=== PATIENT | female | born 1950 | race Caucasian/White ===

== ENCOUNTER 2020-06-25 13:38 | Inpatient (IN) | payer MEDICARE ==
--- NOTE | 2020-06-25 16:36 | Emergency Department Report ---
Blank Doc - Documentation Documentation: 69-year-old female presents emerged department, from her primary care provider the [facility] was found to have a sodium of 124 that was drawn yesterday around 11:30 AM in conjunction with a potassium of 5.5 to the back to come to the emergency department for evaluation and treatment options This initial assessment/diagnostic orders/clinical plan/treatment(s) is/are subject to change based on patients health status, clinical progression and re-assessment by fellow clinical providers in the ED. Further treatment and workup at subsequent clinical providers discretion. Patient/guardian urged not to elope from the ED as their condition may be serious if not clinically assessed and managed. Initial orders include: Labs
[2020-06-25 17:23] LABS: Basophils # (Auto) 0.1 K/mm3 (0.0-0.1); Basophils % (Auto) 0.5 % (0.0-1.8); Eosinophils % (Auto) 0.3 % (0.0-4.3); Hematocrit 38.6 % (30.3-42.9); Hemoglobin 13.4 gm/dl (10.1-14.3); Lymphocytes # (Auto) 1.2 K/mm3 (1.2-5.4); Lymphocytes % (Auto) 8.6 % (13.4-35.0); Mean Corpuscular HGB Conc 35 % (30-34); Mean Corpuscular Volume 93 fl (79-97); Monocytes # (Auto) 0.8 K/mm3 (0.0-0.8); Monocytes % (Auto) 5.5 % (0.0-7.3); Platelet Count 413 K/mm3 (140-440); Red Blood Count 4.16 M/mm3 (3.65-5.03); Red Cell Distribution Width 12.3 % (13.2-15.2)
[2020-06-25 17:37] LABS: Alanine Aminotransferase 17 units/L (7-56); Albumin 4.4 g/dL (3.9-5); BUN/Creatinine Ratio 24; Blood Urea Nitrogen 19 mg/dL (7-17); Calcium 9.7 mg/dL (8.4-10.2); Hemolysis Index 35
--- NOTE | 2020-06-25 17:48 | XRay Report ---
CHEST PA AND LATERAL VIEWS INDICATION: WEAK. COMPARISON: Chest radiograph 10/16/2019. CT angiogram chest 10/17/2019. FINDINGS: Support devices: None Heart: Stable. Lungs/Pleura: Dense right basilar disease with small right pleural effusion, unchanged. Left lung rem ains clear. IMPRESSION: 1. Persistent, extensive right basilar disease, unchanged in 8 months. No new disease. Signer Name: Dagoberto Arnold MD Signed: 06/25/2020 5:44 PM Workstation Name: [id number]
[2020-06-25] MEDS ORDERED: SODIUM CHLORIDE 0.9% 1000 ML 1,000 ML IV ONE (19:44)
--- NOTE | 2020-06-25 19:50 | Emergency Department Report ---
ED General Adult HPI - General Chief complaint: Recheck/Abnormal Lab/Rx Stated complaint: SENT BY DR OFFICE/LAB WORK Time Seen by Provider: 06/25/20 19:19 Source: patient, family Mode of arrival: Wheelchair Limitations: Language Barrier - History of Present Illness Initial comments: Patient is 69 years old Iranian female with history of hypertension and diabetes. Patient presented to the ER after she was advised by her primary care physician to come to the emergency room for abnormal labs. Patient had a blood drawn yesterday by her primary care physician and found to have a sodium of 124 and potassium of 5.5. In the emergency room patient found to have a sodium of 107 and potassium of 6. Patient immediately started on normal saline at 125 mL/h. Patient was admitted before for the same reason and her sodium was as low as 107 last time, she was diagnosed with SIADH treated with Tolvaptan and responded very well. - Related Data Home Medications Medication Instructions Recorded Confirmed Last Taken Furosemide [Lasix TAB] 20 mg PO QDAY 10/15/19 10/15/19 Unknown Metformin HCl [Glucophage] 1,000 mg PO DAILY 10/15/19 10/15/19 Unknown Previous Rx's Medication Instructions Recorded Last Taken Type Valsartan [Diovan] 160 mg PO DAILY #30 tablet 10/18/19 Unknown Rx dilTIAZem CD [Cardizem CD] 120 mg PO QDAY #30 capsule 10/18/19 Unknown Rx Allergies Allergy/AdvReac Type Severity Reaction Status Date / Time No Known Allergies Allergy Verified 10/12/19 11:06 ED Review of Systems ROS: Stated complaint: SENT BY DR OFFICE/LAB WORK Other details as noted in HPI Comment: All other systems reviewed and negative Constitutional: denies: chills, fever Respiratory: denies: cough, shortness of breath, SOB with exertion Cardiovascular: denies: chest pain Gastrointestinal: denies: abdominal pain, nausea, vomiting ED Past Medical Hx - Past Medical History Previous Medical History?: Yes Hx Hypertension: Yes Hx Diabetes: Yes - Social History Smoking Status: Unknown if ever smoked - Medications Home Medications: Home Medications Medication Instructions Recorded Confirmed Last Taken Type Furosemide [Lasix TAB] 20 mg PO QDAY 10/15/19 10/15/19 Unknown History Metformin HCl [Glucophage] 1,000 mg PO DAILY 10/15/19 10/15/19 Unknown History Valsartan [Diovan] 160 mg PO DAILY #30 tablet 10/18/19 Unknown Rx dilTIAZem CD [Cardizem CD] 120 mg PO QDAY #30 capsule 10/18/19 Unknown Rx ED Physical Exam - General Limitations: Language Barrier General appearance: alert, in no apparent distress - Head Head exam: Present: atraumatic, normocephalic, normal inspection - Eye Eye exam: Present: normal appearance, PERRL - ENT ENT exam: Present: normal exam, normal orophraynx, mucous membranes moist - Neck Neck exam: Present: normal inspection, full ROM. Absent: tenderness, meningismus - Respiratory Respiratory exam: Present: normal lung sounds bilaterally - Cardiovascular Cardiovascular Exam: Present: regular rate, normal rhythm, normal heart sounds - GI/Abdominal GI/Abdominal exam: Present: soft, normal bowel sounds. Absent: distended, tenderness, guarding, rebound, rigid, organomegaly, mass, bruit, pulsatile mass, hernia - Extremities Exam Extremities exam: Present: normal inspection, full ROM, normal capillary refill. Absent: tenderness - Back Exam Back exam: Present: normal inspection, full ROM. Absent: CVA tenderness (R), CVA tenderness (L) - Neurological Exam Neurological exam: Present: alert, oriented X3, CN II-XII intact - Psychiatric Psychiatric exam: Present: normal mood - Skin Skin exam: Present: warm, intact, normal color ED Course Vital Signs 06/25/20 06/25/20 06/25/20 14:16 20:10 20:30 Temperature 97.8 F 97.6 F Pulse Rate 129 H 128 H 124 H Respiratory 16 24 24 Rate Blood Pressure 175/96 Blood Pressure 202/104 175/96 [Right] O2 Sat by Pulse 97 97 97 Oximetry 06/25/20 06/25/20 06/25/20 20:45 21:01 21:15 Temperature Pulse Rate 125 H 128 H 126 H Respiratory 26 H 23 25 H Rate Blood Pressure 182/102 173/101 Blood Pressure [Right] O2 Sat by Pulse 97 97 98 Oximetry 06/25/20 06/25/20 06/25/20 21:19 21:31 21:45 Temperature Pulse Rate 127 H 104 H 108 H Respiratory 24 26 H Rate Blood Pressure 167/100 160/92 148/80 Blood Pressure [Right] O2 Sat by Pulse 96 97 Oximetry 1206/25/20 06/25/20 22:00 22:15 22:31 Temperature Pulse Rate 111 H 112 H 113 H Respiratory 29 H 17 26 H Rate Blood Pressure 153/99 162/86 164/80 Blood Pressure [Right] O2 Sat by Pulse 98 97 96 Oximetry 06/25/20 22:45 Temperature Pulse Rate 112 H Respiratory 27 H Rate Blood Pressure 164/80 Blood Pressure [Right] O2 Sat by Pulse 97 Oximetry ED Medical Decision Making - Lab Data Result diagrams: 06/26/20 04:41 06/26/20 04:41 - EKG Data -: EKG Interpreted by [facility] EKG shows normal: sinus rhythm Rate: tachycardia - EKG Data Interpretation: no acute changes - Radiology Data Radiology results: report reviewed - Medical Decision Making Patient is 69 years old Iranian female with history of hypertension and diabetes. Patient presented to the ER after she was advised by her primary care physician to come to the emergency room for abnormal labs. Patient had a blood drawn yesterday by her primary care physician and found to have a sodium of 124 and potassium of 5.5. In the emergency room patient found to have a sodium of 107 and potassium of 6. Patient immediately started on normal saline at 125 mL/h. Patient was admitted before for the same reason and her sodium was as low as 107 last time, she was diagnosed with SIADH treated with Tolvaptan and responded very well. EKG shows sinus tachycardia with a heart rate of 128. Blood pressure is 190/110. Patient received labetalol 10 mg IV. Patient started on normal saline at 125 mL/h. Patient also received dextrose and insulin for hyperkalemia. I discussed the patient with Dr. Pollack, he agreed to admit the patient to medical service for further management. Critical Care Time: Yes Critical care time in (mins) excluding proc time.: 30 Critical care attestation.: If time is entered above; I have spent that time in minutes in the direct care of this critically ill patient, excluding procedure time. ED Disposition Clinical Impression: Acute hyponatremia, Acute hyperkalemia Disposition: OP ADMIT IP TO THIS HOSP Is pt being admited?: Yes Condition: Stable
[2020-06-25] MEDS ORDERED: INSULIN REGULAR, HUMAN 100 UNIT/ML 3ML VIAL IV ONE (21:02)
[2020-06-25] MEDS ORDERED: DEXTROSE 50% IN WATER (25GM) 50 ML SYRINGE IV ONE ×2 (21:11→22:00)
[2020-06-25] MEDS ORDERED: MAGNESIUM HYDROXIDE (MOM) ORAL LIQD UDC PO PRN (22:06)
[2020-06-25] MEDS ORDERED: DEXTROSE 50% IN WATER (25GM) 50 ML SYRINGE IV PRN (22:06)
[2020-06-25] MEDS ORDERED: ONDANSETRON 4 MG/2 ML INJ IV PRN (22:06)
--- NOTE | 2020-06-25 22:20 | History and Physical Report ---
History of Present Illness Date of examination: 06/25/20 Date of admission: 06/25/20 21:33 Chief complaint: Abnormal Labs History of present illness: 69-year-old Turkish female with known history of diabetes mellitus and hypertension was sent to the emergency room today by the primary care physician for evaluation of abnormal labs. Patient had some lab work done at her primary care physician's office and sodium was said to be 124 and potassium of 5.5. Repeat labs here in the emergency room reveals a sodium of 107 and potassium of 6. Patient has had similar presentations in the past and was diagnosed with SIADH during which she was treated with tolvaptan with good response. Patient had no complaints today and there was a language barrier however who was by the bedside was able to respond on a limited basis for his . Patient has been started on IV fluid normal saline. Past History Past Medical History: diabetes, hypertension Past Surgical History: No surgical history Social history: no significant social history Family history: no significant family history Medications and Allergies Allergies Allergy/AdvReac Type Severity Reaction Status Date / Time No Known Allergies Allergy Verified 10/12/19 11:06 Home Medications Medication Instructions Recorded Confirmed Last Taken Type Furosemide [Lasix TAB] 20 mg PO QDAY 10/15/19 10/15/19 Unknown History Metformin HCl [Glucophage] 1,000 mg PO DAILY 10/15/19 10/15/19 Unknown History Valsartan [Diovan] 160 mg PO DAILY #30 tablet 10/18/19 Unknown Rx dilTIAZem CD [Cardizem CD] 120 mg PO QDAY #30 capsule 10/18/19 Unknown Rx Active Meds: Active Medications Sodium Chloride (Nacl 0.9% 1000 Ml) 1,000 mls @ 125 mls/hr IV ONCE ONE Stop: 06/26/20 03:43 Last Admin: 06/25/20 20:20 Dose: 125 mls/hr Documented by: Review of Systems Constitutional: no fever, no chills Cardiovascular: no chest pain, no palpitations Respiratory: no cough, no shortness of breath Gastrointestinal: no abdominal pain, no nausea, no vomiting, no diarrhea Genitourinary Female: no pelvic pain, no flank pain, no dysuria, no hematuria Musculoskeletal: no neck pain, no low back pain Integumentary: no rash, no pruritis Neurological: no headaches, no convulsions, no confusion Psychiatric: no anxiety, no depression Exam - Constitutional Vitals: Temp Pulse Resp BP Pulse Ox 97.6 F 108 H 26 H 148/80 97 06/25/20 20:10 06/25/20 21:45 06/25/20 21:45 06/25/20 21:45 06/25/20 21:45 General appearance: Present: no acute distress, well-nourished - EENT Eyes: Present: PERRL, EOM intact. Absent: scleral icterus ENT: hearing intact, clear oral mucosa, dentition normal - Neck Neck: Present: supple, normal ROM - Respiratory Respiratory effort: normal Respiratory: bilateral: CTA - Cardiovascular Rhythm: regular Heart Sounds: Present: S1 & S2. Absent: gallop, systolic murmur, diastolic mu rmur, rub - Extremities Extremities: no ischemia, pulses intact, pulses symmetrical, No edema, Full ROM Peripheral Pulses: within normal limits - Abdominal General gastrointestinal: Present: soft, non-tender, non-distended, normal bowel sounds. Absent: mass - Integumentary Integumentary: Present: clear, warm, dry. Absent: rash - Musculoskeletal Musculoskeletal: strength equal bilaterally - Psychiatric Psychiatric: appropriate mood/affect, intact judgment & insight, memory intact, cooperative - Neurologic Neurologic: CNII-XII intact, no focal deficits, moves all extremities Results - Labs CBC & Chem 7: 06/25/20 16:54 06/25/20 16:54 Labs: Abnormal lab results 06/25/20 06/25/20 Range/Units 16:54 16:54 WBC 14.0 H (4.5-11.0) K/mm3 MCHC 35 H (30-34) % RDW 12.3 L (13.2-15.2) % Lymph % (Auto) 8.6 L (13.4-35.0) % Seg Neutrophils % 85.1 H (40.0-70.0) % Seg Neutrophils # 11.9 H (1.8-7.7) K/mm3 Sodium 107 L* (137-145) mmol/L Potassium 6.0 H (3.6-5.0) mmol/L Chloride 76.1 L (98-107) mmol/L Carbon Dioxide 17 L (22-30) mmol/L BUN 19 H (7-17) mg/dL Glucose 211 H (65-100) mg/dL Assessment and Plan - Patient Problems (1) Acute hyponatremia Current Visit: Yes Status: Acute Plan to address problem: Patient was diagnosed with SIADH in the past. We will place consult to nephrology for evaluation and further recommendation. Patient had used tolvaptan in the past. Meanwhile patient placed on IV fluid normal saline. Will monitor chemistry, serum/urine osm, urine Na, Urine Cl levels. serum cortisol and TSH with Free T4 (2) Acute hyperkalemia Current Visit: Yes Status: Acute Plan to address problem: Patient has had insulin and glucose, calcium gluconate and Kayexalate. Will monitor potassium levels. (3) HTN (hypertension) Current Visit: No Status: Acute Qualifiers: Plan to address problem: We will monitor vital signs and resume routine home medications once reconciled. (4) T2DM (type 2 diabetes mellitus) Current Visit: No Status: Chronic Plan to address problem: We will monitor Accu-Cheks. (5) DVT prophylaxis Current Visit: No Status: Acute Plan to address problem: Patient placed on subcutaneous heparin. (6) Full code status Current Visit: Yes Status: Acute
[2020-06-26] MEDS ORDERED: SODIUM POLYSTYRENE 15 GM/60 ML ORAL LIQD PO ONE (05:13)
[2020-06-26 05:22] LABS: Basophils % (Auto) 0.2 % (0.0-1.8); Eosinophils # (Auto) 0.1 K/mm3 (0.0-0.4); Eosinophils % (Auto) 0.5 % (0.0-4.3); Hematocrit 35.5 % (30.3-42.9); Hemoglobin 12.4 gm/dl (10.1-14.3); Lymphocytes % (Auto) 6.6 % (13.4-35.0); Mean Corpuscular HGB Conc 35 % (30-34); Mean Corpuscular Volume 91 fl (79-97); Monocytes # (Auto) 0.8 K/mm3 (0.0-0.8); Monocytes % (Auto) 5.6 % (0.0-7.3); Platelet Count 438 K/mm3 (140-440); Red Cell Distribution Width 12.4 % (13.2-15.2)
[2020-06-26 05:35] LABS: Blood Urea Nitrogen 14 mg/dL (7-17); Calcium 9.3 mg/dL (8.4-10.2); Hemolysis Index 29
[2020-06-26] MEDS: HEPARIN 5,000 UNIT/1 ML VIAL SUB-Q SCH ×3 (05:36→22:55)
[2020-06-26 05:54] LABS: BUN/Creatinine Ratio 28
[2020-06-26] MEDS: INSULIN LISPRO 100 UNIT/ML VIAL 3 mL SUB-Q SCH ×4 (08:52→22:50)
--- NOTE | 2020-06-26 09:25 | Progress Note ---
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 Nephrology consultation for evaluation and further recommendation. Patient had used tolvaptan in the past. Continue IV fluid normal saline for now. Will monitor chemistry, serum/urine osm, urine Na, Urine Cl levels. Follow-up serum cortisol and TSH with Free T4 Acute hyperkalemia Patient has had insulin and glucose, calcium gluconate and Kayexalate. Will monitor potassium levels. HTN (hypertension) Continue home antihypertensive medications. T2DM (type 2 diabetes mellitus) We will monitor Accu-Cheks. DVT prophylaxis Patient placed on subcutaneous heparin. Full code status History Interval history: No new issues overnight Hospitalist Physical - Constitutional Vitals: Temp Pulse Resp BP Pulse Ox 98.0 F 119 H 18 161/83 95 06/26/20 08:30 06/26/20 08:30 06/26/20 08:30 06/26/20 08:30 06/26/20 08:30 General appearance: Present: no acute distress, well-nourished - EENT Eyes: Present: PERRL, EOM intact ENT: hearing intact, clear oral mucosa, dentition normal - Neck Neck: Present: supple, normal ROM - Respiratory Respiratory effort: normal Respiratory: bilateral: CTA - Cardiovascular Rhythm: regular Heart Sounds: Present: S1 & S2. Absent: gallop, rub - Extremities Extremities: no ischemia, No edema, Full ROM - Abdominal General gastrointestinal: soft, non-tender, non-distended, normal bowel sounds - Integumentary Integumentary: Present: clear, warm, dry - Neurologic Neurologic: CNII-XII intact, moves all extremities Results - Labs CBC & Chem 7: 06/26/20 04:41 06/26/20 04:41 Labs: Laboratory Last Values WBC 15.1 K/mm3 (4.5-11.0) H 06/26/20 04:41 RBC 3.90 M/mm3 (3.65-5.03) 06/26/20 04:41 Hgb 12.4 gm/dl (10.1-14.3) 06/26/20 04:41 Hct 35.5 % (30.3-42.9) 06/26/20 04:41 MCV 91 fl (79-97) 06/26/20 04:41 MCH 32 pg (28-32) 06/26/20 04:41 MCHC 35 % (30-34) H 06/26/20 04:41 RDW 12.4 % (13.2-15.2) L 06/26/20 04:41 Plt Count 438 K/mm3 (140-440) 06/26/20 04:41 Lymph % (Auto) 6.6 % (13.4-35.0) L 06/26/20 04:41 [place] % (Auto) 5.6 % (0.0-7.3) 06/26/20 04:41 Eos % (Auto) 0.5 % (0.0-4.3) 06/26/20 04:41 Baso % (Auto) 0.2 % (0.0-1.8) 06/26/20 04:41 Lymph # (Auto) 1.0 K/mm3 (1.2-5.4) L 06/26/20 04:41 [place] # (Auto) 0.8 K/mm3 (0.0-0.8) 06/26/20 04:41 Eos # (Auto) 0.1 K/mm3 (0.0-0.4) 06/26/20 04:41 Baso # (Auto) 0.0 K/mm3 (0.0-0.1) 06/26/20 04:41 Seg Neutrophils % 87.1 % (40.0-70.0) H 06/26/20 04:41 Seg Neutrophils # 13.1 K/mm3 (1.8-7.7) H 06/26/20 04:41 PT 13.1 Sec. (12.2-14.9) 06/26/20 04:41 INR 1.00 (0.87-1.13) 06/26/20 04:41 Sodium 109 mmol/L (137-145) L* 06/26/20 04:41 Potassium 4.6 mmol/L (3.6-5.0) D 06/26/20 04:41 Chloride 75.4 mmol/L (98-107) L 06/26/20 04:41 Carbon Dioxide 20 mmol/L (22-30) L 06/26/20 04:41 Anion Gap 18 mmol/L 06/26/20 04:41 BUN 14 mg/dL (7-17) 06/26/20 04:41 Creatinine 0.5 mg/dL (0.6-1.2) L 06/26/20 04:41 Estimated GFR > 60 ml/min 06/26/20 04:41 BUN/Creatinine Ratio 28 % 06/26/20 04:41 Glucose 221 mg/dL (65-100) H 06/26/20 04:41 POC Glucose 286 mg/dL (70-105) H 06/26/20 08:05 Calcium 9.3 mg/dL (8.4-10.2) 06/26/20 04:41 Total Bilirubin 0.50 mg/dL (0.1-1.2) 06/25/20 16:54 AST 24 units/L (5-40) 06/25/20 16:54 ALT 17 units/L (7-56) 06/25/20 16:54 Alkaline Phosphatase 96 units/L (35-129) 06/25/20 16:54 Total Protein 8.1 g/dL (6.3-8.2) 06/25/20 16:54 Albumin 4.4 g/dL (3.9-5) 06/25/20 16:54 Albumin/Globulin Ratio 1.2 % 06/25/20 16:54 TSH 0.236 mlU/mL (0.270-4.200) L 06/26/20 05:39 Free T4 2.47 ng/dL (0.76-1.46) H 06/26/20 05:39 King/IV: IV Catheter Type [Right Hand] INT / Saline Lock Active Medications - Current Medications Current Medications: Generic Name Dose Route Start Last Admin Trade Name Deborah PRN Reason Stop Dose Admin Acetaminophen 650 mg 06/25/20 22:06 Tylenol PO Q4H PRN Pain MILD(1-3)/Fever >100.5/ADORNO Dextrose 50 ml 06/25/20 22:06 D50w (25gm) Syringe IV Q30MIN PRN Hypoglycemia Protocol Heparin Sodium (Porcine) 5,000 unit 06/26/20 06:00 06/26/20 05:36 Heparin SUB-Q 5,000 unit Q8HR ELIUD Administration Sodium Chloride 1,000 mls @ 125 mls/hr 06/25/20 22:15 Nacl 0.9% 1000 Ml IV DIRECT ELIUD Insulin Human Lispro 0 unit 06/26/20 07:30 06/26/20 08:52 Humalog SUB-Q 4 unit ACHS ELIUD Administration Protocol Magnesium Hydroxide 30 ml 06/25/20 22:06 Milk Of Magnesia PO Q4H PRN Constipation Ondansetron HCl 4 mg 06/25/20 22:06 Zofran IV Q8H PRN Nausea And Vomiting Sodium Chloride 10 ml 06/26/20 10:00 Sodium Chloride Flush Syringe 10 Ml IV BID ELIUD Sodium Chloride 10 ml 06/25/20 22:06 Sodium Chloride Flush Syringe 10 Ml IV PRN PRN LINE FLUSH
--- NOTE | 2020-06-26 09:41 | Consultation ---
History of Present Illness - Reason for Consult hyponatremia, hyperkalemia - History of Present Illness 69-year-old Italian speaking female with past medical history of hypertension diabetes who previously presented to the emergency department with similar symptoms of weakness fatigue associated with significant hyponatremia, essentially is brought into the emergency department because of similarly abnormal labs. At the previous hospitalization patient was diagnosed with SIADH and was appropriately treated with tolvaptan with 2 doses. She responded very well to the treatment. At that time she was also being worked up for an underlying pneumonia. She had a chest x-ray done during this admission which seems to show at least some residual scarring in the lungs possibly from the previous pneumonia. This may be a cause of her recurrent issues with SIADH and consequent hyponatremia. She is euvolemic on examination this morning and there is no acute issues or any sort of neurologic changes that necessitate the use of hypertonic saline. She was given IV fluids overnight with a mild increase in her serum sodium from 107 to 109 mEq/L. Nephrology is consulted for further management at this time. Past History Past Medical History: diabetes, hypertension Past Surgical History: No surgical history Social history: no significant social history Family history: no significant family history Medications and Allergies Allergies Allergy/AdvReac Type Severity Reaction Status Date / Time No Known Allergies Allergy Verified 10/12/19 11:06 Home Medications Medication Instructions Recorded Confirmed Last Taken Type Furosemide [Lasix TAB] 20 mg PO QDAY 10/15/19 10/15/19 Unknown History Metformin HCl [Glucophage] 1,000 mg PO DAILY 10/15/19 10/15/19 Unknown History Valsartan [Diovan] 160 mg PO DAILY #30 tablet 10/18/19 Unknown Rx dilTIAZem CD [Cardizem CD] 120 mg PO QDAY #30 capsule 10/18/19 Unknown Rx Active Meds: Active Medications Acetaminophen (Tylenol) 650 mg PO Q4H PRN PRN Reason: Pain MILD(1-3)/Fever >100.5/ADORNO Dextrose (D50w (25gm) Syringe) 50 ml IV Q30MIN PRN; Protocol PRN Reason: Hypoglycemia Heparin Sodium (Porcine) (Heparin) 5,000 unit SUB-Q Q8HR ELIUD Last Admin: 06/26/20 05:36 Dose: 5,000 unit Documented by: Sodium Chloride (Nacl 0.9% 1000 Ml) 1,000 mls @ 125 mls/hr IV DIRECT ELIUD Insulin Human Lispro (Humalog) 0 unit SUB-Q ACHS ELIUD; Protocol Last Admin: 06/26/20 08:52 Dose: 4 unit Documented by: Magnesium Hydroxide (Milk Of Magnesia) 30 ml PO Q4H PRN PRN Reason: Constipation Ondansetron HCl (Zofran) 4 mg IV Q8H PRN PRN Reason: Nausea And Vomiting Sodium Chloride (Sodium Chloride Flush Syringe 10 Ml) 10 ml IV BID ELIUD Sodium Chloride (Sodium Chloride Flush Syringe 10 Ml) 10 ml IV PRN PRN PRN Reason: LINE FLUSH Review of Systems All systems: negative Constitutional: fatigue Exam - Vital Signs Vital signs: Vital Signs Temp Pulse Resp BP Pulse Ox 97.8 F 129 H 16 202/104 97 06/25/20 14:16 06/25/20 14:16 06/25/20 14:16 06/25/20 14:16 06/25/20 14:16 - General Appearance General appearance: well-developed, appears stated age EENT: ATNC Neck: Present: neck supple Respiratory: Clear to Ascultation, Normal Exam Heart: regular Gastrointestinal: Present: normal Integumentary: no rash Neurologic: no focal deficit Musculoskeletal: Present: deferred Psychiatric: cooperative Results - Lab Results 06/26/20 04:41 06/26/20 04:41 Most recent lab results Calcium 9.3 mg/dL (8.4-10.2) 06/26/20 04:41 Assessment and Plan - Patient Problems (1) Hyponatremia Current Visit: Yes Status: Chronic Plan to address problem: Likely in the setting of SIADH. Chest x-ray does show persistent right basilar process that may actually be indicative of either previous pneumonia or possibly malignancy which has to be considered. Persistent pulmonary process can poten tially lead to recurrent issues with hyponatremia secondary to inappropriate secretion of ADH. Will be following up urine electrolyte studies. We will give a dose of tolvaptan today with careful monitoring. While on tolvaptan she should not be on any sort of fluid restrictions. She is euvolemic on examination. (2) Hyperkalemia Current Visit: Yes Status: Acute Plan to address problem: Improved with adequate fluid hydration and increased distal sodium delivery. (3) HTN (hypertension) Current Visit: No Status: Acute Qualifiers: Plan to address problem: Monitor under current regimen. (4) Right lower lobe pneumonia Current Visit: No Status: Acute Plan to address problem: Need to also consider possible underlying malignancy. Nonetheless this persistent right basilar lung process is most likely contributing to her recurrent hyponatremia in the setting of SIADH. (5) T2DM (type 2 diabetes mellitus) Current Visit: No Status: Chronic Plan to address problem: Diabetes managed per primary attending.
[2020-06-26] MEDS: SODIUM CHLORIDE 0.9% 1000 ML 1,000 ML IV SCH ×2 (09:48→17:46)
[2020-06-26] MEDS ORDERED: TOLVAPTAN 15 MG TAB PO ONE (10:00)
[2020-06-26 14:13] LABS: Bilirubin,Urine NEG (Negative); Blood,Urine NEG (Negative); Color,Urine Straw (Yellow); RBC,Urine < 1.0 /HPF (0.0-6.0); Urobilinogen,Urine < 2.0 mg/dL (<2.0); WBC,Urine < 1.0 /HPF (0.0-6.0)
[2020-06-26 15:50] LABS: Chloride, Urine 77.2 mmolL (110-250)
[2020-06-27] MEDS: dilTIAZem CD 120 MG CAP PO SCH ×2 (01:55→10:54)
[2020-06-27] MEDS: HEPARIN 5,000 UNIT/1 ML VIAL SUB-Q SCH ×4 (06:55→22:30)
[2020-06-27] MEDS: INSULIN LISPRO 100 UNIT/ML VIAL 3 mL SUB-Q SCH ×4 (08:18→22:30)
--- NOTE | 2020-06-27 09:47 | Progress Note ---
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 Nephrology consultation for evaluation and further recommendation. Patient had used tolvaptan in the past. Continue IV fluid normal saline for now. Will monitor chemistry, serum/urine osm, urine Na, Urine Cl levels. Follow-up serum cortisol and TSH with Free T4 Persistent right basilar infiltrate acute hyperkalemia Patient has had insulin and glucose, calcium gluconate and Kayexalate. Will monitor potassium levels. HTN (hypertension) Continue home antihypertensive medications. T2DM (type 2 diabetes mellitus) We will monitor Accu-Cheks. DVT prophylaxis Patient placed on subcutaneous heparin. Full code status 06/27/2020. Chest x-ray does show persistent right basilar process that may actually be indicative of either previous pneumonia or possibly malignancy which has to be considered. Persistent pulmonary process can potentially lead to recurrent issues with hyponatremia secondary to inappropriate secretion of ADH. Will be following up urine electrolyte studies. Check CT of chest and consider pulmonary consultation. No weight loss from her previous hospitalization in September. Continue tolvaptan per nephrology and monitor BMP closely. History Interval history: No new issues overnight Hospitalist Physical - Constitutional Vitals: Temp Pulse Resp BP Pulse Ox 98.0 F 130 H 20 124/79 99 06/27/20 07:27 06/27/20 08:19 06/27/20 08:19 06/27/20 07:27 06/27/20 07:27 General appearance: Present: no acute distress, well-nourished - EENT Eyes: Present: PERRL, EOM intact ENT: hearing intact, clear oral mucosa, dentition normal - Neck Neck: Present: supple, normal ROM - Respiratory Respiratory effort: normal Respiratory: bilateral: CTA - Cardiovascular Rhythm: regular Heart Sounds: Present: S1 & S2. Absent: gallop, rub - Extremities Extremities: no ischemia, No edema, Full ROM - Abdominal General gastrointestinal: soft, non-tender, non-distended, normal bowel sounds - Integumentary Integumentary: Present: clear, warm, dry - Neurologic Neurologic: CNII-XII intact, moves all extremities Results - Labs CBC & Chem 7: 06/26/20 04:41 06/26/20 04:41 Labs: Laboratory Last Values WBC 15.1 K/mm3 (4.5-11.0) H 06/26/20 04:41 RBC 3.90 M/mm3 (3.65-5.03) 06/26/20 04:41 Hgb 12.4 gm/dl (10.1-14.3) 06/26/20 04:41 Hct 35.5 % (30.3-42.9) 06/26/20 04:41 MCV 91 fl (79-97) 06/26/20 04:41 MCH 32 pg (28-32) 06/26/20 04:41 MCHC 35 % (30-34) H 06/26/20 04:41 RDW 12.4 % (13.2-15.2) L 06/26/20 04:41 Plt Count 438 K/mm3 (140-440) 06/26/20 04:41 Lymph % (Auto) 6.6 % (13.4-35.0) L 06/26/20 04:41 [place] % (Auto) 5.6 % (0.0-7.3) 06/26/20 04:41 Eos % (Auto) 0.5 % (0.0-4.3) 06/26/20 04:41 Baso % (Auto) 0.2 % (0.0-1.8) 06/26/20 04:41 Lymph # (Auto) 1.0 K/mm3 (1.2-5.4) L 06/26/20 04:41 [place] # (Auto) 0.8 K/mm3 (0.0-0.8) 06/26/20 04:41 Eos # (Auto) 0.1 K/mm3 (0.0-0.4) 06/26/20 04:41 Baso # (Auto) 0.0 K/mm3 (0.0-0.1) 06/26/20 04:41 Seg Neutrophils % 87.1 % (40.0-70.0) H 06/26/20 04:41 Seg Neutrophils # 13.1 K/mm3 (1.8-7.7) H 06/26/20 04:41 PT 13.1 Sec. (12.2-14.9) 06/26/20 04:41 INR 1.00 (0.87-1.13) 06/26/20 04:41 Sodium 109 mmol/L (137-145) L* 06/26/20 04:41 Potassium 4.6 mmol/L (3.6-5.0) D 06/26/20 04:41 Chloride 75.4 mmol/L (98-107) L 06/26/20 04:41 Carbon Dioxide 20 mmol/L (22-30) L 06/26/20 04:41 Anion Gap 18 mmol/L 06/26/20 04:41 BUN 14 mg/dL (7-17) 06/26/20 04:41 Creatinine 0.5 mg/dL (0.6-1.2) L 06/26/20 04:41 Estimated GFR > 60 ml/min 06/26/20 04:41 BUN/Creatinine Ratio 28 % 06/26/20 04:41 Glucose 221 mg/dL (65-100) H 06/26/20 04:41 POC Glucose 137 mg/dL (70-105) H 06/27/20 08:11 Calcium 9.3 mg/dL (8.4-10.2) 06/26/20 04:41 Total Bilirubin 0.50 mg/dL (0.1-1.2) 06/25/20 16:54 AST 24 units/L (5-40) 06/25/20 16:54 ALT 17 units/L (7-56) 06/25/20 16:54 Alkaline Phosphatase 96 units/L (35-129) 06/25/20 16:54 Total Protein 8.1 g/dL (6.3-8.2) 06/25/20 16:54 Albumin 4.4 g/dL (3.9-5) 06/25/20 16:54 Albumin/Globulin Ratio 1.2 % 06/25/20 16:54 TSH 0.236 mlU/mL (0.270-4.200) L 06/26/20 05:39 Free T4 2.47 ng/dL (0.76-1.46) H 06/26/20 05:39 Urine Color Straw (Yellow) 06/26/20 Unknown Urine Turbidity Clear (Clear) 06/26/20 Unknown Urine pH 7.0 (5.0-7.0) 06/26/20 Unknown Ur Specific [place] 1.014 (1.003-1.030) 06/26/20 Unknown Urine Protein 100 mg/dl mg/dL (Negative) 06/26/20 Unknown Urine Glucose (UA) >=500 mg/dL (Negative) 06/26/20 Unknown Urine Ketones Neg mg/dL (Negative) 06/26/20 Unknown Urine Blood Neg (Negative) 06/26/20 Unknown Urine Nitrite Neg (Negative) 06/26/20 Unknown Urine Bilirubin Neg (Negative) 06/26/20 Unknown Urine Urobilinogen < 2.0 mg/dL (<2.0) 06/26/20 Unknown Ur Leukocyte Esterase Neg (Negative) 06/26/20 Unknown Urine WBC (Auto) < 1.0 /HPF (0.0-6.0) 06/26/20 Unknown Urine RBC (Auto) < 1.0 /HPF (0.0-6.0) 06/26/20 Unknown Urine Sodium 82 mmol/L 06/26/20 Unknown Urine Chloride 77.2 mmolL (110-250) L 06/26/20 Unknown [place]/IV: Voiding Method External Female Catheter IV Catheter Type [Right Hand] INT / Saline Lock Active Medications - Current Medications Current Medications: Generic Name Dose Route Start Last Admin Trade Name Freq PRN Reason Stop Dose Admin Acetaminophen 650 mg 06/25/20 22:06 Tylenol PO Q4H PRN Pain MILD(1-3)/Fever >100.5/ADORNO Dextrose 50 ml 06/25/20 22:06 D50w (25gm) Syringe IV Q30MIN PRN Hypoglycemia Protocol Diltiazem HCl 120 mg 06/27/20 01:04 06/27/20 01:55 Cardizem Cd PO 120 mg QDAY ELIUD Administration Heparin Sodium (Porcine) 5,000 unit 06/26/20 06:00 06/27/20 06:55 Heparin SUB-Q 5,000 unit Q8HR ELIUD Administration Sodium Chloride 1,000 mls @ 125 mls/hr 06/25/20 22:15 06/26/20 17:46 Nacl 0.9% 1000 Ml IV 125 mls/hr DIRECT ELIUD Administration Insulin Human Lispro 0 unit 06/26/20 07:30 06/27/20 08:18 Humalog SUB-Q Not Given ACHS ELIUD Protocol Magnesium Hydroxide 30 ml 06/25/20 22:06 Milk Of Magnesia PO Q4H PRN Constipation Ondansetron HCl 4 mg 06/25/20 22:06 Zofran IV Q8H PRN Nausea And Vomiting Sodium Chloride 10 ml 06/26/20 10:00 06/26/20 22:55 Sodium Chloride Flush Syringe 10 Ml IV 10 ml BID ELIUD Administration Sodium Chloride 10 ml 06/25/20 22:06 Sodium Chloride Flush Syringe 10 Ml IV PRN PRN LINE FLUSH Valsartan 160 mg 06/27/20 10:00 Diovan PO DAILY ELIUD Nutrition/Malnutrition Assess - Dietary Evaluation Nutrition/Malnutrition Findings: Nutrition Notes Start: 06/26/20 13:14 Freq: Status: Active Protocol: Document 06/26/20 13:14 CW (Rec: 06/26/20 13:22 CW [email or web address]) Co-Sign 06/26/20 13:14 MK Nutrition Notes Need for Assessment generated from: MD Order,manager mental health,MST, Education Initial or Follow up Assessment Current Diagnosis Diabetes,Hypertension Other Pertinent Diagnosis hyponatremia, hyperkalemia, SIADH Current Diet cardiac/ consistent CHO Labs/Tests Na 109 BG 286 Pertinent Medications NS at 125mls/hr Kionex Height 5 ft Weight 74.4 kg [place] Body Weight (kg) 45.45 BMI 32.0 Weight Status Obese Subjective/Other Information MD consult for diet education. Pt does not speak Irish and unable to locate translater phone. No physical signs of muscle or fat wasting observed . Per RN notes, no reported wt loss. RN states poor appetite and consuming 25% PO. Burn Absent Trauma Absent GI Symptoms None Current % PO Poor (25-49%) Minimum of two criteria No physical signs of malnutrition #2 Nutrition Diagnosis Inadequate oral intake Etiology chronic disease As Evidenced by Signs and Symptoms Pt eating 25% of PO #1 Nutrition Diagnosis Food and nutrition-related knowledge deficit Etiology DM As Evidenced by Signs and Symptoms BG 211 at admission Is patient on ventilator? No Is Patient Ambulatory and/or Out of Bed No REE-([facility]-confined to bed) 1422.528 Kcal/Kg value to use for calculation 16 Approximate Energy Requirements Using 1190 kcal/Kg Calculation Used for Recommendations Kcal/kg Additional Notes Protein needs: 1-1.2g/kg ADjBW 60kg (60-72g/day) Fluid: 1ml/kcal or MD order Nutrition Intervention Change Diet Order: continue Add Supplement/Snack (indicate name/kcal Glucerna daily /protein ) Provides kCal: 220 Provides Protein (gm) 10 Teaching Recipient Patient Learning Readiness Confused Teaching Methods Handout Response to Teaching Reinforcement needed,Unable to comprehend Education Handouts Provided Language appropriate DM and heart health handout Barriers to Learning Language RD phone number provided No Patient aware of follow up options No Actions To Overcome Barriers Other Goal #1 Meet at least 75% energy and protein needs via PO and ONS Goal #2 DM diet understanding Anticipated Discharge Needs: Cardiac/ Consistent CHO Follow-Up By: 06/28/20 Additional Comments FU diet education needs, intakes
[2020-06-27] MEDS: VALSARTAN 160MG TAB PO SCH (10:54)
[2020-06-27] MEDS: SODIUM CHLORIDE 0.9% 1000 ML 1,000 ML IV SCH (10:58)
--- NOTE | 2020-06-27 12:17 | Cat Scan Report ---
CT CHEST WITHOUT CONTRAST INDICATION / CLINICAL INFORMATION: persistent right basilar infiltrate. TECHNIQUE: Axial CT images were obtained through the chest without contrast. All CT scans at this location are p erformed using CT dose reduction for ALARA by means of automated exposure control. COMPARISON: CTA chest 10/18/2019 FINDINGS: HEART: No significant abnormality. THORACIC AORTA: No significant abnormality. MEDIASTINUM and ADELINE: Ill-defined soft tissue mass measuring 2.2 x 4.7 cm image 44 which encases and completely obstructs the right lower lobe bronchus again noted. 1.3 cm right anterior mediastinal node image 32, previously measured 8 mm image 40 Enlarged 1.3 cm right lower paratracheal node, unchanged LUNGS: Complete right lower lobe atelectasis. 1.6 cm left upper lobe nodular parenchymal density image 22, previously measured 1.5 cm image 23 Stable 4 mm lingular pulmonary nodule image 39 PLEURA: Small right pleural effusion, increased in size. No pneumothorax. ADDITIONAL FINDINGS: None. UPPER ABDOMEN: No significant abnormality. SKELETAL SYSTEM: No significant abnormality. IMPRESSION: 1. Right perihilar mass again encases and obstructs the right lower lobe bronchus characteristic for primary lung cancer with worsening mediastinal adenopathy and small right pleural effusion which shou ld be considered malignant until proven otherwise 2. Contralateral left pulmonary nodules unchanged worrisome for pulmonary metastases Signer Name: Carlo Lobato MD Signed: 06/27/2020 12:12 PM Workstation Name: [id number]
--- NOTE | 2020-06-27 14:44 | Progress Note ---
Assessment and Plan - Patient Problems (1) Hyponatremia Current Visit: Yes Status: Chronic Plan to address problem: Likely in the setting of SIADH. Chest x-ray does show persistent right basilar process that may actually be indicative of either previous pneumonia or possibly malignancy which has to be considered. Persistent pulmonary process can po tentially lead to recurrent issues with hyponatremia secondary to inappropriate secretion of ADH. Patient received 1 dose of tolvaptan yesterday. Pending repeat basic metabolic panel today which I have ordered stat at this time. I have discussed with nursing staff to notify us of the results once available as we have to assess for likely second dose of tolvaptan today. We will hold off on giving any more tolvaptan until we see the results of the labs. (2) Hyperkalemia Current Visit: Yes Status: Acute Plan to address problem: Improved with adequate fluid hydration and increased distal sodium delivery. (3) Lung cancer Current Visit: Yes Status: Acute Plan to address problem: CT scan concerning for underlying right perihilar mass concerning for malignancy. Also with worsening adenopathy and contralateral Left pulmonary nodules. The presence of pulmonary malignancy would explain recurrent issues with hyponatremia secondary to inappropriate secretion of antidiuretic hormone. (4) HTN (hypertension) Current Visit: No Status: Acute Qualifiers: Plan to address problem: Monitor under current regimen. (5) T2DM (type 2 diabetes mellitus) Current Visit: No Status: Chronic Plan to address problem: Diabetes managed per primary attending. Subjective Date of service: 06/27/20 Interval history: Pending labs this morning. She received 1 dose of tolvaptan yesterday. Worsening shortness of breath noted over the last [address] scan of the chest which did show evidence of right perihilar mass that is encasing and obstructing the right lower lobe bronchus is characteristic of a primary lung cancer with what seems to worsening mediastinal adenopathy and a small right pleural effusion that has to be considered malignant until proven otherwise. She also has contralateral left pulmonary nodules which are worrisome for pulmonary metastasis at this time. Objective - Vital Signs Vital signs: Vital Signs - 12hr 06/27/20 06/27/20 06/27/20 03:46 06:00 07:27 Temperature 98.7 F 98.0 F Pulse Rate 127 H 114 H 114 H Pulse Rate [ From Monitor] Respiratory 20 Rate Blood Pressure 133/64 124/79 Blood Pressure [Right] O2 Sat by Pulse 96 99 Oximetry 06/27/20 06/27/20 06/27/20 08:19 11:42 14:07 Temperature 98.4 F Pulse Rate 140 H 127 H Pulse Rate [ 130 H From Monitor] Respiratory 20 Rate Blood Pressure 181/122 Blood Pressure 168/98 [Right] O2 Sat by Pulse 97 Oximetry - General Appearance General appearance: appears stated age, chronically ill EENT: ATNC Neck: no JVD Respiratory: Present: Wheezes Cardiology: regular Gastrointestinal: normal Integumentary: warm and dry Neurologic: no focal deficit Musculoskeletal: deferred Psychiatric: cooperative - Lab 06/26/20 04:41 06/26/20 04:41 Most recent lab results Calcium 9.3 mg/dL (8.4-10.2) 06/26/20 04:41 Urine Sodium 82 mmol/L 06/26/20 Unknown - Allied health notes Allied health notes reviewed: nursing Medications & Allergies - Medications Allergies/Adverse Reactions: Allergies No Known Allergies Allergy (Verified 10/12/19 11:06) Home Medications: Home Medications Medication Instructions Recorded Confirmed Last Taken Type Furosemide [Lasix TAB] 20 mg PO QDAY 10/15/19 06/27/20 Unknown History Metformin HCl [Glucophage] 1,000 mg PO DAILY 10/15/19 06/27/20 Unknown History Valsartan [Diovan] 160 mg PO DAILY #30 tablet 10/18/19 06/27/20 Unknown Rx dilTIAZem CD [Cardizem CD] 120 mg PO QDAY #30 capsule 10/18/19 06/27/20 Unknown Rx Active Medications: Generic Name Dose Route Start Last Admin Trade Name Freq PRN Reason Stop Dose Admin Acetaminophen 650 mg 06/25/20 22:06 Tylenol PO Q4H PRN Pain MILD(1-3)/Fever >100.5/ADORNO Dextrose 50 ml 06/25/20 22:06 D50w (25gm) Syringe IV Q30MIN PRN Hypoglycemia Protocol Diltiazem HCl 120 mg 06/27/20 01:04 06/27/20 10:54 Cardizem Cd PO 120 mg QDAY ELIUD Administration Heparin Sodium (Porcine) 5,000 unit 06/26/20 06:00 06/27/20 12:20 Heparin SUB-Q 5,000 unit Q8HR ELIUD Administration Sodium Chloride 1,000 mls @ 125 mls/hr 06/25/20 22:15 06/27/20 10:58 Nacl 0.9% 1000 Ml IV 125 mls/hr DIRECT ELIUD Administration Insulin Human Lispro 0 unit 06/26/20 07:30 06/27/20 12:20 Humalog SUB-Q 6 unit ACHS ELIUD Administration Protocol Magnesium Hydroxide 30 ml 06/25/20 22:06 Milk Of Magnesia PO Q4H PRN Constipation Ondansetron HCl 4 mg 06/25/20 22:06 Zofran IV Q8H PRN Nausea And Vomiting Sodium Chloride 10 ml 06/26/20 10:00 06/27/20 10:55 Sodium Chloride Flush Syringe 10 Ml IV 10 ml BID ELIUD Administration Sodium Chloride 10 ml 06/25/20 22:06 Sodium Chloride Flush Syringe 10 Ml IV PRN PRN LINE FLUSH Valsartan 160 mg 06/27/20 10:00 06/27/20 10:54 Diovan PO 160 mg DAILY ELIUD Administration
[2020-06-27 16:08] LABS: Blood Urea Nitrogen 13 mg/dL (7-17); Calcium 9.3 mg/dL (8.4-10.2); Hemolysis Index 5
[2020-06-27 16:37] LABS: BUN/Creatinine Ratio 26
[2020-06-28] MEDS: HEPARIN 5,000 UNIT/1 ML VIAL SUB-Q SCH ×3 (06:48→22:01)
[2020-06-28 08:30] LABS: Basophils # (Auto) 0.1 K/mm3 (0.0-0.1); Basophils % (Auto) 0.7 % (0.0-1.8); Eosinophils # (Auto) 0.3 K/mm3 (0.0-0.4); Eosinophils % (Auto) 2.6 % (0.0-4.3); Hemoglobin 11.7 gm/dl (10.1-14.3); Lymphocytes # (Auto) 1.6 K/mm3 (1.2-5.4); Lymphocytes % (Auto) 13.1 % (13.4-35.0); Mean Corpuscular HGB Conc 35 % (30-34); Mean Corpuscular Volume 94 fl (79-97); Monocytes # (Auto) 0.8 K/mm3 (0.0-0.8); Monocytes % (Auto) 6.7 % (0.0-7.3); Platelet Count 434 K/mm3 (140-440); Red Blood Count 3.52 M/mm3 (3.65-5.03); Red Cell Distribution Width 12.7 % (13.2-15.2)
[2020-06-28] MEDS: INSULIN LISPRO 100 UNIT/ML VIAL 3 mL SUB-Q SCH ×5 (08:38→22:01)
[2020-06-28 08:45] LABS: Blood Urea Nitrogen 15 mg/dL (7-17); Calcium 9.5 mg/dL (8.4-10.2); Hemolysis Index 12
[2020-06-28 08:57] LABS: BUN/Creatinine Ratio 25
--- NOTE | 2020-06-28 09:53 | Progress Note ---
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 Nephrology consultation for evaluation and further recommendation. Patient had used tolvaptan in the past. Continue IV fluid normal saline for now. Will monitor chemistry, serum/urine osm, urine Na, Urine Cl levels. Follow-up serum cortisol and TSH with Free T4 Persistent right basilar infiltrate acute hyperkalemia Patient has had insulin and glucose, calcium gluconate and Kayexalate. Will monitor potassium levels. HTN (hypertension) Continue home antihypertensive medications. T2DM (type 2 diabetes mellitus) We will monitor Accu-Cheks. DVT prophylaxis Patient placed on subcutaneous heparin. Full code status 06/27/2020. Chest x-ray does show persistent right basilar process that may actually be indicative of either previous pneumonia or possibly malignancy which has to be considered. Persistent pulmonary process can potentially lead to recurrent issues with hyponatremia secondary to inappropriate secretion of ADH. Will be following up urine electrolyte studies. Check CT of chest and consider pulmonary consultation. No weight loss from her previous hospitalization in September. Continue tolvaptan per nephrology and monitor BMP closely. 06/28/2020. CT scan of the chest reveals a right perihilar mass encasing and obstructing the right lower lobe bronchus characteristic of primary lung cancer with worsening mediastinal adenopathy and small right pleural effusion which is likely a malignant effusion. Patient also has contralateral left pulmonary nodules worrisome for pulmonary metastasis. Pulmonary and oncology consultation. History Interval history: No new issues overnight Hospitalist Physical - Constitutional Vitals: Temp Pulse Resp BP Pulse Ox 98.3 F 101 H 20 110/61 100 06/28/20 07:31 06/28/20 07:31 06/28/20 07:21 06/28/20 07:31 06/28/20 07:31 General appearance: Present: no acute distress, well-nourished - EENT Eyes: Present: PERRL, EOM intact ENT: hearing intact, clear oral mucosa, dentition normal - Neck Neck: Present: supple, normal ROM - Respiratory Respiratory effort: normal Respiratory: bilateral: CTA - Cardiovascular Rhythm: regular Heart Sounds: Present: S1 & S2. Absent: gallop, rub - Extremities Extremities: no ischemia, No edema, Full ROM - Abdominal General gastrointestinal: soft, non-tender, non-distended, normal bowel sounds - Integumentary Integumentary: Present: clear, warm, dry - Neurologic Neurologic: CNII-XII intact, moves all extremities Results - Labs CBC & Chem 7: 06/28/20 07:51 06/28/20 07:51 Labs: Laboratory Last Values WBC 12.6 K/mm3 (4.5-11.0) H 06/28/20 07:51 RBC 3.52 M/mm3 (3.65-5.03) L 06/28/20 07:51 Hgb 11.7 gm/dl (10.1-14.3) 06/28/20 07:51 Hct 33.0 % (30.3-42.9) 06/28/20 07:51 MCV 94 fl (79-97) 06/28/20 07:51 MCH 33 pg (28-32) H 06/28/20 07:51 MCHC 35 % (30-34) H 06/28/20 07:51 RDW 12.7 % (13.2-15.2) L 06/28/20 07:51 Plt Count 434 K/mm3 (140-440) 06/28/20 07:51 Lymph % (Auto) 13.1 % (13.4-35.0) L 06/28/20 07:51 Nye % (Auto) 6.7 % (0.0-7.3) 06/28/20 07:51 Eos % (Auto) 2.6 % (0.0-4.3) 06/28/20 07:51 Baso % (Auto) 0.7 % (0.0-1.8) 06/28/20 07:51 Lymph # (Auto) 1.6 K/mm3 (1.2-5.4) 06/28/20 07:51 Nye # (Auto) 0.8 K/mm3 (0.0-0.8) 06/28/20 07:51 Eos # (Auto) 0.3 K/mm3 (0.0-0.4) 06/28/20 07:51 Baso # (Auto) 0.1 K/mm3 (0.0-0.1) 06/28/20 07:51 Seg Neutrophils % 76.9 % (40.0-70.0) H 06/28/20 07:51 Seg Neutrophils # 9.7 K/mm3 (1.8-7.7) H 06/28/20 07:51 PT 13.1 Sec. (12.2-14.9) 06/26/20 04:41 INR 1.00 (0.87-1.13) 06/26/20 04:41 Sodium 127 mmol/L (137-145) L 06/28/20 07:51 Potassium 4.5 mmol/L (3.6-5.0) 06/28/20 07:51 Chloride 95.8 mmol/L (98-107) L 06/28/20 07:51 Carbon Dioxide 23 mmol/L (22-30) 06/28/20 07:51 Anion Gap 13 mmol/L 06/28/20 07:51 BUN 15 mg/dL (7-17) 06/28/20 07:51 Creatinine 0.6 mg/dL (0.6-1.2) 06/28/20 07:51 Estimated GFR > 60 ml/min 06/28/20 07:51 BUN/Creatinine Ratio 25 % 06/28/20 07:51 Glucose 131 mg/dL (65-100) H 06/28/20 07:51 POC Glucose 116 mg/dL (70-105) H 06/28/20 07:42 Calcium 9.5 mg/dL (8.4-10.2) 06/28/20 07:51 Total Bilirubin 0.50 mg/dL (0.1-1.2) 06/25/20 16:54 AST 24 units/L (5-40) 06/25/20 16:54 ALT 17 units/L (7-56) 06/25/20 16:54 Alkaline Phosphatase 96 units/L (35-129) 06/25/20 16:54 Total Protein 8.1 g/dL (6.3-8.2) 06/25/20 16:54 Albumin 4.4 g/dL (3.9-5) 06/25/20 16:54 Albumin/Globulin Ratio 1.2 % 06/25/20 16:54 TSH 0.236 mlU/mL (0.270-4.200) L 06/26/20 05:39 Free T4 2.47 ng/dL (0.76-1.46) H 06/26/20 05:39 Urine Color Straw (Yellow) 06/26/20 Unknown Urine Turbidity Clear (Clear) 06/26/20 Unknown Urine pH 7.0 (5.0-7.0) 06/26/20 Unknown Ur Specific [place] 1.014 (1.003-1.030) 06/26/20 Unknown Urine Protein 100 mg/dl mg/dL (Negative) 06/26/20 Unknown Urine Glucose (UA) >=500 mg/dL (Negative) 06/26/20 Unknown Urine Ketones Neg mg/dL (Negative) 06/26/20 Unknown Urine Blood Neg (Negative) 06/26/20 Unknown Urine Nitrite Neg (Negative) 06/26/20 Unknown Urine Bilirubin Neg (Negative) 06/26/20 Unknown Urine Urobilinogen < 2.0 mg/dL (<2.0) 06/26/20 Unknown Ur Leukocyte Esterase Neg (Negative) 06/26/20 Unknown Urine WBC (Auto) < 1.0 /HPF (0.0-6.0) 06/26/20 Unknown Urine RBC (Auto) < 1.0 /HPF (0.0-6.0) 06/26/20 Unknown Urine Sodium 82 mmol/L 06/26/20 Unknown Urine Chloride 77.2 mmolL (110-250) L 06/26/20 Unknown King/IV: Voiding Method External Female Catheter IV Catheter Type [Left Wrist] Peripheral IV IV Catheter Type [Right Hand] INT / Saline Lock Active Medications - Current Medications Current Medications: Generic Name Dose Route Start Last Admin Trade Name Freq PRN Reason Stop Dose Admin Acetaminophen 650 mg 06/25/20 22:06 Tylenol PO Q4H PRN Pain MILD(1-3)/Fever >100.5/ADORNO Dextrose 50 ml 06/25/20 22:06 D50w (25gm) Syringe IV Q30MIN PRN Hypoglycemia Protocol Diltiazem HCl 120 mg 06/27/20 01:04 06/27/20 10:54 Cardizem Cd PO 120 mg QDAY ELIUD Administration Heparin Sodium (Porcine) 5,000 unit 06/26/20 06:00 06/28/20 06:48 Heparin SUB-Q 5,000 unit Q8HR ELIUD Administration Sodium Chloride 1,000 mls @ 125 mls/hr 06/25/20 22:15 06/27/20 10:58 Nacl 0.9% 1000 Ml IV 125 mls/hr DIRECT ELIUD Administration Insulin Human Lispro 0 unit 06/26/20 07:30 12/11/20 08:38 Humalog SUB-Q Not Given ACHS [facility] Protocol Magnesium Hydroxide 30 ml 06/25/20 22:06 Milk Of Magnesia PO Q4H PRN Constipation Ondansetron HCl 4 mg 06/25/20 22:06 Zofran IV Q8H PRN Nausea And Vomiting Sodium Chloride 10 ml 06/26/20 10:00 06/27/20 22:31 Sodium Chloride Flush Syringe 10 Ml IV 10 ml BID ELIUD Administration Sodium Chloride 10 ml 06/25/20 22:06 Sodium Chloride Flush Syringe 10 Ml IV PRN PRN LINE FLUSH Valsartan 160 mg 06/27/20 10:00 06/27/20 10:54 Diovan PO 160 mg DAILY ELIUD Administration Nutrition/Malnutrition Assess - Dietary Evaluation Nutrition/Malnutrition Findings: Nutrition Notes Start: 06/26/20 13:14 Freq: Status: Active Protocol: Document 06/26/20 13:14 CW (Rec: 06/26/20 13:22 CW [email or web address]) Co-Sign 06/26/20 13:14 MK Nutrition Notes Need for Assessment generated from: MD Order,bricklayer helper,MST, Education Initial or Follow up Assessment Current Diagnosis Diabetes,Hypertension Other Pertinent Diagnosis hyponatremia, hyperkalemia, SIADH Current Diet cardiac/ consistent CHO Labs/Tests Na 109 BG 286 Pertinent Medications NS at 125mls/hr Kionex Height 5 ft Weight 74.4 kg [place] Body Weight (kg) 45.45 BMI 32.0 Weight Status Obese Subjective/Other Information MD consult for diet education. Pt does not speak Wolof and unable to locate translater phone. No physical signs of muscle or fat wasting observed . Per RN notes, no reported wt loss. RN states poor appetite and consuming 25% PO. Burn Absent Trauma Absent GI Symptoms None Current % PO Poor (25-49%) Minimum of two criteria No physical signs of malnutrition #2 Nutrition Diagnosis Inadequate oral intake Etiology chronic disease As Evidenced by Signs and Symptoms Pt eating 25% of PO #1 Nutrition Diagnosis Food and nutrition-related knowledge deficit Etiology DM As Evidenced by Signs and Symptoms BG 211 at admission Is patient on ventilator? No Is Patient Ambulatory and/or Out of Bed No REE-([facility]-confined to bed) 1422.528 Kcal/Kg value to use for calculation 16 Approximate Energy Requirements Using 1190 kcal/Kg Calculation Used for Recommendations Kcal/kg Additional Notes Protein needs: 1-1.2g/kg ADjBW 60kg (60-72g/day) Fluid: 1ml/kcal or MD order Nutrition Intervention Change Diet Order: continue Add Supplement/Snack (indicate name/kcal Glucerna daily /protein ) Provides kCal: 220 Provides Protein (gm) 10 Teaching Recipient Patient Learning Readiness Confused Teaching Methods Handout Response to Teaching Reinforcement needed,Unable to comprehend Education Handouts Provided Language appropriate DM and heart health handout Barriers to Learning Language RD phone number provided No Patient aware of follow up options No Actions To Overcome Barriers Other Goal #1 Meet at least 75% energy and protein needs via PO and ONS Goal #2 DM diet understanding Anticipated Discharge Needs: Cardiac/ Consistent CHO Follow-Up By: 06/28/20 Additional Comments FU diet education needs, intakes
[2020-06-28] MEDS: dilTIAZem CD 120 MG CAP PO SCH (10:44)
[2020-06-28] MEDS: VALSARTAN 160MG TAB PO SCH (10:44)
--- NOTE | 2020-06-28 12:00 | Consultation ---
History of Present Illness Consult date: 06/28/20 Requesting physician: CHRISTINA RICE Reason for consult: abnormal CXR/CT History of present illness: 69 y/o slovenian female, speaks, very little tuvaluan admitted with hyponatremia, thought to be secondary to SIADH. This is her second bout of this. Last seen her in September. Called by IMS today after CT of chest shows obstruction of the right lower lobe bronchus with distal atelectasis and what appears to be an endobronchial lesion in the airway with full encasement of that bronchus based on radiology report. Also she has a left upper lobe mass like lesion with irregular borders. Attempted to call but he does not understand tuvaluan very well either. Past History Past Medical History: diabetes, hypertension Past Surgical History: No surgical history Social history: no significant social history Family history: no significant family history Medications and Allergies Allergies Allergy/AdvReac Type Severity Reaction Status Date / Time No Known Allergies Allergy Verified 10/12/19 11:06 Home Medications Medication Instructions Recorded Confirmed Last Taken Type Furosemide [Lasix TAB] 20 mg PO QDAY 10/15/19 06/27/20 Unknown History Metformin HCl [Glucophage] 1,000 mg PO DAILY 10/15/19 06/27/20 Unknown History Valsartan [Diovan] 160 mg PO DAILY #30 tablet 10/18/19 06/27/20 Unknown Rx dilTIAZem CD [Cardizem CD] 120 mg PO QDAY #30 capsule 10/18/19 06/27/20 Unknown Rx Active Meds: Active Medications Acetaminophen (Tylenol) 650 mg PO Q4H PRN PRN Reason: Pain MILD(1-3)/Fever >100.5/ADORNO Dextrose (D50w (25gm) Syringe) 50 ml IV Q30MIN PRN; Protocol PRN Reason: Hypoglycemia Diltiazem HCl (Cardizem Cd) 120 mg PO QDAY ELIUD Last Admin: 06/28/20 10:44 Dose: 120 mg Documented by: Heparin Sodium (Porcine) (Heparin) 5,000 unit SUB-Q Q8HR ELIUD Last Admin: 06/28/20 06:48 Dose: 5,000 unit Documented by: Sodium Chloride (Nacl 0.9% 1000 Ml) 1,000 mls @ 125 mls/hr IV DIRECT ELIUD Last Admin: 06/27/20 10:58 Dose: 125 mls/hr Documented by: Insulin Human Lispro (Humalog) 0 unit SUB-Q ACHS [facility]; Protocol Last Admin: 06/28/20 08:38 Dose: Not Given Documented by: Magnesium Hydroxide (Milk Of Magnesia) 30 ml PO Q4H PRN PRN Reason: Constipation Ondansetron HCl (Zofran) 4 mg IV Q8H PRN PRN Reason: Nausea And Vomiting Sodium Chloride (Sodium Chloride Flush Syringe 10 Ml) 10 ml IV BID [facility] Last Admin: 06/28/20 10:41 Dose: Not Given Documented by: Sodium Chloride (Sodium Chloride Flush Syringe 10 Ml) 10 ml IV PRN PRN PRN Reason: LINE FLUSH Valsartan (Diovan) 160 mg PO DAILY [facility] Last Admin: 06/28/20 10:44 Dose: 160 mg Documented by: Physical Examination Vital signs: Vital Signs Temp Pulse Resp BP Pulse Ox 97.8 F 129 H 16 202/104 97 06/25/20 14:16 06/25/20 14:16 06/25/20 14:16 06/25/20 14:16 06/25/20 14:16 Results - Laboratory Findings CBC and BMP: 06/28/20 07:51 06/28/20 07:51 PT/INR, D-dimer PT 13.1 Sec. (12.2-14.9) 06/26/20 04:41 INR 1.00 (0.87-1.13) 06/26/20 04:41 Abnormal lab findings: Abnormal Labs 06/25/20 06/25/20 06/26/20 16:54 16:54 04:41 WBC 14.0 H 15.1 H RBC MCH MCHC 35 H 35 H RDW 12.3 L 12.4 L Lymph % (Auto) 8.6 L 6.6 L Lymph # (Auto) 1.0 L Seg Neutrophils % 85.1 H 87.1 H Seg Neutrophils # 11.9 H 13.1 H Sodium 107 L* Potassium 6.0 H Chloride 76.1 L Carbon Dioxide 17 L BUN 19 H Creatinine Glucose 211 H POC Glucose TSH Free T4 Urine Chloride 06/26/20 06/26/20 06/26/20 04:41 05:39 05:39 WBC RBC MCH MCHC RDW Lymph % (Auto) Lymph # (Auto) Seg Neutrophils % Seg Neutrophils # Sodium 109 L* Potassium Chloride 75.4 L Carbon Dioxide 20 L BUN Creatinine 0.5 L Glucose 221 H POC Glucose TSH 0.236 L Free T4 2.47 H Urine Chloride 06/26/20 06/26/20 06/26/20 08:05 11:02 17:01 WBC RBC MCH MCHC RDW Lymph % (Auto) Lymph # (Auto) Seg Neutrophils % Seg Neutrophils # Sodium Potassium Chloride Carbon Dioxide BUN Creatinine Glucose POC Glucose 286 H 229 H 198 H TSH Free T4 Urine Chloride 06/26/20 06/26/20 06/27/20 21:11 Unknown 08:11 WBC RBC MCH MCHC RDW Lymph % (Auto) Lymph # (Auto) Seg Neutrophils % Seg Neutrophils # Sodium Potassium Chloride Carbon Dioxide BUN Creatinine Glucose POC Glucose 137 H 137 H TSH Free T4 Urine Chloride 77.2 L 06/27/20 06/27/20 06/27/20 11:48 15:00 21:38 WBC RBC MCH MCHC RDW Lymph % (Auto) Lymph # (Auto) Seg Neutrophils % Seg Neutrophils # Sodium 127 L D Potassium Chloride 97.0 L Carbon Dioxide 21 L BUN Creatinine 0.5 L Glucose 126 H POC Glucose 304 H 216 H TSH Free T4 Urine Chloride 06/28/20 06/28/20 06/28/20 07:42 07:51 07:51 WBC 12.6 H RBC 3.52 L MCH 33 H MCHC 35 H RDW 12.7 L Lymph % (Auto) 13.1 L Lymph # (Auto) Seg Neutrophils % 76.9 H Seg Neutrophils # 9.7 H Sodium 127 L Potassium Chloride 95.8 L Carbon Dioxide BUN Creatinine Glucose 131 H POC Glucose 116 H TSH Free T4 Urine Chloride - Diagnostic Findings Chest x-ray: image reviewed CT scan - chest: image reviewed Assessment and Plan 69 y/o female with right lower lobe endobronchial disease and mass encasing the right lower lobe bronchus as well as left upper lobe lesion in the prescence of SIADH, concerning for malignancy. Needs bronch, will attempt to get the language pipeline technician available to discuss the possibility of doing this on Wednesday. Don't know the GI schedule so will shoot for afternoon. Please make patient NPO after midnight on Wednesday and will let you know if not able to do bronch. Imperative to have language line so if not able to get substation maintenance technician now, will have to attempt again on Arm[place] morning. Spoke with GI and early afternoon is available on Wednesday.
--- NOTE | 2020-06-28 12:59 | Progress Note ---
Assessment and Plan - Patient Problems (1) Hyponatremia Current Visit: Yes Status: Chronic Plan to address problem: Likely in the setting of SIADH. Chest x-ray does show persistent right basilar process that may actually be indicative of either previous pneumonia or possibly malignancy which has to be considered. Persistent pulmonary process can po tentially lead to recurrent issues with hyponatremia secondary to inappropriate secretion of ADH. Patient received 1 dose of tolvaptan with repeat basic metabolic panel indicating appropriate response. (2) Hyperkalemia Current Visit: Yes Status: Acute Plan to address problem: Improved with adequate fluid hydration and increased distal sodium delivery. (3) Lung cancer Current Visit: Yes Status: Acute Plan to address problem: CT scan concerning for underlying right perihilar mass concerning for malignan cy. Also with worsening adenopathy and contralateral Left pulmonary nodules. The presence of pulmonary malignancy would explain recurrent issues with hyponatremia secondary to inappropriate secretion of antidiuretic hormone. (4) HTN (hypertension) Current Visit: No Status: Acute Qualifiers: Plan to address problem: Monitor under current regimen. (5) T2DM (type 2 diabetes mellitus) Current Visit: No Status: Chronic Plan to address problem: Diabetes managed per primary attending. Subjective Date of service: 06/28/20 Interval history: No acute changes overnight. Labs did show improvement in serum sodium post one dose of tolvaptan. CT chest reviewed. Pulmonary consult reviewed. Objective - Vital Signs Vital signs: Vital Signs - 12hr 06/28/20 06/28/20 06/28/20 04:29 07:21 07:31 Temperature 98.0 F 98.3 F Pulse Rate 98 H 101 H Pulse Rate [ 130 H From Monitor] Respiratory 18 20 Rate Blood Pressure 116/63 110/61 O2 Sat by Pulse 99 100 Oximetry 06/28/20 12:11 Temperature 98.7 F Pulse Rate 118 H Pulse Rate [ From Monitor] Respiratory Rate Blood Pressure 137/72 O2 Sat by Pulse 100 Oximetry - General Appearance General appearance: appears stated age EENT: ATNC Neck: no JVD Respiratory: Present: Clear to Ascultation Cardiology: regular Gastrointestinal: normal Integumentary: no rash Neurologic: no focal deficit Musculoskeletal: deferred Psychiatric: cooperative - Lab 06/28/20 07:51 06/28/20 07:51 Most recent lab results Calcium 9.5 mg/dL (8.4-10.2) 06/28/20 07:51 Urine Sodium 82 mmol/L 06/26/20 Unknown - Allied health notes Allied health notes reviewed: nursing Medications & Allergies - Medications Allergies/Adverse Reactions: Allergies No Known Allergies Allergy (Verified 10/12/19 11:06) Home Medications: Home Medications Medication Instructions Recorded Confirmed Last Taken Type Furosemide [Lasix TAB] 20 mg PO QDAY 10/15/19 06/27/20 Unknown History Metformin HCl [Glucophage] 1,000 mg PO DAILY 10/15/19 06/27/20 Unknown History Valsartan [Diovan] 160 mg PO DAILY #30 tablet 10/18/19 06/27/20 Unknown Rx dilTIAZem CD [Cardizem CD] 120 mg PO QDAY #30 capsule 10/18/19 06/27/20 Unknown Rx Active Medications: Generic Name Dose Route Start Last Admin Trade Name Freq PRN Reason Stop Dose Admin Acetaminophen 650 mg 06/25/20 22:06 Tylenol PO Q4H PRN Pain MILD(1-3)/Fever >100.5/ADORNO Dextrose 50 ml 06/25/20 22:06 D50w (25gm) Syringe IV Q30MIN PRN Hypoglycemia Protocol Diltiazem HCl 120 mg 06/27/20 01:04 06/28/20 10:44 Cardizem Cd PO 120 mg QDAY ELIUD Administration Heparin Sodium (Porcine) 5,000 unit 06/26/20 06:00 06/28/20 06:48 Heparin SUB-Q 5,000 unit Q8HR ELIUD Administration Sodium Chloride 1,000 mls @ 125 mls/hr 06/25/20 22:15 06/27/20 10:58 Nacl 0.9% 1000 Ml IV 125 mls/hr DIRECT ELIUD Administration Insulin Human Lispro 0 unit 06/26/20 07:30 06/28/20 12:25 Humalog SUB-Q 4 unit ACHS ELIUD Administration Protocol Magnesium Hydroxide 30 ml 06/25/20 22:06 Milk Of Magnesia PO Q4H PRN Constipation Ondansetron HCl 4 mg 06/25/20 22:06 Zofran IV Q8H PRN Nausea And Vomiting Sodium Chloride 10 ml 06/26/20 10:00 06/28/20 10:41 Sodium Chloride Flush Syringe 10 Ml IV Not Given BID ELIUD Sodium Chloride 10 ml 06/25/20 22:06 Sodium Chloride Flush Syringe 10 Ml IV PRN PRN LINE FLUSH Valsartan 160 mg 06/27/20 10:00 06/28/20 10:44 Diovan PO 160 mg DAILY ELIUD Administration
[2020-06-28 17:19] LABS: INR 0.91 (0.87-1.13)
[2020-06-28 17:36] LABS: Partial Thromboplastin Time < 20.0 Sec. (24.2-36.6)
[2020-06-28] MEDS ORDERED: ALBUTEROL 2.5 MG/3 ML NEBU IH PRN (22:26)
--- NOTE | 2020-06-29 | Hem/Onc Consultation ---
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 has been confused, not able to recount medical history even with a ramp service man 06/28/2020. CT scan of the chest reveals a right perihilar mass encasing and obstructing the right lower lobe bronchus characteristic of primary lung cancer with worsening mediastinal adenopathy and small right pleural effusion which is likely a malignant effusion. Patient also has contralateral left pulmonary nodules worrisome for pulmonary metastasis. 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 REC/PLAN: bronch/biopsy when possible braiin MRI if possibl;e labs to include CEA, LDH lovenox for DVT/PE prevention will eventually need in-person oncologist for palliative chemotheapy +/- radiation Vital Signs Temp Pulse Resp BP Pulse Ox 99.6 F 117 H 20 150/56 100 06/28/20 19:37 06/28/20 22:42 06/28/20 22:42 06/28/20 19:37 06/28/20 22:00 Temperature -Last 24 Hours Temperature 99.6 F Temperature 98.7 F Temperature 98.3 F Temperature 98.0 F Home Medications Medication Instructions Recorded Confirmed Last Taken Furosemide [Lasix TAB] 20 mg PO QDAY 10/15/19 06/27/20 Unknown Metformin HCl [Glucophage] 1,000 mg PO DAILY 10/15/19 06/27/20 Unknown Previous Rx's Medication Instructions Recorded Last Taken Type Valsartan [Diovan] 160 mg PO DAILY #30 tablet 10/18/19 Unknown Rx dilTIAZem CD [Cardizem CD] 120 mg PO QDAY #30 capsule 10/18/19 Unknown Rx Active Medications Acetaminophen (Tylenol) 650 mg PO Q4H PRN PRN Reason: Pain MILD(1-3)/Fever >100.5/ADORNO Albuterol (Albuterol 2.5 Mg/3 Ml Nebu) 2.5 mg IH Q4HRT PRN PRN Reason: Shortness Of Breath Last Admin: 06/28/20 22:47 Dose: 2.5 mg Documented by: Dextrose (D50w (25gm) Syringe) 50 ml IV Q30MIN PRN; Protocol PRN Reason: Hypoglycemia Diltiazem HCl (Cardizem Cd) 120 mg PO QDAY [facility] Last Admin: 06/28/20 10:44 Dose: 120 mg Documented by: Heparin Sodium (Porcine) (Heparin) 5,000 unit SUB-Q Q8HR ELIUD Last Admin: 06/28/20 22:01 Dose: 5,000 unit Documented by: Sodium Chloride (Nacl 0.9% 1000 Ml) 1,000 mls @ 125 mls/hr IV DIRECT [facility] Last Admin: 06/27/20 10:58 Dose: 125 mls/hr Documented by: Insulin Human Lispro (Humalog) 0 unit SUB-Q ACHS ELIUD; Protocol Last Admin: 06/28/20 22:01 Dose: Not Given Documented by: Magnesium Hydroxide (Milk Of Magnesia) 30 ml PO Q4H PRN PRN Reason: Constipation Ondansetron HCl (Zofran) 4 mg IV Q8H PRN PRN Reason: Nausea And Vomiting Sodium Chloride (Sodium Chloride Flush Syringe 10 Ml) 10 ml IV BID [facility] Last Admin: 06/28/20 22:02 Dose: 10 ml Documented by: Sodium Chloride (Sodium Chloride Flush Syringe 10 Ml) 10 ml IV PRN PRN PRN Reason: LINE FLUSH Valsartan (Diovan) 160 mg PO DAILY [facility] Last Admin: 06/28/20 10:44 Dose: 160 mg Documented by: Laboratory Last Values WBC 12.6 K/mm3 (4.5-11.0) H 06/28/20 07:51 Hgb 11.7 gm/dl (10.1-14.3) 06/28/20 07:51 Hct 33.0 % (30.3-42.9) 06/28/20 07:51 Plt Count 434 K/mm3 (140-440) 06/28/20 07:51 NA 127 INR 0.91 (0.87-1.13) 06/28/20 16:08 Creatinine 0.6 mg/dL (0.6-1.2) 06/28/20 07:51 Urine Chloride 77.2 mmolL (110-250) L 06/26/20 Unknown Past History Past Medical History: diabetes, hypertension Past Surgical History: No surgical history Social history: no significant social history Family history: no significant family history Medications and Allergies Allergies Allergy/AdvReac Type Severity Reaction Status Date / Time No Known Allergies Allergy Verified 10/12/19 11:06 Home Medications Medication Instructions Recorded Confirmed Last Taken Type Furosemide [Lasix TAB] 20 mg PO QDAY 10/15/19 06/27/20 Unknown History Metformin HCl [Glucophage] 1,000 mg PO DAILY 10/15/19 06/27/20 Unknown History Valsartan [Diovan] 160 mg PO DAILY #30 tablet 10/18/19 06/27/20 Unknown Rx dilTIAZem CD [Cardizem CD] 120 mg PO QDAY #30 capsule 10/18/19 06/27/20 Unknown Rx Active Meds: Active Medications Acetaminophen (Tylenol) 650 mg PO Q4H PRN PRN Reason: Pain MILD(1-3)/Fever >100.5/ADORNO Albuterol (Albuterol 2.5 Mg/3 Ml Nebu) 2.5 mg IH Q4HRT PRN PRN Reason: Shortness Of Breath Last Admin: 06/28/20 22:47 Dose: 2.5 mg Documented by: Dextrose (D50w (25gm) Syringe) 50 ml IV Q30MIN PRN; Protocol PRN Reason: Hypoglycemia Diltiazem HCl (Cardizem Cd) 120 mg PO QDAY ELIUD Last Admin: 06/28/20 10:44 Dose: 120 mg Documented by: Heparin Sodium (Porcine) (Heparin) 5,000 unit SUB-Q Q8HR ELIUD Last Admin: 06/28/20 22:01 Dose: 5,000 unit Documented by: Sodium Chloride (Nacl 0.9% 1000 Ml) 1,000 mls @ 125 mls/hr IV DIRECT ELIUD Last Admin: 06/27/20 10:58 Dose: 125 mls/hr Documented by: Insulin Human Lispro (Humalog) 0 unit SUB-Q ACHS ELIUD; Protocol Last Admin: 06/28/20 22:01 Dose: Not Given Documented by: Magnesium Hydroxide (Milk Of Magnesia) 30 ml PO Q4H PRN PRN Reason: Constipation Ondansetron HCl (Zofran) 4 mg IV Q8H PRN PRN Reason: Nausea And Vomiting Sodium Chloride (Sodium Chloride Flush Syringe 10 Ml) 10 ml IV BID [facility] Last Admin: 06/28/20 22:02 Dose: 10 ml Documented by: Sodium Chloride (Sodium Chloride Flush Syringe 10 Ml) 10 ml IV PRN PRN PRN Reason: LINE FLUSH Valsartan (Diovan) 160 mg PO DAILY [facility] Last Admin: 06/28/20 10:44 Dose: 160 mg Documented by: Exam - Constitutional Vitals: Last Vital Signs Temp 99.6 F 06/28/20 19:37 Pulse 117 H 06/28/20 22:42 Resp 20 06/28/20 22:42 BP 150/56 06/28/20 19:37 Pulse Ox 100 06/28/20 22:00 Results - Labs lab Results: Laboratory Results - last 24 hr 06/28/20 06/28/20 06/28/20 07:42 07:51 07:51 WBC 12.6 H RBC 3.52 L Hgb 11.7 Hct 33.0 MCV 94 MCH 33 H MCHC 35 H RDW 12.7 L Plt Count 434 Lymph % (Auto) 13.1 L [place] % (Auto) 6.7 Eos % (Auto) 2.6 Baso % (Auto) 0.7 Lymph # (Auto) 1.6 [place] # (Auto) 0.8 Eos # (Auto) 0.3 Baso # (Auto) 0.1 Seg Neutrophils % 76.9 H Seg Neutrophils # 9.7 H PT INR APTT Sodium 127 L Potassium 4.5 Chloride 95.8 L Carbon Dioxide 23 Anion Gap 13 BUN 15 Creatinine 0.6 Estimated GFR > 60 BUN/Creatinine Ratio 25 Glucose 131 H POC Glucose 116 H Calcium 9.5 06/28/20 06/28/20 06/28/20 12:12 15:29 16:08 WBC RBC Hgb Hct MCV MCH MCHC RDW Plt Count Lymph % (Auto) [place] % (Auto) Eos % (Auto) Baso % (Auto) Lymph # (Auto) [place] # (Auto) Eos # (Auto) Baso # (Auto) Seg Neutrophils % Seg Neutrophils # PT 12.1 L INR 0.91 APTT < 20.0 L Sodium Potassium Chloride Carbon Dioxide Anion Gap BUN Creatinine Estimated GFR BUN/Creatinine Ratio Glucose POC Glucose 296 H 200 H Calcium 06/28/20 21:00 WBC RBC Hgb Hct MCV MCH MCHC RDW Plt Count Lymph % (Auto) [place] % (Auto) Eos % (Auto) Baso % (Auto) Lymph # (Auto) [place] # (Auto) Eos # (Auto) Baso # (Auto) Seg Neutrophils % Seg Neutrophils # PT INR APTT Sodium Potassium Chloride Carbon Dioxide Anion Gap BUN Creatinine Estimated GFR BUN/Creatinine Ratio Glucose POC Glucose 175 H Calcium
[2020-06-29] MEDS ORDERED: methylPREDNISolone Sod Succinate 125 MG/2 ML INJ IV ONE (04:08)
[2020-06-29 08:01] LABS: Hematocrit 34.1 % (30.3-42.9); Hemoglobin 11.5 gm/dl (10.1-14.3); Mean Corpuscular HGB Conc 34 % (30-34); Mean Corpuscular Volume 95 fl (79-97); Platelet Count 440 K/mm3 (140-440); Red Blood Count 3.57 M/mm3 (3.65-5.03); Red Cell Distribution Width 12.7 % (13.2-15.2)
[2020-06-29 08:09] LABS: Blood Urea Nitrogen 18 mg/dL (7-17); Calcium 9.4 mg/dL (8.4-10.2); Hemolysis Index 5
[2020-06-29 08:13] LABS: BUN/Creatinine Ratio 26
[2020-06-29] MEDS: VALSARTAN 160MG TAB PO SCH (09:52)
[2020-06-29] MEDS: dilTIAZem CD 120 MG CAP PO SCH (09:52)
[2020-06-29] MEDS: INSULIN LISPRO 100 UNIT/ML VIAL 3 mL SUB-Q SCH ×4 (09:53→21:59)
[2020-06-29] MEDS: ENOXAPARIN 40 MG/0.4 ML INJ SUB-Q SCH ×3 (09:57→22:00)
--- NOTE | 2020-06-29 10:19 | Progress Note ---
Assessment and Plan - Patient Problems (1) Hyponatremia Current Visit: Yes Status: Chronic Plan to address problem: Likely in the setting of SIADH. Chest x-ray does showed persistent right basilar process that may actually be indicative of either previous pneumonia or possibly malignancy which has to be considered. Persistent pulmonary process can potentially lead to recurrent issues with hyponatremia secondary to inappropriate secretion of ADH. Na improving on tolvaptan treatment, another dose of tolvaptan 15mg x 1 dose ordered today to target Na > 135 (2) Hyperkalemia Current Visit: Yes Status: Acute Plan to address problem: Improved with adequate fluid hydration and increased distal sodium delivery. (3) Lung cancer Current Visit: Yes Status: Acute Plan to address problem: CT scan concerning for underlying right perihilar mass concerning for malignancy. Also with worsening adenopathy and contralateral Left pulmonary nodules. The presence of pulmonary malignancy would explain recurrent issues with hyponatremia secondary to inappropriate secretion of antidiuretic hormone. (4) HTN (hypertension) Current Visit: No Status: Acute Qualifiers: Plan to address problem: Monitor under current regimen. (5) T2DM (type 2 diabetes mellitus) Current Visit: No Status: Chronic Plan to address problem: Diabetes managed per primary attending. Subjective Date of service: 06/29/20 Principal diagnosis: hyponatremia Interval history: Patient is awake, alert, denies nausea, vomiting, dizziness. no events overnight reported Objective - Vital Signs Vital signs: Vital Signs - 12hr 06/28/20 06/29/20 06/29/20 22:42 01:24 01:25 Temperature 98.8 F Pulse Rate 121 H 121 H Pulse Rate [ 117 H Posterior Bilateral Throughout] Respiratory 20 Rate Respiratory 20 Rate [Posterior Bilateral Throughout] Blood Pressure 90/62 Blood Pressure 90/62 [Right] O2 Sat by Pulse 98 Oximetry 06/29/20 06/29/20 06/29/20 05:02 08:21 09:26 Temperature 97.8 F 98.8 F Pulse Rate 120 H 119 H Pulse Rate [ Posterior Bilateral Throughout] Respiratory 22 18 Rate Respiratory Rate [Posterior Bilateral Throughout] Blood Pressure 145/86 140/87 Blood Pressure [Right] O2 Sat by Pulse 99 96 97 Oximetry 06/29/20 09:52 Temperature Pulse Rate 119 H Pulse Rate [ Posterior Bilateral Throughout] Respiratory Rate Respiratory Rate [Posterior Bilateral Throughout] Blood Pressure 140/87 Blood Pressure [Right] O2 Sat by Pulse Oximetry - General Appearance General appearance: well-developed, well-nourished, appears stated age EENT: ATNC, PERRL, mucous membranes moist Neck: no JVD Respiratory: Present: Clear to Ascultation Cardiology: regular, S1S2 Gastrointestinal: normoactive bowel sounds Integumentary: no rash Neurologic: no focal deficit, alert and oriented x3, strength 5/5, CN 3-12 intac t Psychiatric: mood/affect appropriate, cooperative - Lab 06/29/20 07:03 06/29/20 07:03 Most recent lab results Calcium 9.4 mg/dL (8.4-10.2) 06/29/20 07:03 Urine Sodium 82 mmol/L 06/26/20 Unknown Medications & Allergies - Medications Allergies/Adverse Reactions: Allergies No Known Allergies Allergy (Verified 10/12/19 11:06) Home Medications: Home Medications Medication Instructions Recorded Confirmed Last Taken Type Furosemide [Lasix TAB] 20 mg PO QDAY 10/15/19 06/27/20 Unknown History Metformin HCl [Glucophage] 1,000 mg PO DAILY 10/15/19 06/27/20 Unknown History Valsartan [Diovan] 160 mg PO DAILY #30 tablet 10/18/19 06/27/20 Unknown Rx dilTIAZem CD [Cardizem CD] 120 mg PO QDAY #30 capsule 10/18/19 06/27/20 Unknown Rx Active Medications: Generic Name Dose Route Start Last Admin Trade Name Freq PRN Reason Stop Dose Admin Acetaminophen 650 mg 06/25/20 22:06 Tylenol PO Q4H PRN Pain MILD(1-3)/Fever >100.5/ADORNO Albuterol 2.5 mg 06/28/20 22:26 06/28/20 22:47 Albuterol 2.5 Mg/3 Ml Nebu IH 2.5 mg Q4HRT PRN Administration Shortness Of Breath Dextrose 50 ml 06/25/20 22:06 D50w (25gm) Syringe IV Q30MIN PRN Hypoglycemia Protocol Diltiazem HCl 120 mg 06/27/20 01:04 06/29/20 09:52 Cardizem Cd PO 120 mg QDAY ELIUD Administration Enoxaparin Sodium 40 mg 06/29/20 10:00 06/29/20 09:57 Enoxaparin 40 Mg/0.4 Ml Inj SUB-Q 40 mg QDAY@2200 ELIUD Administration Protocol Sodium Chloride 1,000 mls @ 125 mls/hr 06/25/20 22:15 06/27/20 10:58 Nacl 0.9% 1000 Ml IV 125 mls/hr DIRECT ELIUD Administration Insulin Human Lispro 0 unit 06/26/20 07:30 06/29/20 09:53 Humalog SUB-Q 8 unit ACHS ELIUD Administration Protocol Magnesium Hydroxide 30 ml 06/25/20 22:06 Milk Of Magnesia PO Q4H PRN Constipation Ondansetron HCl 4 mg 06/25/20 22:06 Zofran IV Q8H PRN Nausea And Vomiting Sodium Chloride 10 ml 06/26/20 10:00 06/29/20 09:53 Sodium Chloride Flush Syringe 10 Ml IV 10 ml BID ELIUD Administration Sodium Chloride 10 ml 06/25/20 22:06 Sodium Chloride Flush Syringe 10 Ml IV PRN PRN LINE FLUSH Tolvaptan 15 mg 06/29/20 10:16 Tolvaptan 15 Mg Tab PO 06/29/20 10:17 ONCE ONE Valsartan 160 mg 06/27/20 10:00 06/29/20 09:52 Diovan PO 160 mg DAILY ELIUD Administration
--- NOTE | 2020-06-29 10:22 | Progress Note ---
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 Nephrology consultation for evaluation and further recommendation. Patient had used tolvaptan in the past. Continue IV fluid normal saline for now. Will monitor chemistry, serum/urine osm, urine Na, Urine Cl levels. Follow-up serum cortisol and TSH with Free T4 Persistent right basilar infiltrate acute hyperkalemia Patient has had insulin and glucose, calcium gluconate and Kayexalate. Will monitor potassium levels. HTN (hypertension) Continue home antihypertensive medications. T2DM (type 2 diabetes mellitus) We will monitor Accu-Cheks. DVT prophylaxis Patient placed on subcutaneous heparin. Full code status 06/27/2020. Chest x-ray does show persistent right basilar process that may actually be indicative of either previous pneumonia or possibly malignancy which has to be considered. Persistent pulmonary process can potentially lead to recurrent issues with hyponatremia secondary to inappropriate secretion of ADH. Will be following up urine electrolyte studies. Check CT of chest and consider pulmonary consultation. No weight loss from her previous hospitalization in September. Continue tolvaptan per nephrology and monitor BMP closely. 06/28/2020. CT scan of the chest reveals a right perihilar mass encasing and obstructing the right lower lobe bronchus characteristic of primary lung cancer with worsening mediastinal adenopathy and small right pleural effusion which is likely a malignant effusion. Patient also has contralateral left pulmonary nodules worrisome for pulmonary metastasis. Pulmonary and oncology consultation. 06/29/2020. Patient likely with metastatic lung cancer, ? SCLC. Check MRI of brain to rule out brain mets. Follow-up with pulmonology recommendations for bronchoscopy possibly Wednesday. Sodium is improving. Continue per nephrology. History Interval history: No new issues overnight Hospitalist Physical - Constitutional Vitals: Temp Pulse Resp BP Pulse Ox 98.8 F 119 H 18 140/87 97 06/29/20 08:21 06/29/20 09:52 06/29/20 08:21 06/29/20 09:52 06/29/20 09:26 General appearance: Present: no acute distress, well-nourished - EENT Eyes: Present: PERRL, EOM intact ENT: hearing intact, clear oral mucosa, dentition normal - Neck Neck: Present: supple, normal ROM - Respiratory Respiratory effort: normal Respiratory: bilateral: CTA - Cardiovascular Rhythm: regular Heart Sounds: Present: S1 & S2. Absent: gallop, rub - Extremities Extremities: no ischemia, No edema, Full ROM - Abdominal General gastrointestinal: soft, non-tender, non-distended, normal bowel sounds - Integumentary Integumentary: Present: clear, warm, dry - Neurologic Neurologic: CNII-XII intact, moves all extremities Results - Labs CBC & Chem 7: 06/29/20 07:03 06/29/20 07:03 Labs: Laboratory Last Values WBC 13.5 K/mm3 (4.5-11.0) H 06/29/20 07:03 RBC 3.57 M/mm3 (3.65-5.03) L 06/29/20 07:03 Hgb 11.5 gm/dl (10.1-14.3) 06/29/20 07:03 Hct 34.1 % (30.3-42.9) 06/29/20 07:03 MCV 95 fl (79-97) 06/29/20 07:03 MCH 32 pg (28-32) 06/29/20 07:03 MCHC 34 % (30-34) 06/29/20 07:03 RDW 12.7 % (13.2-15.2) L 06/29/20 07:03 Plt Count 440 K/mm3 (140-440) 06/29/20 07:03 Lymph % (Auto) 13.1 % (13.4-35.0) L 06/28/20 07:51 [place] % (Auto) 6.7 % (0.0-7.3) 06/28/20 07:51 Eos % (Auto) 2.6 % (0.0-4.3) 06/28/20 07:51 Baso % (Auto) 0.7 % (0.0-1.8) 06/28/20 07:51 Lymph # (Auto) 1.6 K/mm3 (1.2-5.4) 06/28/20 07:51 [place] # (Auto) 0.8 K/mm3 (0.0-0.8) 06/28/20 07:51 Eos # (Auto) 0.3 K/mm3 (0.0-0.4) 06/28/20 07:51 Baso # (Auto) 0.1 K/mm3 (0.0-0.1) 06/28/20 07:51 Seg Neutrophils % Employment Training Specialist 06/29/20 07:03 Seg Neutrophils # 9.7 K/mm3 (1.8-7.7) H 06/28/20 07:51 PT 12.1 Sec. (12.2-14.9) L 06/28/20 16:08 INR 0.91 (0.87-1.13) 06/28/20 16:08 APTT < 20.0 Sec. (24.2-36.6) L 06/28/20 16:08 Sodium 127 mmol/L (137-145) L 06/29/20 07:03 Potassium 4.4 mmol/L (3.6-5.0) 06/29/20 07:03 Chloride 94.8 mmol/L (98-107) L 06/29/20 07:03 Carbon Dioxide 22 mmol/L (22-30) 06/29/20 07:03 Anion Gap 15 mmol/L 06/29/20 07:03 BUN 18 mg/dL (7-17) H 06/29/20 07:03 Creatinine 0.7 mg/dL (0.6-1.2) 06/29/20 07:03 Estimated GFR > 60 ml/min 06/29/20 07:03 BUN/Creatinine Ratio 26 % 06/29/20 07:03 Glucose 326 mg/dL (65-100) H 06/29/20 07:03 POC Glucose 350 mg/dL (70-105) H 06/29/20 09:09 Calcium 9.4 mg/dL (8.4-10.2) 06/29/20 07:03 Total Bilirubin 0.50 mg/dL (0.1-1.2) 06/25/20 16:54 AST 24 units/L (5-40) 06/25/20 16:54 ALT 17 units/L (7-56) 06/25/20 16:54 Alkaline Phosphatase 96 units/L (35-129) 06/25/20 16:54 Lactate Dehydrogenase 211 units/L (91-180) H 06/29/20 07:03 Total Protein 8.1 g/dL (6.3-8.2) 06/25/20 16:54 Albumin 4.4 g/dL (3.9-5) 06/25/20 16:54 Albumin/Globulin Ratio 1.2 % 06/25/20 16:54 TSH 0.236 mlU/mL (0.270-4.200) L 06/26/20 05:39 Free T4 2.47 ng/dL (0.76-1.46) H 06/26/20 05:39 Urine Color Straw (Yellow) 06/26/20 Unknown Urine Turbidity Clear (Clear) 06/26/20 Unknown Urine pH 7.0 (5.0-7.0) 06/26/20 Unknown Ur Specific [place] 1.014 (1.003-1.030) 06/26/20 Unknown Urine Protein 100 mg/dl mg/dL (Negative) 06/26/20 Unknown Urine Glucose (UA) >=500 mg/dL (Negative) 06/26/20 Unknown Urine Ketones Neg mg/dL (Negative) 06/26/20 Unknown Urine Blood Neg (Negative) 06/26/20 Unknown Urine Nitrite Neg (Negative) 06/26/20 Unknown Urine Bilirubin Neg (Negative) 06/26/20 Unknown Urine Urobilinogen < 2.0 mg/dL (<2.0) 06/26/20 Unknown Ur Leukocyte Esterase Neg (Negative) 06/26/20 Unknown Urine WBC (Auto) < 1.0 /HPF (0.0-6.0) 06/26/20 Unknown Urine RBC (Auto) < 1.0 /HPF (0.0-6.0) 06/26/20 Unknown Urine Sodium 82 mmol/L 06/26/20 Unknown Urine Chloride 77.2 mmolL (110-250) L 06/26/20 Unknown King/IV: Voiding Method External Female Catheter IV Catheter Type [Left Wrist] Peripheral IV IV Catheter Type [Right Hand] INT / Saline Lock Active Medications - Current Medications Current Medications: Generic Name Dose Route Start Last Admin Trade Name Freq PRN Reason Stop Dose Admin Acetaminophen 650 mg 06/25/20 22:06 Tylenol PO Q4H PRN Pain MILD(1-3)/Fever >100.5/ADORNO Albuterol 2.5 mg 06/28/20 22:26 06/28/20 22:47 Albuterol 2.5 Mg/3 Ml Nebu IH 2.5 mg Q4HRT PRN Administration Shortness Of Breath Dextrose 50 ml 06/25/20 22:06 D50w (25gm) Syringe IV Q30MIN PRN Hypoglycemia Protocol Diltiazem HCl 120 mg 06/27/20 01:04 06/29/20 09:52 Cardizem Cd PO 120 mg QDAY ELIUD Administration Enoxaparin Sodium 40 mg 06/29/20 10:00 06/29/20 09:57 Enoxaparin 40 Mg/0.4 Ml Inj SUB-Q 40 mg QDAY@2200 ELIUD Administration Protocol Sodium Chloride 1,000 mls @ 125 mls/hr 06/25/20 22:15 06/27/20 10:58 Nacl 0.9% 1000 Ml IV 125 mls/hr DIRECT ELIUD Administration Insulin Human Lispro 0 unit 06/26/20 07:30 06/29/20 09:53 Humalog SUB-Q 8 unit ACHS ELIUD Administration Protocol Magnesium Hydroxide 30 ml 06/25/20 22:06 Milk Of Magnesia PO Q4H PRN Constipation Ondansetron HCl 4 mg 06/25/20 22:06 Zofran IV Q8H PRN Nausea And Vomiting Sodium Chloride 10 ml 06/26/20 10:00 06/29/20 09:53 Sodium Chloride Flush Syringe 10 Ml IV 10 ml BID ELIUD Administration Sodium Chloride 10 ml 06/25/20 22:06 Sodium Chloride Flush Syringe 10 Ml IV PRN PRN LINE FLUSH Tolvaptan 15 mg 06/29/20 10:16 Tolvaptan 15 Mg Tab PO 06/29/20 10:17 ONCE ONE Valsartan 160 mg 06/27/20 10:00 06/29/20 09:52 Diovan PO 160 mg DAILY ELIUD Administration Nutrition/Malnutrition Assess - Dietary Evaluation Nutrition/Malnutrition Findings: Nutrition Notes Start: 06/26/20 13: 14 Freq: Status: Active Protocol: Document 06/28/20 12:47 AT (Rec: 06/28/20 12:58 AT [id number]) Co-Sign 06/28/20 12:47 LP Nutrition Notes Initial or Follow up Reassessment Current Diagnosis Diabetes,Hypertension Other Pertinent Diagnosis hyponatremia, hyperkalemia, SIADH Current Diet Cardiac/Consistent CHO Labs/Tests Na 127 BG 131 Pertinent Medications Humalog NS at 125 mL/hr Height 5 ft Weight 68.9 kg Protivin Body Weight (kg) 45.45 BMI 29.6 Weight change and time frame 7.4% weight loss in 3 days Weight Status Overweight Subjective/Other Information Follow up for education needs and intakes. Per chart, pt had intakes of 75% at lunch/ dinner and 50% at dinner 06/27 . Today, pt has intake of 100% . Pt is eating 75% on average. Visited pt at bedside, was unable to communicate to follow up on diet education needs. Percent of energy/protein needs met: 124%/105% Burn Absent Trauma Absent GI Symptoms None Current % PO Good (75-100%) Minimum of two criteria No physical signs of malnutrition #2 Nutrition Diagnosis Inadequate oral intake As Evidenced by Signs and Symptoms pt consuming 75% of meals on average Diagnosis Progress(for reassessment Improved documentation) #1 Nutrition Diagnosis Food and nutrition-related knowledge deficit As Evidenced by Signs and Symptoms unable to communicate with pt Diagnosis Progress(for reassessment Continues documentation) Is patient on ventilator? No Is Patient Ambulatory and/or Out of Bed No REE-([place] Jeor-confined to bed) [phone] Calculation Used for Recommendations [facility] Additional Notes PRO needs: 68-83 g(1-1.2g/kg) Fluid needs: 1mL/kcal or per MD Nutrition Intervention Change Diet Order: Continue Add Supplement/Snack (indicate name/kcal Glucerna daily /protein ) Provides kCal: 220 Provides Protein (gm) 10 Goal #1 Meet at least 75% energy and protein needs via PO and ONS Anticipated Discharge Needs: Cardiac/ Consistent CHO Follow-Up By: 07/03/20 Additional Comments F/U for stable intakes
[2020-06-29 10:41] LABS: Platelet Estimate Consistent w Auto; RBC Morphology Normal; Total Cells Counted 100
[2020-06-29] MEDS ORDERED: TOLVAPTAN 15 MG TAB PO SCH (11:00)
--- NOTE | 2020-06-29 11:43 | Progress Note ---
Assessment and Plan - Patient Problems (1) Acute hyponatremia Current Visit: Yes Status: Acute (2) T2DM (type 2 diabetes mellitus) Current Visit: No Status: Chronic (3) Mass of lung Current Visit: Yes Status: Ruled-out (4) Abnormal CT of the chest Current Visit: Yes Status: Acute (5) Endobronchial mass Current Visit: Yes Status: Acute (6) History of SIADH Current Visit: Yes Status: Acute Subjective Principal diagnosis: hyponatremia Interval history: awake Objective Vital Signs - 12hr 06/29/20 06/29/20 06/29/20 01:24 01:25 05:02 Temperature 98.8 F 97.8 F Pulse Rate 121 H 121 H 120 H Respiratory 20 22 Rate Blood Pressure 90/62 145/86 Blood Pressure 90/62 [Right] O2 Sat by Pulse 98 99 Oximetry 06/29/20 06/29/20 06/29/20 08:21 09:26 09:52 Temperature 98.8 F Pulse Rate 119 H 119 H Respiratory 18 Rate Blood Pressure 140/87 140/87 Blood Pressure [Right] O2 Sat by Pulse 96 97 Oximetry Constitutional: no acute distress Eyes: non-icteric ENT: oropharynx moist Ascultation: Bilateral: diminished breath sounds Cardiovascular: regular rate and rhythm Gastrointestinal: normoactive bowel sounds, soft CBC and BMP: 06/29/20 07:03 06/29/20 07:03 ABG, PT/INR, D-dimer: PT/INR, D-dimer PT 12.1 Sec. (12.2-14.9) L 06/28/20 16:08 INR 0.91 (0.87-1.13) 06/28/20 16:08 Abnormal lab findings: Abnormal Labs 06/25/20 06/25/20 06/26/20 16:54 16:54 04:41 WBC 14.0 H 15.1 H RBC MCH MCHC 35 H 35 H RDW 12.3 L 12.4 L Lymph % (Auto) 8.6 L 6.6 L Lymph # (Auto) 1.0 L Seg Neutrophils % 85.1 H 87.1 H Seg Neuts % (Manual) Seg Neutrophils # 11.9 H 13.1 H Seg Neutrophils # Man Lymphocytes # (Manual) PT APTT Sodium 107 L* Potassium 6.0 H Chloride 76.1 L Carbon Dioxide 17 L BUN 19 H Creatinine Glucose 211 H POC Glucose Lactate Dehydrogenase TSH Free T4 Urine Chloride 06/26/20 06/26/20 06/26/20 04:41 05:39 05:39 WBC RBC MCH MCHC RDW Lymph % (Auto) Lymph # (Auto) Seg Neutrophils % Seg Neuts % (Manual) Seg Neutrophils # Seg Neutrophils # Man Lymphocytes # (Manual) PT APTT Sodium 109 L* Potassium Chloride 75.4 L Carbon Dioxide 20 L BUN Creatinine 0.5 L Glucose 221 H POC Glucose Lactate Dehydrogenase TSH 0.236 L Free T4 2.47 H Urine Chloride 06/26/20 06/26/20 06/26/20 08:05 11:02 17:01 WBC RBC MCH MCHC RDW Lymph % (Auto) Lymph # (Auto) Seg Neutrophils % Seg Neuts % (Manual) Seg Neutrophils # Seg Neutrophils # Man Lymphocytes # (Manual) PT APTT Sodium Potassium Chloride Carbon Dioxide BUN Creatinine Glucose POC Glucose 286 H 229 H 198 H Lactate Dehydrogenase TSH Free T4 Urine Chloride 06/26/20 06/26/20 06/27/20 21:11 Unknown 08:11 WBC RBC MCH MCHC RDW Lymph % (Auto) Lymph # (Auto) Seg Neutrophils % Seg Neuts % (Manual) Seg Neutrophils # Seg Neutrophils # Man Lymphocytes # (Manual) PT APTT Sodium Potassium Chloride Carbon Dioxide BUN Creatinine Glucose POC Glucose 137 H 137 H Lactate Dehydrogenase TSH Free T4 Urine Chloride 77.2 L 06/27/20 06/27/20 06/27/20 11:48 15:00 21:38 WBC RBC MCH MCHC RDW Lymph % (Auto) Lymph # (Auto) Seg Neutrophils % Seg Neuts % (Manual) Seg Neutrophils # Seg Neutrophils # Man Lymphocytes # (Manual) PT APTT Sodium 127 L D Potassium Chloride 97.0 L Carbon Dioxide 21 L BUN Creatinine 0.5 L Glucose 126 H POC Glucose 304 H 216 H Lactate Dehydrogenase TSH Free T4 Urine Chloride 06/28/20 06/28/20 06/28/20 07:42 07:51 07:51 WBC 12.6 H RBC 3.52 L MCH 33 H MCHC 35 H RDW 12.7 L Lymph % (Auto) 13.1 L Lymph # (Auto) Seg Neutrophils % 76.9 H Seg Neuts % (Manual) Seg Neutrophils # 9.7 H Seg Neutrophils # Man Lymphocytes # (Manual) PT APTT Sodium 127 L Potassium Chloride 95.8 L Carbon Dioxide BUN Creatinine Glucose 131 H POC Glucose 116 H Lactate Dehydrogenase TSH Free T4 Urine Chloride 06/28/20 06/28/20 06/28/20 12:12 15:29 16:08 WBC RBC MCH MCHC RDW Lymph % (Auto) Lymph # (Auto) Seg Neutrophils % Seg Neuts % (Manual) Seg Neutrophils # Seg Neutrophils # Man Lymphocytes # (Manual) PT 12.1 L APTT < 20.0 L Sodium Potassium Chloride Carbon Dioxide BUN Creatinine Glucose POC Glucose 296 H 200 H Lactate Dehydrogenase TSH Free T4 Urine Chloride 06/28/20 06/29/20 06/29/20 21:00 07:03 07:03 WBC 13.5 H RBC 3.57 L MCH MCHC RDW 12.7 L Lymph % (Auto) Lymph # (Auto) Seg Neutrophils % Seg Neuts % (Manual) 98.0 H Seg Neutrophils # Seg Neutrophils # Man 13.2 H Lymphocytes # (Manual) 0.0 L PT APTT Sodium 127 L Potassium Chloride 94.8 L Carbon Dioxide BUN 18 H Creatinine Glucose 326 H POC Glucose 175 H Lactate Dehydrogenase TSH Free T4 Urine Chloride 06/29/20 06/29/20 06/29/20 07:03 09:09 11:11 WBC RBC MCH MCHC RDW Lymph % (Auto) Lymph # (Auto) Seg Neutrophils % Seg Neuts % (Manual) Seg Neutrophils # Seg Neutrophils # Man Lymphocytes # (Manual) PT APTT Sodium Potassium Chloride Carbon Dioxide BUN Creatinine Glucose POC Glucose 350 H 228 H Lactate Dehydrogenase 211 H TSH Free T4 Urine Chloride Allied health notes reviewed: nursing
[2020-06-30 06:59] LABS: Blood Urea Nitrogen 17 mg/dL (7-17); Calcium 9.7 mg/dL (8.4-10.2); Hemolysis Index 16
[2020-06-30 07:04] LABS: BUN/Creatinine Ratio 28
--- NOTE | 2020-06-30 09:38 | Progress Note ---
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 Patient is status post tolvaptan SIADH Etiology secondary to probable lung CA. lung cancer CT revealed underlying right perihilar mass concerning for malignancy acute hyperkalemia Resolved. HTN (hypertension) Continue home antihypertensive medications. T2DM (type 2 diabetes mellitus) We will monitor Accu-Cheks. DVT prophylaxis Patient placed on subcutaneous heparin. Full code status 06/27/2020. Chest x-ray does show persistent right basilar process that may actually be indicative of either previous pneumonia or possibly malignancy which has to be considered. Persistent pulmonary process can potentially lead to recurrent issues with hyponatremia secondary to inappropriate secretion of ADH. Will be following up urine electrolyte studies. Check CT of chest and consider pulmonary consultation. No weight loss from her previous hospitalization in September. Continue tolvaptan per nephrology and monitor BMP closely. 06/28/2020. CT scan of the chest reveals a right perihilar mass encasing and obstructing the right lower lobe bronchus characteristic of primary lung cancer with worsening mediastinal adenopathy and small right pleural effusion which is likely a malignant effusion. Patient also has contralateral left pulmonary nodules worrisome for pulmonary metastasis. Pulmonary and oncology consultation. 06/29/2020. Patient likely with metastatic lung cancer, ? SCLC. Check MRI of brain to rule out brain mets. Follow-up with pulmonology recommendations for bronchoscopy possibly Wednesday. Sodium is improving. Continue per nephrology. 06/30/2020. Patient likely with metastatic lung cancer, ? SCLC. Await MRI brain to rule out mets. Possible bronchoscopy tomorrow per pulmonary. History Interval history: No new issues overnight Hospitalist Physical - Constitutional Vitals: Temp Pulse Resp BP Pulse Ox 100.1 F H 125 H 18 124/81 99 06/30/20 08:16 06/30/20 08:16 06/30/20 08:16 06/30/20 08:16 06/30/20 08:40 General appearance: Present: no acute distress, well-nourished - EENT Eyes: Present: PERRL, EOM intact ENT: hearing intact, clear oral mucosa, dentition normal - Neck Neck: Present: supple, normal ROM - Respiratory Respiratory effort: normal Respiratory: bilateral: CTA - Cardiovascular Rhythm: regular Heart Sounds: Present: S1 & S2. Absent: gallop, rub - Extremities Extremities: no ischemia, No edema, Full ROM - Abdominal General gastrointestinal: soft, non-tender, non-distended, normal bowel sounds - Integumentary Integumentary: Present: clear, warm, dry - Neurologic Neurologic: CNII-XII intact, moves all extremities Results - Labs CBC & Chem 7: 06/29/20 07:03 06/30/20 05:39 Labs: Laboratory Last Values WBC 13.5 K/mm3 (4.5-11.0) H 06/29/20 07:03 RBC 3.57 M/mm3 (3.65-5.03) L 06/29/20 07:03 Hgb 11.5 gm/dl (10.1-14.3) 06/29/20 07:03 Hct 34.1 % (30.3-42.9) 06/29/20 07:03 MCV 95 fl (79-97) 06/29/20 07:03 MCH 32 pg (28-32) 06/29/20 07:03 MCHC 34 % (30-34) 06/29/20 07:03 RDW 12.7 % (13.2-15.2) L 06/29/20 07:03 Plt Count 440 K/mm3 (140-440) 06/29/20 07:03 Lymph % (Auto) 13.1 % (13.4-35.0) L 06/28/20 07:51 [place] % (Auto) 6.7 % (0.0-7.3) 06/28/20 07:51 Eos % (Auto) 2.6 % (0.0-4.3) 06/28/20 07:51 Baso % (Auto) 0.7 % (0.0-1.8) 06/28/20 07:51 Lymph # (Auto) 1.6 K/mm3 (1.2-5.4) 06/28/20 07:51 [place] # (Auto) 0.8 K/mm3 (0.0-0.8) 06/28/20 07:51 Eos # (Auto) 0.3 K/mm3 (0.0-0.4) 06/28/20 07:51 Baso # (Auto) 0.1 K/mm3 (0.0-0.1) 06/28/20 07:51 Add Manual Diff Complete 06/29/20 07:03 Total Counted 100 12/12/20 07:03 Seg Neutrophils % Speech Pathologist 06/29/20 07:03 Seg Neuts % (Manual) 98.0 % (40.0-70.0) H 06/29/20 07:03 Monocytes % (Manual) 1.0 % (0.0-7.3) 06/29/20 07:03 Basophils % (Manual) 1.0 % (0.0-1.8) 06/29/20 07:03 Nucleated RBC % Not Reportable 06/29/20 07:03 Seg Neutrophils # 9.7 K/mm3 (1.8-7.7) H 06/28/20 07:51 Seg Neutrophils # Man 13.2 K/mm3 (1.8-7.7) H 06/29/20 07:03 Band Neutrophils # 0.0 K/mm3 06/29/20 07:03 Lymphocytes # (Manual) 0.0 K/mm3 (1.2-5.4) L 06/29/20 07:03 Abs React Lymphs (Man) 0.0 K/mm3 06/29/20 07:03 Monocytes # (Manual) 0.1 K/mm3 (0.0-0.8) 06/29/20 07:03 Eosinophils # (Manual) 0.0 K/mm3 (0.0-0.4) 06/29/20 07:03 Basophils # (Manual) 0.1 K/mm3 (0.0-0.1) 06/29/20 07:03 Metamyelocytes # 0.0 K/mm3 06/29/20 07:03 Myelocytes # 0.0 K/mm3 06/29/20 07:03 Promyelocytes # 0.0 K/mm3 06/29/20 07:03 Blast Cells # 0.0 K/mm3 06/29/20 07:03 WBC Morphology Not Reportable 06/29/20 07:03 Hypersegmented Neuts Not Reportable 06/29/20 07:03 Hyposegmented Neuts Not Reportable 06/29/20 07:03 Hypogranular Neuts Not Reportable 06/29/20 07:03 Smudge Cells Not Reportable 06/29/20 07:03 Toxic Granulation Not Reportable 06/29/20 07:03 Toxic Vacuolation Not Reportable 06/29/20 07:03 Dohle Bodies Not Reportable 06/29/20 07:03 Pelger-Huet Anomaly Not Reportable 06/29/20 07:03 Ewa Rods Not Reportable 06/29/20 07:03 Platelet Estimate Consistent w auto 06/29/20 07:03 Clumped Platelets Not Reportable 06/29/20 07:03 Plt Clumps, EDTA Not Reportable 06/29/20 07:03 Large Platelets Not Reportable 06/29/20 07:03 Giant Platelets Not Reportable 06/29/20 07:03 Platelet Satelliting Not Reportable 06/29/20 07:03 Plt Morphology Comment Not Reportable 06/29/20 07:03 RBC Morphology Normal 06/29/20 07:03 Dimorphic RBCs Not Reportable 06/29/20 07:03 Polychromasia Not Reportable 06/29/20 07:03 Hypochromasia Not Reportable 06/29/20 07:03 Poikilocytosis Not Reportable 06/29/20 07:03 Anisocytosis Not Reportable 06/29/20 07:03 Microcytosis Not Reportable 06/29/20 07:03 Macrocytosis Not Reportable 06/29/20 07:03 Spherocytes Not Reportable 06/29/20 07:03 Pappenheimer Bodies Not Reportable 06/29/20 07:03 Sickle Cells Not Reportable 06/29/20 07:03 Target Cells Not Reportable 06/29/20 07:03 Tear Drop Cells Not Reportable 06/29/20 07:03 Ovalocytes Not Reportable 06/29/20 07:03 Helmet Cells Not Reportable 06/29/20 07:03 [place] Bodies Not Reportable 06/29/20 07:03 [place] Rings Not Reportable 06/29/20 07:03 Aleshia Cells Not Reportable 06/29/20 07:03 Bite Cells Not Reportable 06/29/20 07:03 Crenated Cell Not Reportable 06/29/20 07:03 Elliptocytes Not Reportable 06/29/20 07:03 Acanthocytes (Spur) Not Reportable 06/29/20 07:03 Rouleaux Not Reportable 06/29/20 07:03 Hemoglobin C Crystals Not Reportable 06/29/20 07:03 Schistocytes Not Reportable 06/29/20 07:03 Malaria parasites Not Reportable 06/29/20 07:03 Jasiel Bodies Not Reportable 06/29/20 07:03 Hem Pathologist Commnt No 06/29/20 07:03 PT 12.1 Sec. (12.2-14.9) L 06/28/20 16:08 INR 0.91 (0.87-1.13) 06/28/20 16:08 APTT < 20.0 Sec. (24.2-36.6) L 06/28/20 16:08 Sodium 133 mmol/L (137-145) L 06/30/20 05:39 Potassium 4.0 mmol/L (3.6-5.0) 06/30/20 05:39 Chloride 96.4 mmol/L (98-107) L 06/30/20 05:39 Carbon Dioxide 27 mmol/L (22-30) 06/30/20 05:39 Anion Gap 14 mmol/L 06/30/20 05:39 BUN 17 mg/dL (7-17) 06/30/20 05:39 Creatinine 0.6 mg/dL (0.6-1.2) 06/30/20 05:39 Estimated GFR > 60 ml/min 06/30/20 05:39 BUN/Creatinine Ratio 28 % 06/30/20 05:39 Glucose 203 mg/dL (65-100) H 06/30/20 05:39 POC Glucose 171 mg/dL (70-105) H 06/30/20 07:44 Calcium 9.7 mg/dL (8.4-10.2) 06/30/20 05:39 Total Bilirubin 0.50 mg/dL (0.1-1.2) 06/25/20 16:54 AST 24 units/L (5-40) 06/25/20 16:54 ALT 17 units/L (7-56) 06/25/20 16:54 Alkaline Phosphatase 96 units/L (35-129) 06/25/20 16:54 Lactate Dehydrogenase 211 units/L (91-180) H 06/29/20 07:03 Total Protein 8.1 g/dL (6.3-8.2) 06/25/20 16:54 Albumin 4.4 g/dL (3.9-5) 06/25/20 16:54 Albumin/Globulin Ratio 1.2 % 06/25/20 16:54 TSH 0.236 mlU/mL (0.270-4.200) L 06/26/20 05:39 Free T4 2.47 ng/dL (0.76-1.46) H 06/26/20 05:39 Total Cortisol 36.5 mcg/dL () 06/26/20 05:39 Urine Color Straw (Yellow) 06/26/20 Unknown Urine Turbidity Clear (Clear) 06/26/20 Unknown Urine pH 7.0 (5.0-7.0) 06/26/20 Unknown Ur Specific [place] 1.014 (1.003-1.030) 06/26/20 Unknown Urine Protein 100 mg/dl mg/dL (Negative) 06/26/20 Unknown Urine Glucose (UA) >=500 mg/dL (Negative) 06/26/20 Unknown Urine Ketones Neg mg/dL (Negative) 06/26/20 Unknown Urine Blood Neg (Negative) 06/26/20 Unknown Urine Nitrite Neg (Negative) 06/26/20 Unknown Urine Bilirubin Neg (Negative) 06/26/20 Unknown Urine Urobilinogen < 2.0 mg/dL (<2.0) 06/26/20 Unknown Ur Leukocyte Esterase Neg (Negative) 06/26/20 Unknown Urine WBC (Auto) < 1.0 /HPF (0.0-6.0) 06/26/20 Unknown Urine RBC (Auto) < 1.0 /HPF (0.0-6.0) 06/26/20 Unknown Urine Sodium 82 mmol/L 06/26/20 Unknown Urine Chloride 77.2 mmolL (110-250) L 06/26/20 Unknown [place]/IV: Voiding Method External Female Catheter IV Catheter Type [Left Wrist] Peripheral IV IV Catheter Type [Right Hand] INT / Saline Lock Active Medications - Current Medications Current Medications: Generic Name Dose Route Start Last Admin Trade Name Freq PRN Reason Stop Dose Admin Acetaminophen 650 mg 06/25/20 22:06 Tylenol PO Q4H PRN Pain MILD(1-3)/Fever >100.5/ADORNO Albuterol 2.5 mg 06/28/20 22:26 06/28/20 22:47 Albuterol 2.5 Mg/3 Ml Nebu IH 2.5 mg Q4HRT PRN Administration Shortness Of Breath Dextrose 50 ml 06/25/20 22:06 D50w (25gm) Syringe IV Q30MIN PRN Hypoglycemia Protocol Diltiazem HCl 120 mg 06/27/20 01:04 06/29/20 09:52 Cardizem Cd PO 120 mg QDAY ELIUD Administration Enoxaparin Sodium 40 mg 06/29/20 10:00 06/29/20 22:00 Enoxaparin 40 Mg/0.4 Ml Inj SUB-Q Not Given QDAY@2200 ELIUD Protocol Sodium Chloride 1,000 mls @ 125 mls/hr 06/25/20 22:15 06/27/20 10:58 Nacl 0.9% 1000 Ml IV 125 mls/hr DIRECT ELIUD Administration Insulin Human Lispro 0 unit 06/26/20 07:30 06/29/20 21:59 Humalog SUB-Q 3 unit ACHS ELIUD Administration Protocol Magnesium Hydroxide 30 ml 06/25/20 22:06 Milk Of Magnesia PO Q4H PRN Constipation Ondansetron HCl 4 mg 06/25/20 22:06 Zofran IV Q8H PRN Nausea And Vomiting Sodium Chloride 10 ml 06/26/20 10:00 06/29/20 22:00 Sodium Chloride Flush Syringe 10 Ml IV 10 ml BID ELIUD Administration Sodium Chloride 10 ml 06/25/20 22:06 Sodium Chloride Flush Syringe 10 Ml IV PRN PRN LINE FLUSH Valsartan 160 mg 06/27/20 10:00 06/29/20 09:52 Diovan PO 160 mg DAILY ELIUD Administration Nutrition/Malnutrition Assess - Dietary Evaluation Nutrition/Malnutrition Findings: Nutrition Notes Start: 06/26/20 13:14 Freq: Status: Active Protocol: Document 06/28/20 12:47 AT (Rec: 06/28/20 12:58 AT [id number]) Co-Sign 06/28/20 12:47 LP Nutrition Notes Initial or Follow up Reassessment Current Diagnosis Diabetes,Hypertension Other Pertinent Diagnosis hyponatremia, hyperkalemia, SIADH Current Diet Cardiac/Consistent CHO Labs/Tests Na 127 BG 131 Pertinent Medications Humalog NS at 125 mL/hr Height 5 ft Weight 68.9 kg [place] Body Weight (kg) 45.45 BMI 29.6 Weight change and time frame 7.4% weight loss in 3 days Weight Status Overweight Subjective/Other Information Follow up for education needs and intakes. Per chart, pt had intakes of 75% at lunch/ dinner and 50% at dinner 06/27 . Today, pt has intake of 100% . Pt is eating 75% on average. Visited pt at bedside, was unable to communicate to follow up on diet education needs. Percent of energy/protein needs met: 124%/105% Burn Absent Trauma Absent GI Symptoms None Current % PO Good (75-100%) Minimum of two criteria No physical signs of malnutrition #2 Nutrition Diagnosis Inadequate oral intake As Evidenced by Signs and Symptoms pt consuming 75% of meals on average Diagnosis Progress(for reassessment Improved documentation) #1 Nutrition Diagnosis Food and nutrition-related knowledge deficit As Evidenced by Signs and Symptoms unable to communicate with pt Diagnosis Progress(for reassessment Continues documentation) Is patient on ventilator? No Is Patient Ambulatory and/or Out of Bed No REE-([facility]-confined to bed) [phone] Calculation Used for Recommendations [facility] Additional Notes PRO needs: 68-83 g(1-1.2g/kg) Fluid needs: 1mL/kcal or per MD Nutrition Intervention Change Diet Order: Continue Add Supplement/Snack (indicate name/kcal Glucerna daily /protein ) Provides kCal: 220 Provides Protein (gm) 10 Goal #1 Meet at least 75% energy and protein needs via PO and ONS Anticipated Discharge Needs: Cardiac/ Consistent CHO Follow-Up By: 07/03/20 Additional Comments F/U for stable intakes
[2020-06-30] MEDS: INSULIN LISPRO 100 UNIT/ML VIAL 3 mL SUB-Q SCH ×4 (09:41→22:45)
[2020-06-30] MEDS: dilTIAZem CD 120 MG CAP PO SCH (10:01)
[2020-06-30] MEDS: VALSARTAN 160MG TAB PO SCH (10:01)
--- NOTE | 2020-06-30 10:31 | Progress Note ---
Assessment and Plan - Patient Problems (1) Hyponatremia Current Visit: Yes Status: Chronic Plan to address problem: Likely in the setting of SIADH. Chest x-ray does showed persistent right basilar process that may actually be indicative of either previous pneumonia or possibly malignancy which has to be considered. Persistent pulmonary process can potentially lead to recurrent issues with hyponatremia secondary to inappropriate secretion of ADH. Na improving on tolvaptan treatment. Resume fluid restriction to 1L/day (2) Hyperkalemia Current Visit: Yes Status: Acute Plan to address problem: Improved with adequate fluid hydration and increased distal sodium delivery. (3) Lung cancer Current Visit: Yes Status: Acute Plan to address problem: CT scan concerning for underlying right perihilar mass concerning for malignancy. Also with worsening adenopathy and contralateral Left pulmonary nodules. The presence of pulmonary malignancy would explain recurrent issues with hyponatremia secondary to inappropriate secretion of antidiuretic hormone. (4) HTN (hypertension) Current Visit: No Status: Acute Qualifiers: Plan to address problem: Monitor under current regimen. (5) T2DM (type 2 diabetes mellitus) Current Visit: No Status: Chronic Plan to address problem: Diabetes managed per primary attending. Subjective Date of service: 06/30/20 Principal diagnosis: hyponatremia Interval history: Patient is awake, alert, denies nausea, vomiting, dizziness. no events overnight reported Objective - Vital Signs Vital signs: Vital Signs - 12hr 06/29/20 06/30/20 06/30/20 23:28 03:09 08:16 Temperature 98.1 F 97.9 F 100.1 F H Pulse Rate 102 H 116 H 125 H Respiratory 20 24 18 Rate Blood Pressure 123/85 149/85 124/81 O2 Sat by Pulse 99 92 98 Oximetry 06/30/20 08:40 Temperature Pulse Rate Respiratory Rate Blood Pressure O2 Sat by Pulse 99 Oximetry - General Appearance General appearance: well-developed, well-nourished, appears stated age EENT: ATNC, PERRL, mucous membranes moist Neck: no JVD Respiratory: Present: Clear to Ascultation Cardiology: regular, S1S2 Gastrointestinal: normoactive bowel sounds, obese Integumentary: no rash Neurologic: no focal deficit, strength 5/5, CN 3-12 intact Psychiatric: mood/affect appropriate, cooperative - Lab 06/29/20 07:03 06/30/20 05:39 Most recent lab results Calcium 9.7 mg/dL (8.4-10.2) 06/30/20 05:39 Urine Sodium 82 mmol/L 06/26/20 Unknown Medications & Allergies - Medications Allergies/Adverse Reactions: Allergies No Known Allergies Allergy (Verified 10/12/19 11:06) Home Medications: Home Medications Medication Instructions Recorded Confirmed Last Taken Type Furosemide [Lasix TAB] 20 mg PO QDAY 10/15/19 06/27/20 Unknown History Metformin HCl [Glucophage] 1,000 mg PO DAILY 10/15/19 06/27/20 Unknown History Valsartan [Diovan] 160 mg PO DAILY #30 tablet 10/18/19 06/27/20 Unknown Rx [id number] CD [Cardizem CD] 120 mg PO QDAY #30 capsule 10/18/19 06/27/20 Unknown Rx Active Medications: Generic Name Dose Route Start Last Admin Trade Name Freq PRN Reason Stop Dose Admin Acetaminophen 650 mg 06/25/20 22:06 Tylenol PO Q4H PRN Pain MILD(1-3)/Fever >100.5/ADORNO Albuterol 2.5 mg 06/28/20 22:26 06/28/20 22:47 Albuterol 2.5 Mg/3 Ml Nebu IH 2.5 mg Q4HRT PRN Administration Shortness Of Breath Dextrose 50 ml 06/25/20 22:06 D50w (25gm) Syringe IV Q30MIN PRN Hypoglycemia Protocol Diltiazem HCl 120 mg 06/27/20 01:04 06/30/20 10:01 Cardizem Cd PO 120 mg QDAY ELIUD Administration Enoxaparin Sodium 40 mg 06/29/20 10:00 06/29/20 22:00 Enoxaparin 40 Mg/0.4 Ml Inj SUB-Q Not Given QDAY@2200 ELIUD Protocol Sodium Chloride 1,000 mls @ 125 mls/hr 06/25/20 22:15 06/27/20 10:58 Nacl 0.9% 1000 Ml IV 125 mls/hr DIRECT ELIUD Administration Insulin Human Lispro 0 unit 06/26/20 07:30 06/30/20 09:41 Humalog SUB-Q 2 unit ACHS ELIUD Administration Protocol Magnesium Hydroxide 30 ml 06/25/20 22:06 Milk Of Magnesia PO Q4H PRN Constipation Ondansetron HCl 4 mg 06/25/20 22:06 Zofran IV Q8H PRN Nausea And Vomiting Sodium Chloride 10 ml 06/26/20 10:00 06/29/20 22:00 Sodium Chloride Flush Syringe 10 Ml IV 10 ml BID ELIUD Administration Sodium Chloride 10 ml 06/25/20 22:06 Sodium Chloride Flush Syringe 10 Ml IV PRN PRN LINE FLUSH Valsartan 160 mg 06/27/20 10:00 06/30/20 10:01 Diovan PO 160 mg DAILY ELIUD Administration
--- NOTE | 2020-06-30 12:44 | Progress Note ---
Assessment and Plan - Patient Problems (1) Acute hyponatremia Current Visit: Yes Status: Acute (2) T2DM (type 2 diabetes mellitus) Current Visit: No Status: Chronic (3) Mass of lung Current Visit: Yes Status: Ruled-out (4) Abnormal CT of the chest Current Visit: Yes Status: Acute (5) Endobronchial mass Current Visit: Yes Status: Acute (6) History of SIADH Current Visit: Yes Status: Acute Subjective Principal diagnosis: hyponatremia Interval history: no change Objective Vital Signs - 12hr 06/30/20 06/30/20 06/30/20 03:09 08:16 08:40 Temperature 97.9 F 100.1 F H Pulse Rate 116 H 125 H Respiratory 24 18 Rate Blood Pressure 149/85 124/81 O2 Sat by Pulse 92 98 99 Oximetry 06/30/20 10:48 Temperature 98.6 F Pulse Rate Respiratory 18 Rate Blood Pressure 118/84 O2 Sat by Pulse Oximetry Constitutional: no acute distress Eyes: non-icteric ENT: oropharynx moist Ascultation: Bilateral: diminished breath sounds Cardiovascular: regular rate and rhythm Gastrointestinal: normoactive bowel sounds, soft CBC and BMP: 06/29/20 07:03 06/30/20 05:39 ABG, PT/INR, D-dimer: PT/INR, D-dimer PT 12.1 Sec. (12.2-14.9) L 06/28/20 16:08 INR 0.91 (0.87-1.13) 06/28/20 16:08 Abnormal lab findings: Abnormal Labs 06/25/20 06/25/20 06/26/20 16:54 16:54 04:41 WBC 14.0 H 15.1 H RBC MCH MCHC 35 H 35 H RDW 12.3 L 12.4 L Lymph % (Auto) 8.6 L 6.6 L Lymph # (Auto) 1.0 L Seg Neutrophils % 85.1 H 87.1 H Seg Neuts % (Manual) Seg Neutrophils # 11.9 H 13.1 H Seg Neutrophils # Man Lymphocytes # (Manual) PT APTT Sodium 107 L* Potassium 6.0 H Chloride 76.1 L Carbon Dioxide 17 L BUN 19 H Creatinine Glucose 211 H POC Glucose Lactate Dehydrogenase TSH Free T4 Urine Chloride 06/26/20 06/26/20 06/26/20 04:41 05:39 05:39 WBC RBC MCH MCHC RDW Lymph % (Auto) Lymph # (Auto) Seg Neutrophils % Seg Neuts % (Manual) Seg Neutrophils # Seg Neutrophils # Man Lymphocytes # (Manual) PT APTT Sodium 109 L* Potassium Chloride 75.4 L Carbon Dioxide 20 L BUN Creatinine 0.5 L Glucose 221 H POC Glucose Lactate Dehydrogenase TSH 0.236 L Free T4 2.47 H Urine Chloride 06/26/20 06/26/20 06/26/20 08:05 11:02 17:01 WBC RBC MCH MCHC RDW Lymph % (Auto) Lymph # (Auto) Seg Neutrophils % Seg Neuts % (Manual) Seg Neutrophils # Seg Neutrophils # Man Lymphocytes # (Manual) PT APTT Sodium Potassium Chloride Carbon Dioxide BUN Creatinine Glucose POC Glucose 286 H 229 H 198 H Lactate Dehydrogenase TSH Free T4 Urine Chloride 06/26/20 06/26/20 06/27/20 21:11 Unknown 08:11 WBC RBC MCH MCHC RDW Lymph % (Auto) Lymph # (Auto) Seg Neutrophils % Seg Neuts % (Manual) Seg Neutrophils # Seg Neutrophils # Man Lymphocytes # (Manual) PT APTT Sodium Potassium Chloride Carbon Dioxide BUN Creatinine Glucose POC Glucose 137 H 137 H Lactate Dehydrogenase TSH Free T4 Urine Chloride 77.2 L 06/27/20 06/27/20 06/27/20 11:48 15:00 21:38 WBC RBC MCH MCHC RDW Lymph % (Auto) Lymph # (Auto) Seg Neutrophils % Seg Neuts % (Manual) Seg Neutrophils # Seg Neutrophils # Man Lymphocytes # (Manual) PT APTT Sodium 127 L D Potassium Chloride 97.0 L Carbon Dioxide 21 L BUN Creatinine 0.5 L Glucose 126 H POC Glucose 304 H 216 H Lactate Dehydrogenase TSH Free T4 Urine Chloride 06/28/20 06/28/20 06/28/20 07:42 07:51 07:51 WBC 12.6 H RBC 3.52 L MCH 33 H MCHC 35 H RDW 12.7 L Lymph % (Auto) 13.1 L Lymph # (Auto) Seg Neutrophils % 76.9 H Seg Neuts % (Manual) Seg Neutrophils # 9.7 H Seg Neutrophils # Man Lymphocytes # (Manual) PT APTT Sodium 127 L Potassium Chloride 95.8 L Carbon Dioxide BUN Creatinine Glucose 131 H POC Glucose 116 H Lactate Dehydrogenase TSH Free T4 Urine Chloride 06/28/20 06/28/20 06/28/20 12:12 15:29 16:08 WBC RBC MCH MCHC RDW Lymph % (Auto) Lymph # (Auto) Seg Neutrophils % Seg Neuts % (Manual) Seg Neutrophils # Seg Neutrophils # Man Lymphocytes # (Manual) PT 12.1 L APTT < 20.0 L Sodium Potassium Chloride Carbon Dioxide BUN Creatinine Glucose POC Glucose 296 H 200 H Lactate Dehydrogenase TSH Free T4 Urine Chloride 06/28/20 06/29/20 06/29/20 21:00 07:03 07:03 WBC 13.5 H RBC 3.57 L MCH MCHC RDW 12.7 L Lymph % (Auto) Lymph # (Auto) Seg Neutrophils % Seg Neuts % (Manual) 98.0 H Seg Neutrophils # Seg Neutrophils # Man 13.2 H Lymphocytes # (Manual) 0.0 L PT APTT Sodium 127 L Potassium Chloride 94.8 L Carbon Dioxide BUN 18 H Creatinine Glucose 326 H POC Glucose 175 H Lactate Dehydrogenase TSH Free T4 Urine Chloride 06/29/20 06/29/20 06/29/20 07:03 09:09 11:11 WBC RBC MCH MCHC RDW Lymph % (Auto) Lymph # (Auto) Seg Neutrophils % Seg Neuts % (Manual) Seg Neutrophils # Seg Neutrophils # Man Lymphocytes # (Manual) PT APTT Sodium Potassium Chloride Carbon Dioxide BUN Creatinine Glucose POC Glucose 350 H 228 H Lactate Dehydrogenase 211 H TSH Free T4 Urine Chloride 06/29/20 06/29/20 06/30/20 15:55 21:12 05:39 WBC RBC MCH MCHC RDW Lymph % (Auto) Lymph # (Auto) Seg Neutrophils % Seg Neuts % (Manual) Seg Neutrophils # Seg Neutrophils # Man Lymphocytes # (Manual) PT APTT Sodium 133 L Potassium Chloride 96.4 L Carbon Dioxide BUN Creatinine Glucose 203 H POC Glucose 154 H 254 H Lactate Dehydrogenase TSH Free T4 Urine Chloride 06/30/20 06/30/20 07:44 11:27 WBC RBC MCH MCHC RDW Lymph % (Auto) Lymph # (Auto) Seg Neutrophils % Seg Neuts % (Manual) Seg Neutrophils # Seg Neutrophils # Man Lymphocytes # (Manual) PT APTT Sodium Potassium Chloride Carbon Dioxide BUN Creatinine Glucose POC Glucose 171 H 282 H Lactate Dehydrogenase TSH Free T4 Urine Chloride Allied health notes reviewed: nursing
[2020-06-30] MEDS: ENOXAPARIN 40 MG/0.4 ML INJ SUB-Q SCH (22:45)
[2020-07-01] MEDS: ACETAMINOPHEN 325 MG TAB PO PRN ×2 (01:51→15:00)
[2020-07-01 05:44] LABS: Hematocrit 32.9 % (30.3-42.9); Mean Corpuscular HGB Conc 34 % (30-34); Mean Corpuscular Volume 94 fl (79-97); Platelet Count 459 K/mm3 (140-440); Red Blood Count 3.51 M/mm3 (3.65-5.03); Red Cell Distribution Width 12.8 % (13.2-15.2)
[2020-07-01 05:52] LABS: Basophils # (Auto) 0.1 K/mm3 (0.0-0.1); Basophils % (Auto) 0.4 % (0.0-1.8); Eosinophils # (Auto) 0.1 K/mm3 (0.0-0.4); Lymphocytes # (Auto) 1.1 K/mm3 (1.2-5.4); Lymphocytes % (Auto) 7.1 % (13.4-35.0); Monocytes # (Auto) 0.9 K/mm3 (0.0-0.8); Monocytes % (Auto) 6.1 % (0.0-7.3)
[2020-07-01 05:59] LABS: Blood Urea Nitrogen 27 mg/dL (7-17); Calcium 9.8 mg/dL (8.4-10.2); Hemolysis Index 18
[2020-07-01 06:14] LABS: BUN/Creatinine Ratio 45
[2020-07-01] MEDS: INSULIN LISPRO 100 UNIT/ML VIAL 3 mL SUB-Q SCH ×4 (08:39→23:00)
--- NOTE | 2020-07-01 08:57 | Progress Note ---
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 Patient is status post tolvaptan SIADH Etiology secondary to probable lung CA. lung cancer CT revealed underlying right perihilar mass concerning for malignancy acute hyperkalemia Resolved. HTN (hypertension) Continue home antihypertensive medications. T2DM (type 2 diabetes mellitus) We will monitor Accu-Cheks. DVT prophylaxis Patient placed on subcutaneous heparin. Full code status 06/27/2020. Chest x-ray does show persistent right basilar process that may actually be indicative of either previous pneumonia or possibly malignancy which has to be considered. Persistent pulmonary process can potentially lead to recurrent issues with hyponatremia secondary to inappropriate secretion of ADH. Will be following up urine electrolyte studies. Check CT of chest and consider pulmonary consultation. No weight loss from her previous hospitalization in September. Continue tolvaptan per nephrology and monitor BMP closely. 06/28/2020. CT scan of the chest reveals a right perihilar mass encasing and obstructing the right lower lobe bronchus characteristic of primary lung cancer with worsening mediastinal adenopathy and small right pleural effusion which is likely a malignant effusion. Patient also has contralateral left pulmonary nodules worrisome for pulmonary metastasis. Pulmonary and oncology consultation. 06/29/2020. Patient likely with metastatic lung cancer, ? SCLC. Check MRI of brain to rule out brain mets. Follow-up with pulmonology recommendations for bronchoscopy possibly Wednesday. Sodium is improving. Continue per nephrology. 06/30/2020. Patient likely with metastatic lung cancer, ? SCLC. Await MRI brain to rule out mets. Possible bronchoscopy tomorrow per pulmonary. 07/01/2020. Patient likely with metastatic lung cancer. Await MRI brain to rule out mets. Possible bronchoscopy per pulmonary. Continue Lovenox for DVT prophylaxis History Interval history: No new issues overnight Hospitalist Physical - Constitutional Vitals: Temp Pulse Resp BP Pulse Ox 97.6 F 101 H 20 148/76 99 07/01/20 07:33 07/01/20 07:33 07/01/20 07:33 07/01/20 07:33 07/01/20 07:33 General appearance: Present: no acute distress, well-nourished - EENT Eyes: Present: PERRL, EOM intact ENT: hearing intact, clear oral mucosa, dentition normal - Neck Neck: Present: supple, normal ROM - Respiratory Respiratory effort: normal Respiratory: bilateral: CTA - Cardiovascular Rhythm: regular Heart Sounds: Present: S1 & S2. Absent: gallop, rub - Extremities Extremities: no ischemia, No edema, Full ROM - Abdominal General gastrointestinal: soft, non-tender, non-distended, normal bowel sounds - Integumentary Integumentary: Present: clear, warm, dry - Neurologic Neurologic: CNII-XII intact, moves all extremities Results - Labs CBC & Chem 7: 07/01/20 05:07 07/01/20 05:07 Labs: Laboratory Last Values WBC 15.2 K/mm3 (4.5-11.0) H 07/01/20 05:07 RBC 3.51 M/mm3 (3.65-5.03) L 07/01/20 05:07 Hgb 11.0 gm/dl (10.1-14.3) 07/01/20 05:07 Hct 32.9 % (30.3-42.9) 07/01/20 05:07 MCV 94 fl (79-97) 07/01/20 05:07 MCH 32 pg (28-32) 07/01/20 05:07 MCHC 34 % (30-34) 07/01/20 05:07 RDW 12.8 % (13.2-15.2) L 07/01/20 05:07 Plt Count 459 K/mm3 (140-440) H 07/01/20 05:07 Lymph % (Auto) 7.1 % (13.4-35.0) L 07/01/20 05:07 [place]oll[place] % (Auto) 6.1 % (0.0-7.3) 07/01/20 05:07 Eos % (Auto) 1.0 % (0.0-4.3) 07/01/20 05:07 Baso % (Auto) 0.4 % (0.0-1.8) 07/01/20 05:07 Lymph # (Auto) 1.1 K/mm3 (1.2-5.4) L 07/01/20 05:07 [place] # (Auto) 0.9 K/mm3 (0.0-0.8) H 07/01/20 05:07 Eos # (Auto) 0.1 K/mm3 (0.0-0.4) 07/01/20 05:07 Baso # (Auto) 0.1 K/mm3 (0.0-0.1) 07/01/20 05:07 Add Manual Diff Complete 06/29/20 07:03 Total Counted 100 06/29/20 07:03 Seg Neutrophils % 85.4 % (40.0-70.0) H 07/01/20 05:07 Seg Neuts % (Manual) 98.0 % (40.0-70.0) H 06/29/20 07:03 Monocytes % (Manual) 1.0 % (0.0-7.3) 06/29/20 07:03 Basophils % (Manual) 1.0 % (0.0-1.8) 06/29/20 07:03 Nucleated RBC % Not Reportable 06/29/20 07:03 Seg Neutrophils # 13.0 K/mm3 (1.8-7.7) H 07/01/20 05:07 Seg Neutrophils # Man 13.2 K/mm3 (1.8-7.7) H 06/29/20 07:03 Band Neutrophils # 0.0 K/mm3 06/29/20 07:03 Lymphocytes # (Manual) 0.0 K/mm3 (1.2-5.4) L 06/29/20 07:03 Abs React Lymphs (Man) 0.0 K/mm3 06/29/20 07:03 Monocytes # (Manual) 0.1 K/mm3 (0.0-0.8) 06/29/20 07:03 Eosinophils # (Manual) 0.0 K/mm3 (0.0-0.4) 06/29/20 07:03 Basophils # (Manual) 0.1 K/mm3 (0.0-0.1) 06/29/20 07:03 Metamyelocytes # 0.0 K/mm3 06/29/20 07:03 Myelocytes # 0.0 K/mm3 06/29/20 07:03 Promyelocytes # 0.0 K/mm3 06/29/20 07:03 Blast Cells # 0.0 K/mm3 06/29/20 07:03 WBC Morphology Not Reportable 06/29/20 07:03 Hypersegmented Neuts Not Reportable 06/29/20 07:03 Hyposegmented Neuts Not Reportable 06/29/20 07:03 Hypogranular Neuts Not Reportable 06/29/20 07:03 Smudge Cells Not Reportable 06/29/20 07:03 Toxic Granulation Not Reportable 06/29/20 07:03 Toxic Vacuolation Not Reportable 06/29/20 07:03 Dohle Bodies Not Reportable 06/29/20 07:03 Pelger-Huet Anomaly Not Reportable 06/29/20 07:03 Ewa Rods Not Reportable 06/29/20 07:03 Platelet Estimate Consistent w auto 06/29/20 07:03 Clumped Platelets Not Reportable 06/29/20 07:03 Plt Clumps, EDTA Not Reportable 06/29/20 07:03 Large Platelets Not Reportable 06/29/20 07:03 Giant Platelets Not Reportable 06/29/20 07:03 Platelet Satelliting Not Reportable 06/29/20 07:03 Plt Morphology Comment Not Reportable 06/29/20 07:03 RBC Morphology Normal 06/29/20 07:03 Dimorphic RBCs Not Reportable 06/29/20 07:03 Polychromasia Not Reportable 06/29/20 07:03 Hypochromasia Not Reportable 06/29/20 07:03 Poikilocytosis Not Reportable 06/29/20 07:03 Anisocytosis Not Reportable 06/29/20 07:03 Microcytosis Not Reportable 06/29/20 07:03 Macrocytosis Not Reportable 06/29/20 07:03 Spherocytes Not Reportable 06/29/20 07:03 Pappenheimer Bodies Not Reportable 06/29/20 07:03 Sickle Cells Not Reportable 06/29/20 07:03 Target Cells Not Reportable 06/29/20 07:03 Tear Drop Cells Not Reportable 06/29/20 07:03 Ovalocytes Not Reportable 06/29/20 07:03 Helmet Cells Not Reportable 06/29/20 07:03 Seymour-Blackburn Bodies Not Reportable 06/29/20 07:03 [place] Rings Not Reportable 06/29/20 07:03 Aleshia Cells Not Reportable 06/29/20 07:03 Bite Cells Not Reportable 06/29/20 07:03 Crenated Cell Not Reportable 06/29/20 07:03 Elliptocytes Not Reportable 06/29/20 07:03 Acanthocytes (Spur) Not Reportable 06/29/20 07:03 Rouleaux Not Reportable 06/29/20 07:03 Hemoglobin C Crystals Not Reportable 06/29/20 07:03 Schistocytes Not Reportable 06/29/20 07:03 Malaria parasites Not Reportable 06/29/20 07:03 Jasiel Bodies Not Reportable 06/29/20 07:03 Hem Pathologist Commnt No 06/29/20 07:03 PT 12.1 Sec. (12.2-14.9) L 06/28/20 16:08 INR 0.91 (0.87-1.13) 06/28/20 16:08 APTT < 20.0 Sec. (24.2-36.6) L 06/28/20 16:08 Sodium 132 mmol/L (137-145) L 07/01/20 05:07 Potassium 4.3 mmol/L (3.6-5.0) 07/01/20 05:07 Chloride 97.8 mmol/L (98-107) L 07/01/20 05:07 Carbon Dioxide 23 mmol/L (22-30) 07/01/20 05:07 Anion Gap 16 mmol/L 07/01/20 05:07 BUN 27 mg/dL (7-17) H 07/01/20 05:07 Creatinine 0.6 mg/dL (0.6-1.2) 07/01/20 05:07 Estimated GFR > 60 ml/min 07/01/20 05:07 BUN/Creatinine Ratio 45 % 07/01/20 05:07 Glucose 181 mg/dL (65-100) H 07/01/20 05:07 POC Glucose 178 mg/dL (70-105) H 07/01/20 08:18 Calcium 9.8 mg/dL (8.4-10.2) 07/01/20 05:07 Total Bilirubin 0.50 mg/dL (0.1-1.2) 06/25/20 16:54 AST 24 units/L (5-40) 06/25/20 16:54 ALT 17 units/L (7-56) 06/25/20 16:54 Alkaline Phosphatase 96 units/L (35-129) 06/25/20 16:54 Lactate Dehydrogenase 211 units/L (91-180) H 06/29/20 07:03 Total Protein 8.1 g/dL (6.3-8.2) 06/25/20 16:54 Albumin 4.4 g/dL (3.9-5) 06/25/20 16:54 Albumin/Globulin Ratio 1.2 % 06/25/20 16:54 TSH 0.236 mlU/mL (0.270-4.200) L 06/26/20 05:39 Free T4 2.47 ng/dL (0.76-1.46) H 06/26/20 05:39 Total Cortisol 36.5 mcg/dL () 06/26/20 05:39 Urine Color Straw (Yellow) 06/26/20 Unknown Urine Turbidity Clear (Clear) 06/26/20 Unknown Urine pH 7.0 (5.0-7.0) 06/26/20 Unknown Ur Specific [place] 1.014 (1.003-1.030) 06/26/20 Unknown Urine Protein 100 mg/dl mg/dL (Negative) 06/26/20 Unknown Urine Glucose (UA) >=500 mg/dL (Negative) 06/26/20 Unknown Urine Ketones Neg mg/dL (Negative) 06/26/20 Unknown Urine Blood Neg (Negative) 06/26/20 Unknown Urine Nitrite Neg (Negative) 06/26/20 Unknown Urine Bilirubin Neg (Negative) 06/26/20 Unknown Urine Urobilinogen < 2.0 mg/dL (<2.0) 06/26/20 Unknown Ur Leukocyte Esterase Neg (Negative) 06/26/20 Unknown Urine WBC (Auto) < 1.0 /HPF (0.0-6.0) 06/26/20 Unknown Urine RBC (Auto) < 1.0 /HPF (0.0-6.0) 06/26/20 Unknown Urine Sodium 82 mmol/L 06/26/20 Unknown Urine Chloride 77.2 mmolL (110-250) L 06/26/20 Unknown King/IV: Voiding Method External Female Catheter IV Catheter Type [Left Wrist] Peripheral IV IV Catheter Type [Right Hand] INT / Saline Lock Active Medications - Current Medications Current Medications: Generic Name Dose Route Start Last Admin Trade Name Freq PRN Reason Stop Dose Admin Acetaminophen 650 mg 06/25/20 22:06 07/01/20 01:51 Tylenol PO 650 mg Q4H PRN Administration Pain MILD(1-3)/Fever >100.5/ADORNO Albuterol 2.5 mg 06/28/20 22:26 06/28/20 22:47 Albuterol 2.5 Mg/3 Ml Nebu IH 2.5 mg Q4HRT PRN Administration Shortness Of Breath Dextrose 50 ml 06/25/20 22:06 D50w (25gm) Syringe IV Q30MIN PRN Hypoglycemia Protocol Diltiazem HCl 120 mg 06/27/20 01:04 06/30/20 10:01 Cardizem Cd PO 120 mg QDAY ELIUD Administration Enoxaparin Sodium 40 mg 06/29/20 10:00 06/30/20 22:45 Enoxaparin 40 Mg/0.4 Ml Inj SUB-Q 40 mg QDAY@2200 ELIUD Administration Protocol Sodium Chloride 1,000 mls @ 125 mls/hr 06/25/20 22:15 06/27/20 10:58 Nacl 0.9% 1000 Ml IV 125 mls/hr DIRECT ELIUD Administration Insulin Human Lispro 0 unit 06/26/20 07:30 07/01/20 08:39 Humalog SUB-Q Not Given ACHS ELIUD Protocol Magnesium Hydroxide 30 ml 06/25/20 22:06 Milk Of Magnesia PO Q4H PRN Constipation Ondansetron HCl 4 mg 06/25/20 22:06 Zofran IV Q8H PRN Nausea And Vomiting Sodium Chloride 10 ml 06/26/20 10:00 06/30/20 22:46 Sodium Chloride Flush Syringe 10 Ml IV 10 ml BID ELIUD Administration Sodium Chloride 10 ml 06/25/20 22:06 Sodium Chloride Flush Syringe 10 Ml IV PRN PRN LINE FLUSH Valsartan 160 mg 06/27/20 10:00 06/30/20 10:01 Diovan PO 160 mg DAILY ELIUD Administration Nutrition/Malnutrition Assess - Dietary Evaluation Nutrition/Malnutrition Findings: Nutrition Notes Start: 06/26/20 13:14 Freq: Status: Active Protocol: Document 06/28/20 12:47 AT (Rec: 06/28/20 12:58 AT [id number]) Co-Sign 06/28/20 12:47 LP Nutrition Notes Initial or Follow up Reassessment Current Diagnosis Diabetes,Hypertension Other Pertinent Diagnosis hyponatremia, hyperkalemia, SIADH Current Diet Cardiac/Consistent CHO Labs/Tests Na 127 BG 131 Pertinent Medications Humalog NS at 125 mL/hr Height 5 ft Weight 68.9 kg [place] Body Weight (kg) 45.45 BMI 29.6 Weight change and time frame 7.4% weight loss in 3 days Weight Status Overweight Subjective/Other Information Follow up for education needs and intakes. Per chart, pt had intakes of 75% at lunch/ dinner and 50% at dinner 06/27 . Today, pt has intake of 100% . Pt is eating 75% on average. Visited pt at bedside, was unable to communicate to follow up on diet education needs. Percent of energy/protein needs met: 124%/105% Burn Absent Trauma Absent GI Symptoms None Current % PO Good (75-100%) Minimum of two criteria No physical signs of malnutrition #2 Nutrition Diagnosis Inadequate oral intake As Evidenced by Signs and Symptoms pt consuming 75% of meals on average Diagnosis Progress(for reassessment Improved documentation) #1 Nutrition Diagnosis Food and nutrition-related knowledge deficit As Evidenced by Signs and Symptoms unable to communicate with pt Diagnosis Progress(for reassessment Continues documentation) Is patient on ventilator? No Is Patient Ambulatory and/or Out of Bed No REE-([place]-St[place] Jeor-confined to bed) 1356.588 Calculation Used for Recommendations [place] Jeor Additional Notes PRO needs: 68-83 g(1-1.2g/kg) Fluid needs: 1mL/kcal or per MD Nutrition Intervention Change Diet Order: Continue Add Supplement/Snack (indicate name/kcal Glucerna daily /protein ) Provides kCal: 220 Provides Protein (gm) 10 Goal #1 Meet at least 75% energy and protein needs via PO and ONS Anticipated Discharge Needs: Cardiac/ Consistent CHO Follow-Up By: 07/03/20 Additional Comments F/U for stable intakes
[2020-07-01] MEDS ORDERED: LIDOCAINE VISCOUS 2% 15 ML ORAL LIQD MM NR (09:00)
[2020-07-01] MEDS ORDERED: SODIUM CHLORIDE 0.9% 1000 ML 1,000 ML IV SCH (09:00)
[2020-07-01] MEDS ORDERED: BENZOCAINE 20% TOP SPRAY 0.5 ML UNIT DOSE MM ONE (09:24)
[2020-07-01] MEDS ORDERED: LIDOCAINE MPF (2%) 20 MG/1 ML VIAL 5 ML ONE ×2 (09:33→12:24)
[2020-07-01] MEDS ORDERED: LIDOCAINE (1%) 10 MG/1 ML VIAL 20 ML MDV ONE (09:33)
--- NOTE | 2020-07-01 09:52 | Progress Note ---
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 Bronch today with possible biopsy and brushing. Most likely has an endobronchial lesion. Subjective Date of service: 07/01/20 Principal diagnosis: hyponatremia Interval history: No acute events. Patient going down for MRI but at bedside. Used the language line to discuss bronch and has agreed to the procedure. Unfortunately there is no else here who speaks amharic so all things must go through language line. Objective Vital Signs - 12hr 06/30/20 07/01/20 07/01/20 23:41 00:26 04:13 Temperature 98.2 F 97.5 F L Pulse Rate 99 H 100 H Respiratory 16 20 16 Rate Blood Pressure 127/78 113/67 O2 Sat by Pulse 97 99 Oximetry 07/01/20 07:33 Temperature 97.6 F Pulse Rate 101 H Respiratory 20 Rate Blood Pressure 148/76 O2 Sat by Pulse 99 Oximetry Constitutional: no acute distress Eyes: non-icteric ENT: oropharynx moist Ascultation: Bilateral: diminished breath sounds Cardiovascular: regular rate and rhythm Gastrointestinal: normoactive bowel sounds, soft CBC and BMP: 07/01/20 05:07 07/01/20 05:07 ABG, PT/INR, D-dimer: PT/INR, D-dimer PT 12.1 Sec. (12.2-14.9) L 06/28/20 16:08 INR 0.91 (0.87-1.13) 06/28/20 16:08 Abnormal lab findings: Abnormal Labs 06/25/20 06/25/20 06/26/20 16:54 16:54 04:41 WBC 14.0 H 15.1 H RBC MCH MCHC 35 H 35 H RDW 12.3 L 12.4 L Plt Count Lymph % (Auto) 8.6 L 6.6 L Lymph # (Auto) 1.0 L [place] # (Auto) Seg Neutrophils % 85.1 H 87.1 H Seg Neuts % (Manual) Seg Neutrophils # 11.9 H 13.1 H Seg Neutrophils # Man Lymphocytes # (Manual) PT APTT Sodium 107 L* Potassium 6.0 H Chloride 76.1 L Carbon Dioxide 17 L BUN 19 H Creatinine Glucose 211 H POC Glucose Lactate Dehydrogenase TSH Free T4 Urine Chloride 06/26/20 06/26/20 06/26/20 04:41 05:39 05:39 WBC RBC MCH MCHC RDW Plt Count Lymph % (Auto) Lymph # (Auto) [place] # (Auto) Seg Neutrophils % Seg Neuts % (Manual) Seg Neutrophils # Seg Neutrophils # Man Lymphocytes # (Manual) PT APTT Sodium 109 L* Potassium Chloride 75.4 L Carbon Dioxide 20 L BUN Creatinine 0.5 L Glucose 221 H POC Glucose Lactate Dehydrogenase TSH 0.236 L Free T4 2.47 H Urine Chloride 06/26/20 06/26/20 06/26/20 08:05 11:02 17:01 WBC RBC MCH MCHC RDW Plt Count Lymph % (Auto) Lymph # (Auto) [place] # (Auto) Seg Neutrophils % Seg Neuts % (Manual) Seg Neutrophils # Seg Neutrophils # Man Lymphocytes # (Manual) PT APTT Sodium Potassium Chloride Carbon Dioxide BUN Creatinine Glucose POC Glucose 286 H 229 H 198 H Lactate Dehydrogenase TSH Free T4 Urine Chloride 06/26/20 06/26/20 06/27/20 21:11 Unknown 08:11 WBC RBC MCH MCHC RDW Plt Count Lymph % (Auto) Lymph # (Auto) [place] # (Auto) Seg Neutrophils % Seg Neuts % (Manual) Seg Neutrophils # Seg Neutrophils # Man Lymphocytes # (Manual) PT APTT Sodium Potassium Chloride Carbon Dioxide BUN Creatinine Glucose POC Glucose 137 H 137 H Lactate Dehydrogenase TSH Free T4 Urine Chloride 77.2 L 06/27/20 06/27/20 06/27/20 11:48 15:00 21:38 WBC RBC MCH MCHC RDW Plt Count Lymph % (Auto) Lymph # (Auto) [place] # (Auto) Seg Neutrophils % Seg Neuts % (Manual) Seg Neutrophils # Seg Neutrophils # Man Lymphocytes # (Manual) PT APTT Sodium 127 L D Potassium Chloride 97.0 L Carbon Dioxide 21 L BUN Creatinine 0.5 L Glucose 126 H POC Glucose 304 H 216 H Lactate Dehydrogenase TSH Free T4 Urine Chloride 06/28/20 06/28/20 06/28/20 07:42 07:51 07:51 WBC 12.6 H RBC 3.52 L MCH 33 H MCHC 35 H RDW 12.7 L Plt Count Lymph % (Auto) 13.1 L Lymph # (Auto) [place] # (Auto) Seg Neutrophils % 76.9 H Seg Neuts % (Manual) Seg Neutrophils # 9.7 H Seg Neutrophils # Man Lymphocytes # (Manual) PT APTT Sodium 127 L Potassium Chloride 95.8 L Carbon Dioxide BUN Creatinine Glucose 131 H POC Glucose 116 H Lactate Dehydrogenase TSH Free T4 Urine Chloride 06/28/20 06/28/20 06/28/20 12:12 15:29 16:08 WBC RBC MCH MCHC RDW Plt Count Lymph % (Auto) Lymph # (Auto) [place] # (Auto) Seg Neutrophils % Seg Neuts % (Manual) Seg Neutrophils # Seg Neutrophils # Man Lymphocytes # (Manual) PT 12.1 L APTT < 20.0 L Sodium Potassium Chloride Carbon Dioxide BUN Creatinine Glucose POC Glucose 296 H 200 H Lactate Dehydrogenase TSH Free T4 Urine Chloride 06/28/20 06/29/20 06/29/20 21:00 07:03 07:03 WBC 13.5 H RBC 3.57 L MCH MCHC RDW 12.7 L Plt Count Lymph % (Auto) Lymph # (Auto) [place] # (Auto) Seg Neutrophils % Seg Neuts % (Manual) 98.0 H Seg Neutrophils # Seg Neutrophils # Man 13.2 H Lymphocytes # (Manual) 0.0 L PT APTT Sodium 127 L Potassium Chloride 94.8 L Carbon Dioxide BUN 18 H Creatinine Glucose 326 H POC Glucose 175 H Lactate Dehydrogenase TSH Free T4 Urine Chloride 06/29/20 06/29/20 06/29/20 07:03 09:09 11:11 WBC RBC MCH MCHC RDW Plt Count Lymph % (Auto) Lymph # (Auto) [place] # (Auto) Seg Neutrophils % Seg Neuts % (Manual) Seg Neutrophils # Seg Neutrophils # Man Lymphocytes # (Manual) PT APTT Sodium Potassium Chloride Carbon Dioxide BUN Creatinine Glucose POC Glucose 350 H 228 H Lactate Dehydrogenase 211 H TSH Free T4 Urine Chloride 06/29/20 06/29/20 06/30/20 15:55 21:12 05:39 WBC RBC MCH MCHC RDW Plt Count Lymph % (Auto) Lymph # (Auto) [place] # (Auto) Seg Neutrophils % Seg Neuts % (Manual) Seg Neutrophils # Seg Neutrophils # Man Lymphocytes # (Manual) PT APTT Sodium 133 L Potassium Chloride 96.4 L Carbon Dioxide BUN Creatinine Glucose 203 H POC Glucose 154 H 254 H Lactate Dehydrogenase TSH Free T4 Urine Chloride 06/30/20 06/30/20 06/30/20 07:44 11:27 15:39 WBC RBC MCH MCHC RDW Plt Count Lymph % (Auto) Lymph # (Auto) [place] # (Auto) Seg Neutrophils % Seg Neuts % (Manual) Seg Neutrophils # Seg Neutrophils # Man Lymphocytes # (Manual) PT APTT Sodium Potassium Chloride Carbon Dioxide BUN Creatinine Glucose POC Glucose 171 H 282 H 130 H Lactate Dehydrogenase TSH Free T4 Urine Chloride 06/30/20 07/01/20 07/01/20 20:45 05:07 05:07 WBC 15.2 H RBC 3.51 L MCH MCHC RDW 12.8 L Plt Count 459 H Lymph % (Auto) 7.1 L Lymph # (Auto) 1.1 L [place] # (Auto) 0.9 H Seg Neutrophils % 85.4 H Seg Neuts % (Manual) Seg Neutrophils # 13.0 H Seg Neutrophils # Man Lymphocytes # (Manual) PT APTT Sodium 132 L Potassium Chloride 97.8 L Carbon Dioxide BUN 27 H Creatinine Glucose 181 H POC Glucose 244 H Lactate Dehydrogenase TSH Free T4 Urine Chloride 07/01/20 08:18 WBC RBC MCH MCHC RDW Plt Count Lymph % (Auto) Lymph # (Auto) [place] # (Auto) Seg Neutrophils % Seg Neuts % (Manual) Seg Neutrophils # Seg Neutrophils # Man Lymphocytes # (Manual) PT APTT Sodium Potassium Chloride Carbon Dioxide BUN Creatinine Glucose POC Glucose 178 H Lactate Dehydrogenase TSH Free T4 Urine Chloride Allied health notes reviewed: nursing
--- NOTE | 2020-07-01 09:59 | Progress Note ---
Assessment and Plan - Patient Problems (1) Hyponatremia Current Visit: Yes Status: Acute Plan to address problem: Sodium has improved. Continue current treatment. Follow-up sodium periodically. If discharged, will follow up sodium later this week (2) Mass of lung Current Visit: Yes Status: Ruled-out Plan to address problem: Follow-up histology (3) HTN (hypertension) Current Visit: No Status: Acute Qualifiers: Plan to address problem: Follow-up blood pressure on current medications (4) T2DM (type 2 diabetes mellitus) Current Visit: No Status: Chronic Plan to address problem: Blood sugar management by primary attending Subjective Date of service: 07/01/20 Principal diagnosis: hyponatremia Interval history: Patient seen lying in bed. at bedside. No new complaints. Objective - Exam Narrative Exam: Elderly Ethiopian lady lying in bed in no acute distress HEENT: NCAT, pink oral mucous membrane Neck: Supple, no venous distention CVS: S1S2 RRR with no murmur, rub or gallop Chest: Clear to auscultation, breath sounds are a bit diminished Abdomen: Protuberant, soft, nontender, no organomegaly, bowel sounds are present Extremities: No edema Neuro: Awake, alert no focal deficits - Vital Signs Vital signs: Vital Signs - 12hr 06/30/20 07/01/20 07/01/20 23:41 00:26 04:13 Temperature 98.2 F 97.5 F L Pulse Rate 99 H 100 H Respiratory 16 20 16 Rate Blood Pressure 127/78 113/67 O2 Sat by Pulse 97 99 Oximetry 07/01/20 07:33 Temperature 97.6 F Pulse Rate 101 H Respiratory 20 Rate Blood Pressure 148/76 O2 Sat by Pulse 99 Oximetry - Lab 07/01/20 05:07 07/01/20 05:07 Most recent lab results Calcium 9.8 mg/dL (8.4-10.2) 07/01/20 05:07 Urine Sodium 82 mmol/L 06/26/20 Unknown Medications & Allergies - Medications Allergies/Adverse Reactions: Allergies No Known Allergies Allergy (Verified 10/12/19 11:06) Home Medications: Home Medications Medication Instructions Recorded Confirmed Last Taken Type Furosemide [Lasix TAB] 20 mg PO QDAY 10/15/19 06/27/20 Unknown History Metformin HCl [Glucophage] 1,000 mg PO DAILY 10/15/19 06/27/20 Unknown History Valsartan [Diovan] 160 mg PO DAILY #30 tablet 10/18/19 06/27/20 Unknown Rx dilTIAZem CD [Cardizem CD] 120 mg PO QDAY #30 capsule 10/18/19 06/27/20 Unknown Rx Active Medications: Generic Name Dose Route Start Last Admin Trade Name Freq PRN Reason Stop Dose Admin Acetaminophen 650 mg 06/25/20 22:06 07/01/20 01:51 Tylenol PO 650 mg Q4H PRN Administration Pain MILD(1-3)/Fever >100.5/ADORNO Albuterol 2.5 mg 06/28/20 22:26 06/28/20 22:47 Albuterol 2.5 Mg/3 Ml Nebu IH 2.5 mg Q4HRT PRN Administration Shortness Of Breath Dextrose 50 ml 06/25/20 22:06 D50w (25gm) Syringe IV Q30MIN PRN Hypoglycemia Protocol Diltiazem HCl 120 mg 06/27/20 01:04 06/30/20 10:01 Cardizem Cd PO 120 mg QDAY ELIUD Administration Enoxaparin Sodium 40 mg 06/29/20 10:00 06/30/20 22:45 Enoxaparin 40 Mg/0.4 Ml Inj SUB-Q 40 mg QDAY@2200 ELIUD Administration Protocol Sodium Chloride 1,000 mls @ 125 mls/hr 06/25/20 22:15 06/27/20 10:58 Nacl 0.9% 1000 Ml IV 125 mls/hr DIRECT ELIUD Administration Sodium Chloride 1,000 mls @ 50 mls/hr 07/01/20 09:00 Nacl 0.9% 1000 Ml IV DIRECT ELIUD Insulin Human Lispro 0 unit 06/26/20 07:30 07/01/20 08:39 Humalog SUB-Q Not Given ACHS ELIDU Protocol Lidocaine HCl 20 ml 07/01/20 09:00 Lidocaine Viscous 2% 15 Ml Oral Liqd MM 07/01/20 23:59 PREOP NR Magnesium Hydroxide 30 ml 06/25/20 22:06 Milk Of Magnesia PO Q4H PRN Constipation Ondansetron HCl 4 mg 06/25/20 22:06 Zofran IV Q8H PRN Nausea And Vomiting Sodium Chloride 10 ml 06/26/20 10:00 06/30/20 22:46 Sodium Chloride Flush Syringe 10 Ml IV 10 ml BID ELIUD Administration Sodium Chloride 10 ml 06/25/20 22:06 Sodium Chloride Flush Syringe 10 Ml IV PRN PRN LINE FLUSH Valsartan 160 mg 06/27/20 10:00 06/30/20 10:01 Diovan PO 160 mg DAILY ELIUD Administration
[2020-07-01] MEDS ORDERED: LORazepam 2 MG/ML VIAL IV NR (10:42)
[2020-07-01] MEDS ORDERED: SODIUM CHLORIDE 0.9% 1000 ML 1,000 ML IV ONE (12:00)
[2020-07-01] MEDS ORDERED: LIDOCAINE VISCOUS 2% 15 ML ORAL LIQD PO ONE (12:06)
[2020-07-01] MEDS ORDERED: SODIUM CHLORIDE 0.9% 1000 ML IV SOLN IV ONE (12:06)
[2020-07-01] MEDS ORDERED: LIDOCAINE (1%) 10 MG/1 ML VIAL 20 ML MDV INFILTRATI ONE (12:06)
--- NOTE | 2020-07-01 12:19 | Anesthesia Day of Surgery ---
Anesthesia Day of Surgery - Day of Surgery Patient Examined: Yes Patient H&P Reviewed: Yes Patient is NPO: Yes
[2020-07-01] MEDS ORDERED: propofoL 200 MG/20 ML VIAL IV ONE (12:21)
--- NOTE | 2020-07-01 13:24 | Procedure Note ---
Date of procedure: 07/01/20 Pre-op diagnosis: Lung mass Post-op diagnosis: same (With complete obstruction of the right lower and middle lobes) Procedure: Flexible Bronch\ Had to obtain consent via [employer] phone from . Pt taken to endo suite and prepped. Scope introduced into the right nare without difficulty. Very blueish hue throughout posterior airway and trachea. Abnormal mucosa. Scope introduced into airway with blue hue seen throughout. Right lower lobe completely obstructed by a large blueish mass, non pulsatile. Brushings and washings were taken but no biopsies given the aggressive nature of the lesion. Airway inspection on left shows abnormal mucosa as well as blueish hue. Scope retracted and patient recovered. I took back to room and used blue phone to discuss the findings. Pictures taken and are in the chart. Anesthesia: MAC Surgeon: ELZA MORALES Estimated blood loss: none Pathology: list Specimen disposition: to lab Condition: stable Disposition: floor (Called by lab, pictures did not save.)
[2020-07-01] MEDS: VALSARTAN 160MG TAB PO SCH (15:00)
[2020-07-01] MEDS: dilTIAZem CD 120 MG CAP PO SCH (15:01)
--- NOTE | 2020-07-01 16:05 | Magnetic Resonance Report ---
MRI BRAIN WITHOUT CONTRAST INDICATION / CLINICAL INFORMATION: Altered mental status, history of metastatic lung cancer.. TECHNIQUE: Multiplanar, multisequence MR images of the brain were obtained. COMPARISON: None available. FINDINGS: BRAIN / INTRACRANIAL CONTENTS: No acute ischemia, acute hemorrhage, mass effect, midline shift, or hy drocephalus. No chronic infarct. Age-commensurate generalized ventricular and cisternal/sulcal promi nence without discrete superimposed focal atrophy. Age-commensurate small foci of cerebral white beth er FLAIR hyperintensity. CRANIOCERVICAL JUNCTION: No significant abnormality. VASCULAR FLOW-VOIDS: No significant abnormality. ORBITS: No significant abnormality of visualized orbits. SINUSES / MASTOIDS: No significant abnormality of visualized sinuses and mastoid air cells. ADDITIONAL FINDINGS: None. IMPRESSION: 1. No acute intracranial abnormality. No findings to explain altered mental status. No findings to garcia ggest intracranial metastatic disease. Signer Name: Rui Baldwin MD Signed: 07/01/2020 4:00 PM Workstation Name: [id number]
--- NOTE | 2020-07-01 18:42 | Anesthesia Consultation ---
Anesthesia Consult and Med Hx Date of service: 07/01/20 - Airway Intubation Access Assessment: Good - Pre-Operative Health Status ASA Pre-Surgery Classification: ASA3 Proposed Anesthetic Plan: MAC - Pulmonary Hx Respiratory Symptoms: Yes (Lung mass) - Cardiovascular System Hx Hypertension: Yes - Endocrine Hx Renal Disease: Yes (Admitted with SIADH; corrected now) Hx Non-Insulin Dependent Diabetes: Yes - Other Systems Hx Cancer: Yes (Lung) - Additional Comments Anesthesia Medical History Comments: This was done at 1217
--- NOTE | 2020-07-01 18:42 | Post Anesthesia Evaluation ---
- Post Anesthesia Evaluation Patient Participated: Yes Airway Patent: Yes Stable Respiratory Function: Yes Nausea/Vomiting: No Temp > 96.8F: Yes Pain Manageable: Yes Adequeate Hydration: Yes Anesthesia Complications: No Block Receding Appropriately: Not Applicable Patient on Ventilator: No
[2020-07-01] MEDS: ENOXAPARIN 40 MG/0.4 ML INJ SUB-Q SCH (22:02)
[2020-07-02] MEDS: INSULIN LISPRO 100 UNIT/ML VIAL 3 mL SUB-Q SCH ×4 (08:43→22:34)
--- NOTE | 2020-07-02 09:15 | Progress Note ---
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 Follow up path. Subjective Date of service: 07/02/20 Principal diagnosis: hyponatremia Interval history: No acute events. Awaiting pathology on wash and brushings. Objective Vital Signs - 12hr 07/02/20 07/02/20 07/02/20 01:40 04:33 08:18 Temperature 97.8 F 97.9 F 96.4 F L Pulse Rate 110 H 114 H 106 H Respiratory 18 14 18 Rate Blood Pressure 156/85 149/77 Blood Pressure 150/70 [Right] O2 Sat by Pulse 100 97 100 Oximetry 07/02/20 08:38 Temperature Pulse Rate 98 H Respiratory Rate Blood Pressure Blood Pressure [Right] O2 Sat by Pulse Oximetry Constitutional: no acute distress Eyes: non-icteric ENT: oropharynx moist Ascultation: Bilateral: diminished breath sounds Cardiovascular: regular rate and rhythm Gastrointestinal: normoactive bowel sounds, soft CBC and BMP: 07/01/20 05:07 07/01/20 05:07 ABG, PT/INR, D-dimer: PT/INR, D-dimer PT 12.1 Sec. (12.2-14.9) L 06/28/20 16:08 INR 0.91 (0.87-1.13) 06/28/20 16:08 Abnormal lab findings: Abnormal Labs 06/25/20 06/25/20 06/26/20 16:54 16:54 04:41 WBC 14.0 H 15.1 H RBC MCH MCHC 35 H 35 H RDW 12.3 L 12.4 L Plt Count Lymph % (Auto) 8.6 L 6.6 L Lymph # (Auto) 1.0 L [place] # (Auto) Seg Neutrophils % 85.1 H 87.1 H Seg Neuts % (Manual) Seg Neutrophils # 11.9 H 13.1 H Seg Neutrophils # Man Lymphocytes # (Manual) PT APTT Sodium 107 L* Potassium 6.0 H Chloride 76.1 L Carbon Dioxide 17 L BUN 19 H Creatinine Glucose 211 H POC Glucose Lactate Dehydrogenase TSH Free T4 Urine Chloride 06/26/20 06/26/20 06/26/20 04:41 05:39 05:39 WBC RBC MCH MCHC RDW Plt Count Lymph % (Auto) Lymph # (Auto) [place] # (Auto) Seg Neutrophils % Seg Neuts % (Manual) Seg Neutrophils # Seg Neutrophils # Man Lymphocytes # (Manual) PT APTT Sodium 109 L* Potassium Chloride 75.4 L Carbon Dioxide 20 L BUN Creatinine 0.5 L Glucose 221 H POC Glucose Lactate Dehydrogenase TSH 0.236 L Free T4 2.47 H Urine Chloride 06/26/20 06/26/20 06/26/20 08:05 11:02 17:01 WBC RBC MCH MCHC RDW Plt Count Lymph % (Auto) Lymph # (Auto) [place] # (Auto) Seg Neutrophils % Seg Neuts % (Manual) Seg Neutrophils # Seg Neutrophils # Man Lymphocytes # (Manual) PT APTT Sodium Potassium Chloride Carbon Dioxide BUN Creatinine Glucose POC Glucose 286 H 229 H 198 H Lactate Dehydrogenase TSH Free T4 Urine Chloride 06/26/20 06/26/20 06/27/20 21:11 Unknown 08:11 WBC RBC MCH MCHC RDW Plt Count Lymph % (Auto) Lymph # (Auto) [place] # (Auto) Seg Neutrophils % Seg Neuts % (Manual) Seg Neutrophils # Seg Neutrophils # Man Lymphocytes # (Manual) PT APTT Sodium Potassium Chloride Carbon Dioxide BUN Creatinine Glucose POC Glucose 137 H 137 H Lactate Dehydrogenase TSH Free T4 Urine Chloride 77.2 L 06/27/20 06/27/20 06/27/20 11:48 15:00 21:38 WBC RBC MCH MCHC RDW Plt Count Lymph % (Auto) Lymph # (Auto) [place] # (Auto) Seg Neutrophils % Seg Neuts % (Manual) Seg Neutrophils # Seg Neutrophils # Man Lymphocytes # (Manual) PT APTT Sodium 127 L D Potassium Chloride 97.0 L Carbon Dioxide 21 L BUN Creatinine 0.5 L Glucose 126 H POC Glucose 304 H 216 H Lactate Dehydrogenase TSH Free T4 Urine Chloride 06/28/20 06/28/20 06/28/20 07:42 07:51 07:51 WBC 12.6 H RBC 3.52 L MCH 33 H MCHC 35 H RDW 12.7 L Plt Count Lymph % (Auto) 13.1 L Lymph # (Auto) [place] # (Auto) Seg Neutrophils % 76.9 H Seg Neuts % (Manual) Seg Neutrophils # 9.7 H Seg Neutrophils # Man Lymphocytes # (Manual) PT APTT Sodium 127 L Potassium Chloride 95.8 L Carbon Dioxide BUN Creatinine Glucose 131 H POC Glucose 116 H Lactate Dehydrogenase TSH Free T4 Urine Chloride 06/28/20 06/28/20 06/28/20 12:12 15:29 16:08 WBC RBC MCH MCHC RDW Plt Count Lymph % (Auto) Lymph # (Auto) [place] # (Auto) Seg Neutrophils % Seg Neuts % (Manual) Seg Neutrophils # Seg Neutrophils # Man Lymphocytes # (Manual) PT 12.1 L APTT < 20.0 L Sodium Potassium Chloride Carbon Dioxide BUN Creatinine Glucose POC Glucose 296 H 200 H Lactate Dehydrogenase TSH Free T4 Urine Chloride 06/28/20 06/29/20 06/29/20 21:00 07:03 07:03 WBC 13.5 H RBC 3.57 L MCH MCHC RDW 12.7 L Plt Count Lymph % (Auto) Lymph # (Auto) [place] # (Auto) Seg Neutrophils % Seg Neuts % (Manual) 98.0 H Seg Neutrophils # Seg Neutrophils # Man 13.2 H Lymphocytes # (Manual) 0.0 L PT APTT Sodium 127 L Potassium Chloride 94.8 L Carbon Dioxide BUN 18 H Creatinine Glucose 326 H POC Glucose 175 H Lactate Dehydrogenase TSH Free T4 Urine Chloride 06/29/20 06/29/20 06/29/20 07:03 09:09 11:11 WBC RBC MCH MCHC RDW Plt Count Lymph % (Auto) Lymph # (Auto) [place] # (Auto) Seg Neutrophils % Seg Neuts % (Manual) Seg Neutrophils # Seg Neutrophils # Man Lymphocytes # (Manual) PT APTT Sodium Potassium Chloride Carbon Dioxide BUN Creatinine Glucose POC Glucose 350 H 228 H Lactate Dehydrogenase 211 H TSH Free T4 Urine Chloride 06/29/20 06/29/20 06/30/20 15:55 21:12 05:39 WBC RBC MCH MCHC RDW Plt Count Lymph % (Auto) Lymph # (Auto) [place] # (Auto) Seg Neutrophils % Seg Neuts % (Manual) Seg Neutrophils # Seg Neutrophils # Man Lymphocytes # (Manual) PT APTT Sodium 133 L Potassium Chloride 96.4 L Carbon Dioxide BUN Creatinine Glucose 203 H POC Glucose 154 H 254 H Lactate Dehydrogenase TSH Free T4 Urine Chloride 06/30/20 06/30/20 06/30/20 07:44 11:27 15:39 WBC RBC MCH MCHC RDW Plt Count Lymph % (Auto) Lymph # (Auto) [place] # (Auto) Seg Neutrophils % Seg Neuts % (Manual) Seg Neutrophils # Seg Neutrophils # Man Lymphocytes # (Manual) PT APTT Sodium Potassium Chloride Carbon Dioxide BUN Creatinine Glucose POC Glucose 171 H 282 H 130 H Lactate Dehydrogenase TSH Free T4 Urine Chloride 06/30/20 07/01/20 07/01/20 20:45 05:07 05:07 WBC 15.2 H RBC 3.51 L MCH MCHC RDW 12.8 L Plt Count 459 H Lymph % (Auto) 7.1 L Lymph # (Auto) 1.1 L [place] # (Auto) 0.9 H Seg Neutrophils % 85.4 H Seg Neuts % (Manual) Seg Neutrophils # 13.0 H Seg Neutrophils # Man Lymphocytes # (Manual) PT APTT Sodium 132 L Potassium Chloride 97.8 L Carbon Dioxide BUN 27 H Creatinine Glucose 181 H POC Glucose 244 H Lactate Dehydrogenase TSH Free T4 Urine Chloride 07/01/20 07/01/20 07/01/20 08:18 16:39 22:15 WBC RBC MCH MCHC RDW Plt Count Lymph % (Auto) Lymph # (Auto) [place] # (Auto) Seg Neutrophils % Seg Neuts % (Manual) Seg Neutrophils # Seg Neutrophils # Man Lymphocytes # (Manual) PT APTT Sodium Potassium Chloride Carbon Dioxide BUN Creatinine Glucose POC Glucose 178 H 151 H 171 H Lactate Dehydrogenase TSH Free T4 Urine Chloride 07/02/20 07:17 WBC RBC MCH MCHC RDW Plt Count Lymph % (Auto) Lymph # (Auto) [place] # (Auto) Seg Neutrophils % Seg Neuts % (Manual) Seg Neutrophils # Seg Neutrophils # Man Lymphocytes # (Manual) PT APTT Sodium Potassium Chloride Carbon Dioxide BUN Creatinine Glucose POC Glucose 129 H Lactate Dehydrogenase TSH Free T4 Urine Chloride Allied health notes reviewed: nursing
[2020-07-02] MEDS: VALSARTAN 160MG TAB PO SCH (10:43)
[2020-07-02] MEDS: dilTIAZem CD 120 MG CAP PO SCH (10:43)
--- NOTE | 2020-07-02 11:29 | Progress Note ---
Assessment and Plan - Patient Problems (1) Hyponatremia Current Visit: Yes Status: Acute Plan to address problem: Sodium has improved. Continue current treatment. Follow-up sodium periodically. If discharged, will follow up sodium later this week (2) Mass of lung Current Visit: Yes Status: Ruled-out Plan to address problem: Follow-up histology (3) HTN (hypertension) Current Visit: No Status: Acute Qualifiers: Plan to address problem: Follow-up blood pressure on current medications (4) T2DM (type 2 diabetes mellitus) Current Visit: No Status: Chronic Plan to address problem: Blood sugar management by primary attending Subjective Date of service: 07/02/20 Principal diagnosis: hyponatremia Interval history: Patient seen lying in bed. No family at bedside. No new complaints. Objective - Exam Narrative Exam: Elderly [place]vian lady lying in bed in no acute distress HEENT: NCAT, pink oral mucous membrane Neck: Supple, no venous distention CVS: S1S2 RRR with no murmur, rub or gallop Chest: Clear to auscultation, breath sounds are a bit diminished Abdomen: Protuberant, soft, nontender, no organomegaly, bowel sounds are present Extremities: No edema Neuro: Awake, alert no focal deficits - Vital Signs Vital signs: Vital Signs - 12hr 07/02/20 07/02/20 07/02/20 01:40 04:33 08:18 Temperature 97.8 F 97.9 F 96.4 F L Pulse Rate 110 H 114 H 106 H Respiratory 18 14 18 Rate Blood Pressure 156/85 149/77 Blood Pressure 150/70 [Right] O2 Sat by Pulse 100 97 100 Oximetry 07/02/20 08:38 Temperature Pulse Rate 98 H Respiratory Rate Blood Pressure Blood Pressure [Right] O2 Sat by Pulse Oximetry - Lab 07/01/20 05:07 07/01/20 05:07 Most recent lab results Calcium 9.8 mg/dL (8.4-10.2) 07/01/20 05:07 Urine Sodium 82 mmol/L 06/26/20 Unknown Medications & Allergies - Medications Allergies/Adverse Reactions: Allergies No Known Allergies Allergy (Verified 10/12/19 11:06) Home Medications: Home Medications Medication Instructions Recorded Confirmed Last Taken Type Furosemide [Lasix TAB] 20 mg PO QDAY 10/15/19 06/27/20 Unknown History Metformin HCl [Glucophage] 1,000 mg PO DAILY 10/15/19 06/27/20 Unknown History Valsartan [Diovan] 160 mg PO DAILY #30 tablet 10/18/19 06/27/20 Unknown Rx dilTIAZem CD [Cardizem CD] 120 mg PO QDAY #30 capsule 10/18/19 06/27/20 Unknown Rx Active Medications: Generic Name Dose Route Start Last Admin Trade Name Freq PRN Reason Stop Dose Admin Acetaminophen 650 mg 06/25/20 22:06 07/01/20 15:00 Tylenol PO 650 mg Q4H PRN Administration Pain MILD(1-3)/Fever >100.5/ADORNO Albuterol 2.5 mg 06/28/20 22:26 06/28/20 22:47 Albuterol 2.5 Mg/3 Ml Nebu IH 2.5 mg Q4HRT PRN Administration Shortness Of Breath Dextrose 50 ml 06/25/20 22:06 D50w (25gm) Syringe IV Q30MIN PRN Hypoglycemia Protocol Diltiazem HCl 120 mg 06/27/20 01:04 07/02/20 10:43 Cardizem Cd PO 120 mg QDAY ELIUD Administration Enoxaparin Sodium 40 mg 06/29/20 10:00 07/01/20 22:02 Enoxaparin 40 Mg/0.4 Ml Inj SUB-Q 40 mg QDAY@2200 ELIUD Administration Protocol Sodium Chloride 1,000 mls @ 50 mls/hr 07/01/20 09:00 Nacl 0.9% 1000 Ml IV DIRECT ELIUD Insulin Human Lispro 0 unit 06/26/20 07:30 07/02/20 08:43 Humalog SUB-Q Not Given ACHS ELIUD Protocol Magnesium Hydroxide 30 ml 06/25/20 22:06 Milk Of Magnesia PO Q4H PRN Constipation Ondansetron HCl 4 mg 06/25/20 22:06 Zofran IV Q8H PRN Nausea And Vomiting Sodium Chloride 10 ml 06/26/20 10:00 07/02/20 10:43 Sodium Chloride Flush Syringe 10 Ml IV 10 ml BID ELIUD Administration Sodium Chloride 10 ml 06/25/20 22:06 Sodium Chloride Flush Syringe 10 Ml IV PRN PRN LINE FLUSH Valsartan 160 mg 06/27/20 10:00 07/02/20 10:43 Diovan PO 160 mg DAILY ELIUD Administration
--- NOTE | 2020-07-02 14:26 | Progress Note ---
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 Lung cancer CT revealed underlying right perihilar mass concerning for malignancy Status post bronchoscopy with biopsy. Pathology sent Pulmonology following acute hyperkalemia Resolved. HTN (hypertension) Continue home antihypertensive medications. T2DM (type 2 diabetes mellitus) We will monitor Accu-Cheks. DVT prophylaxis Patient placed on subcutaneous heparin. Full code status 06/27/2020. Chest x-ray does show persistent right basilar process that may actually be indicative of either previous pneumonia or possibly malignancy which has to be considered. Persistent pulmonary process can potentially lead to recurrent issues with hyponatremia secondary to inappropriate secretion of ADH. Will be following up urine electrolyte studies. Check CT of chest and consider pulmonary consultation. No weight loss from her previous hospitalization in Sep. Continue tolvaptan per nephrology and monitor BMP closely. 06/28/2020. CT scan of the chest reveals a right perihilar mass encasing and obstructing the right lower lobe bronchus characteristic of primary lung cancer with worsening mediastinal adenopathy and small right pleural effusion which is likely a malignant effusion. Patient also has contralateral left pulmonary nodules worrisome for pulmonary metastasis. Pulmonary and oncology consultation. 06/29/2020. Patient likely with metastatic lung cancer, ? SCLC. Check MRI of brain to rule out brain mets. Follow-up with pulmonology recommendations for bronchoscopy possibly Wednesday. Sodium is improving. Continue per nephrology. 06/30/2020. Patient likely with metastatic lung cancer, ? SCLC. Await MRI brain to rule out mets. Possible bronchoscopy tomorrow per pulmonary. 07/01/2020. Patient likely with metastatic lung cancer. Await MRI brain to rule out mets. Possible bronchoscopy per pulmonary. Continue Lovenox for DVT prophylaxis 07/02/2020. Patient had bronchoscopy yesterday with biopsy. Pulmonology following. Pathology pending. Management as per pulmonology. Hyponatremia improved. Nephrology following History Interval history: No acute events overnight Hospitalist Physical - Physical exam Narrative exam: VITAL SIGNS: Reviewed. GENERAL: Awake HEAD: No signs of head trauma. EYES: Pupils are equal. Extraocular motions intact. MOUTH: Oropharynx is normal. NECK: No adenopathy, no JVD. CHEST: Chest with diminished breath sounds bilaterally. No wheezes, rales, or rhonchi. CARDIAC: normal S1 and S2, without murmurs, gallops, or rubs. ABDOMEN: Soft, non tender and non distended. No rebound or guarding, and no masses palpated. Bowel Sounds normal. MUSCULOSKELETAL: No edema NEUROLOGIC EXAM: Alert. No focal neurologic deficits SKIN: No obvious lesions - Constitutional Vitals: Temp Pulse Resp BP Pulse Ox 98.8 F 110 H 18 115/65 100 07/02/20 12:31 07/02/20 12:31 07/02/20 12:31 07/02/20 12:31 07/02/20 12:31 Results - Labs CBC & Chem 7: 07/01/20 05:07 07/01/20 05:07 Labs: Laboratory Last Values WBC 15.2 K/mm3 (4.5-11.0) H 07/01/20 05:07 RBC 3.51 M/mm3 (3.65-5.03) L 07/01/20 05:07 Hgb 11.0 gm/dl (10.1-14.3) 07/01/20 05:07 Hct 32.9 % (30.3-42.9) 07/01/20 05:07 MCV 94 fl (79-97) 07/01/20 05:07 MCH 32 pg (28-32) 07/01/20 05:07 MCHC 34 % (30-34) 07/01/20 05:07 RDW 12.8 % (13.2-15.2) L 07/01/20 05:07 Plt Count 459 K/mm3 (140-440) H 07/01/20 05:07 Lymph % (Auto) 7.1 % (13.4-35.0) L 07/01/20 05:07 [place] % (Auto) 6.1 % (0.0-7.3) 07/01/20 05:07 Eos % (Auto) 1.0 % (0.0-4.3) 07/01/20 05:07 Baso % (Auto) 0.4 % (0.0-1.8) 07/01/20 05:07 Lymph # (Auto) 1.1 K/mm3 (1.2-5.4) L 07/01/20 05:07 [place] # (Auto) 0.9 K/mm3 (0.0-0.8) H 07/01/20 05:07 Eos # (Auto) 0.1 K/mm3 (0.0-0.4) 07/01/20 05:07 Baso # (Auto) 0.1 K/mm3 (0.0-0.1) 07/01/20 05:07 Add Manual Diff Complete 06/29/20 07:03 Total Counted 100 06/29/20 07:03 Seg Neutrophils % 85.4 % (40.0-70.0) H 07/01/20 05:07 Seg Neuts % (Manual) 98.0 % (40.0-70.0) H 06/29/20 07:03 Monocytes % (Manual) 1.0 % (0.0-7.3) 06/29/20 07:03 Basophils % (Manual) 1.0 % (0.0-1.8) 06/29/20 07:03 Nucleated RBC % Not Reportable 06/29/20 07:03 Seg Neutrophils # 13.0 K/mm3 (1.8-7.7) H 07/01/20 05:07 Seg Neutrophils # Man 13.2 K/mm3 (1.8-7.7) H 06/29/20 07:03 Band Neutrophils # 0.0 K/mm3 06/29/20 07:03 Lymphocytes # (Manual) 0.0 K/mm3 (1.2-5.4) L 06/29/20 07:03 Abs React Lymphs (Man) 0.0 K/mm3 06/29/20 07:03 Monocytes # (Manual) 0.1 K/mm3 (0.0-0.8) 06/29/20 07:03 Eosinophils # (Manual) 0.0 K/mm3 (0.0-0.4) 06/29/20 07:03 Basophils # (Manual) 0.1 K/mm3 (0.0-0.1) 06/29/20 07:03 Metamyelocytes # 0.0 K/mm3 06/29/20 07:03 Myelocytes # 0.0 K/mm3 06/29/20 07:03 Promyelocytes # 0.0 K/mm3 06/29/20 07:03 Blast Cells # 0.0 K/mm3 06/29/20 07:03 WBC Morphology Not Reportable 06/29/20 07:03 Hypersegmented Neuts Not Reportable 06/29/20 07:03 Hyposegmented Neuts Not Reportable 06/29/20 07:03 Hypogranular Neuts Not Reportable 06/29/20 07:03 Smudge Cells Not Reportable 06/29/20 07:03 Toxic Granulation Not Reportable 06/29/20 07:03 Toxic Vacuolation Not Reportable 06/29/20 07:03 Dohle Bodies Not Reportable 06/29/20 07:03 Pelger-Huet Anomaly Not Reportable 06/29/20 07:03 Ewa Rods Not Reportable 06/29/20 07:03 Platelet Estimate Consistent w auto 06/29/20 07:03 Clumped Platelets Not Reportable 06/29/20 07:03 Plt Clumps, EDTA Not Reportable 06/29/20 07:03 Large Platelets Not Reportable 06/29/20 07:03 Giant Platelets Not Reportable 06/29/20 07:03 Platelet Satelliting Not Reportable 06/29/20 07:03 Plt Morphology Comment Not Reportable 06/29/20 07:03 RBC Morphology Normal 06/29/20 07:03 Dimorphic RBCs Not Reportable 06/29/20 07:03 Polychromasia Not Reportable 06/29/20 07:03 Hypochromasia Not Reportable 06/29/20 07:03 Poikilocytosis Not Reportable 06/29/20 07:03 Anisocytosis Not Reportable 06/29/20 07:03 Microcytosis Not Reportable 06/29/20 07:03 Macrocytosis Not Reportable 06/29/20 07:03 Spherocytes Not Reportable 06/29/20 07:03 Pappenheimer Bodies Not Reportable 06/29/20 07:03 Sickle Cells Not Reportable 06/29/20 07:03 Target Cells Not Reportable 06/29/20 07:03 Tear Drop Cells Not Reportable 06/29/20 07:03 Ovalocytes Not Reportable 06/29/20 07:03 Helmet Cells Not Reportable 06/29/20 07:03 Seymour-Waldo Bodies Not Reportable 06/29/20 07:03 [place]urel Rings Not Reportable 06/29/20 07:03 Aleshia Cells Not Reportable 06/29/20 07:03 Bite Cells Not Reportable 06/29/20 07:03 Crenated Cell Not Reportable 06/29/20 07:03 Elliptocytes Not Reportable 06/29/20 07:03 Acanthocytes (Spur) Not Reportable 06/29/20 07:03 Rouleaux Not Reportable 06/29/20 07:03 Hemoglobin C Crystals Not Reportable 06/29/20 07:03 Schistocytes Not Reportable 06/29/20 07:03 Malaria parasites Not Reportable 06/29/20 07:03 Jasiel Bodies Not Reportable 06/29/20 07:03 Hem Pathologist Commnt No 06/29/20 07:03 PT 12.1 Sec. (12.2-14.9) L 06/28/20 16:08 INR 0.91 (0.87-1.13) 06/28/20 16:08 APTT < 20.0 Sec. (24.2-36.6) L 06/28/20 16:08 Sodium 132 mmol/L (137-145) L 07/01/20 05:07 Potassium 4.3 mmol/L (3.6-5.0) 07/01/20 05:07 Chloride 97.8 mmol/L (98-107) L 07/01/20 05:07 Carbon Dioxide 23 mmol/L (22-30) 07/01/20 05:07 Anion Gap 16 mmol/L 07/01/20 05:07 BUN 27 mg/dL (7-17) H 07/01/20 05:07 Creatinine 0.6 mg/dL (0.6-1.2) 07/01/20 05:07 Estimated GFR > 60 ml/min 07/01/20 05:07 BUN/Creatinine Ratio 45 % 07/01/20 05:07 Glucose 181 mg/dL (65-100) H 07/01/20 05:07 POC Glucose 227 mg/dL (70-105) H 07/02/20 11:54 Calcium 9.8 mg/dL (8.4-10.2) 07/01/20 05:07 Total Bilirubin 0.50 mg/dL (0.1-1.2) 06/25/20 16:54 AST 24 units/L (5-40) 06/25/20 16:54 ALT 17 units/L (7-56) 06/25/20 16:54 Alkaline Phosphatase 96 units/L (35-129) 06/25/20 16:54 Lactate Dehydrogenase 211 units/L (91-180) H 06/29/20 07:03 Total Protein 8.1 g/dL (6.3-8.2) 06/25/20 16:54 Albumin 4.4 g/dL (3.9-5) 06/25/20 16:54 Albumin/Globulin Ratio 1.2 % 06/25/20 16:54 TSH 0.236 mlU/mL (0.270-4.200) L 06/26/20 05:39 Free T4 2.47 ng/dL (0.76-1.46) H 06/26/20 05:39 Total Cortisol 36.5 mcg/dL () 06/26/20 05:39 Urine Color Straw (Yellow) 06/26/20 Unknown Urine Turbidity Clear (Clear) 06/26/20 Unknown Urine pH 7.0 (5.0-7.0) 06/26/20 Unknown Ur Specific [place] 1.014 (1.003-1.030) 06/26/20 Unknown Urine Protein 100 mg/dl mg/dL (Negative) 06/26/20 Unknown Urine Glucose (UA) >=500 mg/dL (Negative) 06/26/20 Unknown Urine Ketones Neg mg/dL (Negative) 06/26/20 Unknown Urine Blood Neg (Negative) 06/26/20 Unknown Urine Nitrite Neg (Negative) 06/26/20 Unknown Urine Bilirubin Neg (Negative) 06/26/20 Unknown Urine Urobilinogen < 2.0 mg/dL (<2.0) 06/26/20 Unknown Ur Leukocyte Esterase Neg (Negative) 06/26/20 Unknown Urine WBC (Auto) < 1.0 /HPF (0.0-6.0) 06/26/20 Unknown Urine RBC (Auto) < 1.0 /HPF (0.0-6.0) 06/26/20 Unknown Urine Sodium 82 mmol/L 06/26/20 Unknown Urine Chloride 77.2 mmolL (110-250) L 06/26/20 Unknown King/IV: Voiding Method Toilet IV Catheter Type [Left Wrist] Peripheral IV IV Catheter Type [Right Hand] INT / Saline Lock Active Medications - Current Medications Current Medications: Generic Name Dose Route Start Last Admin Trade Name Freq PRN Reason Stop Dose Admin Acetaminophen 650 mg 06/25/20 22:06 07/01/20 15:00 Tylenol PO 650 mg Q4H PRN Administration Pain MILD(1-3)/Fever >100.5/ADORNO Albuterol 2.5 mg 06/28/20 22:26 06/28/20 22:47 Albuterol 2.5 Mg/3 Ml Nebu IH 2.5 mg Q4HRT PRN Administration Shortness Of Breath Dextrose 50 ml 06/25/20 22:06 D50w (25gm) Syringe IV Q30MIN PRN Hypoglycemia Protocol Diltiazem HCl 120 mg 06/27/20 01:04 07/02/20 10:43 Cardizem Cd PO 120 mg QDAY ELIUD Administration Enoxaparin Sodium 40 mg 06/29/20 10:00 07/01/20 22:02 Enoxaparin 40 Mg/0.4 Ml Inj SUB-Q 40 mg QDAY@2200 ELIUD Administration Protocol Sodium Chloride 1,000 mls @ 50 mls/hr 07/01/20 09:00 Nacl 0.9% 1000 Ml IV DIRECT ELIUD Insulin Human Lispro 0 unit 06/26/20 07:30 07/02/20 12:17 Humalog SUB-Q Not Given ACHS [facility] Protocol Magnesium Hydroxide 30 ml 06/25/20 22:06 Milk Of Magnesia PO Q4H PRN Constipation Ondansetron HCl 4 mg 06/25/20 22:06 Zofran IV Q8H PRN Nausea And Vomiting Sodium Chloride 10 ml 06/26/20 10:00 07/02/20 10:43 Sodium Chloride Flush Syringe 10 Ml IV 10 ml BID ELIUD Administration Sodium Chloride 10 ml 06/25/20 22:06 Sodium Chloride Flush Syringe 10 Ml IV PRN PRN LINE FLUSH Valsartan 160 mg 06/27/20 10:00 07/02/20 10:43 Diovan PO 160 mg DAILY ELIUD Administration Nutrition/Malnutrition Assess - Dietary Evaluation Nutrition/Malnutrition Findings: Nutrition Notes Start: 06/26/20 13:14 Freq: Status: Active Protocol: Document 06/28/20 12:47 AT (Rec: 06/28/20 12:58 AT [id number]) Co-Sign 06/28/20 12:47 LP Nutrition Notes Initial or Follow up Reassessment Current Diagnosis Diabetes,Hypertension Other Pertinent Diagnosis hyponatremia, hyperkalemia, SIADH Current Diet Cardiac/Consistent CHO Labs/Tests Na 127 BG 131 Pertinent Medications Humalog NS at 125 mL/hr Height 5 ft Weight 68.9 kg [place] Body Weight (kg) 45.45 BMI 29.6 Weight change and time frame 7.4% weight loss in 3 days Weight Status Overweight Subjective/Other Information Follow up for education needs and intakes. Per chart, pt had intakes of 75% at lunch/ dinner and 50% at dinner 06/27 . Today, pt has intake of 100% . Pt is eating 75% on average. Visited pt at bedside, was unable to communicate to follow up on diet education needs. Percent of energy/protein needs met: 124%/105% Burn Absent Trauma Absent GI Symptoms None Current % PO Good (75-100%) Minimum of two criteria No physical signs of malnutrition #2 Nutrition Diagnosis Inadequate oral intake As Evidenced by Signs and Symptoms pt consuming 75% of meals on average Diagnosis Progress(for reassessment Improved documentation) #1 Nutrition Diagnosis Food and nutrition-related knowledge deficit As Evidenced by Signs and Symptoms unable to communicate with pt Diagnosis Progress(for reassessment Continues documentation) Is patient on ventilator? No Is Patient Ambulatory and/or Out of Bed No REE-([place] Jeor-confined to bed) [phone] Calculation Used for Recommendations [facility] Additional Notes PRO needs: 68-83 g(1-1.2g/kg) Fluid needs: 1mL/kcal or per MD Nutrition Intervention Change Diet Order: Continue Add Supplement/Snack (indicate name/kcal Glucerna daily /protein ) Provides kCal: 220 Provides Protein (gm) 10 Goal #1 Meet at least 75% energy and protein needs via PO and ONS Anticipated Discharge Needs: Cardiac/ Consistent CHO Follow-Up By: 07/03/20 Additional Comments F/U for stable intakes
[2020-07-02] MEDS: ENOXAPARIN 40 MG/0.4 ML INJ SUB-Q SCH (22:33)
[2020-07-02] MEDS: METOPROLOL TARTRATE 25 MG TAB PO SCH (22:33)
[2020-07-03 04:29] VITALS: BP 108/60
[2020-07-03 05:49] LABS: Blood Urea Nitrogen 22 mg/dL (7-17); Calcium 9.1 mg/dL (8.4-10.2); Hemolysis Index 10
[2020-07-03 05:51] LABS: BUN/Creatinine Ratio 37
[2020-07-03] MEDS: INSULIN LISPRO 100 UNIT/ML VIAL 3 mL SUB-Q SCH (08:00)
--- NOTE | 2020-07-03 11:06 | Progress Note ---
Assessment and Plan - Patient Problems (1) Hyponatremia Current Visit: Yes Status: Acute Plan to address problem: Sodium has improved. Continue current treatment. Follow-up sodium periodically. If discharged, will follow up sodium later this week (2) Mass of lung Current Visit: Yes Status: Ruled-out Plan to address problem: Follow-up histology (3) HTN (hypertension) Current Visit: No Status: Acute Qualifiers: Plan to address problem: Follow-up blood pressure on current medications (4) T2DM (type 2 diabetes mellitus) Current Visit: No Status: Chronic Plan to address problem: Blood sugar management by primary attending Subjective Date of service: 07/03/20 Principal diagnosis: hyponatremia Interval history: Patient seen lying in bed. No family at bedside. No new complaints. Objective - Exam Narrative Exam: Elderly Turkish lady lying in bed in no acute distress HEENT: NCAT, pink oral mucous membrane Neck: Supple, no venous distention CVS: S1S2 RRR with no murmur, rub or gallop Chest: Clear to auscultation, breath sounds are a bit diminished Abdomen: Protuberant, soft, nontender, no organomegaly, bowel sounds are present Extremities: No edema Neuro: Awake, alert no focal deficits - Vital Signs Vital signs: Vital Signs - 12hr 07/03/20 07/03/20 07/03/20 00:41 04:28 10:00 Temperature 98.0 F 97.8 F Pulse Rate 77 79 Respiratory 20 20 Rate Blood Pressure 110/58 108/60 O2 Sat by Pulse 99 100 99 Oximetry - Lab 07/01/20 05:07 07/03/20 05:03 Most recent lab results Calcium 9.1 mg/dL (8.4-10.2) 07/03/20 05:03 Urine Sodium 82 mmol/L 06/26/20 Unknown Medications & Allergies - Medications Allergies/Adverse Reactions: Allergies No Known Allergies Allergy (Verified 10/12/19 11:06) Home Medications: Home Medications Medication Instructions Recorded Confirmed Last Taken Type Furosemide [Lasix TAB] 20 mg PO QDAY 10/15/19 06/27/20 Unknown History Metformin HCl [Glucophage] 1,000 mg PO DAILY 10/15/19 06/27/20 Unknown History Valsartan [Diovan] 160 mg PO DAILY #30 tablet 10/18/19 06/27/20 Unknown Rx dilTIAZem CD [Cardizem CD] 120 mg PO QDAY #30 capsule 10/18/19 06/27/20 Unknown Rx Active Medications: Generic Name Dose Route Start Last Admin Trade Name Freq PRN Reason Stop Dose Admin Acetaminophen 650 mg 06/25/20 22:06 07/01/20 15:00 Tylenol PO 650 mg Q4H PRN Administration Pain MILD(1-3)/Fever >100.5/ADORNO Albuterol 2.5 mg 06/28/20 22:26 06/28/20 22:47 Albuterol 2.5 Mg/3 Ml Nebu IH 2.5 mg Q4HRT PRN Administration Shortness Of Breath Dextrose 50 ml 06/25/20 22:06 D50w (25gm) Syringe IV Q30MIN PRN Hypoglycemia Protocol Diltiazem HCl 120 mg 06/27/20 01:04 07/02/20 10:43 Cardizem Cd PO 120 mg QDAY ELIUD Administration Enoxaparin Sodium 40 mg 06/29/20 10:00 07/02/20 22:33 Enoxaparin 40 Mg/0.4 Ml Inj SUB-Q 40 mg QDAY@2200 ELIUD Administration Protocol Sodium Chloride 1,000 mls @ 50 mls/hr 07/01/20 09:00 Nacl 0.9% 1000 Ml IV DIRECT ELIUD Insulin Human Lispro 0 unit 06/26/20 07:30 07/02/20 22:34 Humalog SUB-Q 3 unit ACHS ELIUD Administration Protocol Magnesium Hydroxide 30 ml 06/25/20 22:06 Milk Of Magnesia PO Q4H PRN Constipation Metoprolol Tartrate 12.5 mg 07/02/20 22:00 07/02/20 22:33 Metoprolol Tartrate 25 Mg Tab PO 12.5 mg BID ELIUD Administration Ondansetron HCl 4 mg 06/25/20 22:06 Zofran IV Q8H PRN Nausea And Vomiting Sodium Chloride 10 ml 06/26/20 10:00 07/02/20 22:35 Sodium Chloride Flush Syringe 10 Ml IV 10 ml BID ELIUD Administration Sodium Chloride 10 ml 06/25/20 22:06 Sodium Chloride Flush Syringe 10 Ml IV PRN PRN LINE FLUSH Valsartan 160 mg 06/27/20 10:00 07/02/20 10:43 Diovan PO 160 mg DAILY ELIUD Administration
[2020-07-03] MEDS: dilTIAZem CD 120 MG CAP PO SCH (11:17)
[2020-07-03] MEDS: VALSARTAN 160MG TAB PO SCH (11:17)
[2020-07-03] MEDS: METOPROLOL TARTRATE 25 MG TAB PO SCH (11:17)
--- NOTE | 2020-07-03 12:07 | Discharge Summary ---
Providers - Providers Date of Admission: 06/25/20 21:33 Date of discharge: 07/03/20 Attending physician: REJI ARANDA 06/25/20 22:06 Consult to Physician [CONS] Routine Comment: Consulting Provider: ALEJANDRO IBRAHIM Physician Instructions: Reason For Exam: Hyponatremia 06/25/20 22:11 Consult to Dietitian/Nutrition [CONS] Routine Physician Instructions: Reason For Exam: Reason for Consult: Diet education 06/26/20 10:06 Physical Therapy Evaluation and Treat [CONS] Routine Comment: Reason For Exam: debility Date of last referral: 06/26/20 06/28/20 09:53 Consult to Physician [CONS] Routine Comment: Consulting Provider: KELSEY BARCLAY Physician Instructions: Reason For Exam: prob lung ca Consult to Physician [CONS] Routine Comment: Consulting Provider: ELZA MORALES Physician Instructions: Reason For Exam: lung ca Primary care physician: SHAFT MECHANIC Hospitalization Condition: Stable Hospital course: 69-year-old Korean female with known history of diabetes mellitus and hypertension was sent to the emergency room today by the primary care physician for evaluation of abnormal labs. Patient had some lab work done at her primary care physician's office and sodium was said to be 124 and potassium of 5.5. Repeat labs here in the emergency room reveals a sodium of 107 and potassium of 6. Patient has had similar presentations in the past and was diagnosed with SIADH during which she was treated with tolvaptan with good response. Patient had no complaints today and there was a language barrier however who was by the bedside was able to respond on a limited basis for his . Patient has been started on IV fluid normal saline. 06/27/2020. Chest x-ray does show persistent right basilar process that may actually be indicative of either previous pneumonia or possibly malignancy which has to be considered. Persistent pulmonary process can potentially lead to recurrent issues with hyponatremia secondary to inappropriate secretion of ADH. Will be following up urine electrolyte studies. Check CT of chest and consider pulmonary consultation. No weight loss from her previous hospitalization in September. Continue tolvaptan per nephrology and monitor BMP closely. 06/28/2020. CT scan of the chest reveals a right perihilar mass encasing and obstructing the right lower lobe bronchus characteristic of primary lung cancer with worsening mediastinal adenopathy and small right pleural effusion which is likely a malignant effusion. Patient also has contralateral left pulmonary nodules worrisome for pulmonary metastasis. Pulmonary and oncology consultation. 06/29/2020. Patient likely with metastatic lung cancer, ? SCLC. Check MRI of brain to rule out brain mets. Follow-up with pulmonology recommendations for bronchoscopy possibly Wednesday. Sodium is improving. Continue per nephrology. 06/30/2020. Patient likely with metastatic lung cancer, ? SCLC. Await MRI brain to rule out mets. Possible bronchoscopy tomorrow per pulmonary. 07/01/2020. Patient likely with metastatic lung cancer. Await MRI brain to rule out mets. Possible bronchoscopy per pulmonary. Continue Lovenox for DVT prophylaxis 07/02/2020. Patient had bronchoscopy yesterday with biopsy. Pulmonology following. Pathology pending. Management as per pulmonology. Hyponatremia improved. Nephrology following. 07/03/2020. Patients sodium is stable. She will follow up with nephrology in the office. She will start salt tablets. She had a walk test and her oxygen remained above 94 %. She will need oncology follow up for treatment of lung mass pending pathology report. I discussed with patients using crtt phone and stressed the need for patient to follow up with her primary doctor and an oncology. He verbalizes understanding. She will be discharged home today Disposition: DC-01 TO HOME OR SELFCARE - Discharge Diagnoses (1) Acute hyperkalemia Status: Acute (2) Acute hyponatremia Status: Acute (3) Endobronchial mass Status: Acute (4) History of SIADH Status: Acute Core Measure Documentation - Palliative Care Palliative Care/ Comfort Measures: Not Applicable - Core Measures Any of the following diagnoses?: none Exam - Physical Exam Narrative exam: VITAL SIGNS: Reviewed. GENERAL: Awake HEAD: No signs of head trauma. EYES: Pupils are equal. Extraocular motions intact. MOUTH: Oropharynx is normal. NECK: No adenopathy, no JVD. CHEST: Chest with diminished breath sounds bilaterally. No wheezes, rales, or rhonchi. CARDIAC: normal S1 and S2, without murmurs, gallops, or rubs. ABDOMEN: Soft, non tender and non distended. No rebound or guarding, and no masses palpated. Bowel Sounds normal. MUSCULOSKELETAL: No edema NEUROLOGIC EXAM: Alert. No focal neurologic deficits SKIN: No obvious lesions - Constitutional Vitals: Temp Pulse Resp BP Pulse Ox 97.8 F 79 20 108/60 99 07/03/20 04:28 07/03/20 04:28 07/03/20 04:28 07/03/20 04:28 07/03/20 10:00 Plan Additional Instructions: Follow up your lung biopsy pathology results. See your primary medical doctor in a week. Follow up with oncologist in the office for treatment of lung mass. Continue salt tablets. Continue medications as prescribed. Follow up with PCP in 1 week for repeat labs Follow up with: PRIMARY CARE, [Primary Care Provider] - 3-5 Days MORENITA VICK DO [Staff Physician] - 7 Days Prescriptions: dilTIAZem CD [Cardizem CD] 120 mg PO QDAY #30 capsule Valsartan [Diovan] 160 mg PO DAILY #30 tablet Metoprolol [Lopressor TAB] 12.5 mg PO BID #30 tablet Sodium Chloride 1,000 mg PO BID #60 tablet.noel
== END 2020-07-03 16:05 | disposition home health service (06) | DRG 181 ==
LOC: ED 13:38 → 4A 21:33
PROVIDERS: ADMIT Internal Medicine Geriatric Medicine; ATTEND Internal Medicine
PROC: 0BDF8ZX Extraction of Right Lower Lung Lobe, Via Natural or Artificial Opening Endoscopic, Diagnostic (ICD-10-PCS; principal; 2020-07-01)
DX: C34.91 Malignant neoplasm of unspecified part of right bronchus or lung (principal); E22.2 Syndrome of inappropriate secretion of antidiuretic hormone; E87.5 Hyperkalemia; E11.9 Type 2 diabetes mellitus without complications; I10 Essential (primary) hypertension; J98.09 Other diseases of bronchus, not elsewhere classified; R91.8 Other nonspecific abnormal finding of lung field
CPT/HCPCS: 36415; 70551; 71046; 71250; 80048; 80053; 81001; 82378; 82436; 82533; 82962; 83615; 84300; 84439; 84443; 85007; 85025; 85610; 85730; 88104; 88112; 88305; 88341; 88342; 93005; 94640; 94760; 96374; 96375; 96376; G0378; J1644; J1650; J1815; J2060; J2704; J2930; J7030

== ENCOUNTER 2020-11-20 22:08 | Observation (INO) | payer MEDICARE ==
[2020-11-21 00:19] LABS: Basophils # (Auto) 0.1 K/mm3 (0.0-0.1); Basophils % (Auto) 1.1 % (0.0-1.8); Eosinophils # (Auto) 0.1 K/mm3 (0.0-0.4); Eosinophils % (Auto) 1.8 % (0.0-4.3); Hematocrit 34.9 % (30.3-42.9); Hemoglobin 12.3 gm/dl (10.1-14.3); Lymphocytes # (Auto) 1.1 K/mm3 (1.2-5.4); Lymphocytes % (Auto) 15.7 % (13.4-35.0); Mean Corpuscular HGB Conc 35 % (30-34); Mean Corpuscular Volume 92 fl (79-97); Monocytes # (Auto) 0.6 K/mm3 (0.0-0.8); Monocytes % (Auto) 8.1 % (0.0-7.3); Platelet Count 313 K/mm3 (140-440); Red Blood Count 3.79 M/mm3 (3.65-5.03); Red Cell Distribution Width 13.2 % (13.2-15.2)
[2020-11-21 00:24] LABS: Alanine Aminotransferase 10 units/L (7-56); Albumin 3.8 g/dL (3.9-5); BUN/Creatinine Ratio 22; Blood Urea Nitrogen 20 mg/dL (7-17); Calcium 9.1 mg/dL (8.4-10.2); Hemolysis Index 3
--- NOTE | 2020-11-21 03:24 | Emergency Department Report ---
ED General Adult HPI - General Chief complaint: Medical Clearance Stated complaint: UNKNOWN PUI?: No Time Seen by Provider: 11/21/20 03:18 Source: patient, family Mode of arrival: Ambulatory Limitations: Language Barrier - History of Present Illness Initial comments: Patient is a 70-year-old female that presents emergency room with complaints of low sodium. Patient is also having confusion. Patient denies pain. Patient denies chest pain. [place] [employer] gis coordinator service was used. Patient states that her family practitioner sent her here to be evaluated. Patient denies recent travel. Patient denies recent international travel. Patient denies exposure to the novel coronavirus. Patient denies sick contacts. Patient denies fever and chills. Patient denies cough. Patient denies diarrhea. Patient denies coming in contact with anybody with symptoms of the novel coronavirus. .. -: Sudden Associated Symptoms: confusion. denies: chest pain, cough, diaphoresis, f ever/chills - Related Data Home Medications Medication Instructions Recorded Confirmed Last Taken Metformin HCl [Glucophage] 1,000 mg PO DAILY 10/15/19 06/27/20 Unknown Previous Rx's Medication Instructions Recorded Last Taken Type Metoprolol [Lopressor TAB] 12.5 mg PO BID #30 tablet 07/03/20 Unknown Rx Sodium Chloride 1,000 mg PO BID #60 tablet.noel 07/03/20 Unknown Rx Valsartan [Diovan] 160 mg PO DAILY #30 tablet 07/03/20 Unknown Rx dilTIAZem CD [Cardizem CD] 120 mg PO QDAY #30 capsule 07/03/20 Unknown Rx Allergies Allergy/AdvReac Type Severity Reaction Status Date / Time No Known Allergies Allergy Verified 10/12/19 11:06 ED Review of Systems ROS: Stated complaint: UNKNOWN Other details as noted in HPI Constitutional: denies: chills, fever Eyes: denies: eye pain, eye discharge, vision change ENT: denies: ear pain, throat pain Respiratory: denies: cough, shortness of breath, wheezing Cardiovascular: denies: chest pain, palpitations Endocrine: no symptoms reported Gastrointestinal: denies: abdominal pain, nausea, diarrhea Genitourinary: denies: urgency, dysuria, discharge Musculoskeletal: denies: back pain, joint swelling, arthralgia Skin: denies: rash, lesions Neurological: as per HPI, confusion. denies: headache, weakness, paresthesias Psychiatric: denies: anxiety, depression Hematological/Lymphatic: denies: easy bleeding, easy bruising ED Past Medical Hx - Past Medical History Previous Medical History?: Yes Hx Hypertension: Yes Hx Diabetes: Yes Hx Renal Disease: Yes (Admitted with SIADH; corrected now) - Surgical History Past Surgical History?: No - Family History Family history: no significant - Social History Smoking Status: Never Smoker Substance Use Type: None - Medications Home Medications: Home Medications Medication Instructions Recorded Confirmed Last Taken Type Metformin HCl [Glucophage] 1,000 mg PO DAILY 10/15/19 06/27/20 Unknown History Metoprolol [Lopressor TAB] 12.5 mg PO BID #30 tablet 07/03/20 Unknown Rx Sodium Chloride 1,000 mg PO BID #60 tablet.noel 07/03/20 Unknown Rx Valsartan [Diovan] 160 mg PO DAILY #30 tablet 07/03/20 Unknown Rx dilTIAZem CD [Cardizem CD] 120 mg PO QDAY #30 capsule 07/03/20 Unknown Rx ED Physical Exam - General Limitations: Language Barrier General appearance: alert, in no apparent distress - Head Head exam: Present: atraumatic, normocephalic - Eye Eye exam: Present: normal appearance, PERRL Pupils: Present: normal accommodation - ENT ENT exam: Present: mucous membranes moist - Neck Neck exam: Present: normal inspection - Respiratory Respiratory exam: Present: normal lung sounds bilaterally. Absent: respiratory distress, wheezes, rales - Cardiovascular Cardiovascular Exam: Present: regular rate, normal rhythm. Absent: systolic murmur, diastolic murmur, rubs, gallop - GI/Abdominal GI/Abdominal exam: Present: soft, normal bowel sounds. Absent: distended, tenderness, guarding - Rectal Rectal exam: Present: deferred - Extremities Exam Extremities exam: Present: normal inspection - Back Exam Back exam: Present: normal inspection - Neurological Exam Neurological exam: Present: alert, altered - Psychiatric Psychiatric exam: Present: normal affect, normal mood - Skin Skin exam: Present: warm, dry, intact, normal color. Absent: rash ED Course Vital Signs 11/20/20 11/21/20 11/21/20 22:46 05:45 05:56 Temperature 97.9 F Pulse Rate 77 82 Respiratory 18 16 Rate Blood Pressure 125/74 135/72 O2 Sat by Pulse 95 95 Oximetry - Reevaluation(s) Reevaluation #1: I discussed all results with patient. I discussed plan of care with patient. Patient agrees with plan of care and admission. Patient to be admitted to the hospitalist service. 11/21/20 04:40 - Consultations Consultation #1: Hospitalist consulted for admission. Hospitalist to admit patient. 11/21/20 04:35 ED Medical Decision Making - Lab Data Result diagrams: 11/20/20 23:35 11/20/20 23:35 - Radiology Data Radiology results: report reviewed CT head/brain w con INDICATION: Sent by family practioner for confusion. Low Sodium. TECHNIQUE: Routine CT head without contrast. All CT scans at this location are performed using CT dose reduction for ALARA by means of automated exposure control. COMPARISON: MRI brain 07/01/2020 FINDINGS: BRAIN / INTRACRANIAL CONTENTS: No acute hemorrhage, mass effect, midline shift, or hydrocephalus. No appreciable acute large territorial or lacunar infarct. No chronic infarct. Age-commensurate ventricular and cisternal/sulcal prominence. ORBITS: No significant abnormality of visualized orbits. SINUSES / MASTOIDS: No significant abnormality of visualized sinuses and mastoid air cells. ADDITIONAL FINDINGS: None. IMPRESSION: 1. No acute intracranial abnormality. - Medical Decision Making Patient is a 70-year-old female who presents emergency room with complaints of low sodium. Patient states her primary care sent him to be evaluated. Patient has a history of hyponatremia. Patient also found to be confused. Is unclear what the patient's baseline is. Patient had a head CT which was negative for acute findings. Patient admitted to the hospital service for further evaluation treatment. Critical care time documented due to the multiple reassessments, prolonged time at the bedside, interpretation of diagnostics and labs. - Differential Diagnosis Confusion, altered mental status, hyponatremia Critical Care Time: Yes Critical care time in (mins) excluding proc time.: 35 Critical care attestation.: If time is entered above; I have spent that time in minutes in the direct care of this critically ill patient, excluding procedure time. Critical Care Time: 35 minutes ED Disposition Clinical Impression: Acute hyponatremia, Confusion Altered mental state Qualifiers: Altered mental status type: unspecified Qualified Code(s): R41.82 - Altered mental status, unspecified Disposition: DC-09 OP ADMIT IP TO THIS HOSP Is pt being admited?: Yes Does the pt Need Aspirin: No Condition: Critical Time of Disposition: 04:32
[2020-11-21] MEDS ORDERED: ALBUTEROL 2.5 MG/3 ML NEBU IH PRN (04:53)
[2020-11-21] MEDS ORDERED: DEXTROSE 50% IN WATER (25GM) 50 ML SYRINGE IV PRN (04:53)
[2020-11-21] MEDS ORDERED: ONDANSETRON 4 MG/2 ML INJ IV PRN (04:53)
[2020-11-21] MEDS ORDERED: ACETAMINOPHEN 325 MG TAB PO PRN (04:53)
[2020-11-21] MEDS ORDERED: oxyCODONE /ACETAMINOPHEN 5-325MG TAB PO PRN (04:54)
[2020-11-21] MEDS ORDERED: D5W/0.9% NACL 1,000 ML IV SCH (05:00)
--- NOTE | 2020-11-21 05:38 | History and Physical Report ---
History of Present Illness Date of examination: 11/21/20 Date of admission: 11/21/2020 Chief complaint: Confusion History of present illness: 70-year-old French female with history of hyponatremia, diabetes, hypertension, recently diagnosed with metastatic lung cancer (06/2020) who presents to [facility] ED with complaints of confusion and low sodium. Patient states that her PCP advised her to come to the ED for evaluation after being found to have noted confusion. Of note her review of medical record shows patient was admitted in June/2020 with similar complaints. Work-up during this admission revealed metastatic lung cancer seen on CT, and, confirmed on pathology, (07/04/2020). At discharge she was prescribed sodium chloride tablets to help with hyponatremia and was advised to follow-up with pulmonology, nephrology and oncologist; it is not clear if this was done. Denies headache, chest pain, shortness of breath, fever, nausea, vomiting, chills, generalized weakness, recent fall, recent sick contact Past History Past Medical History: diabetes, hypertension, other (Diagnosed with metastatic lung cancer (07/01/2020), hyponatremia, SIADH) Past Surgical History: Other (Denies surgical history) Social history: lives with family Family history: no significant family history Medications and Allergies Allergies Allergy/AdvReac Type Severity Reaction Status Date / Time No Known Allergies Allergy Verified 10/12/19 11:06 Home Medications Medication Instructions Recorded Confirmed Last Taken Type Metformin HCl [Glucophage] 1,000 mg PO DAILY 10/15/19 06/27/20 Unknown History Metoprolol [Lopressor TAB] 12.5 mg PO BID #30 tablet 07/03/20 Unknown Rx Sodium Chloride 1,000 mg PO BID #60 tablet.noel 07/03/20 Unknown Rx Valsartan [Diovan] 160 mg PO DAILY #30 tablet 07/03/20 Unknown Rx dilTIAZem CD [Cardizem CD] 120 mg PO QDAY #30 capsule 07/03/20 Unknown Rx Active Meds: Active Medications Acetaminophen (Acetaminophen 325 Mg Tab) 650 mg PO Q4H PRN PRN Reason: Pain MILD(1-3)/Fever >100.5/ADORNO Albuterol (Albuterol 2.5 Mg/3 Ml Nebu) 2.5 mg IH Q3HRT PRN PRN Reason: Shortness Of Breath Dextrose (Dextrose 50% In Water (25gm) 50 Ml Syringe) 0 ml IV Q30MIN PRN; Protocol PRN Reason: Hypoglycemia Heparin Sodium (Porcine) (Heparin 5,000 Unit/1 Ml Vial) 5,000 unit SUB-Q Q12HR ELIUD Dextrose/Sodium Chloride (D5ns) 1,000 mls @ 75 mls/hr IV DIRECT ELIUD Stop: 11/21/20 13:00 Insulin Human Lispro (Insulin Lispro 100 Unit/Ml) 0 unit SUB-Q ACHS ELIUD; Protocol Metoprolol Tartrate (Metoprolol Tartrate 25 Mg Tab) 12.5 mg PO BID ELIUD Ondansetron HCl (Ondansetron 4 Mg/2 Ml Inj) 4 mg IV Q8H PRN PRN Reason: Nausea And Vomiting Oxycodone/Acetaminophen (Oxycodone /Acetaminophen 5-325mg Tab) 1 tab PO Q6H PRN PRN Reason: Pain, Moderate (4-6) Sodium Chloride (Sodium Chloride 1 Gm Tab) 1 gm PO BID ELIUD Sodium Chloride (Sodium Chloride 0.9% 10 Ml Flush Syringe) 10 ml IV BID ELIUD Sodium Chloride (Sodium Chloride 0.9% 10 Ml Flush Syringe) 10 ml IV PRN PRN PRN Reason: LINE FLUSH Review of Systems All systems: negative (As noted in HPI) Exam - Physical Exam Narrative exam: Physical exam General appearance: Present: No acute distress, alert and oriented 2, French older adult female - EENT Eyes: Present: PERRL, EOM intact ENT: hearing intact, normal dentition - Neck Neck: Present: supple, normal ROM - Respiratory Respiratory effort: Non-labored Respiratory: Diminished bases - Cardiovascular Heart rate: 77 (bpm) Rhythm: Sinus Heart Sounds: Present: S1 & S2. Absent: rub, click - Extremities Extremities: no ischemia, pulses intact, - Peripheral Assessment Peripheral Pulses: within normal limits - Abdominal General gastrointestinal: soft, non-tender, normal bowel sounds - Integumentary Integumentary: Present: warm, dry - Musculoskeletal Musculoskeletal: Able to move all extremities -Neurological Neurological: CN II-XII intact - Psychiatric Psychiatric: cooperative - Constitutional Vitals: Temp Pulse Resp BP Pulse Ox 97.9 F 77 18 125/74 95 11/20/20 22:46 11/20/20 22:46 11/20/20 22:46 11/20/20 22:46 11/20/20 22:46 Results - Labs CBC & Chem 7: 11/20/20 23:35 11/20/20 23:35 Labs: Laboratory Last Values WBC 7.0 K/mm3 (4.5-11.0) 11/20/20 23:35 RBC 3.79 M/mm3 (3.65-5.03) 11/20/20 23:35 Hgb 12.3 gm/dl (10.1-14.3) 11/20/20 23:35 Hct 34.9 % (30.3-42.9) 11/20/20 23:35 MCV 92 fl (79-97) 11/20/20 23:35 MCH 33 pg (28-32) H 11/20/20 23:35 MCHC 35 % (30-34) H 11/20/20 23:35 RDW 13.2 % (13.2-15.2) 11/20/20 23:35 Plt Count 313 K/mm3 (140-440) 11/20/20 23:35 Lymph % (Auto) 15.7 % (13.4-35.0) 11/20/20 23:35 [place] % (Auto) 8.1 % (0.0-7.3) H 11/20/20 23:35 Eos % (Auto) 1.8 % (0.0-4.3) 11/20/20 23:35 Baso % (Auto) 1.1 % (0.0-1.8) 11/20/20 23:35 Lymph # (Auto) 1.1 K/mm3 (1.2-5.4) L 11/20/20 23:35 [place] # (Auto) 0.6 K/mm3 (0.0-0.8) 11/20/20 23:35 Eos # (Auto) 0.1 K/mm3 (0.0-0.4) 11/20/20 23:35 Baso # (Auto) 0.1 K/mm3 (0.0-0.1) 11/20/20 23:35 Seg Neutrophils % 73.3 % (40.0-70.0) H 11/20/20 23:35 Seg Neutrophils # 5.1 K/mm3 (1.8-7.7) 11/20/20 23:35 Sodium 125 mmol/L (137-145) L 11/20/20 23:35 Potassium 3.9 mmol/L (3.6-5.0) 11/20/20 23:35 Chloride 86.7 mmol/L (98-107) L 11/20/20 23:35 Carbon Dioxide 29 mmol/L (22-30) 11/20/20 23:35 Anion Gap 13 mmol/L 11/20/20 23:35 BUN 20 mg/dL (7-17) H 11/20/20 23:35 Creatinine 0.9 mg/dL (0.6-1.2) 11/20/20 23:35 Estimated GFR > 60 ml/min 11/20/20 23:35 BUN/Creatinine Ratio 22 % 11/20/20 23:35 Glucose 110 mg/dL (65-100) H 11/20/20 23:35 Calcium 9.1 mg/dL (8.4-10.2) 11/20/20 23:35 Total Bilirubin 0.30 mg/dL (0.1-1.2) 11/20/20 23:35 AST 14 units/L (5-40) 11/20/20 23:35 ALT 10 units/L (7-56) 11/20/20 23:35 Alkaline Phosphatase 57 units/L (35-129) 11/20/20 23:35 Total Protein 7.2 g/dL (6.3-8.2) 11/20/20 23:35 Albumin 3.8 g/dL (3.9-5) L 11/20/20 23:35 Albumin/Globulin Ratio 1.1 % 11/20/20 23:35 - Imaging and Cardiology Chest x-ray: pending CT scan - chest: pending Assessment and Plan Assessment and plan: Hyponatremia -Na on admission 125 -Diagnosed with SIADH in the past -Previously admitted in June 2020 for hyponatremia, d/c with sodium chloride tablets -F/U serum and urine osmo, & labs -On IVF -Nephrology consulted -Fall precautions Acute encephalopathy -Likely due to hyponatremia secondary to metastatic lung cancer -Neurochecks -CT head and CXR pending -Neurology consulted -Supportive care Metastatic lung cancer -Diagnosed in June 2020 -Advised to follow-up as outpatient with oncologist, unsure if this was done -Heme-onc consulted (Dr. Mary) DM -POC BG monitoring -SSI coverage prn -HgbA1C pending HTN -Monitor BP -Resume home hypertensive meds Advance Directives: No VTE prophylaxis?: Chemical, Mechanical Plan of care discussed with patient/family: Yes
--- NOTE | 2020-11-21 05:44 | Cat Scan Report ---
CT head/brain w con INDICATION: Sent by family practioner for confusion. Low Sodium. TECHNIQUE: Routine CT head without contrast. All CT scans at this location are performed using CT dos e reduction for ALARA by means of automated exposure control. COMPARISON: MRI brain 07/01/2020 FINDINGS: BRAIN / INTRACRANIAL CONTENTS: No acute hemorrhage, mass effect, midline shift, or hydrocephalus. No appreciable acute large territorial or lacunar infarct. No chronic infarct. Age-commensurate ventricu lar and cisternal/sulcal prominence. ORBITS: No significant abnormality of visualized orbits. SINUSES / MASTOIDS: No significant abnormality of visualized sinuses and mastoid air cells. ADDITIONAL FINDINGS: None. IMPRESSION: 1. No acute intracranial abnormality. Signer Name: Cyndi Pittman MD Signed: 11/21/2020 5:39 AM Workstation Name: [id number]
--- NOTE | 2020-11-21 05:51 | XRay Report ---
CHEST 2 VIEWS INDICATION / CLINICAL INFORMATION: hx lung ca. COMPARISON: Chest radiograph 06/25/2020 FINDINGS: SUPPORT DEVICES: None. HEART / MEDIASTINUM: Stable cardiomegaly. LUNGS / PLEURA: Moderate right basilar pleural-parenchymal opacity is not significantly changed. The left lung is clear. No pneumothorax. ADDITIONAL FINDINGS: No significant additional findings. IMPRESSION: 1. Moderate right basilar pleural-parenchymal opacity is not significant change from prior examinatio nAntony Signer Name: Cyndi Pittman MD Signed: 11/21/2020 5:47 AM Workstation Name: [id number]
[2020-11-21] MEDS: INSULIN LISPRO 100 UNIT/ML SUB-Q SCH ×4 (08:35→22:15)
[2020-11-21 08:41] LABS: Blood Urea Nitrogen 17 mg/dL (7-17); Calcium 9.3 mg/dL (8.4-10.2); Hemolysis Index 5
[2020-11-21 09:06] LABS: BUN/Creatinine Ratio 24
[2020-11-21] MEDS: METOPROLOL TARTRATE 25 MG TAB PO SCH ×2 (09:07→23:09)
[2020-11-21] MEDS: HEPARIN 5,000 UNIT/1 ML VIAL SUB-Q SCH ×2 (09:08→22:00)
--- NOTE | 2020-11-21 10:14 | Event Note ---
Date: 11/21/20 70-year-old female with a recent diagnosis of squamous cell carcinoma of the lung brought to the hospital on account of confusion and hyponatremia. She was evaluated in this hospital about 4 months ago and was found to have cancer of the lung. She was discharged to follow-up with oncology. Here in the ED, she was found to have hyponatremia. Nephrology has been consulted for hyponatremia.
[2020-11-21] MEDS: SODIUM CHLORIDE 1 GM TAB PO SCH ×2 (11:24→22:15)
--- NOTE | 2020-11-21 12:54 | Consultation ---
History of Present Illness - Reason for Consult Consult date: 11/21/20 hyponatremia Requesting physician: ALEXANDER CASTELLANOS - History of Present Illness This is a 70 yo [place] F with past medical history of diabetes, hypertension, recently diagnosed with metastatic lung cancer (06/2020) also history of chronic hyponatremia secondary to SIADH, who presents to [facility] ED with complaints of confusion. Labs showed significant hyponatremia with Na as low as 125 for which renal consult was requested. Patent is known to our group from prior hospitalization, however patient did not follow up with us as outpatient after discharge. Past History Past Medical History: diabetes, hypertension, other (Diagnosed with metastatic lung cancer (07/01/2020), hyponatremia, SIADH) Past Surgical History: Other (Denies surgical history) Social history: lives with family Family history: no significant family history Medications and Allergies Allergies Allergy/AdvReac Type Severity Reaction Status Date / Time No Known Allergies Allergy Verified 10/12/19 11:06 Home Medications Medication Instructions Recorded Confirmed Last Taken Type Metformin HCl [Glucophage] 1,000 mg PO DAILY 10/15/19 06/27/20 Unknown History Metoprolol [Lopressor TAB] 12.5 mg PO BID #30 tablet 07/03/20 Unknown Rx Sodium Chloride 1,000 mg PO BID #60 tablet.noel 07/03/20 Unknown Rx Valsartan [Diovan] 160 mg PO DAILY #30 tablet 07/03/20 Unknown Rx dilTIAZem CD [Cardizem CD] 120 mg PO QDAY #30 capsule 07/03/20 Unknown Rx Active Meds: Active Medications Acetaminophen (Acetaminophen 325 Mg Tab) 650 mg PO Q4H PRN PRN Reason: Pain MILD(1-3)/Fever >100.5/ADORNO Albuterol (Albuterol 2.5 Mg/3 Ml Nebu) 2.5 mg IH Q3HRT PRN PRN Reason: Shortness Of Breath Dextrose (Dextrose 50% In Water (25gm) 50 Ml Syringe) 0 ml IV Q30MIN PRN; Protocol PRN Reason: Hypoglycemia Heparin Sodium (Porcine) (Heparin 5,000 Unit/1 Ml Vial) 5,000 unit SUB-Q Q12HR [facility] Last Admin: 11/21/20 09:08 Dose: 5,000 unit Documented by: Dextrose/Sodium Chloride (D5ns) 1,000 mls @ 75 mls/hr IV DIRECT [facility] Stop: 11/21/20 13:00 Insulin Human Lispro (Insulin Lispro 100 Unit/Ml) 0 unit SUB-Q ACHS [facility]; Protocol Last Admin: 11/21/20 12:40 Dose: Not Given Documented by: Metoprolol Tartrate (Metoprolol Tartrate 25 Mg Tab) 12.5 mg PO BID [facility] Last Admin: 11/21/20 09:07 Dose: 12.5 mg Documented by: Ondansetron HCl (Ondansetron 4 Mg/2 Ml Inj) 4 mg IV Q8H PRN PRN Reason: Nausea And Vomiting Oxycodone/Acetaminophen (Oxycodone /Acetaminophen 5-325mg Tab) 1 tab PO Q6H PRN PRN Reason: Pain, Moderate (4-6) Sodium Chloride (Sodium Chloride 1 Gm Tab) 1 gm PO BID [facility] Last Admin: 11/21/20 11:24 Dose: 1 gm Documented by: Sodium Chloride (Sodium Chloride 0.9% 10 Ml Flush Syringe) 10 ml IV BID [facility] Last Admin: 11/21/20 09:08 Dose: 10 ml Documented by: Sodium Chloride (Sodium Chloride 0.9% 10 Ml Flush Syringe) 10 ml IV PRN PRN PRN Reason: LINE FLUSH Tolvaptan (Tolvaptan 15 Mg Tab) 15 mg PO ONCE ONE Stop: 11/21/20 12:54 Review of Systems All systems: negative Constitutional: weakness, malaise Exam - Vital Signs Vital signs: Vital Signs Temp Pulse Resp BP Pulse Ox 97.9 F 77 18 125/74 95 11/20/20 22:46 11/20/20 22:46 11/20/20 22:46 11/20/20 22:46 11/20/20 22:46 - General Appearance General appearance: well-developed, well-nourished, appears stated age EENT: ATNC, PERRL, mucous membranes moist Neck: Present: neck supple Respiratory: Clear to Ascultation Gastrointestinal: Present: normoactive bowel sounds Integumentary: no rash Neurologic: no focal deficit, alert and oriented x3, strength 5/5, CN 3-12 intact Psychiatric: mood/affect appropriate, cooperative Results - Lab Results 11/20/20 23:35 11/21/20 07:56 Most recent lab results Calcium 9.3 mg/dL (8.4-10.2) 11/21/20 07:56 Assessment and Plan - Patient Problems (1) Hyponatremia Current Visit: No Status: Chronic Plan to address problem: Likely secondary to SIADH in the setting of lung CA. Na only marginally improved with IV NS. Check Urine na,urine osmolality. Pt is euvolemic, will treat wiht tolvaptan 15mg x 1 dose and check Na q8hr to target Na correction < 8meq/day. (2) History of SIADH Current Visit: No Status: Acute (3) Lung cancer Current Visit: No Status: Acute Plan to address problem: h/o metastatic lung CA, follow oncology recommendations. (4) HTN (hypertension) Current Visit: No Status: Acute Qualifiers: Plan to address problem: monitor BP on current meds
[2020-11-21] MEDS ORDERED: TOLVAPTAN 15 MG TAB PO ONE (13:53)
[2020-11-21 14:24] LABS: Bacteria,Urine 3+ /HPF (Negative); Bilirubin,Urine NEG (Negative); Blood,Urine NEG (Negative); Color,Urine Yellow (Yellow); Mucus,Urine FEW /HPF; Urobilinogen,Urine < 2.0 mg/dL (<2.0)
--- NOTE | 2020-11-21 14:28 | Consultation ---
History of Present Illness Consult date: 11/21/20 Reason for Consult: AMS Chief complaint: AMS History of present illness: 70 yo female with metastatic lung cancer, htn, dm, hyponateremia who presents with acute encephalopathy, in the setting of hyponatremia. Televideo not available for bedside assessment. Past History Past Medical History: diabetes, hypertension, other (Diagnosed with metastatic lung cancer (07/01/2020), hyponatremia, SIADH) Past Surgical History: Other (Denies surgical history) Social history: lives with family Family history: no significant family history Medications and Allergies Allergies Allergy/AdvReac Type Severity Reaction Status Date / Time No Known Allergies Allergy Verified 10/12/19 11:06 Home Medications Medication Instructions Recorded Confirmed Last Taken Type Metformin HCl [Glucophage] 1,000 mg PO DAILY 10/15/19 11/21/20 Unknown History Metoprolol [Lopressor TAB] 12.5 mg PO BID #30 tablet 07/03/20 11/21/20 Unknown Rx Sodium Chloride 1,000 mg PO BID #60 tablet.noel 07/03/20 11/21/20 Unknown Rx Valsartan [Diovan] 160 mg PO DAILY #30 tablet 07/03/20 11/21/20 Unknown Rx dilTIAZem CD [Cardizem CD] 120 mg PO QDAY #30 capsule 07/03/20 11/21/20 Unknown Rx hydroCHLOROthiazide [HCTZ] 12.5 mg PO DAILY 11/21/20 11/21/20 Unknown History Active Meds: Active Medications Acetaminophen (Acetaminophen 325 Mg Tab) 650 mg PO Q4H PRN PRN Reason: Pain MILD(1-3)/Fever >100.5/ADORNO Last Admin: 11/21/20 13:42 Dose: 650 mg Documented by: Albuterol (Albuterol 2.5 Mg/3 Ml Nebu) 2.5 mg IH Q3HRT PRN PRN Reason: Shortness Of Breath Dextrose (Dextrose 50% In Water (25gm) 50 Ml Syringe) 0 ml IV Q30MIN PRN; Protocol PRN Reason: Hypoglycemia Heparin Sodium (Porcine) (Heparin 5,000 Unit/1 Ml Vial) 5,000 unit SUB-Q Q12HR [facility] Last Admin: 11/21/20 09:08 Dose: 5,000 unit Documented by: Insulin Human Lispro (Insulin Lispro 100 Unit/Ml) 0 unit SUB-Q [facility]; Protocol Last Admin: 11/21/20 12:40 Dose: Not Given Documented by: Metoprolol Tartrate (Metoprolol Tartrate 25 Mg Tab) 12.5 mg PO BID [facility] Last Admin: 11/21/20 09:07 Dose: 12.5 mg Documented by: Ondansetron HCl (Ondansetron 4 Mg/2 Ml Inj) 4 mg IV Q8H PRN PRN Reason: Nausea And Vomiting Oxycodone/Acetaminophen (Oxycodone /Acetaminophen 5-325mg Tab) 1 tab PO Q6H PRN PRN Reason: Pain, Moderate (4-6) Sodium Chloride (Sodium Chloride 1 Gm Tab) 1 gm PO BID [facility] Last Admin: 11/21/20 11:24 Dose: 1 gm Documented by: Sodium Chloride (Sodium Chloride 0.9% 10 Ml Flush Syringe) 10 ml IV BID [facility] Last Admin: 11/21/20 09:08 Dose: 10 ml Documented by: Sodium Chloride (Sodium Chloride 0.9% 10 Ml Flush Syringe) 10 ml IV PRN PRN PRN Reason: LINE FLUSH Physical Examination - Vital Signs Vital Signs: Vital Signs Temp Pulse Resp BP Pulse Ox 97.9 F 77 18 125/74 95 11/20/20 22:46 11/20/20 22:46 11/20/20 22:46 11/20/20 22:46 11/20/20 22:46 - Physical Exam Narrative exam: Televideo not available for bedside assessment. Results - Laboratory Findings CBC and BMP: 11/20/20 23:35 11/21/20 07:56 Abnormal Lab Findings: Abnormal Labs 11/10/20 11/20/20 11/20/20 23:35 23:35 23:35 MCH 33 H MCHC 35 H [place] % (Auto) 8.1 H Lymph # (Auto) 1.1 L Seg Neutrophils % 73.3 H Sodium 125 L Chloride 86.7 L BUN 20 H Glucose 110 H POC Glucose Hemoglobin A1c 6.5 H Albumin 3.8 L 11/21/20 11/21/20 11/21/20 07:56 08:07 11:49 MCH MCHC [place] % (Auto) Lymph # (Auto) Seg Neutrophils % Sodium 127 L Chloride 86.8 L BUN Glucose 127 H POC Glucose 126 H 122 H Hemoglobin A1c Albumin Assessment and Plan 70 yo female with metastatic lung cancer, htn, dm, hyponateremia who presents with acute encephalopathy, in the setting of hyponatremia. 1. Metaoblic Encephalopathy - in the setting of hyponatremia; ordered b12, tsh, prealbumin; alternate etiologies, workup per primary team. 2. Seizure - in the setting of hyponatremia; EEG ordered. 3. ASSESSMENT EXPERT Metastasis - MRI Brain w/ wo contrast. 4. Acute Ischemic Stroke - ASA 81 mg po qday; MRI Brain w/ wo contrast with further workup based on MR findings. Arden Naidu MD Neurology
[2020-11-21] MEDS: dilTIAZem CD 120 MG CAP PO SCH (21:40)
[2020-11-22 06:03] LABS: Basophils # (Auto) 0.1 K/mm3 (0.0-0.1); Eosinophils # (Auto) 0.2 K/mm3 (0.0-0.4); Eosinophils % (Auto) 2.7 % (0.0-4.3); Hematocrit 36.1 % (30.3-42.9); Hemoglobin 12.2 gm/dl (10.1-14.3); Lymphocytes # (Auto) 1.3 K/mm3 (1.2-5.4); Lymphocytes % (Auto) 20.4 % (13.4-35.0); Mean Corpuscular HGB Conc 34 % (30-34); Mean Corpuscular Volume 92 fl (79-97); Monocytes # (Auto) 0.5 K/mm3 (0.0-0.8); Monocytes % (Auto) 8.2 % (0.0-7.3); Platelet Count 325 K/mm3 (140-440); Red Blood Count 3.93 M/mm3 (3.65-5.03); Red Cell Distribution Width 13.4 % (13.2-15.2)
[2020-11-22 06:24] LABS: BUN/Creatinine Ratio 23; Blood Urea Nitrogen 14 mg/dL (7-17); Hemolysis Index 4
[2020-11-22] MEDS: INSULIN LISPRO 100 UNIT/ML SUB-Q SCH ×2 (07:30→11:30)
[2020-11-22] MEDS ORDERED: LORazepam 2 MG/ML VIAL IV ONE (11:30)
[2020-11-22 13:13] VITALS: BP 123/80
--- NOTE | 2020-11-22 14:22 | Magnetic Resonance Report ---
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 TECHNIQUE: Multiplanar, multisequence MR images of the brain were obtained. COMPARISON: The study is compared with the previous MRI of 06/29/2020. FINDINGS: BRAIN / INTRACRANIAL CONTENTS: The motion degrades the image quality. However, there is mild cerebral white matter disease most consistent with microvascular angiopathy. The findings appear to correlate with the previous MRI. The diffusion imaging reveals no clear evidence of acute infarction. There is mild cerebral atrophy. The ventricular system remains appropriate in size and configuration. No extra-axial fluid collections or significant mass effect is identified. CRANIOCERVICAL JUNCTION: There is small amount of fluid signal projected along the right atlantooccip ital joint space which is likely on a degenerative basis. 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 VASCULAR FLOW-VOIDS: No significant abnormality. ORBITS: No significant abnormality of visualized orbits. SINUSES / MASTOIDS: No significant abnormality in the visualized paranasal sinuses or mastoid air concepcion ls. ADDITIONAL FINDINGS: None. IMPRESSION: 1. There is continued mild microvascular angiopathy without evidence of acute infarction Signer Name: Ky Wheeler MD Signed: 11/22/2020 2:18 PM Workstation Name: [id number]
--- NOTE | 2020-11-22 14:23 | Hem/Onc Consultation ---
History of Present Illness - History of Present Illness oncology consult televisit attempted cuff slitter but pt did not cooperate 70yo [place] woman with DM, recent dx lung cancer 06/2020-TTF1 neg; not behaving like SCLC (thus likely NSCLC) had hyponatremia/presumed SIADH at that time-->simon now readmitted for confusion, again hyponatremia CXR shows not much change in volume of tumor compared to 06/[address] neg, pending new brain MRI PMH: DM SIADH/hyponatremia lung cancer 06/2020 EXAM: sitting up in bed not SOB, not on oxygen confused or noncooperative 06/28/2020. CT scan of the chest reveals a right perihilar mass encasing and obstructing the right lower lobe bronchus characteristic of primary lung cancer with worsening mediastinal adenopathy and small right pleural effusion which is likely a malignant effusion. Patient also has contralateral left pulmonary nodules worrisome for pulmonary metastasis. DATA REVIEWED BELOW Brain MRI in 06/2020 was neg for mets IMPRESSION: locally advanced /regionally metastatic NSCLC lung cancer this could be a targetable mutation--but would need another biopsy to investigate that paraneoplastic SIADH is her main problem it seems like psychosocial factors are her major obstacle to treatment this seems like a slow/indolent process to me.. she my live a long time with lung ca REC/PLAN: she would ideally have another bronch/biopsy or percutaneous biopsy for more tissue ideally connect her with in-person oncologist she needs an advocate to cfonnect her well and plan follow-up Active Medications Acetaminophen (Acetaminophen 325 Mg Tab) 650 mg PO Q4H PRN PRN Reason: Pain MILD(1-3)/Fever >100.5/ADORNO Last Admin: 11/21/20 13:42 Dose: 650 mg Documented by: Albuterol (Albuterol 2.5 Mg/3 Ml Nebu) 2.5 mg IH Q3HRT PRN PRN Reason: Shortness Of Breath Dextrose (Dextrose 50% In Water (25gm) 50 Ml Syringe) 0 ml IV Q30MIN PRN; Protocol PRN Reason: Hypoglycemia Diltiazem HCl (Diltiazem Cd 120 Mg Cap) 120 mg PO QDAY [facility] Last Admin: 11/21/20 21:40 Dose: 120 mg Documented by: Heparin Sodium (Porcine) (Heparin 5,000 Unit/1 Ml Vial) 5,000 unit SUB-Q Q12HR [facility] Last Admin: 11/21/20 22:00 Dose: 5,000 unit Documented by: Insulin Human Lispro (Insulin Lispro 100 Unit/Ml) 0 unit SUB-Q [facility]; Protocol Last Admin: 11/22/20 07:30 Dose: Not Given Documented by: Metoprolol Tartrate (Metoprolol Tartrate 25 Mg Tab) 12.5 mg PO BID [facility] Last Admin: 11/21/20 23:09 Dose: 12.5 mg Documented by: Ondansetron HCl (Ondansetron 4 Mg/2 Ml Inj) 4 mg IV Q8H PRN PRN Reason: Nausea And Vomiting Oxycodone/Acetaminophen (Oxycodone /Acetaminophen 5-325mg Tab) 1 tab PO Q6H PRN PRN Reason: Pain, Moderate (4-6) Sodium Chloride (Sodium Chloride 1 Gm Tab) 1 gm PO BID [facility] Last Admin: 11/21/20 22:15 Dose: 1 gm Documented by: Sodium Chloride (Sodium Chloride 0.9% 10 Ml Flush Syringe) 10 ml IV BID [facility] Last Admin: 11/22/20 11:24 Dose: 10 ml Documented by: Sodium Chloride (Sodium Chloride 0.9% 10 Ml Flush Syringe) 10 ml IV PRN PRN PRN Reason: LINE FLUSH Laboratory Last Values WBC 6.2 K/mm3 (4.5-11.0) 11/22/20 04:55 Hgb 12.2 gm/dl (10.1-14.3) 11/22/20 04:55 Hct 36.1 % (30.3-42.9) 11/22/20 04:55 Plt Count 325 K/mm3 (140-440) 11/22/20 04:55 Creatinine 0.6 mg/dL (0.6-1.2) 11/22/20 04:55 Urine Osmolality 398 Mosm/kg 11/21/20 Unknown Urine Sodium 87 mmol/L 11/21/20 Unknown Past History Past Medical History: diabetes, hypertension, other (Diagnosed with metastatic lung cancer (07/01/2020), hyponatremia, SIADH) Past Surgical History: Other (Denies surgical history) Social history: lives with family Family history: no significant family history Medications and Allergies Allergies Allergy/AdvReac Type Severity Reaction Status Date / Time No Known Allergies Allergy Verified 10/12/19 11:06 Home Medications Medication Instructions Recorded Confirmed Last Taken Type Metformin HCl [Glucophage] 1,000 mg PO DAILY 10/15/19 11/21/20 Unknown History Metoprolol [Lopressor TAB] 12.5 mg PO BID #30 tablet 07/03/20 11/21/20 Unknown Rx Sodium Chloride 1,000 mg PO BID #60 tablet.noel 07/03/20 11/21/20 Unknown Rx Valsartan [Diovan] 160 mg PO DAILY #30 tablet 07/03/20 11/21/20 Unknown Rx dilTIAZem CD [Cardizem CD] 120 mg PO QDAY #30 capsule 07/03/20 11/21/20 Unknown Rx hydroCHLOROthiazide [HCTZ] 12.5 mg PO DAILY 11/21/20 11/21/20 Unknown History Active Meds: Active Medications Acetaminophen (Acetaminophen 325 Mg Tab) 650 mg PO Q4H PRN PRN Reason: Pain MILD(1-3)/Fever >100.5/ADORNO Last Admin: 11/21/20 13:42 Dose: 650 mg Documented by: Albuterol (Albuterol 2.5 Mg/3 Ml Nebu) 2.5 mg IH Q3HRT PRN PRN Reason: Shortness Of Breath Dextrose (Dextrose 50% In Water (25gm) 50 Ml Syringe) 0 ml IV Q30MIN PRN; Protocol PRN Reason: Hypoglycemia Diltiazem HCl (Diltiazem Cd 120 Mg Cap) 120 mg PO QDAY [facility] Last Admin: 11/21/20 21:40 Dose: 120 mg Documented by: Heparin Sodium (Porcine) (Heparin 5,000 Unit/1 Ml Vial) 5,000 unit SUB-Q Q12HR [facility] Last Admin: 11/21/20 22:00 Dose: 5,000 unit Documented by: Insulin Human Lispro (Insulin Lispro 100 Unit/Ml) 0 unit SUB-Q [facility]; Protocol Last Admin: 11/22/20 07:30 Dose: Not Given Documented by: Metoprolol Tartrate (Metoprolol Tartrate 25 Mg Tab) 12.5 mg PO BID [facility] Last Admin: 11/21/20 23:09 Dose: 12.5 mg Documented by: Ondansetron HCl (Ondansetron 4 Mg/2 Ml Inj) 4 mg IV Q8H PRN PRN Reason: Nausea And Vomiting Oxycodone/Acetaminophen (Oxycodone /Acetaminophen 5-325mg Tab) 1 tab PO Q6H PRN PRN Reason: Pain, Moderate (4-6) Sodium Chloride (Sodium Chloride 1 Gm Tab) 1 gm PO BID [facility] Last Admin: 11/21/20 22:15 Dose: 1 gm Documented by: Sodium Chloride (Sodium Chloride 0.9% 10 Ml Flush Syringe) 10 ml IV BID [facility] Last Admin: 11/22/20 11:24 Dose: 10 ml Documented by: Sodium Chloride (Sodium Chloride 0.9% 10 Ml Flush Syringe) 10 ml IV PRN PRN PRN Reason: LINE FLUSH Exam - Constitutional Vitals: Last Vital Signs Temp 97.8 F 11/22/20 12:58 Pulse 83 11/22/20 12:58 Resp 18 11/22/20 12:58 BP 123/80 11/22/20 12:58 Pulse Ox 90 11/22/20 12:58 Results - Labs lab Results: Laboratory Results - last 24 hr 11/21/20 11/21/20 11/21/20 16:50 19:55 20:01 WBC RBC Hgb Hct MCV MCH MCHC RDW Plt Count Lymph % (Auto) [place] % (Auto) Eos % (Auto) Baso % (Auto) Lymph # (Auto) [place] # (Auto) Eos # (Auto) Baso # (Auto) Seg Neutrophils % Seg Neutrophils # Sodium 124 L Potassium Chloride Carbon Dioxide Anion Gap BUN Creatinine Estimated GFR BUN/Creatinine Ratio Glucose POC Glucose 102 Calcium Prealbumin 0.225 Vitamin B12 Folate TSH Urine Color Urine Turbidity Urine pH Ur Specific [place] Urine Protein Urine Glucose (UA) Urine Ketones Urine Blood Urine Nitrite Urine Bilirubin Urine Urobilinogen Ur Leukocyte Esterase Urine WBC (Auto) Urine RBC (Auto) Urine Bacteria (Auto) Urine Mucus Urine Osmolality Urine Sodium 11/21/20 11/21/20 11/21/20 20:01 20:01 20:01 WBC RBC Hgb Hct MCV MCH MCHC RDW Plt Count Lymph % (Auto) [place] % (Auto) Eos % (Auto) Baso % (Auto) Lymph # (Auto) [place] # (Auto) Eos # (Auto) Baso # (Auto) Seg Neutrophils % Seg Neutrophils # Sodium Potassium Chloride Carbon Dioxide Anion Gap BUN Creatinine Estimated GFR BUN/Creatinine Ratio Glucose POC Glucose Calcium Prealbumin Vitamin B12 405.7 Folate 5.47 L TSH 0.813 Urine Color Urine Turbidity Urine pH Ur Specific [place] Urine Protein Urine Glucose (UA) Urine Ketones Urine Blood Urine Nitrite Urine Bilirubin Urine Urobilinogen Ur Leukocyte Esterase Urine WBC (Auto) Urine RBC (Auto) Urine Bacteria (Auto) Urine Mucus Urine Osmolality Urine Sodium 11/21/20 11/21/20 11/21/20 21:07 Unknown Unknown WBC RBC Hgb Hct MCV MCH MCHC RDW Plt Count Lymph % (Auto) [place] % (Auto) Eos % (Auto) Baso % (Auto) Lymph # (Auto) [place] # (Auto) Eos # (Auto) Baso # (Auto) Seg Neutrophils % Seg Neutrophils # Sodium Potassium Chloride Carbon Dioxide Anion Gap BUN Creatinine Estimated GFR BUN/Creatinine Ratio Glucose POC Glucose 113 H Calcium Prealbumin Vitamin B12 Folate TSH Urine Color Yellow Urine Turbidity Hazy Urine pH 8.0 H Ur Specific [place] 1.011 Urine Protein 30 mg/dl Urine Glucose (UA) 50 Urine Ketones Neg Urine Blood Neg Urine Nitrite Neg Urine Bilirubin Neg Urine Urobilinogen < 2.0 Ur Leukocyte Esterase Sm Urine WBC (Auto) 21.0 H Urine RBC (Auto) 1.0 Urine Bacteria (Auto) 3+ Urine Mucus Few Urine Osmolality 398 Urine Sodium 11/21/20 11/22/20 11/22/20 Unknown 04:55 04:55 WBC 6.2 RBC 3.93 Hgb 12.2 Hct 36.1 MCV 92 MCH 31 MCHC 34 RDW 13.4 Plt Count 325 Lymph % (Auto) 20.4 [place] % (Auto) 8.2 H Eos % (Auto) 2.7 Baso % (Auto) 1.0 Lymph # (Auto) 1.3 [place] # (Auto) 0.5 Eos # (Auto) 0.2 Baso # (Auto) 0.1 Seg Neutrophils % 67.7 Seg Neutrophils # 4.2 Sodium 132 L D Potassium 4.0 Chloride 94.1 L Carbon Dioxide 28 Anion Gap 14 BUN 14 Creatinine 0.6 Estimated GFR > 60 BUN/Creatinine Ratio 23 Glucose 125 H POC Glucose Calcium 9.0 Prealbumin Vitamin B12 Folate TSH Urine Color Urine Turbidity Urine pH Ur Specific [place] Urine Protein Urine Glucose (UA) Urine Ketones Urine Blood Urine Nitrite Urine Bilirubin Urine Urobilinogen Ur Leukocyte Esterase Urine WBC (Auto) Urine RBC (Auto) Urine Bacteria (Auto) Urine Mucus Urine Osmolality Urine Sodium 87 11/22/20 11/22/20 07:54 12:56 WBC RBC Hgb Hct MCV MCH MCHC RDW Plt Count Lymph % (Auto) [place] % (Auto) Eos % (Auto) Baso % (Auto) Lymph # (Auto) [place] # (Auto) Eos # (Auto) Baso # (Auto) Seg Neutrophils % Seg Neutrophils # Sodium Potassium Chloride Carbon Dioxide Anion Gap BUN Creatinine Estimated GFR BUN/Creatinine Ratio Glucose POC Glucose 137 H 112 H Calcium Prealbumin Vitamin B12 Folate TSH Urine Color Urine Turbidity Urine pH Ur Specific [place] Urine Protein Urine Glucose (UA) Urine Ketones Urine Blood Urine Nitrite Urine Bilirubin Urine Urobilinogen Ur Leukocyte Esterase Urine WBC (Auto) Urine RBC (Auto) Urine Bacteria (Auto) Urine Mucus Urine Osmolality Urine Sodium
[2020-11-22] MEDS: HEPARIN 5,000 UNIT/1 ML VIAL SUB-Q SCH (14:51)
[2020-11-22] MEDS: METOPROLOL TARTRATE 25 MG TAB PO SCH (14:51)
[2020-11-22] MEDS: dilTIAZem CD 120 MG CAP PO SCH (14:51)
[2020-11-22] MEDS: SODIUM CHLORIDE 1 GM TAB PO SCH (14:56)
--- NOTE | 2020-11-22 15:06 | Discharge Summary ---
Providers - Providers Date of Admission: 11/21/20 04:53 Date of discharge: 11/22/20 Attending physician: MASON LOZADA 11/21/20 04:46 Consult to Physician [CONS] Routine Comment: Consulting Provider: JOSELO OLSON Physician Instructions: Reason For Exam: hyponatremia, est pt 11/21/20 04:51 Consult to Physician [CONS] Routine Comment: Consulting Provider: KELSEY BARCLAY Physician Instructions: Reason For Exam: Metastatic lung CA 11/21/20 04:56 Consult to Physician [CONS] Routine Comment: Consulting Provider: BLAYNE FRAZIER Physician Instructions: Reason For Exam: AMS Occupational Therapy Evaluate and Treat [CONS] Routine Comment: Reason For Exam: eval Physical Therapy Evaluation and Treat [CONS] Routine Comment: Reason For Exam: eval Primary care physician: [employer]PER Hospitalization Condition: Critical Hospital course: History of present illness: 70-year-old [place] female with history of hyponatremia, diabetes, hypertension, recently diagnosed with metastatic lung cancer (06/2020) who presents to [facility] ED with complaints of confusion and low sodium. Patient states that her PCP advised her to come to the ED for evaluation after being found to have noted confusion. Of note her review of medical record shows patient was admitted in June/2020 with similar complaints. Work-up during this admission revealed metastatic lung cancer seen on CT, and, confirmed on pathology, (07/04/2020). At discharge she was prescribed sodium chloride tablets to help with hyponatremia and was advised to follow-up with pulmonology, nephrology and oncologist; it is not clear if this was done. Denies headache, chest pain, shortness of breath, fever, nausea, vomiting, c hills, generalized weakness, recent fall, recent sick contact Hyponatremia 2/2 SIADH -Na on admission 125 -Status post 1 dose of tolvaptan -Serum potassium 132 this morning -Discussed with nephrology -Patient has been cleared for discharge Patient to be discharged home with home hospice -Diagnosed with SIADH in the past Acute encephalopathy Improved -Likely due to hyponatremia secondary to metastatic lung cancer Metastatic lung cancer -Diagnosed in June 2020 -Advised to follow-up as outpatient with oncologist DM -Continue home management HTN -Fair -Resume home hypertensive meds Disposition: DC-50 TO HOSPICE (HOME) Final Discharge Diagnosis (Prints w/discharge instructions): Hyponatremia Time spent for discharge: 34 minutes Core Measure Documentation - Palliative Care Palliative Care/ Comfort Measures: Hospice Care - Core Measures Any of the following diagnoses?: none Exam - Constitutional Vitals: Temp Pulse Resp BP Pulse Ox 97.8 F 83 18 123/80 90 11/22/20 12:58 11/22/20 12:58 11/22/20 12:58 11/22/20 12:58 11/22/20 12:58 General appearance: Present: no acute distress - EENT Eyes: Present: PERRL, EOM intact ENT: hearing intact - Neck Neck: Present: supple, normal ROM - Respiratory Respiratory effort: normal Respiratory: bilateral: CTA - Cardiovascular Rhythm: regular Heart Sounds: Present: S1 & S2 - Extremities Extremities: No edema - Abdominal General gastrointestinal: Present: soft, non-tender - Rectal Rectal Exam: deferred - Integumentary Integumentary: Present: clear - Psychiatric Psychiatric: appropriate mood/affect - Neurologic Neurologic: no focal deficits, moves all extremities Plan Activity: advance as tolerated, fall precautions Weight Bearing Status: Weight Bear as Tolerated Diet: regular Special Instructions: restrict fluid intake to (1000 mL/day) Follow up with: PRIMARY MD YAIMA [Primary Care Provider] - 7 Days ALEJANDRO IBRAHIM MD [Staff Physician] - 7 Days Prescriptions: dilTIAZem CD [Cardizem CD] 120 mg PO QDAY #30 capsule Metoprolol [Lopressor TAB] 12.5 mg PO BID #30 tablet Sodium Chloride 1 gm PO BID #60 tablet
--- NOTE | 2020-11-22 15:10 | Progress Note ---
Assessment and Plan - Patient Problems (1) Hyponatremia Current Visit: No Status: Chronic Plan to address problem: Likely secondary to SIADH in the setting of lung CA. Na improved to 132 after treatment with tolvaptan 15mg x 1 dose. cont fluid restriction to 1.2L/day. Chairman line used for communication with pt and regarding renal care plan. Otherwise stable for discharge to hospice from renal stand point, discussed with Dr Dia. (2) History of SIADH Current Visit: No Status: Acute (3) Lung cancer Current Visit: No Status: Acute Plan to address problem: h/o metastatic lung CA, follow oncology recommendations. (4) HTN (hypertension) Current Visit: No Status: Acute Qualifiers: Plan to address problem: monitor BP on current meds Subjective Date of service: 11/22/20 Principal diagnosis: hyponatremia Interval history: Pt awake, alert, in no acute distress, at bedside. Chairman phone used for communication Objective - Vital Signs Vital signs: Vital Signs - 12hr 11/22/20 11/22/20 11/22/20 04:56 07:57 12:58 Temperature 98.6 F 97.4 F L 97.8 F Pulse Rate 84 88 83 Respiratory 18 18 18 Rate Blood Pressure 129/60 133/84 123/80 O2 Sat by Pulse 92 97 90 Oximetry - General Appearance General appearance: well-developed, well-nourished, appears stated age EENT: ATNC, PERRL, mucous membranes moist Neck: no JVD Respiratory: Present: Clear to Ascultation Cardiology: regular, S1S2 Gastrointestinal: normoactive bowel sounds Integumentary: no rash Neurologic: no focal deficit, alert and oriented x3, strength 5/5, CN 3-12 intact Psychiatric: mood/affect appropriate, cooperative - Lab 11/22/20 04:55 11/22/20 04:55 Most recent lab results Calcium 9.0 mg/dL (8.4-10.2) 11/22/20 04:55 Urine Sodium 87 mmol/L 11/21/20 Unknown Medications & Allergies - Medications Allergies/Adverse Reactions: Allergies No Known Allergies Allergy (Verified 10/12/19 11:06) Home Medications: Home Medications Medication Instructions Recorded Confirmed Last Taken Type Metformin HCl [Glucophage] 1,000 mg PO DAILY 10/15/19 11/21/20 Unknown History Metoprolol [Lopressor TAB] 12.5 mg PO BID #30 tablet 07/03/20 11/21/20 Unknown Rx Sodium Chloride 1,000 mg PO BID #60 tablet.noel 07/03/20 11/21/20 Unknown Rx Valsartan [Diovan] 160 mg PO DAILY #30 tablet 07/03/20 11/21/20 Unknown Rx dilTIAZem CD [Cardizem CD] 120 mg PO QDAY #30 capsule 07/03/20 11/21/20 Unknown Rx hydroCHLOROthiazide [HCTZ] 12.5 mg PO DAILY 11/21/20 11/21/20 Unknown History Active Medications: Generic Name Dose Route Start Last Admin Trade Name Freq PRN Reason Stop Dose Admin Acetaminophen 650 mg 11/21/20 04:53 11/21/20 13:42 Acetaminophen 325 Mg Tab PO 650 mg Q4H PRN Administration Pain MILD(1-3)/Fever >100.5/ADORNO Albuterol 2.5 mg 11/21/20 04:53 Albuterol 2.5 Mg/3 Ml Nebu IH Q3HRT PRN Shortness Of Breath Dextrose 0 ml 11/21/20 04:53 Dextrose 50% In Water (25gm) 50 Ml Syringe IV Q30MIN PRN Hypoglycemia Protocol Diltiazem HCl 120 mg 11/21/20 20:00 11/22/20 14:51 Diltiazem Cd 120 Mg Cap PO 120 mg QDAY ELIUD Administration Heparin Sodium (Porcine) 5,000 unit 11/21/20 10:00 11/22/20 14:51 Heparin 5,000 Unit/1 Ml Vial SUB-Q 5,000 unit Q12HR ELIUD Administration Insulin Human Lispro 0 unit 11/21/20 07:30 11/22/20 11:30 Insulin Lispro 100 Unit/Ml SUB-Q Not Given ACHS ELIUD Protocol Metoprolol Tartrate 12.5 mg 11/21/20 10:00 11/22/20 14:51 Metoprolol Tartrate 25 Mg Tab PO 12.5 mg BID ELIUD Administration Ondansetron HCl 4 mg 11/21/20 04:53 Ondansetron 4 Mg/2 Ml Inj IV Q8H PRN Nausea And Vomiting Oxycodone/Acetaminophen 1 tab 11/21/20 04:54 Oxycodone /Acetaminophen 5-325mg Tab PO Q6H PRN Pain, Moderate (4-6) Sodium Chloride 1 gm 11/21/20 10:00 11/22/20 14:56 Sodium Chloride 1 Gm Tab PO 1 gm BID ELIUD Administration Sodium Chloride 10 ml 11/21/20 10:00 11/22/20 11:24 Sodium Chloride 0.9% 10 Ml Flush Syringe IV 10 ml BID ELIUD Administration Sodium Chloride 10 ml 11/21/20 04:53 Sodium Chloride 0.9% 10 Ml Flush Syringe IV PRN PRN LINE FLUSH
== END 2020-11-22 17:00 | disposition hospice, home (50) ==
LOC: ED 22:08 → INTOOBSV 11-21 04:53 → 4A 11-21 04:53
PROVIDERS: ADMIT Internal Medicine Geriatric Medicine; ATTEND Internal Medicine
DX: G93.40 Encephalopathy, unspecified (principal); E87.1 Hypo-osmolality and hyponatremia; I63.9 Cerebral infarction, unspecified; R56.9 Unspecified convulsions; C78.00 Secondary malignant neoplasm of unspecified lung; I10 Essential (primary) hypertension; E11.9 Type 2 diabetes mellitus without complications; R41.82 Altered mental status, unspecified; Z79.4 Long term (current) use of insulin
CPT/HCPCS: 36415; 70450; 70551; 71046; 80048; 80053; 81001; 82607; 82747; 82962; 83036; 83930; 83935; 84134; 84295; 84300; 84443; 85025; 87076; 87086; 87186; 87641; 96372; 96374; 97161; 99291; G0378; J1644; J2060; J7050; 70460; 96365

== ENCOUNTER 2021-01-18 09:16 | Inpatient (IN) | payer MEDICARE ==
[2021-01-18] MEDS ORDERED: ACETAMINOPHEN 325 MG RECT SUPP PR ONE (09:29)
[2021-01-18] MEDS ORDERED: ACETAMINOPHEN 650 MG RECT SUPP PR ONE (09:31)
[2021-01-18] MEDS ORDERED: SODIUM CHLORIDE 0.9% 1000 ML IV SOLN IV ONE (09:34)
[2021-01-18 10:00] LABS: Bacteria,Urine 4+ /HPF (Negative); Bilirubin,Urine NEG (Negative); Blood,Urine LG (Negative); Color,Urine Amber (Yellow); Mucus,Urine 2+ /HPF
[2021-01-18 10:00] LABS: Basophils % (Auto) 0.4 % (0.0-1.8); Eosinophils % (Auto) 0.1 % (0.0-4.3); Hematocrit 37.2 % (30.3-42.9); Hemoglobin 12.5 gm/dl (10.1-14.3); Lymphocytes # (Auto) 1.2 K/mm3 (1.2-5.4); Lymphocytes % (Auto) 11.3 % (13.4-35.0); Mean Corpuscular HGB Conc 34 % (30-34); Mean Corpuscular Volume 96 fl (79-97); Monocytes # (Auto) 0.7 K/mm3 (0.0-0.8); Monocytes % (Auto) 7.1 % (0.0-7.3); Platelet Count 266 K/mm3 (140-440); Red Blood Count 3.87 M/mm3 (3.65-5.03)
[2021-01-18 10:01] LABS: WBC,Urine > 182.0 /HPF (0.0-6.0)
[2021-01-18] MEDS ORDERED: NORepinephrine/NS 4 MG-250 ML 4 MG/250 ML BAG IV ONE (10:07)
[2021-01-18] MEDS ORDERED: MINERAL OIL/PETROLATUM, WHITE OPHTH OINT 3.5 GM OU PRN (10:25)
[2021-01-18] MEDS ORDERED: LIP THERAPY VASELINE TP PRN (10:25)
--- NOTE | 2021-01-18 10:35 | XRay Report ---
CHEST 1 VIEW 01/18/2021 9:51 AM INDICATION / CLINICAL INFORMATION: spesis. COMPARISON: 11/21/2020. FINDINGS: SUPPORT DEVICES: Endotracheal tube in satisfactory position. NG tube looped at the GE junction with t ip in the distal esophagus. HEART / MEDIASTINUM: No significant abnormality. LUNGS / PLEURA: Large right effusion with associated volume loss/consolidation only a small amount re maining aerated lung. Left lung clear. No pneumothorax. ADDITIONAL FINDINGS: No significant additional findings. IMPRESSION: 1. Large right effusion with associated volume loss/consolidation. 2. Reposition NG tube. Signer Name: Joshua Sadler MD Signed: 01/18/2021 10:31 AM Workstation Name: [id number]
[2021-01-18] MEDS ORDERED: SENNOSIDES ORAL LIQD 8.8 MG/5 ML ORAL LIQD FEEDTUBE PRN (10:39)
[2021-01-18 10:58] LABS: Chol/HDL Ratio 4.76 %
[2021-01-18] MEDS ORDERED: cefTRIAXone/NS 1 GM/50 ML 1 GM/50 ML BAG IV ONE (11:04)
[2021-01-18] MEDS: FAMOTIDINE 20 MG/2 ML INJ IV SCH ×2 (11:10→21:05)
[2021-01-18] MEDS: fentaNYL DRIP Premix 2,000 MCG/100 ML BAG IV SCH (11:11)
[2021-01-18 11:13] LABS: Albumin 3.2 g/dL (3.9-5); Calcium 8.8 mg/dL (8.4-10.2)
--- NOTE | 2021-01-18 11:17 | Emergency Department Report ---
HPI - General Chief Complaint: Altered Mental Status Time Seen by Provider: 01/18/21 09:36 - HPI HPI: This is a 70-year-old female who presents to the emergency department via EMS from home with a complaint of altered mental status. Patient was found to have a fever of about 104 F, some hypotension, and a code sepsis was initiated. Patient has a history of hypertension, recurrent hyponatremia from SIADH, diabetes, and recently diagnosed metastatic lung cancer. The patient presents unresponsive and is therefore a poor historian given her current medical condition. The patient also presented with signs of respiratory distress and is requiring a nonrebreather. The patient was recently admitted here in November of this year for confusion and hyponatremia. ED Past Medical Hx - Past Medical History Hx Hypertension: Yes Hx Diabetes: Yes Hx Renal Disease: Yes (Admitted with SIADH; corrected now) - Social History Smoking Status: Never Smoker - Medications Home Medications: Home Medications Medication Instructions Recorded Confirmed Last Taken Type Metformin HCl [Glucophage] 1,000 mg PO DAILY 10/15/19 11/21/20 Unknown History hydroCHLOROthiazide [HCTZ] 12.5 mg PO DAILY 11/21/20 11/21/20 Unknown History Metoprolol [Lopressor TAB] 12.5 mg PO BID #30 tablet 11/22/20 Unknown Rx Sodium Chloride 1 gm PO BID #60 tablet 11/22/20 Unknown Rx dilTIAZem CD [Cardizem CD] 120 mg PO QDAY #30 capsule 11/22/20 Unknown Rx ED Review of Systems ROS: Stated complaint: POSSIBLE SEPSIS Other details as noted in HPI Comment: Unobtainable due to pts medical conditions Physical Exam - Physical Exam Vital Signs: Vital Signs 01/18/21 01/18/21 01/18/21 09:26 09:30 09:45 Pulse Rate 112 H 111 H 108 H Respiratory 27 H 24 24 Rate Blood Pressure 110/65 118/69 O2 Sat by Pulse 93 93 96 Oximetry 01/18/21 01/18/21 01/18/21 10:00 10:09 10:15 Pulse Rate 79 77 76 Respiratory 11 L 18 Rate Blood Pressure 61/34 83/55 75/45 O2 Sat by Pulse 94 90 Oximetry 01/18/21 01/18/21 10:30 10:45 Pulse Rate 75 73 Respiratory 18 18 Rate Blood Pressure 89/54 89/47 O2 Sat by Pulse 98 95 Oximetry Physical Exam: GENERAL: The patient is ill-appearing and unresponsive. HENT: Normocephalic. Atraumatic. Patient has moist mucous membranes. EYES: Extraocular motions are intact. NECK: Supple. Trachea is midline. CHEST/LUNGS: Coarse breath sounds heard more on the right than left. There is shallow respirations with bradypnea. HEART/CARDIOVASCULAR: Regular. There is mild tachycardia. There is no murmur. ABDOMEN: Abdomen is soft, nontender. Patient has normal bowel sounds. SKIN: Skin is warm and dry. NEURO: Patient is mostly unresponsive. She will open her eyes to tactile stimuli but is nonverbal. She is not following any commands. MUSCULOSKELETAL: There is no obvious deformity. ED Course Vital Signs 01/18/21 01/18/21 01/18/21 09:26 09:30 09:45 Pulse Rate 112 H 111 H 108 H Respiratory 27 H 24 24 Rate Blood Pressure 110/65 118/69 O2 Sat by Pulse 93 93 96 Oximetry 01/18/21 01/18/21 01/18/21 10:00 10:09 10:15 Pulse Rate 79 77 76 Respiratory 11 L 18 Rate Blood Pressure 61/34 83/55 75/45 O2 Sat by Pulse 94 90 Oximetry 01/18/21 01/18/21 10:30 10:45 Pulse Rate 75 73 Respiratory 18 18 Rate Blood Pressure 89/54 89/47 O2 Sat by Pulse 98 95 Oximetry - ABG Interpretation Ph: 7.362 PCO2: 32 PO2: 180 Bicarbonate: 18 Interpretation: respiratory alkalosis, metabolic acidosis - Central Line Placement Right Femoral Consent Obtained: emergent situation Time Out Performed: Yes Patient Placed on Monitor/Pulse Ox: Yes MD Prep: mask, gown, gloves Central Line Prep: Chlorhexidine scrub Ultrasound Used for Placement: Yes Central Line Lumen Inserted: triple Reason for Insertion: Volume Resuscitation Central Line Position: good blood return, all ports aspirated, flus, sutured in place with nyl Dressing Applied: Tegaderm Patient Tolerated Procedure: well Complications: none - Intubation Time Out Performed: Yes Sedative: Etomidate Mg Given: 20 Paralytic: Rocuronium Mg Given: 70 Laryngoscope: other ([place] scope) Size: 3 Assist Device Used: Bougie ET Tube Size: 7.5 Tube Secured Depth (cm): 24 Tube Secured Location: lips Tube Placement Confirmation: visualized tube passing t, equal breath sounds bilat, confirmation by capnometr Patient Tolerated Procedure: well Intubation Complications: none ED Medical Decision Making - Lab Data Result diagrams: 01/18/21 09:43 01/18/21 09:43 Lab Results 01/18/21 01/18/21 01/18/21 Range/Units 09:43 09:43 09:43 WBC 10.4 (4.5-11.0) K/mm3 RBC 3.87 (3.65-5.03) M/mm3 Hgb 12.5 (10.1-14.3) gm/dl Hct 37.2 (30.3-42.9) % MCV 96 (79-97) fl MCH 32 (28-32) pg MCHC 34 (30-34) % RDW 15.0 (13.2-15.2) % Plt Count 266 (140-440) K/mm3 Lymph % (Auto) 11.3 L (13.4-35.0) % [place] % (Auto) 7.1 (0.0-7.3) % Eos % (Auto) 0.1 (0.0-4.3) % Baso % (Auto) 0.4 (0.0-1.8) % Lymph # (Auto) 1.2 (1.2-5.4) K/mm3 [place] # (Auto) 0.7 (0.0-0.8) K/mm3 Eos # (Auto) 0.0 (0.0-0.4) K/mm3 Baso # (Auto) 0.0 (0.0-0.1) K/mm3 Seg Neutrophils % 81.1 H (40.0-70.0) % Seg Neutrophils # 8.4 H (1.8-7.7) K/mm3 APTT 31.5 (24.2-36.6) Sec. ABG pH (7.320-7.450) POC ABG pCO2 (32.0-48.0) mmHg POC ABG pO2 (83-108) mmHg POC ABG HCO3 ABG O2 Saturation (0-100) POC ABG Base Excess ABG Hemoglobin (12.0-17.5) ABG Oxyhemoglobin (94-98) ABG Methemoglobin (0.0-1.5) ABG Sodium (136.0-145.0) mmol/L ABG Potassium (3.40-4.50) mmol/L ABG Chloride (98-107) mmol/L ABG Glucose (65-95) mg/dL ABG Lactate (0.18-30.0) Carboxyhemoglobin (0.5-1.5) FiO2 % Sodium 143 (137-145) mmol/L Potassium 3.7 (3.6-5.0) mmol/L Chloride 101.9 (98-107) mmol/L Carbon Dioxide 33 H (22-30) mmol/L Anion Gap 12 mmol/L BUN 38 H (7-17) mg/dL Creatinine 1.8 H (0.6-1.2) mg/dL Estimated GFR 28 ml/min BUN/Creatinine Ratio 21 % Glucose 139 H (65-100) mg/dL Lactic Acid (0.7-2.0) mmol/L Calcium 8.8 (8.4-10.2) mg/dL Total Bilirubin 0.50 (0.1-1.2) mg/dL AST 225 H (5-40) units/L ALT 100 H (7-56) units/L Alkaline Phosphatase 31 L (35-129) units/L Troponin T (0.00-0.029) ng/mL Total Protein 6.4 (6.3-8.2) g/dL Albumin 3.2 L (3.9-5) g/dL Albumin/Globulin Ratio 1.0 % Triglycerides (2-149) mg/dL Cholesterol (50-199) mg/dL LDL Cholesterol Direct (50-130) mg/dL HDL Cholesterol (40-59) mg/dL Cholesterol/HDL Ratio % Arterial Blood Glucose (65-95) mg/dL 01/18/21 01/18/21 01/18/21 Range/Units 09:43 09:43 10:42 WBC (4.5-11.0) K/mm3 RBC (3.65-5.03) M/mm3 Hgb (10.1-14.3) gm/dl Hct (30.3-42.9) % MCV (79-97) fl MCH (28-32) pg MCHC (30-34) % RDW (13.2-15.2) % Plt Count (140-440) K/mm3 Lymph % (Auto) (13.4-35.0) % [place] % (Auto) (0.0-7.3) % Eos % (Auto) (0.0-4.3) % Baso % (Auto) (0.0-1.8) % Lymph # (Auto) (1.2-5.4) K/mm3 [place] # (Auto) (0.0-0.8) K/mm3 Eos # (Auto) (0.0-0.4) K/mm3 Baso # (Auto) (0.0-0.1) K/mm3 Seg Neutrophils % (40.0-70.0) % Seg Neutrophils # (1.8-7.7) K/mm3 APTT (24.2-36.6) Sec. ABG pH 7.362 (7.320-7.450) POC ABG pCO2 32.6 (32.0-48.0) mmHg POC ABG pO2 180.1 H (83-108) mmHg POC ABG HCO3 18.1 ABG O2 Saturation 98.9 (0-100) POC ABG Base Excess -6.4 ABG Hemoglobin 11.8 L (12.0-17.5) ABG Oxyhemoglobin 98.2 H (94-98) ABG Methemoglobin 0.3 (0.0-1.5) ABG Sodium 143.0 (136.0-145.0) mmol/L ABG Potassium 2.7 L (3.40-4.50) mmol/L ABG Chloride 113.0 H (98-107) mmol/L ABG Glucose 97 H (65-95) mg/dL ABG Lactate 1.18 (0.18-30.0) Carboxyhemoglobin 0.4 L (0.5-1.5) FiO2 % 100.0 Sodium (137-145) mmol/L Potassium (3.6-5.0) mmol/L Chloride (98-107) mmol/L Carbon Dioxide (22-30) mmol/L Anion Gap mmol/L BUN (7-17) mg/dL Creatinine (0.6-1.2) mg/dL Estimated GFR ml/min BUN/Creatinine Ratio % Glucose (65-100) mg/dL Lactic Acid 1.30 (0.7-2.0) mmol/L Calcium (8.4-10.2) mg/dL Total Bilirubin (0.1-1.2) mg/dL AST (5-40) units/L ALT (7-56) units/L Alkaline Phosphatase (35-129) units/L Troponin T 0.303 H* (0.00-0.029) ng/mL Total Protein (6.3-8.2) g/dL Albumin (3.9-5) g/dL Albumin/Globulin Ratio % Triglycerides 136 (2-149) mg/dL Cholesterol 162 (50-199) mg/dL LDL Cholesterol Direct 105 (50-130) mg/dL HDL Cholesterol 34 L (40-59) mg/dL Cholesterol/HDL Ratio 4.76 % Arterial Blood Glucose 97 H (65-95) mg/dL 01/18/21 Range/Units 12:52 WBC (4.5-11.0) K/mm3 RBC (3.65-5.03) M/mm3 Hgb (10.1-14.3) gm/dl Hct (30.3-42.9) % MCV (79-97) fl MCH (28-32) pg MCHC (30-34) % RDW (13.2-15.2) % Plt Count (140-440) K/mm3 Lymph % (Auto) (13.4-35.0) % [place] % (Auto) (0.0-7.3) % Eos % (Auto) (0.0-4.3) % Baso % (Auto) (0.0-1.8) % Lymph # (Auto) (1.2-5.4) K/mm3 [place] # (Auto) (0.0-0.8) K/mm3 Eos # (Auto) (0.0-0.4) K/mm3 Baso # (Auto) (0.0-0.1) K/mm3 Seg Neutrophils % (40.0-70.0) % Seg Neutrophils # (1.8-7.7) K/mm3 APTT (24.2-36.6) Sec. ABG pH (7.320-7.450) POC ABG pCO2 (32.0-48.0) mmHg POC ABG pO2 (83-108) mmHg POC ABG HCO3 ABG O2 Saturation (0-100) POC ABG Base Excess ABG Hemoglobin (12.0-17.5) ABG Oxyhemoglobin (94-98) ABG Methemoglobin (0.0-1.5) ABG Sodium (136.0-145.0) mmol/L ABG Potassium (3.40-4.50) mmol/L ABG Chloride (98-107) mmol/L ABG Glucose (65-95) mg/dL ABG Lactate (0.18-30.0) Carboxyhemoglobin (0.5-1.5) FiO2 % Sodium (137-145) mmol/L Potassium (3.6-5.0) mmol/L Chloride (98-107) mmol/L Carbon Dioxide (22-30) mmol/L Anion Gap mmol/L BUN (7-17) mg/dL Creatinine (0.6-1.2) mg/dL Estimated GFR ml/min BUN/Creatinine Ratio % Glucose (65-100) mg/dL Lactic Acid 2.50 H* (0.7-2.0) mmol/L Calcium (8.4-10.2) mg/dL Total Bilirubin (0.1-1.2) mg/dL AST (5-40) units/L ALT (7-56) units/L Alkaline Phosphatase (35-129) units/L Troponin T (0.00-0.029) ng/mL Total Protein (6.3-8.2) g/dL Albumin (3.9-5) g/dL Albumin/Globulin Ratio % Triglycerides (2-149) mg/dL Cholesterol (50-199) mg/dL LDL Cholesterol Direct (50-130) mg/dL HDL Cholesterol (40-59) mg/dL Cholesterol/HDL Ratio % Arterial Blood Glucose (65-95) mg/dL - EKG Data -: EKG Interpreted by Or EKG shows normal: sinus rhythm, axis, intervals, QRS complexes, ST-T waves Rate: normal - EKG Data When compared to previous EKG there are: changes noted (Previous EKG on 06/25/2020 showed significant tachycardia) Interpretation: normal EKG - Radiology Data Radiology results: report reviewed CT HEAD WITHOUT CONTRAST INDICATION / CLINICAL INFORMATION: AMS. TECHNIQUE: All CT scans at this location are performed using CT dose reduction for ALARA by means of automated exposure control. COMPARISON: CT dated 12/11/20. MRI dated 11/21/20. FINDINGS: HEMORRHAGE: None. EXTRA-AXIAL SPACES: Normal in size and morphology for the patient's age. VENTRICULAR SYSTEM: Normal in size and morphology for the patient's age. CEREBRAL PARENCHYMA: No significant abnormality. No acute territorial infarct. MIDLINE SHIFT / HERNIATION: None. CEREBELLUM / BRAINSTEM: No significant abnormality. ORBITS: Normal as visualized. SOFT TISSUES: No significant abnormality. SKULL: No significant abnormality. PARANASAL SINUSES / MASTOID AIR CELLS: Normal as visualized. ADDITIONAL FINDINGS: None. IMPRESSION: 1. No acute intracranial abnormality. No significant change. CHEST 1 VIEW 01/18/2021 9:51 AM INDICATION / CLINICAL INFORMATION: spesis. COMPARISON: 11/21/2020. FINDINGS: SUPPORT DEVICES: Endotracheal tube in satisfactory position. NG tube looped at the GE junction with tip in the distal esophagus. HEART / MEDIASTINUM: No significant abnormality. LUNGS / PLEURA: Large right effusion with associated volume loss/consolidation only a small amount remaining aerated lung. Left lung clear. No pneumothorax. ADDITIONAL FINDINGS: No significant additional findings. IMPRESSION: 1. Large right effusion with associated volume loss/consolidation. 2. Reposition NG tube. - Medical Decision Making This patient presented to the emergency department for altered mental status. She was found to be febrile with a temperature of 104 F, some tachycardia, and some hypotension. Code sepsis initiated. The patient has shallow respirations with bradypnea and severely decreased mentation. For this reason the patient was intubated as per the procedure section. She began having significant hypotension. She was given about 3 L of IV fluid within 30 to 45 minutes and still continued to have hypotension. Levophed was started and a right femoral central line was placed as per the procedure section. CT scan of the head without contrast did not show any hemorrhage, large vessel occlusion, or any other acute process. Chest x-ray shows a large right pleural effusion that may be related to the mathew ent's lung cancer. Patient's labs show acute renal failure, transaminitis, elevated troponin level, UTI, and a lactic acidosis. Patient was given IV antibiotics for her urinary tract infection. The patient will be admitted to the ICU and was accepted for admission by the hospitalist, Dr. Mock. Critical Care Time: Yes Critical care time in (mins) excluding proc time.: 35 Critical care attestation.: If time is entered above; I have spent that time in minutes in the direct care of this critically ill patient, excluding procedure time. Critical care time was spent on this patient in doing her initial evaluation, multiple reevaluations, ordering and interpretation of labs and imaging, IV fluid resuscitation for her hypertension, IV antibiotics for her sepsis, titration of pressors, and a discussion with the hospitalist service. This does not include the separately billable procedures done including intubation and a central line venous catheter. Critical Care Time: 35 minutes ED Disposition Clinical Impression: Septic shock, Elevated troponin UTI (urinary tract infection) Qualifiers: Urinary tract infection type: acute cystitis Hematuria presence: without hem aturia Qualified Code(s): N30.00 - Acute cystitis without hematuria Lung cancer Qualifiers: Laterality: unspecified laterality Lung location: unspecified part of lung Qualified Code(s): C34.90 - Malignant neoplasm of unspecified part of unspecified bronchus or lung Hypotension Qualifiers: Hypotension type: unspecified hypotension type Qualified Code(s): I95.9 - Hypotension, unspecified Altered mental state Qualifiers: Altered mental status type: unspecified Qualified Code(s): R41.82 - Altered mental status, unspecified Acute kidney failure Qualifiers: Acute renal failure type: unspecified Qualified Code(s): N17.9 - Acute kidney failure, unspecified Disposition: DC-09 OP ADMIT IP TO THIS HOSP Is pt being admited?: Yes Condition: Critical Time of Disposition: 13:50
[2021-01-18] MEDS: NORepinephrine/NS 4 MG-250 ML 4 MG/250 ML BAG IV SCH ×3 (11:35→23:32)
--- NOTE | 2021-01-18 13:59 | Cat Scan Report ---
CT HEAD WITHOUT CONTRAST INDICATION / CLINICAL INFORMATION: AMS. TECHNIQUE: All CT scans at this location are performed using CT dose reduction for ALARA by means of automated exposure control. COMPARISON: CT dated 12/11/20. MRI dated 11/21/20. FINDINGS: HEMORRHAGE: None. EXTRA-AXIAL SPACES: Normal in size and morphology for the patient's age. VENTRICULAR SYSTEM: Normal in size and morphology for the patient's age. CEREBRAL PARENCHYMA: No significant abnormality. No acute territorial infarct. MIDLINE SHIFT / HERNIATION: None. CEREBELLUM / BRAINSTEM: No significant abnormality. ORBITS: Normal as visualized. SOFT TISSUES: No significant abnormality. SKULL: No significant abnormality. PARANASAL SINUSES / MASTOID AIR CELLS: Normal as visualized. ADDITIONAL FINDINGS: None. IMPRESSION: 1. No acute intracranial abnormality. No significant change. Signer Name: Kalyani Rios MD Signed: 01/18/2021 1:54 PM Workstation Name: [id number]
[2021-01-18] MEDS: SENNOSIDES ORAL LIQD 8.8 MG/5 ML ORAL LIQD FEEDTUBE SCH ×2 (15:54→21:05)
[2021-01-18] MEDS ORDERED: HYDROmorphone 1 MG/1 ML INJ IV PRN (17:39)
[2021-01-18] MEDS ORDERED: METOCLOPRAMIDE 10 MG/2 ML INJ IV PRN (17:39)
[2021-01-18] MEDS ORDERED: ONDANSETRON 4 MG/2 ML INJ IV PRN (17:39)
[2021-01-18] MEDS ORDERED: PROMETHAZINE 25 MG RECT SUPP PR PRN (17:39)
--- NOTE | 2021-01-18 17:43 | History and Physical Report ---
History of Present Illness Date of examination: 01/18/21 Date of admission: 01/18/21 14:36 Chief complaint: Order lives at rest since a.m. History of present illness: 70-year-old male with history of type 2 diabetes and hypertension brought in because of altered mental status. Patient was found to have fever called in for hypotension and code sepsis was initiated. Patient has history of recurrent hyponatremia. And also patient has metastatic lung cancer and diabetes. Patient presents as unresponsive and patient was intubated in the emergency room for protection of airway and for hypoxia.; High fever and altered sensorium consistent with sepsis. - Past Medical History --Hypertension: Yes -- Diabetes: Yes --Renal Disease: Yes surgical history Not available. . - Social History Smoking Status: Never Smoker family history Not available. - Medications Home Medications: Home Medications Medication Instructions Recorded Confirmed Last Taken Type Metformin HCl [Glucophage] 1,000 mg PO DAILY 10/15/19 11/21/20 Unknown History hydroCHLOROthiazide [HCTZ] 12.5 mg PO DAILY 11/21/20 11/21/20 Unknown History Metoprolol [Lopressor TAB] 12.5 mg PO BID #30 tablet 11/22/20 Unknown Rx Sodium Chloride 1 gm PO BID #60 tablet 11/22/20 Unknown Rx dilTIAZem CD [Cardizem CD] 120 mg PO QDAY #30 capsule 11/22/20 Unknown Rx Review of Systems ROS: Constitutional altered mental status and fever. Also hypotension. 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 Skin no rash no itching Psychiatric no depression no homicidal or suicidal tendencies Hematologic no lymphedema or bruising Endocrine no polydipsia no polyuria no cold intolerance no heat intolerance Medications and Allergies Allergies Allergy/AdvReac Type Severity Reaction Status Date / Time No Known Allergies Allergy Verified 01/18/21 14:03 Home Medications Medication Instructions Recorded Confirmed Last Taken Type Metformin HCl [Glucophage] 1,000 mg PO DAILY 10/15/19 11/21/20 Unknown History hydroCHLOROthiazide [HCTZ] 12.5 mg PO DAILY 11/21/20 11/21/20 Unknown History Metoprolol [Lopressor TAB] 12.5 mg PO BID #30 tablet 11/22/20 Unknown Rx Sodium Chloride 1 gm PO BID #60 tablet 11/22/20 Unknown Rx dilTIAZem CD [Cardizem CD] 120 mg PO QDAY #30 capsule 11/22/20 Unknown Rx Active Meds: Active Medications Famotidine (Famotidine 20 Mg/2 Ml Inj) 20 mg IV BID [facility] Last Admin: 01/18/21 11:10 Dose: 20 mg Documented by: Hydrophilic Ointment (Lip Therapy Vaseline) 1 applic TP Q2HR PRN PRN Reason: Dry Lips Fentanyl Citrate (Fentanyl Drip Premix) 2,000 mcg in 100 mls @ 3.475 mls/hr IV TITR [facility]; Protocol Last Admin: 01/18/21 11:11 Dose: 1 mcg/kg/hr, 3.475 mls/hr Documented by: Norepinephrine (Levophed Drip 4 Mg/Ns 250 Ml) 4 mg in 250 mls @ 7.5 mls/hr IV TITR [facility]; Protocol Last Titration: 01/18/21 16:38 Dose: 14 mcg/min, 52.5 mls/hr Documented by: Multi-Ingred Cream/Lotion/Oil/Oint (Mineral Oil/Petrolatum, White Ophth Oint 3.5 Gm) 1 applic OU Q4HR PRN PRN Reason: Dry Eye(s) Senna (Sennosides Oral Liqd 8.8 Mg/5 Ml Oral Liqd) 8.8 mg FEEDTUBE BID [facility] Last Admin: 01/18/21 15:54 Dose: Not Given Documented by: Exam - Physical Exam Narrative exam: Patient is intubated. - Constitutional Vitals: Temp Pulse Resp BP Pulse Ox 98.2 F 82 14 129/72 93 01/18/21 16:00 01/18/21 15:39 01/18/21 15:01 01/18/21 15:39 01/18/21 15:39 General appearance: Present: mild distress, well-nourished - EENT Eyes: Present: PERRL ENT: hearing intact, clear oral mucosa - Neck Neck: Present: supple, normal ROM - Respiratory Respiratory effort: normal Respiratory: bilateral: CTA - Cardiovascular Heart rate: 98 Rhythm: regular Heart Sounds: Present: S1 & S2. Absent: rub, click - Extremities Extremities: pulses symmetrical, No edema Peripheral Pulses: within normal limits - Abdominal General gastrointestinal: Present: soft, non-tender, non-distended, normal bowel sounds Female genitourinary: Present: normal - Integumentary Integumentary: Present: clear, warm, dry - Musculoskeletal Musculoskeletal: generalized weakness, other (Unresponsive) - Psychiatric Psychiatric: other (Unresponsive) - Neurologic Neurologic: moves all extremities, other (Unresponsive) - Allied Health Allied health notes reviewed: nursing, case management HEART Score - HEART Score Troponin: Troponin T 0.303 ng/mL (0.00-0.029) H* 01/18/21 09:43 Results - Labs CBC & Chem 7: 01/18/21 09:43 01/18/21 09:43 Labs: Laboratory Last Values WBC 10.4 K/mm3 (4.5-11.0) 01/18/21 09:43 RBC 3.87 M/mm3 (3.65-5.03) 01/18/21 09:43 Hgb 12.5 gm/dl (10.1-14.3) 01/18/21 09:43 Hct 37.2 % (30.3-42.9) 01/18/21 09:43 MCV 96 fl (79-97) 01/18/21 09:43 MCH 32 pg (28-32) 01/18/21 09:43 MCHC 34 % (30-34) 01/18/21 09:43 RDW 15.0 % (13.2-15.2) 01/18/21 09:43 Plt Count 266 K/mm3 (140-440) 01/18/21 09:43 Lymph % (Auto) 11.3 % (13.4-35.0) L 01/18/21 09:43 Mckean % (Auto) 7.1 % (0.0-7.3) 01/18/21 09:43 Eos % (Auto) 0.1 % (0.0-4.3) 01/18/21 09:43 Baso % (Auto) 0.4 % (0.0-1.8) 01/18/21 09:43 Lymph # (Auto) 1.2 K/mm3 (1.2-5.4) 01/18/21 09:43 Mckean # (Auto) 0.7 K/mm3 (0.0-0.8) 01/18/21 09:43 Eos # (Auto) 0.0 K/mm3 (0.0-0.4) 01/18/21 09:43 Baso # (Auto) 0.0 K/mm3 (0.0-0.1) 01/18/21 09:43 Seg Neutrophils % 81.1 % (40.0-70.0) H 01/18/21 09:43 Seg Neutrophils # 8.4 K/mm3 (1.8-7.7) H 01/18/21 09:43 APTT 31.5 Sec. (24.2-36.6) 01/18/21 09:43 ABG pH 7.362 (7.320-7.450) 01/18/21 10:42 POC ABG pCO2 32.6 mmHg (32.0-48.0) 01/18/21 10:42 POC ABG pO2 180.1 mmHg (83-108) H 01/18/21 10:42 POC ABG HCO3 18.1 01/18/21 10:42 ABG O2 Saturation 98.9 (0-100) 01/18/21 10:42 POC ABG Base Excess -6.4 01/18/21 10:42 ABG Hemoglobin 11.8 (12.0-17.5) L 01/18/21 10:42 ABG Oxyhemoglobin 98.2 (94-98) H 01/18/21 10:42 ABG Methemoglobin 0.3 (0.0-1.5) 01/18/21 10:42 ABG Sodium 143.0 mmol/L (136.0-145.0) 01/18/21 10:42 ABG Potassium 2.7 mmol/L (3.40-4.50) L 01/18/21 10:42 ABG Chloride 113.0 mmol/L (98-107) H 01/18/21 10:42 ABG Glucose 97 mg/dL (65-95) H 01/18/21 10:42 ABG Lactate 1.18 (0.18-30.0) 01/18/21 10:42 Carboxyhemoglobin 0.4 (0.5-1.5) L 01/18/21 10:42 FiO2 % 100.0 01/18/21 10:42 Sodium 143 mmol/L (137-145) 01/18/21 09:43 Potassium 3.7 mmol/L (3.6-5.0) 01/18/21 09:43 Chloride 101.9 mmol/L (98-107) 01/18/21 09:43 Carbon Dioxide 33 mmol/L (22-30) H 01/18/21 09:43 Anion Gap 12 mmol/L 01/18/21 09:43 BUN 38 mg/dL (7-17) H 01/18/21 09:43 Creatinine 1.8 mg/dL (0.6-1.2) H 01/18/21 09:43 Estimated GFR 28 ml/min 01/18/21 09:43 BUN/Creatinine Ratio 21 % 01/18/21 09:43 Glucose 139 mg/dL (65-100) H 01/18/21 09:43 Lactic Acid 2.50 mmol/L (0.7-2.0) H* 01/18/21 12:52 Calcium 8.8 mg/dL (8.4-10.2) 01/18/21 09:43 Total Bilirubin 0.50 mg/dL (0.1-1.2) 01/18/21 09:43 AST 225 units/L (5-40) H 01/18/21 09:43 ALT 100 units/L (7-56) H 01/18/21 09:43 Alkaline Phosphatase 31 units/L (35-129) L 01/18/21 09:43 Troponin T 0.303 ng/mL (0.00-0.029) H* 01/18/21 09:43 Total Protein 6.4 g/dL (6.3-8.2) 01/18/21 09:43 Albumin 3.2 g/dL (3.9-5) L 01/18/21 09:43 Albumin/Globulin Ratio 1.0 % 01/18/21 09:43 Triglycerides 136 mg/dL (2-149) 01/18/21 09:43 Cholesterol 162 mg/dL (50-199) 01/18/21 09:43 LDL Cholesterol Direct 105 mg/dL (50-130) 01/18/21 09:43 HDL Cholesterol 34 mg/dL (40-59) L 01/18/21 09:43 Cholesterol/HDL Ratio 4.76 % 01/18/21 09:43 Arterial Blood Glucose 97 mg/dL (65-95) H 01/18/21 10:42 Urine Color Myesha (Yellow) 01/18/21 Unknown Urine Turbidity Cloudy (Clear) 01/18/21 Unknown Urine pH 5.0 (5.0-7.0) 01/18/21 Unknown Ur Specific [place] 1.015 (1.003-1.030) 01/18/21 Unknown Urine Protein 100 mg/dl mg/dL (Negative) 01/18/21 Unknown Urine Glucose (UA) Neg mg/dL (Negative) 01/18/21 Unknown Urine Ketones Neg mg/dL (Negative) 01/18/21 Unknown Urine Blood Lg (Negative) 01/18/21 Unknown Urine Nitrite Neg (Negative) 01/18/21 Unknown Urine Bilirubin Neg (Negative) 01/18/21 Unknown Urine Urobilinogen 2.0 mg/dL (<2.0) 01/18/21 Unknown Ur Leukocyte Esterase Lg (Negative) 01/18/21 Unknown Urine WBC (Auto) > 182.0 /HPF (0.0-6.0) H 01/18/21 Unknown Urine RBC (Auto) 12.0 /HPF (0.0-6.0) 01/18/21 Unknown U Epithel Cells (Auto) 1.0 /HPF (0-13.0) 01/18/21 Unknown Urine Bacteria (Auto) 4+ /HPF (Negative) 01/18/21 Unknown Urine WBC Clumps 2+ /HPF 01/18/21 Unknown Urine Mucus 2+ /HPF 01/18/21 Unknown Short CBC 01/18/21 Range/Units 09:43 WBC 10.4 (4.5-11.0) K/mm3 Hgb 12.5 (10.1-14.3) gm/dl Hct 37.2 (30.3-42.9) % Plt Count 266 (140-440) K/mm3 BMP 01/18/21 09:43 Sodium 143 Potassium 3.7 Chloride 101.9 Carbon Dioxide 33 H BUN 38 H Creatinine 1.8 H Glucose 139 H Calcium 8.8 Cardiac Enzymes 01/18/21 Range/Units 09:43 Troponin T 0.303 H* (0.00-0.029) ng/mL Liver Function 07/03/21 Range/Units 09:43 Total Bilirubin 0.50 (0.1-1.2) mg/dL AST 225 H (5-40) units/L ALT 100 H (7-56) units/L Alkaline Phosphatase 31 L (35-129) units/L Albumin 3.2 L (3.9-5) g/dL Urine 01/18/21 Range/Units Unknown Urine Color Myesha (Yellow) Urine pH 5.0 (5.0-7.0) Ur Specific [place] 1.015 (1.003-1.030) Urine Protein 100 mg/dl (Negative) mg/dL Urine Glucose (UA) Neg (Negative) mg/dL Microbiology: Microbiology 01/18/21 09:43 Peripheral/Venous Blood Culture - Preliminary Culture in Progress 01/18/21 09:43 Peripheral/Venous Blood Culture - Preliminary Culture in Progress - Imaging and Cardiology Imaging and Cardiology: Chest x-ray Right side opacity Head CT No acute changes Assessment and Plan Assessment and plan: Critical care statement The high probability OF a clinically significant sudden or life-threatening deterioration of the cardiorespiratory system and endocrine system required my full and direct attention, intervention and postoperative management. The aggregate critical care time was 40 minutes. The time is in addition to time spent performing reported procedures but includes the followin: Data review and interpretation 2: Patient assessment and monitoring of vital signs 3: Documentation 4:: Medication orders and management Advance Directives: Yes (Full code) VTE prophylaxis?: Chemical Plan of care discussed with patient/family: Yes - Patient Problems (1) Acute respiratory failure with hypoxia Current Visit: Yes Status: Acute Plan to address problem: Patient is intubated Vent management Brake Holder consult requested (2) Sepsis Current Visit: Yes Status: Acute Qualifiers: Sepsis type: sepsis due to unspecified organism Plan to address problem: Possible aspiration pneumonia Patient initiated on IV cefepime and IV vancomycin (3) Aspiration pneumonia Current Visit: Yes Status: Acute Qualifiers: Laterality: left Lung location: lower lobe of lung Plan to address problem: Possible aspiration pneumonia Patient initiated on IV cefepime and IV vancomycin (4) Hypotension Current Visit: Yes Status: Acute Qualifiers: Hypotension type: unspecified hypotension type Qualified Code(s): I95.9 - Hypotension, unspecified Plan to address problem: Pressors as necessary (5) T2DM (type 2 diabetes mellitus) Current Visit: Yes Status: Chronic Plan to address problem: Coverage for now (6) History of hypertension Current Visit: Yes Status: Chronic Plan to address problem: Hold antihypertensives for now (7) DVT prophylaxis Current Visit: Yes Status: Acute Plan to address problem: On heparin and GI prophylaxis
[2021-01-18] MEDS ORDERED: VANCOMYCIN PHARMACY TO DOSE IV SCH (18:00)
[2021-01-18] MEDS: SODIUM CHLORIDE 0.9% 1000 ML 1,000 ML IV SCH (19:13)
[2021-01-18] MEDS ORDERED: VANCOMYCIN 1,250 MG in SODIUM CHLORIDE 0.9% 250ML 250 ML IV ONE (20:00)
[2021-01-18] MEDS: CEFEPIME/NS 2 GM/100 ML 2 GM/100 ML BAG IV SCH (21:05)
[2021-01-18] MEDS ORDERED: SENNOSIDES/DOCUSATE SODIUM 8.6/50 MG TAB FEEDTUBE SCH (22:00)
--- NOTE | 2021-01-19 01:42 | XRay Report ---
. XR chest 1V ap INDICATION / CLINICAL INFORMATION: follow up respiratory failure. COMPARISON: Radiograph from yesterday. FINDINGS: SUPPORT DEVICES: Unchanged. HEART / MEDIASTINUM: Unchanged. LUNGS / PLEURA: Right thorax is now completely opacified. No pneumothorax. ADDITIONAL FINDINGS: No significant additional findings. IMPRESSION: 1. Enteric tube is coiled in the distal esophagus and terminates in the midesophagus, unchanged. Repo sitioning is recommended. 2. Worsening aeration the right lung with complete opacities of the right thorax. Signer Name: Orion Patricio MD Signed: 01/19/2021 1:37 AM Workstation Name: [id number]
[2021-01-19] MEDS: HYDROmorphone 1 MG/1 ML INJ IV PRN ×2 (02:14→10:45)
[2021-01-19] MEDS: fentaNYL DRIP Premix 2,000 MCG/100 ML BAG IV SCH (02:14)
[2021-01-19] MEDS: NORepinephrine/NS 4 MG-250 ML 4 MG/250 ML BAG IV SCH ×3 (06:30→20:28)
[2021-01-19] MEDS ORDERED: IPRATROPIUM/ALBUTEROL SULFATE 3 ML AMPUL.NEB IH PRN (07:12)
[2021-01-19 07:18] LABS: Hematocrit 36.4 % (30.3-42.9); Hemoglobin 11.6 gm/dl (10.1-14.3); Mean Corpuscular HGB Conc 32 % (30-34); Mean Corpuscular Volume 98 fl (79-97); Platelet Count 150 K/mm3 (140-440); Red Cell Distribution Width 15.5 % (13.2-15.2)
[2021-01-19] MEDS: IPRATROPIUM/ALBUTEROL SULFATE 3 ML AMPUL.NEB IH SCH ×3 (07:42→19:57)
[2021-01-19] MEDS ORDERED: IPRATROPIUM/ALBUTEROL SULFATE 3 ML AMPUL.NEB IH SCH (08:00)
[2021-01-19] MEDS ORDERED: ALBUTEROL 2.5 MG/3 ML NEBU IH PRN (08:00)
[2021-01-19] MEDS: SODIUM CHLORIDE 0.9% 1000 ML 1,000 ML IV SCH ×2 (10:40→22:00)
[2021-01-19] MEDS: HEPARIN 5,000 UNIT/1 ML VIAL SUB-Q SCH ×2 (10:41→21:32)
[2021-01-19] MEDS: FAMOTIDINE 20 MG/2 ML INJ IV SCH (10:41)
[2021-01-19] MEDS: CEFEPIME/NS 2 GM/100 ML 2 GM/100 ML BAG IV SCH ×2 (10:41→21:32)
[2021-01-19] MEDS: SENNOSIDES ORAL LIQD 8.8 MG/5 ML ORAL LIQD FEEDTUBE SCH ×2 (10:41→21:32)
[2021-01-19 11:17] LABS: Albumin 2.7 g/dL (3.9-5); Calcium 7.9 mg/dL (8.4-10.2)
--- NOTE | 2021-01-19 11:30 | Consultation ---
History of Present Illness Consult date: 01/19/21 Reason for consult: other (acute respiratory failure) History of present illness: 70 y/o female, known to me from admit in June where I bronched her. All of my brushings and washings were positive for malignancy. Patient was then readmitted in November of this year for hyponatremia and altered mental state. Seen by Tele Heme/Onc but not sure what follow up has been done. Family not present and patient speaks no French. Per ED note, patient intubated as she was altered and unresponsive. On fent, she is awake and alert. She does not speak any lithuanian. Currently on 30% with good sats and good ABG this am. Past History Past Medical History: other (lung CA) Past Surgical History: Other (bronch with brushings and washings) Social history: Medications and Allergies Allergies Allergy/AdvReac Type Severity Reaction Status Date / Time No Known Allergies Allergy Verified 01/18/21 14:03 Home Medications Medication Instructions Recorded Confirmed Last Taken Type Metformin HCl [Glucophage] 1,000 mg PO DAILY 10/15/19 11/21/20 Unknown History hydroCHLOROthiazide [HCTZ] 12.5 mg PO DAILY 11/21/20 11/21/20 Unknown History Metoprolol [Lopressor TAB] 12.5 mg PO BID #30 tablet 11/22/20 Unknown Rx Sodium Chloride 1 gm PO BID #60 tablet 11/22/20 Unknown Rx dilTIAZem CD [Cardizem CD] 120 mg PO QDAY #30 capsule 11/22/20 Unknown Rx Active Meds: Active Medications Albuterol (Albuterol 2.5 Mg/3 Ml Nebu) 2.5 mg IH Q4HRT PRN PRN Reason: WHEEZING SOB Albuterol/Ipratropium (Ipratropium/Albuterol Sulfate 3 Ml Ampul.Neb) 1 ampul [facility] TIDRT [facility] Last Admin: 01/19/21 07:42 Dose: 1 ampul Documented by: Famotidine (Famotidine 20 Mg/2 Ml Inj) 20 mg IV DAILY [facility] Last Admin: 01/19/21 10:41 Dose: 20 mg Documented by: Heparin Sodium (Porcine) (Heparin 5,000 Unit/1 Ml Vial) 5,000 unit SUB-Q Q12HR [facility] Last Admin: 01/19/21 10:41 Dose: 5,000 unit Documented by: Hydromorphone HCl (Hydromorphone 1 Mg/1 Ml Inj) 0.25 mg IV Q3H PRN PRN Reason: Pain, Moderate (4-6) Last Admin: 01/19/21 10:42 Dose: 0.25 mg Documented by: Hydromorphone HCl (Hydromorphone 1 Mg/1 Ml Inj) 1 mg IV Q3H PRN PRN Reason: Pain , Severe (7-10) Last Admin: 01/19/21 02:14 Dose: 1 mg Documented by: Hydrophilic Ointment (Lip Therapy Vaseline) 1 applic TP Q2HR PRN PRN Reason: Dry Lips Fentanyl Citrate (Fentanyl Drip Premix) 2,000 mcg in 100 mls @ 3.475 mls/hr IV TITR [facility]; Protocol Last Titration: 01/19/21 06:29 Dose: 3 mcg/kg/hr, 10.425 mls/hr Documented by: Norepinephrine (Levophed Drip 4 Mg/Ns 250 Ml) 4 mg in 250 mls @ 7.5 mls/hr IV TITR [facility]; Protocol Last Admin: 01/19/21 10:39 Dose: 14 mcg/min, 52.5 mls/hr Documented by: Sodium Chloride (Nacl 0.9% 1000 Ml) 1,000 mls @ 100 mls/hr IV DIRECT [facility] Last Admin: 01/19/21 10:40 Dose: 100 mls/hr Documented by: Cefepime HCl (Cefepime/Ns 2 Gm/100 Ml) 2 gm in 100 mls @ 200 mls/hr IV Q12HR [facility]; Protocol Last Admin: 01/19/21 10:41 Dose: 200 mls/hr Documented by: Vancomycin HCl (Vancomycin/Ns 1 Gm/250 Ml) 1 gm in 250 mls @ 166.667 mls/hr IV Q24H [facility] Metoclopramide HCl (Metoclopramide 10 Mg/2 Ml Inj) 10 mg IV Q6H PRN PRN Reason: Nausea And Vomiting Multi-Ingred Cream/Lotion/Oil/Oint (Mineral Oil/Petrolatum, White Ophth Oint 3.5 Gm) 1 applic OU Q4HR PRN PRN Reason: Dry Eye(s) Ondansetron HCl (Ondansetron 4 Mg/2 Ml Inj) 4 mg IV Q8H PRN PRN Reason: Nausea And Vomiting Promethazine HCl (Promethazine 25 Mg Rect Supp) 25 mg ND Q6H PRN PRN Reason: N/V IF NPO AND NO IV ACCESS Senna (Sennosides Oral Liqd 8.8 Mg/5 Ml Oral Liqd) 8.8 mg FEEDTUBE BID [facility] Last Admin: 01/19/21 10:41 Dose: 8.8 mg Documented by: Sodium Chloride (Sodium Chloride 0.9% 10 Ml Flush Syringe) 10 ml IV BID [facility] Last Admin: 01/18/21 21:25 Dose: 10 ml Documented by: Sodium Chloride (Sodium Chloride 0.9% 10 Ml Flush Syringe) 10 ml IV PRN PRN PRN Reason: LINE FLUSH Review of Systems ROS unobtainable: due to endotracheal tube Physical Examination Vital signs: Vital Signs Temp Pulse Resp BP Pulse Ox 104.2 F H 112 H 24 125/70 94 01/18/21 09:17 01/18/21 09:17 01/18/21 09:17 01/18/21 09:17 01/18/21 09:17 General appearance: appears uncomfortable ENT: other (orally intubated) Neck: supple Ascultation: Right: diminished breath sounds, Left: clear Results - Laboratory Findings CBC and BMP: 01/19/21 04:00 01/19/21 10:23 ABG ABG pH 7.288 (7.320-7.450) L 01/19/21 03:05 POC ABG pCO2 38.5 mmHg (32.0-48.0) 01/19/21 03:05 POC ABG pO2 86.6 mmHg (83-108) 01/19/21 03:05 POC ABG HCO3 18.0 01/19/21 03:05 ABG O2 Saturation 95.9 (0-100) 01/19/21 03:05 Abnormal lab findings: Abnormal Labs 01/18/21 01/18/21 01/18/21 09:43 09:43 09:43 WBC MCV RDW Lymph % (Auto) 11.3 L Seg Neutrophils % 81.1 H Seg Neutrophils # 8.4 H ABG pH POC ABG pO2 ABG Hemoglobin ABG Oxyhemoglobin ABG Potassium ABG Chloride ABG Glucose Carboxyhemoglobin Sodium Potassium Chloride Carbon Dioxide 33 H BUN 38 H Creatinine 1.8 H Glucose 139 H POC Glucose Hemoglobin A1c Lactic Acid Calcium AST 225 H ALT 100 H Alkaline Phosphatase 31 L Troponin T 0.303 H* Total Protein Albumin 3.2 L HDL Cholesterol 34 L Arterial Blood Glucose Arterial Blood Ionized Calcium Urine WBC (Auto) 01/18/21 01/18/21 01/18/21 10:42 12:52 17:40 WBC MCV RDW Lymph % (Auto) Seg Neutrophils % Seg Neutrophils # ABG pH POC ABG pO2 180.1 H ABG Hemoglobin 11.8 L ABG Oxyhemoglobin 98.2 H ABG Potassium 2.7 L ABG Chloride 113.0 H ABG Glucose 97 H Carboxyhemoglobin 0.4 L Sodium Potassium Chloride Carbon Dioxide BUN Creatinine Glucose POC Glucose Hemoglobin A1c 7.7 H Lactic Acid 2.50 H* Calcium AST ALT Alkaline Phosphatase Troponin T Total Protein Albumin HDL Cholesterol Arterial Blood Glucose 97 H Arterial Blood Ionized Calcium Urine WBC (Auto) 01/18/21 01/18/21 01/19/21 17:53 Unknown 03:05 WBC MCV RDW Lymph % (Auto) Seg Neutrophils % Seg Neutrophils # ABG pH 7.288 L POC ABG pO2 ABG Hemoglobin ABG Oxyhemoglobin ABG Potassium 3.3 L ABG Chloride 116.0 H ABG Glucose 174 H Carboxyhemoglobin Sodium Potassium Chloride Carbon Dioxide BUN Creatinine Glucose POC Glucose 148 H Hemoglobin A1c Lactic Acid Calcium AST ALT Alkaline Phosphatase Troponin T Total Protein Albumin HDL Cholesterol Arterial Blood Glucose 174 H Arterial Blood Ionized Calcium 4.4 L Urine WBC (Auto) > 182.0 H 01/19/21 01/19/21 04:00 10:23 WBC 18.9 H MCV 98 H RDW 15.5 H Lymph % (Auto) Seg Neutrophils % Seg Neutrophils # ABG pH POC ABG pO2 ABG Hemoglobin ABG Oxyhemoglobin ABG Potassium ABG Chloride ABG Glucose Carboxyhemoglobin Sodium 147 H Potassium 3.4 L Chloride 111.4 H Carbon Dioxide 21 L D BUN 30 H Creatinine Glucose 172 H POC Glucose Hemoglobin A1c Lactic Acid Calcium 7.9 L AST 216 H ALT 172 H Alkaline Phosphatase Troponin T Total Protein 5.4 L Albumin 2.7 L HDL Cholesterol Arterial Blood Glucose Arterial Blood Ionized Calcium Urine WBC (Auto) - Diagnostic Findings Chest x-ray: image reviewed (Stable chronic effusion on right on admit CXR, now with likely mucous plugging of remainder of right lung) Assessment and Plan 70 y/o female with altered mental state, acute respiratory failure and likely UTI 1. Patient with lung cancer, appears to be stage 3 to 4. Not a candidate for surgery. Not sure who she has followed up with, if she has followed up with anyone. She is currently on 30% FiO2 and awake on Fent. Will discontinue sedation and plan to extubate. She does not need thora as the fluid that is present is secondary to atelecatsis from lung that is collapsed from endobronc hial obstruction of entire right lower lobe. The remaining atelectasis seen this am maybe secondary to ET tube positioning. 2. Will have bipap available if needed 3. Suggest placing patient on rocephin for UTI, this is not pneumonia 4. Overall prognosis is very very guarded to poor. Will need language line to speak with and if my memory is correct, there is a daughter as well. CCT 31 minutes.
[2021-01-19] MEDS ORDERED: MIDAZOLAM 2 MG/2 ML INJ IV ONE (12:00)
[2021-01-19] MEDS ORDERED: ETOMIDATE 20 MG/10 ML INJ IV ONE ×2 (12:00→12:08)
[2021-01-19] MEDS ORDERED: fentaNYL 100 MCG/2 ML INJ IV ONE (12:00)
[2021-01-19] MEDS ORDERED: MIDAZOLAM 2 MG/2 ML INJ ONE (12:07)
[2021-01-19] MEDS ORDERED: fentaNYL 100 MCG/2 ML INJ ONE (12:07)
--- NOTE | 2021-01-19 12:39 | Event Note ---
Date: 01/19/21 Given low vent settings and patient being wake, elected to extubate and have Bipap available PRN. Patient extubated and was very agitated. Fighting and pulling. Does not speak uzbek so not able to communicate. Slowly while in room began to desat and become less responsive. Oxygen applied but patient then became agonal. Never lost pulse. Electively re-intubated using glidescope and Fentanyl, Etomidate and Versed. ET tube secured 22 at the lip. Good color change and awaiting post intubation CXR.
--- NOTE | 2021-01-19 13:03 | XRay Report ---
CHEST 1 VIEW 01/19/2021 11:55 AM INDICATION / CLINICAL INFORMATION: intubation. COMPARISON: 1:23 AM FINDINGS: SUPPORT DEVICES: Tip of endotracheal tube is present 4 cm above the sharon. Esophagogastric tube may be coiled in the neck. HEART / MEDIASTINUM: Stable. LUNGS / PLEURA: Slight decrease in size of very large right pleural effusion which is now moderately large. Left lung is clear. No pneumothorax. ADDITIONAL FINDINGS: No significant additional findings. IMPRESSION: 1. Endotracheal tube in expected position. 2. Esophagogastric tube may be coiled in the neck. Esophagogastric tube should be removed/repositione d. Signer Name: Kalyani Rios MD Signed: 01/19/2021 12:59 PM Workstation Name: [id number]
--- NOTE | 2021-01-19 13:04 | XRay Report ---
ABDOMEN 1 VIEW 01/19/2021 11:55 AM INDICATION / CLINICAL INFORMATION: ngt placement. COMPARISON: Chest radiograph performed at same time. FINDINGS: TUBES / LINES: No esophagogastric tube is seen over the lower chest or abdomen. Right femoral venous line projects over the expected location of the right iliac vein. BOWEL GAS PATTERN: No significant abnormality. FREE AIR / EXTRALUMINAL GAS: None. ADDITIONAL FINDINGS: Calcified fibroid in the central pelvis. IMPRESSION: 1. No esophagogastric tube over the lower chest or abdomen. On the chest radiograph, the esophagogast tania tube may be coiled in the neck. Signer Name: Kalyani Rios MD Signed: 01/19/2021 1:00 PM Workstation Name: [id number]
--- NOTE | 2021-01-19 14:17 | Progress Note ---
Assessment and Plan Assessment and plan: Acute respiratory failure with hypoxia Current Visit: Yes Status: Acute Plan to address problem: Patient was intubated and extubation was attempted, patient became hypoxic and patient was reintubated Respiratory support as needed Sepsis Current Visit: Yes Status: Acute Qualifiers: Sepsis type: sepsis due to unspecified organism Plan to address problem: Patient initiated on IV cefepime and IV vancomycin Pulmonology states this is not pneumonia Right lung lobe effusion secondary to lung cancer Reviewed with critical care, bronchial washing shows cancer Not sure if patient had follow-up Need to contact the family Hypotension Current Visit: Yes Status: Acute Qualifiers: Hypotension type: unspecified hypotension type Qualified Code(s): I95.9 - Hypotension, unspecified Plan to address problem: Norepinephrine T2DM (type 2 diabetes mellitus) Current Visit: Yes Status: Chronic Plan to address problem: Insulin sliding scale History of hypertension Current Visit: Yes Status: Chronic Plan to address problem: Hold antihypertensives for now DVT prophylaxis Current Visit: Yes Status: Acute Plan to address problem: CODE STATUS: Full DVT prophylaxis: Heparin Disposition: Patient remains intubated, continue antibiotics, need to speak with family pertaining to the patient's past history of lung cancer History Interval history: 01/19/2021: Patient seen and examined, intubated, sedated. Spoke with critical care pertaining to patient's past history, patient was diagnosed with malignancy, chest x-ray is reviewed, most likely mucous plugging in the right side of the lung. Most likely not pneumonia at this point. No family at the bedside. Hospitalist Physical - Physical exam Narrative exam: General appearance: no acute distress, sedated well-nourished EENT: PERRL, EOM intact, hearing intact, clear oral mucosa Respiratory: Intubated, decreased breath sounds on right side, crackles on the left Cardiovascular: Regular rate/rhythm, Normal S1 & S2. No gallop, rub Extremities: no ischemia, No edema, normal temperature, normal color Abdominal: soft, no tenderness, non-distended, normal bowel sounds Integumentary: Present: clear, warm, dry no wounds, no erythema noted Neurologic: Sedated - Constitutional Vitals: Temp Pulse Resp BP Pulse Ox 99.4 F 99 H 14 142/120 95 01/19/21 12:00 01/19/21 08:45 01/19/21 08:45 01/19/21 08:45 01/19/21 08:45 General appearance: Present: mild distress, well-nourished HEART Score - HEART Score Troponin: Troponin T 0.303 ng/mL (0.00-0.029) H* 01/18/21 09:43 Results - Labs CBC & Chem 7: 01/19/21 04:00 01/19/21 10:23 Labs: Laboratory Last Values WBC 18.9 K/mm3 (4.5-11.0) H 01/19/21 04:00 RBC 3.70 M/mm3 (3.65-5.03) 01/19/21 04:00 Hgb 11.6 gm/dl (10.1-14.3) 01/19/21 04:00 Hct 36.4 % (30.3-42.9) 01/19/21 04:00 MCV 98 fl (79-97) H 01/19/21 04:00 MCH 31 pg (28-32) 01/19/21 04:00 MCHC 32 % (30-34) 01/19/21 04:00 RDW 15.5 % (13.2-15.2) H 01/19/21 04:00 Plt Count 150 K/mm3 (140-440) 01/19/21 04:00 Lymph % (Auto) 11.3 % (13.4-35.0) L 01/18/21 09:43 [place] % (Auto) 7.1 % (0.0-7.3) 01/18/21 09:43 Eos % (Auto) 0.1 % (0.0-4.3) 01/18/21 09:43 Baso % (Auto) 0.4 % (0.0-1.8) 01/18/21 09:43 Lymph # (Auto) 1.2 K/mm3 (1.2-5.4) 01/18/21 09:43 [place] # (Auto) 0.7 K/mm3 (0.0-0.8) 01/18/21 09:43 Eos # (Auto) 0.0 K/mm3 (0.0-0.4) 01/18/21 09:43 Baso # (Auto) 0.0 K/mm3 (0.0-0.1) 01/18/21 09:43 Seg Neutrophils % 81.1 % (40.0-70.0) H 01/18/21 09:43 Seg Neutrophils # 8.4 K/mm3 (1.8-7.7) H 01/18/21 09:43 APTT 31.5 Sec. (24.2-36.6) 01/18/21 09:43 ABG pH 7.288 (7.320-7.450) L 01/19/21 03:05 POC ABG pCO2 38.5 mmHg (32.0-48.0) 01/19/21 03:05 POC ABG pO2 86.6 mmHg (83-108) 01/19/21 03:05 POC ABG HCO3 18.0 01/19/21 03:05 ABG O2 Saturation 95.9 (0-100) 01/19/21 03:05 POC ABG Base Excess -8.0 01/19/21 03:05 ABG Hemoglobin 12.4 (12.0-17.5) 01/19/21 03:05 ABG Oxyhemoglobin 94.5 (94-98) 01/19/21 03:05 ABG Methemoglobin 0.3 (0.0-1.5) 01/19/21 03:05 ABG Sodium 143.5 mmol/L (136.0-145.0) 01/19/21 03:05 ABG Potassium 3.3 mmol/L (3.40-4.50) L 01/19/21 03:05 ABG Chloride 116.0 mmol/L (98-107) H 01/19/21 03:05 ABG Glucose 174 mg/dL (65-95) H 01/19/21 03:05 ABG Lactate 1.18 (0.18-30.0) 01/18/21 10:42 Carboxyhemoglobin 1.2 (0.5-1.5) 01/19/21 03:05 FiO2 % 30.0 01/19/21 03:05 Sodium 147 mmol/L (137-145) H 01/19/21 10:23 Potassium 3.4 mmol/L (3.6-5.0) L 01/19/21 10:23 Chloride 111.4 mmol/L (98-107) H 01/19/21 10:23 Carbon Dioxide 21 mmol/L (22-30) L D 01/19/21 10:23 Anion Gap 18 mmol/L 01/19/21 10:23 BUN 30 mg/dL (7-17) H 01/19/21 10:23 Creatinine 1.2 mg/dL (0.6-1.2) 01/19/21 10:23 Estimated GFR 44 ml/min 01/19/21 10:23 BUN/Creatinine Ratio 25 % 01/19/21 10:23 Glucose 172 mg/dL (65-100) H 01/19/21 10:23 POC Glucose 148 mg/dL (70-105) H 01/18/21 17:53 Hemoglobin A1c 7.7 % (4-6) H 01/18/21 17:40 Lactic Acid 2.50 mmol/L (0.7-2.0) H* 01/18/21 12:52 Calcium 7.9 mg/dL (8.4-10.2) L 01/19/21 10:23 Total Bilirubin 0.50 mg/dL (0.1-1.2) 01/19/21 10:23 AST 216 units/L (5-40) H 01/19/21 10:23 ALT 172 units/L (7-56) H 01/19/21 10:23 Alkaline Phosphatase 35 units/L (35-129) 01/19/21 10:23 Troponin T 0.303 ng/mL (0.00-0.029) H* 01/18/21 09:43 Total Protein 5.4 g/dL (6.3-8.2) L 01/19/21 10:23 Albumin 2.7 g/dL (3.9-5) L 01/19/21 10:23 Albumin/Globulin Ratio 1.0 % 01/19/21 10:23 Triglycerides 136 mg/dL (2-149) 01/18/21 09:43 Cholesterol 162 mg/dL (50-199) 01/18/21 09:43 LDL Cholesterol Direct 105 mg/dL (50-130) 01/18/21 09:43 HDL Cholesterol 34 mg/dL (40-59) L 01/18/21 09:43 Cholesterol/HDL Ratio 4.76 % 01/18/21 09:43 Arterial Blood Glucose 174 mg/dL (65-95) H 01/19/21 03:05 Arterial Blood Ionized Calcium 4.4 mg/dL (4.6-5.3) L 01/19/21 03:05 Urine Color Myesha (Yellow) 01/18/21 Unknown Urine Turbidity Cloudy (Clear) 01/18/21 Unknown Urine pH 5.0 (5.0-7.0) 01/18/21 Unknown Ur Specific [place] 1.015 (1.003-1.030) 01/18/21 Unknown Urine Protein 100 mg/dl mg/dL (Negative) 01/18/21 Unknown Urine Glucose (UA) Neg mg/dL (Negative) 01/18/21 Unknown Urine Ketones Neg mg/dL (Negative) 01/18/21 Unknown Urine Blood Lg (Negative) 01/18/21 Unknown Urine Nitrite Neg (Negative) 01/18/21 Unknown Urine Bilirubin Neg (Negative) 01/18/21 Unknown Urine Urobilinogen 2.0 mg/dL (<2.0) 01/18/21 Unknown Ur Leukocyte Esterase Lg (Negative) 01/18/21 Unknown Urine WBC (Auto) > 182.0 /HPF (0.0-6.0) H 01/18/21 Unknown Urine RBC (Auto) 12.0 /HPF (0.0-6.0) 01/18/21 Unknown U Epithel Cells (Auto) 1.0 /HPF (0-13.0) 01/18/21 Unknown Urine Bacteria (Auto) 4+ /HPF (Negative) 01/18/21 Unknown Urine WBC Clumps 2+ /HPF 01/18/21 Unknown Urine Mucus 2+ /HPF 01/18/21 Unknown Microbiology: Microbiology 01/18/21 09:43 Peripheral/Venous Blood Culture - Preliminary NO GROWTH AFTER 24 HOURS 01/18/21 09:43 Peripheral/Venous Blood Culture - Preliminary NO GROWTH AFTER 24 HOURS King/IV: Voiding Method Indwelling Catheter Active Medications - Current Medications Current Medications: Generic Name Dose Route Start Last Admin Trade Name Freq PRN Reason Stop Dose Admin Albuterol/Ipratropium 1 ampul 01/19/21 08:00 01/19/21 07:42 Ipratropium/Albuterol Sulfate 3 Ml Ampul.Neb IH 1 ampul TIDRT ELIUD Administration Famotidine 20 mg 01/19/21 10:00 01/19/21 10:41 Famotidine 20 Mg/2 Ml Inj IV 20 mg DAILY ELIUD Administration Heparin Sodium (Porcine) 5,000 unit 01/19/21 10:00 01/19/21 10:41 Heparin 5,000 Unit/1 Ml Vial SUB-Q 5,000 unit Q12HR ELIUD Administration Hydrophilic Ointment 1 applic 01/18/21 10:25 Lip Therapy Vaseline TP Q2HR PRN Dry Lips Norepinephrine 4 mg in 250 mls @ 7.5 mls/hr 01/18/21 12:00 01/19/21 10:39 Levophed Drip 4 Mg/Ns 250 Ml IV 14 mcg/min TITR ELIUD 52.5 mls/hr Administration Protocol 2 MCG/MIN Sodium Chloride 1,000 mls @ 100 mls/hr 01/18/21 17:45 01/19/21 10:40 Nacl 0.9% 1000 Ml IV 100 mls/hr DIRECT ELIUD Administration Cefepime HCl 2 gm in 100 mls @ 200 mls/hr 01/18/21 22:00 01/19/21 10:41 Cefepime/Ns 2 Gm/100 Ml IV 200 mls/hr Q12HR ELIUD Administration Protocol Vancomycin HCl 1 gm in 250 mls @ 166.667 mls/hr 01/19/21 20:00 Vancomycin/Ns 1 Gm/250 Ml IV Q24H ELIUD Metoclopramide HCl 10 mg 01/18/21 17:39 Metoclopramide 10 Mg/2 Ml Inj IV Q6H PRN Nausea And Vomiting Multi-Ingred Cream/Lotion/Oil/Oint 1 applic 01/18/21 10:25 Mineral Oil/Petrolatum, White Ophth Oint 3.5 Gm OU Q4HR PRN Dry Eye(s) Ondansetron HCl 4 mg 01/18/21 17:39 Ondansetron 4 Mg/2 Ml Inj IV Q8H PRN Nausea And Vomiting Promethazine HCl 25 mg 01/18/21 17:39 Promethazine 25 Mg Rect Supp [place] Q6H PRN N/V IF NPO AND NO IV ACCESS Senna 8.8 mg 01/18/21 11:00 01/19/21 10:41 Sennosides Oral Liqd 8.8 Mg/5 Ml Oral Liqd FEEDTUBE 8.8 mg BID ELIUD Administration Sodium Chloride 10 ml 01/18/21 22:00 01/18/21 21:25 Sodium Chloride 0.9% 10 Ml Flush Syringe IV 10 ml BID ELIUD Administration Sodium Chloride 10 ml 01/18/21 17:39 Sodium Chloride 0.9% 10 Ml Flush Syringe IV PRN PRN LINE FLUSH Nutrition/Malnutrition Assess - Dietary Evaluation Nutrition/Malnutrition Findings: Nutrition Notes Start: 01/19/21 09:02 Freq: Status: Active Protocol: Document 01/19/21 09:02 ALCON (Rec: 01/19/21 09:06 ALCON [email or web address]) Nutrition Notes 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 Pt on vent. Burn Absent Trauma Absent GI Symptoms None Current % PO Negligible Minimum of two criteria No physical signs of malnutrition #1 Nutrition Diagnosis Inadequate oral intake Etiology ARF As Evidenced by Signs and Symptoms pt on vent and unable to consume PO Is patient on ventilator? Yes Is Patient Ambulatory and/or Out of Bed No REE-(Griggs-St. Jeor-confined to bed) 1395.984 Calculation [facility] Additional Notes Protein: (1.2-2g/kg) 83-139g Fluid: 1 ml/kcal or per MD Nutrition Intervention Change Diet Order: Start TF when able to extubation Nutrition Support: Glucerna 1.2 at 50 ml/hr Flush 80 ml q4h Kcal 1,440 Protein (gm) 72 Fluid (mL) 966 Goal #1 Start TF or extubation Anticipated Discharge Needs: Unable to determine at this time Follow-Up By: 01/21/21 Additional Comments FU for TF consult or extubation
[2021-01-19 14:37] LABS: Anisocytosis Few; Band Neutrophils # (Manual) 0.6 K/mm3; Macrocytosis Few; Total Cells Counted 100
[2021-01-19 14:38] LABS: Platelet Estimate Consistent w Auto
--- NOTE | 2021-01-19 14:40 | XRay Report ---
ABDOMEN 1 VIEW(S) INDICATION / CLINICAL INFORMATION: dobhoff placement. COMPARISON: None available. FINDINGS: TUBES / LINES: Feeding tube looped at the fundus with tip at the body of the stomach. BOWEL GAS PATTERN: No significant abnormality. ADDITIONAL FINDINGS: Calcified fibroid. Signer Name: Joshua Sadler MD Signed: 01/19/2021 2:36 PM Workstation Name: [id number]
[2021-01-19] MEDS: VANCOMYCIN/NS 1 GM/250 ML 1 GM/250 ML BAG IV SCH (20:36)
[2021-01-20] MEDS: NORepinephrine/NS 4 MG-250 ML 4 MG/250 ML BAG IV SCH ×5 (01:46→19:43)
--- NOTE | 2021-01-20 03:17 | XRay Report ---
XR abdomen 1V ap INDICATION: dobhoff position COMPARISON: Yesterday 01/19/2021. FINDINGS/IMPRESSION: Feeding tube has been slightly retracted and terminates in the proximal stomach. Signer Name: Orion Patricio MD Signed: 01/20/2021 3:12 AM Workstation Name: [email or web address]
--- NOTE | 2021-01-20 03:18 | XRay Report ---
XR chest 1V ap INDICATION / CLINICAL INFORMATION: follow up respiratory failure. COMPARISON: Radiograph from yesterday. FINDINGS: SUPPORT DEVICES: Endotracheal tube is in similar positioning. Feeding tube terminates in the proxima l stomach. HEART / MEDIASTINUM: Unchanged. LUNGS / PLEURA: Large right pleural effusion. Unchanged near-complete opacification of the right thor acic cavity. Left lung is unchanged. No pneumothorax. ADDITIONAL FINDINGS: No significant additional findings. IMPRESSION: 1. No significant interval change. Signer Name: Orion Patricio MD Signed: 01/20/2021 3:13 AM Workstation Name: [id number]
[2021-01-20] MEDS ORDERED: SIMPLE SYRUP 15 ML FEEDTUBE PRN ×2 (08:10)
[2021-01-20] MEDS ORDERED: SODIUM BICARBONATE 325 MG TAB FEEDTUBE PRN (08:10)
[2021-01-20] MEDS ORDERED: LIPASE 10,500/PROTEASE 25,000/AMYLASE 43,750 (UNITS) DR CAP FEEDTUBE PRN (08:10)
[2021-01-20] MEDS: CEFEPIME/NS 2 GM/100 ML 2 GM/100 ML BAG IV SCH ×2 (09:54→21:13)
[2021-01-20] MEDS: FAMOTIDINE 20 MG/2 ML INJ IV SCH (09:55)
[2021-01-20] MEDS: SENNOSIDES ORAL LIQD 8.8 MG/5 ML ORAL LIQD FEEDTUBE SCH ×2 (09:55→21:14)
[2021-01-20] MEDS: HEPARIN 5,000 UNIT/1 ML VIAL SUB-Q SCH ×2 (09:55→21:13)
[2021-01-20] MEDS: SODIUM CHLORIDE 0.9% 1000 ML 1,000 ML IV SCH ×2 (10:02→17:54)
[2021-01-20] MEDS: IPRATROPIUM/ALBUTEROL SULFATE 3 ML AMPUL.NEB IH SCH ×3 (10:08→20:55)
[2021-01-20 12:24] LABS: Mean Corpuscular HGB Conc 30 % (30-34); Mean Corpuscular Volume 107 fl (79-97); Red Blood Count 3.57 M/mm3 (3.65-5.03); Red Cell Distribution Width 17.1 % (13.2-15.2)
[2021-01-20 12:26] LABS: Hemoglobin 11.4 gm/dl (10.1-14.3); Platelet Count 84 K/mm3 (140-440)
[2021-01-20 12:34] LABS: Albumin 2.1 g/dL (3.9-5); Calcium 7.7 mg/dL (8.4-10.2)
[2021-01-20 14:10] LABS: Total Cells Counted 100
[2021-01-20 14:12] LABS: Burr Cells Rare; Platelet Estimate Consistent w Auto
--- NOTE | 2021-01-20 16:42 | Progress Note ---
Assessment and Plan Assessment and plan: Acute respiratory failure with hypoxia Current Visit: Yes Status: Acute Plan to address problem: Patient was intubated and extubation was attempted, patient became hypoxic and patient was reintubated Respiratory support as needed Sepsis Current Visit: Yes Status: Acute Qualifiers: Sepsis type: sepsis due to unspecified organism Plan to address problem: Patient initiated on IV cefepime and IV vancomycin Pulmonology states this is not pneumonia Right lung lobe effusion secondary to lung cancer, possible nonsmall cell carcinoma Reviewed with critical care, bronchial washing shows cancer Spoke with family, not sure if patient had follow-up Hypotension Current Visit: Yes Status: Acute Qualifiers: Hypotension type: unspecified hypotension type Qualified Code(s): I95.9 - Hypotension, unspecified Plan to address problem: Norepinephrine T2DM (type 2 diabetes mellitus) Current Visit: Yes Status: Chronic Plan to address problem: Insulin sliding scale History of hypertension Current Visit: Yes Status: Chronic Plan to address problem: Hold antihypertensives for now DVT prophylaxis Current Visit: Yes Status: Acute Plan to address problem: CODE STATUS: Full DVT prophylaxis: Heparin Disposition: Continue ICU care. History Interval history: 01/19/2021: Patient seen and examined, intubated, sedated. Spoke with critical care pertaining to patient's past history, patient was diagnosed with malignancy, chest x-ray is reviewed, most likely mucous plugging in the right side of the lung. Most likely not pneumonia at this point. No family at the bedside. 01/20/2021: Patient continues to be intubated, family at the bedside, speaks via minis. Patient less agitated, blood pressure somewhat elevated Hospitalist Physical - Physical exam Narrative exam: General appearance: no acute distress, sedated well-nourished EENT: PERRL, EOM intact, hearing intact, clear oral mucosa Respiratory: Intubated, decreased breath sounds on right side, crackles on the left Cardiovascular: Regular rate/rhythm, Normal S1 & S2. No gallop, rub Extremities: no ischemia, No edema, normal temperature, normal color Abdominal: soft, no tenderness, non-distended, normal bowel sounds Integumentary: Present: clear, warm, dry no wounds, no erythema noted Neurologic: Sedated, trying to open eyes. - Constitutional Vitals: Temp Pulse Resp BP Pulse Ox 99.0 F 91 H 16 126/66 93 01/20/21 15:58 01/20/21 15:01 01/20/21 15:01 01/20/21 15:01 01/20/21 15:01 General appearance: Present: mild distress, well-nourished HEART Score - HEART Score Troponin: Troponin T 0.303 ng/mL (0.00-0.029) H* 01/18/21 09:43 Results - Labs CBC & Chem 7: 01/20/21 Unknown 01/20/21 Unknown Labs: Laboratory Last Values WBC 17.4 K/mm3 (4.5-11.0) H 01/20/21 Unknown RBC 3.57 M/mm3 (3.65-5.03) L 01/20/21 Unknown Hgb 11.4 gm/dl (10.1-14.3) 01/20/21 Unknown Hct 38.0 % (30.3-42.9) 01/20/21 Unknown MCV 107 fl (79-97) H 01/20/21 Unknown MCH 32 pg (28-32) 01/20/21 Unknown MCHC 30 % (30-34) 01/20/21 Unknown RDW 17.1 % (13.2-15.2) H 01/20/21 Unknown Plt Count 84 K/mm3 (140-440) L 01/20/21 Unknown Lymph % (Auto) [employer] 01/20/21 Unknown Scurry % (Auto) [employer] 01/20/21 Unknown Eos % (Auto) [employer] 01/20/21 Unknown Baso % (Auto) [employer] 01/20/21 Unknown Lymph # (Auto) [employer] 01/20/21 Unknown Scurry # (Auto) [employer] 01/20/21 Unknown Eos # (Auto) [employer] 01/20/21 Unknown Baso # (Auto) [employer] 01/20/21 Unknown Add Manual Diff Complete 01/20/21 Unknown Total Counted 100 01/20/21 Unknown Seg Neutrophils % [employer] 01/20/21 Unknown Seg Neuts % (Manual) 97.0 % (40.0-70.0) H 01/20/21 Unknown Band Neutrophils % 3.0 % 01/19/21 04:00 Lymphocytes % (Manual) 3.0 % (13.4-35.0) L 01/20/21 Unknown Monocytes % (Manual) 1.0 % (0.0-7.3) 01/19/21 04:00 Nucleated RBC % Not Reportable 01/20/21 Unknown Seg Neutrophils # [employer] 01/20/21 Unknown Seg Neutrophils # Man 16.9 K/mm3 (1.8-7.7) H 01/20/21 Unknown Band Neutrophils # 0.0 K/mm3 01/20/21 Unknown Lymphocytes # (Manual) 0.5 K/mm3 (1.2-5.4) L 01/20/21 Unknown Abs React Lymphs (Man) 0.0 K/mm3 01/20/21 Unknown Monocytes # (Manual) 0.0 K/mm3 (0.0-0.8) 01/20/21 Unknown Eosinophils # (Manual) 0.0 K/mm3 (0.0-0.4) 01/20/21 Unknown Basophils # (Manual) 0.0 K/mm3 (0.0-0.1) 01/20/21 Unknown Metamyelocytes # 0.0 K/mm3 01/20/21 Unknown Myelocytes # 0.0 K/mm3 01/20/21 Unknown Promyelocytes # 0.0 K/mm3 01/20/21 Unknown Blast Cells # 0.0 K/mm3 01/20/21 Unknown WBC Morphology Not Reportable 01/20/21 Unknown Hypersegmented Neuts Not Reportable 01/20/21 Unknown Hyposegmented Neuts Not Reportable 01/20/21 Unknown Hypogranular Neuts Not Reportable 01/20/21 Unknown Smudge Cells Not Reportable 01/20/21 Unknown Toxic Granulation Not Reportable 01/20/21 Unknown Toxic Vacuolation Not Reportable 01/20/21 Unknown Dohle Bodies Not Reportable 01/20/21 Unknown Pelger-Huet Anomaly Not Reportable 01/20/21 Unknown Ewa Rods Not Reportable 01/20/21 Unknown Platelet Estimate Consistent w auto 01/20/21 Unknown Clumped Platelets Not Reportable 01/20/21 Unknown Plt Clumps, EDTA Not Reportable 01/20/21 Unknown Large Platelets Not Reportable 01/20/21 Unknown Giant Platelets Not Reportable 01/20/21 Unknown Platelet Satelliting Not Reportable 01/20/21 Unknown Plt Morphology Comment Not Reportable 01/20/21 Unknown RBC Morphology Not Reportable 01/20/21 Unknown Dimorphic RBCs Not Reportable 01/20/21 Unknown Polychromasia Not Reportable 01/20/21 Unknown Hypochromasia Not Reportable 01/20/21 Unknown Poikilocytosis Not Reportable 01/20/21 Unknown Anisocytosis Not Reportable 01/20/21 Unknown Microcytosis Not Reportable 01/20/21 Unknown Macrocytosis Not Reportable 01/20/21 Unknown Spherocytes Not Reportable 01/20/21 Unknown Pappenheimer Bodies Not Reportable 01/20/21 Unknown Sickle Cells Not Reportable 01/20/21 Unknown Target Cells Not Reportable 01/20/21 Unknown Tear Drop Cells Not Reportable 01/20/21 Unknown Ovalocytes Not Reportable 01/20/21 Unknown Helmet Cells Not Reportable 01/20/[address] [place] Bodies Not Reportable 01/20/21 Unknown [place] Rings Not Reportable 01/20/21 Unknown [place] Cells Rare 01/20/21 Unknown Bite Cells Not Reportable 01/20/21 Unknown Crenated Cell Not Reportable 01/20/21 Unknown Elliptocytes Not Reportable 01/20/21 Unknown Acanthocytes (Spur) Not Reportable 01/20/21 Unknown Rouleaux Not Reportable 01/20/21 Unknown Hemoglobin C Crystals Not Reportable 01/20/21 Unknown Schistocytes Not Reportable 01/20/21 Unknown Malaria parasites Not Reportable 01/20/21 Unknown Jasiel Bodies Not Reportable 01/20/21 Unknown Hem Pathologist Commnt No 01/20/21 Unknown APTT 31.5 Sec. (24.2-36.6) 01/18/21 09:43 ABG pH 7.303 (7.320-7.450) L 01/20/21 08:16 POC ABG pCO2 30.7 mmHg (32.0-48.0) L 01/20/21 08:16 POC ABG pO2 302.7 mmHg (83-108) H 01/20/21 08:16 POC ABG HCO3 14.9 01/20/21 08:16 ABG O2 Saturation 99.6 (0-100) 01/20/21 08:16 POC ABG Base Excess -10.3 01/20/21 08:16 ABG Hemoglobin 11.1 (12.0-17.5) L 01/20/21 08:16 ABG Oxyhemoglobin 99.0 (94-98) H 01/20/21 08:16 ABG Methemoglobin 0.3 (0.0-1.5) 01/20/21 08:16 ABG Sodium 149.2 mmol/L (136.0-145.0) H 01/20/21 08:16 ABG Potassium 3.3 mmol/L (3.40-4.50) L 01/20/21 08:16 ABG Chloride 123.0 mmol/L (98-107) H 01/20/21 08:16 ABG Glucose 175 mg/dL (65-95) H 01/20/21 08:16 ABG Lactate 1.18 (0.18-30.0) 01/18/21 10:42 Carboxyhemoglobin 0.3 (0.5-1.5) L 01/20/21 08:16 FiO2 % 100.0 01/20/21 08:16 Sodium 147 mmol/L (137-145) H 01/20/21 Unknown Potassium 3.3 mmol/L (3.6-5.0) L 01/20/21 Unknown Chloride 119.4 mmol/L (98-107) H 01/20/21 Unknown Carbon Dioxide 12 mmol/L (22-30) L D 01/20/21 Unknown Anion Gap 19 mmol/L 01/20/21 Unknown BUN 29 mg/dL (7-17) H 01/20/21 Unknown Creatinine 1.0 mg/dL (0.6-1.2) 01/20/21 Unknown Estimated GFR 55 ml/min 01/20/21 Unknown BUN/Creatinine Ratio 29 % 01/20/21 Unknown Glucose 157 mg/dL (65-100) H 01/20/21 Unknown POC Glucose 148 mg/dL (70-105) H 01/18/21 17:53 Hemoglobin A1c 7.7 % (4-6) H 01/18/21 17:40 Lactic Acid 2.50 mmol/L (0.7-2.0) H* 01/18/21 12:52 Calcium 7.7 mg/dL (8.4-10.2) L 01/20/21 Unknown Total Bilirubin 0.80 mg/dL (0.1-1.2) 01/20/21 Unknown AST 155 units/L (5-40) H 01/20/21 Unknown ALT 201 units/L (7-56) H 01/20/21 Unknown Alkaline Phosphatase 46 units/L (35-129) 01/20/21 Unknown Troponin T 0.303 ng/mL (0.00-0.029) H* 01/18/21 09:43 Total Protein 5.0 g/dL (6.3-8.2) L 01/20/21 Unknown Albumin 2.1 g/dL (3.9-5) L 01/20/21 Unknown Albumin/Globulin Ratio 0.7 % 01/20/21 Unknown Triglycerides 136 mg/dL (2-149) 01/18/21 09:43 Cholesterol 162 mg/dL (50-199) 01/18/21 09:43 LDL Cholesterol Direct 105 mg/dL (50-130) 01/18/21 09:43 HDL Cholesterol 34 mg/dL (40-59) L 01/18/21 09:43 Cholesterol/HDL Ratio 4.76 % 01/18/21 09:43 Arterial Blood Glucose 175 mg/dL (65-95) H 01/20/21 08:16 Arterial Blood Ionized Calcium 4.7 mg/dL (4.6-5.3) 01/20/21 08:16 Urine Color Myesha (Yellow) 01/18/21 Unknown Urine Turbidity Cloudy (Clear) 01/18/21 Unknown Urine pH 5.0 (5.0-7.0) 01/18/21 Unknown Ur Specific [place] 1.015 (1.003-1.030) 01/18/21 Unknown Urine Protein 100 mg/dl mg/dL (Negative) 01/18/21 Unknown Urine Glucose (UA) Neg mg/dL (Negative) 01/18/21 Unknown Urine Ketones Neg mg/dL (Negative) 01/18/21 Unknown Urine Blood Lg (Negative) 01/18/21 Unknown Urine Nitrite Neg (Negative) 01/18/21 Unknown Urine Bilirubin Neg (Negative) 01/18/21 Unknown Urine Urobilinogen 2.0 mg/dL (<2.0) 01/18/21 Unknown Ur Leukocyte Esterase Lg (Negative) 01/18/21 Unknown Urine WBC (Auto) > 182.0 /HPF (0.0-6.0) H 01/18/21 Unknown Urine RBC (Auto) 12.0 /HPF (0.0-6.0) 01/18/21 Unknown U Epithel Cells (Auto) 1.0 /HPF (0-13.0) 01/18/21 Unknown Urine Bacteria (Auto) 4+ /HPF (Negative) 01/18/21 Unknown Urine WBC Clumps 2+ /HPF 01/18/21 Unknown Urine Mucus 2+ /HPF 01/18/21 Unknown Coronavirus (PCR) Negative (Negative) 01/19/21 09:30 Microbiology: Microbiology 01/18/21 11:07 Tracheal Aspirate Sputum Culture - Preliminary 01/18/21 09:43 Peripheral/Venous Blood Culture - Preliminary NO GROWTH AFTER 48 HOURS 01/18/21 09:43 Peripheral/Venous Blood Culture - Preliminary NO GROWTH AFTER 48 HOURS King/IV: Voiding Method Indwelling Catheter Active Medications - Current Medications Current Medications: Generic Name Dose Route Start Last Admin Trade Name Freq PRN Reason Stop Dose Admin Albuterol/Ipratropium 1 ampul 01/19/21 08:00 01/20/21 14:42 Ipratropium/Albuterol Sulfate 3 Ml Ampul.Neb IH 1 ampul TIDRT ELIUD Administration Lipase/Protease/Amylase 1 each 01/20/21 08:10 Lipase 10,500/Protease 25,000/Amylase 43,750 (Units) Dr Cap FEEDTUBE PRN PRN For Clogged Feeding Tube Famotidine 20 mg 01/19/21 10:00 01/20/21 09:55 Famotidine 20 Mg/2 Ml Inj IV 20 mg DAILY ELIUD Administration Heparin Sodium (Porcine) 5,000 unit 01/19/21 10:00 01/20/21 09:55 Heparin 5,000 Unit/1 Ml Vial SUB-Q 5,000 unit Q12HR ELIUD Administration Hydrophilic Ointment 1 applic 01/18/21 10:25 Lip Therapy Vaseline TP Q2HR PRN Dry Lips Norepinephrine 4 mg in 250 mls @ 7.5 mls/hr 01/18/21 12:00 01/20/21 14:47 Levophed Drip 4 Mg/Ns 250 Ml IV 14 mcg/min TITR ELIUD 52.5 mls/hr Administration Protocol 2 MCG/MIN Sodium Chloride 1,000 mls @ 100 mls/hr 01/18/21 17:45 01/20/21 10:02 Nacl 0.9% 1000 Ml IV 100 mls/hr DIRECT ELIUD Administration Cefepime HCl 2 gm in 100 mls @ 200 mls/hr 01/18/21 22:00 01/20/21 09:54 Cefepime/Ns 2 Gm/100 Ml IV 200 mls/hr Q12HR ELIUD Administration Protocol Vancomycin HCl 1 gm in 250 mls @ 166.667 mls/hr 01/19/21 20:00 01/19/21 20:36 Vancomycin/Ns 1 Gm/250 Ml IV 166.667 mls/hr Q24H ELIUD Administration Propofol 1,000 mg in 100 mls @ 2.085 mls/hr 01/19/21 16:00 01/20/21 11:53 Diprivan 10 Mg/Ml IV 20 mcg/kg/min TITR ELIUD 8.34 mls/hr Titration Protocol 5 MCG/KG/MIN Metoclopramide HCl 10 mg 01/18/21 17:39 Metoclopramide 10 Mg/2 Ml Inj IV Q6H PRN Nausea And Vomiting Multi-Ingred Cream/Lotion/Oil/Oint 1 applic 01/18/21 10:25 Mineral Oil/Petrolatum, White Ophth Oint 3.5 Gm OU Q4HR PRN Dry Eye(s) Ondansetron HCl 4 mg 01/18/21 17:39 Ondansetron 4 Mg/2 Ml Inj IV Q8H PRN Nausea And Vomiting Promethazine HCl 25 mg 01/18/21 17:39 Promethazine 25 Mg Rect Supp LA Q6H PRN N/V IF NPO AND NO IV ACCESS Senna 8.8 mg 01/18/21 11:00 01/20/21 09:55 Sennosides Oral Liqd 8.8 Mg/5 Ml Oral Liqd FEEDTUBE 8.8 mg BID ELIUD Administration Simple Syrup 15 ml 01/20/21 08:10 Simple Syrup 15 Ml FEEDTUBE PRN PRN Hypoglycemia Simple Syrup 30 ml 01/20/21 08:10 Simple Syrup 15 Ml FEEDTUBE PRN PRN Hypoglycemia Sodium Bicarbonate 325 mg 01/20/21 08:10 Sodium Bicarbonate 325 Mg Tab FEEDTUBE PRN PRN For Clogged Feeding Tube Sodium Chloride 10 ml 01/18/21 22:00 01/20/21 09:56 Sodium Chloride 0.9% 10 Ml Flush Syringe IV 10 ml BID ELIUD Administration Sodium Chloride 10 ml 01/18/21 17:39 Sodium Chloride 0.9% 10 Ml Flush Syringe IV PRN PRN LINE FLUSH Nutrition/Malnutrition Assess - Dietary Evaluation Nutrition/Malnutrition Findings: Nutrition Notes Start: 01/19/21 09:02 Freq: Status: Active Protocol: Document 01/20/21 08:12 ALCON (Rec: 01/20/21 08:13 ALCON [id number]) Nutrition Notes Need for Assessment generated from: MD Order Initial or Follow up Brief Note Current Diagnosis Acute Kidney Injury,Diabetes, Sepsis,Respiratory Failure Other Pertinent Diagnosis metastatic cancer, hypotension Current Diet No diet Subjective/Other Information MD order for TF. Pt remains on vent. Nutrition Intervention Nutrition Support: Glucerna 1.2 at 50 ml/hr Flush 80 ml q4h Kcal 1,440 Protein (gm) 72 Fluid (mL) 966 Goal #1 Meet at least 75% of protein and energy needs via TF Anticipated Discharge Needs: Unable to determine at this time Follow-Up By: 01/22/21 Additional Comments FU for TF start and tolerance
[2021-01-20] MEDS: VANCOMYCIN/NS 1 GM/250 ML 1 GM/250 ML BAG IV SCH (20:15)
[2021-01-21] MEDS: NORepinephrine/NS 4 MG-250 ML 4 MG/250 ML BAG IV SCH ×5 (00:47→20:12)
--- NOTE | 2021-01-21 01:03 | Progress Note ---
Assessment and Plan Imp: 1. Subjective Date of service: 01/20/21 Principal diagnosis: Acute respiratory failure Interval history: No events. Intubated, on Levophed. Sedated. Cannot give history. Active Medications Albuterol/Ipratropium (Ipratropium/Albuterol Sulfate 3 Ml Ampul.Neb) 1 ampul IH TIDRT ELIUD Last Admin: 01/20/21 20:55 Dose: 1 ampul Documented by: Lipase/Protease/Amylase (Lipase 10,500/Protease 25,000/Amylase 43,750 (Units) Dr Cap) 1 each FEEDTUBE PRN PRN PRN Reason: For Clogged Feeding Tube Famotidine (Famotidine 20 Mg/2 Ml Inj) 20 mg IV DAILY [facility] Last Admin: 01/20/21 09:55 Dose: 20 mg Documented by: Heparin Sodium (Porcine) (Heparin 5,000 Unit/1 Ml Vial) 5,000 unit SUB-Q Q12HR ELIUD Last Admin: 01/20/21 21:13 Dose: 5,000 unit Documented by: Hydrophilic Ointment (Lip Therapy Vaseline) 1 applic TP Q2HR PRN PRN Reason: Dry Lips Norepinephrine (Levophed Drip 4 Mg/Ns 250 Ml) 4 mg in 250 mls @ 7.5 mls/hr IV TITR ELIUD; Protocol Last Admin: 01/21/21 00:47 Dose: 14 mcg/min, 52.5 mls/hr Documented by: Sodium Chloride (Nacl 0.9% 1000 Ml) 1,000 mls @ 100 mls/hr IV DIRECT ELIUD Last Admin: 01/20/21 17:54 Dose: 100 mls/hr Documented by: Cefepime HCl (Cefepime/Ns 2 Gm/100 Ml) 2 gm in 100 mls @ 200 mls/hr IV Q12HR ELIUD; Protocol Last Infusion: 01/20/21 21:45 Dose: Infused Documented by: Vancomycin HCl (Vancomycin/Ns 1 Gm/250 Ml) 1 gm in 250 mls @ 166.667 mls/hr IV Q24H ELIUD Last Infusion: 01/20/21 21:45 Dose: Infused Documented by: Propofol (Diprivan 10 Mg/Ml) 1,000 mg in 100 mls @ 2.085 mls/hr IV TITR ELIUD; Protocol Last Admin: 01/20/21 19:44 Dose: 20 mcg/kg/min, 8.34 mls/hr Documented by: Metoclopramide HCl (Metoclopramide 10 Mg/2 Ml Inj) 10 mg IV Q6H PRN PRN Reason: Nausea And Vomiting Multi-Ingred Cream/Lotion/Oil/Oint (Mineral Oil/Petrolatum, White Ophth Oint 3.5 Gm) 1 applic OU Q4HR PRN PRN Reason: Dry Eye(s) Ondansetron HCl (Ondansetron 4 Mg/2 Ml Inj) 4 mg IV Q8H PRN PRN Reason: Nausea And Vomiting Promethazine HCl (Promethazine 25 Mg Rect Supp) 25 mg MN Q6H PRN PRN Reason: N/V IF NPO AND NO IV ACCESS Senna (Sennosides Oral Liqd 8.8 Mg/5 Ml Oral Liqd) 8.8 mg FEEDTUBE BID [facility] Last Admin: 01/20/21 21:14 Dose: 8.8 mg Documented by: Simple Syrup (Simple Syrup 15 Ml) 15 ml FEEDTUBE PRN PRN PRN Reason: Hypoglycemia Simple Syrup (Simple Syrup 15 Ml) 30 ml FEEDTUBE PRN PRN PRN Reason: Hypoglycemia Sodium Bicarbonate (Sodium Bicarbonate 325 Mg Tab) 325 mg FEEDTUBE PRN PRN PRN Reason: For Clogged Feeding Tube Sodium Chloride (Sodium Chloride 0.9% 10 Ml Flush Syringe) 10 ml IV BID [facility] Last Admin: 01/20/21 21:14 Dose: 10 ml Documented by: Sodium Chloride (Sodium Chloride 0.9% 10 Ml Flush Syringe) 10 ml IV PRN PRN PRN Reason: LINE FLUSH Objective Vital Signs - 12hr 01/20/21 01/20/21 01/20/21 13:00 13:15 13:30 Temperature Pulse Rate 101 H 97 H 99 H Pulse Rate [ Bilateral Throughout] Respiratory 18 18 18 Rate Respiratory Rate [Bilateral Throughout] Blood Pressure 117/65 136/70 123/70 O2 Sat by Pulse 89 95 89 Oximetry 01/20/21 01/20/21 01/20/21 13:45 14:00 14:15 Temperature Pulse Rate 96 H 96 H 95 H Pulse Rate [ Bilateral Throughout] Respiratory 15 22 17 Rate Respiratory Rate [Bilateral Throughout] Blood Pressure 129/67 138/74 141/73 O2 Sat by Pulse 93 91 90 Oximetry 01/20/21 01/20/21 01/20/21 14:30 14:40 14:42 Temperature Pulse Rate 93 H 66 Pulse Rate [ 66 Bilateral Throughout] Respiratory 19 Rate Respiratory 18 Rate [Bilateral Throughout] Blood Pressure 130/63 130/63 O2 Sat by Pulse 94 100 Oximetry 01/20/21 01/20/21 01/20/21 14:45 15:01 15:15 Temperature Pulse Rate 65 91 H 95 H Pulse Rate [ Bilateral Throughout] Respiratory 19 16 16 Rate Respiratory Rate [Bilateral Throughout] Blood Pressure 130/63 126/66 115/61 O2 Sat by Pulse 100 93 90 Oximetry 01/20/21 01/20/21 01/20/21 15:31 15:45 15:58 Temperature 99.0 F Pulse Rate 105 H 93 H Pulse Rate [ Bilateral Throughout] Respiratory 14 16 Rate Respiratory Rate [Bilateral Throughout] Blood Pressure 84/62 130/67 O2 Sat by Pulse 95 Oximetry 01/20/21 01/20/21 01/20/21 16:00 16:15 16:30 Temperature Pulse Rate 92 H 92 H 91 H Pulse Rate [ Bilateral Throughout] Respiratory 19 18 20 Rate Respiratory Rate [Bilateral Throughout] Blood Pressure 145/73 136/72 136/73 O2 Sat by Pulse 93 92 92 Oximetry 01/20/21 01/20/21 01/20/21 16:45 17:00 17:15 Temperature Pulse Rate 100 H 95 H 94 H Pulse Rate [ Bilateral Throughout] Respiratory 16 18 16 Rate Respiratory Rate [Bilateral Throughout] Blood Pressure 136/73 101/57 81/54 O2 Sat by Pulse 91 94 Oximetry 01/20/21 01/20/21 01/20/21 17:30 17:45 17:46 Temperature Pulse Rate 95 H 101 H 97 H Pulse Rate [ Bilateral Throughout] Respiratory 16 12 Rate Respiratory Rate [Bilateral Throughout] Blood Pressure 117/53 124/63 124/63 O2 Sat by Pulse 97 100 Oximetry 01/20/21 01/20/21 01/20/21 18:00 18:15 18:30 Temperature Pulse Rate 92 H 91 H 93 H Pulse Rate [ Bilateral Throughout] Respiratory 18 19 18 Rate Respiratory Rate [Bilateral Throughout] Blood Pressure 118/58 121/68 111/59 O2 Sat by Pulse 100 100 100 Oximetry 01/20/21 01/20/21 01/20/21 18:45 19:00 19:15 Temperature Pulse Rate 89 88 85 Pulse Rate [ Bilateral Throughout] Respiratory 18 18 18 Rate Respiratory Rate [Bilateral Throughout] Blood Pressure 132/67 132/69 132/69 O2 Sat by Pulse 100 100 99 Oximetry 01/20/21 01/20/21 01/20/21 19:31 19:45 19:57 Temperature 99.6 F Pulse Rate 63 91 H Pulse Rate [ Bilateral Throughout] Respiratory 18 17 Rate Respiratory Rate [Bilateral Throughout] Blood Pressure 56/33 O2 Sat by Pulse 92 100 Oximetry 01/20/21 01/20/21 01/20/21 20:00 20:15 20:30 Temperature Pulse Rate 88 89 89 Pulse Rate [ Bilateral Throughout] Respiratory 18 18 18 Rate Respiratory Rate [Bilateral Throughout] Blood Pressure 147/79 147/73 145/75 O2 Sat by Pulse 100 100 100 Oximetry 01/20/21 01/20/21 01/20/21 20:45 20:55 21:00 Temperature Pulse Rate 90 92 H 93 H Pulse Rate [ 91 H Bilateral Throughout] Respiratory 18 17 Rate Respiratory 18 Rate [Bilateral Throughout] Blood Pressure 136/76 136/76 136/104 O2 Sat by Pulse 100 100 100 Oximetry 01/20/21 01/20/21 01/20/21 21:15 21:30 21:45 Temperature Pulse Rate 95 H 97 H 96 H Pulse Rate [ Bilateral Throughout] Respiratory 17 14 18 Rate Respiratory Rate [Bilateral Throughout] Blood Pressure 136/104 118/60 138/67 O2 Sat by Pulse 100 100 100 Oximetry 01/20/21 01/20/21 01/20/21 22:00 22:01 22:15 Temperature Pulse Rate 88 99 H 95 H Pulse Rate [ Bilateral Throughout] Respiratory 16 17 Rate Respiratory Rate [Bilateral Throughout] Blood Pressure 151/61 151/61 O2 Sat by Pulse 100 100 Oximetry 01/20/21 01/20/21 01/20/21 22:31 22:45 23:01 Temperature Pulse Rate 95 H 93 H 96 H Pulse Rate [ Bilateral Throughout] Respiratory 17 18 18 Rate Respiratory Rate [Bilateral Throughout] Blood Pressure 151/61 151/61 151/61 O2 Sat by Pulse 100 100 100 Oximetry 01/20/21 01/20/21 01/20/21 23:15 23:31 23:45 Temperature Pulse Rate 100 H 120 H 106 H Pulse Rate [ Bilateral Throughout] Respiratory 16 12 19 Rate Respiratory Rate [Bilateral Throughout] Blood Pressure 121/61 118/82 127/76 O2 Sat by Pulse 100 99 99 Oximetry 01/20/21 01/20/21 01/21/21 23:47 23:49 00:00 Temperature 98.2 F Pulse Rate 105 H 102 H Pulse Rate [ Bilateral Throughout] Respiratory 18 20 Rate Respiratory Rate [Bilateral Throughout] Blood Pressure 127/76 115/72 O2 Sat by Pulse 100 100 Oximetry 01/21/21 01/21/21 01/21/21 00:15 00:31 00:45 Temperature Pulse Rate 103 H 98 H 94 H Pulse Rate [ Bilateral Throughout] Respiratory 16 17 12 Rate Respiratory Rate [Bilateral Throughout] Blood Pressure 115/72 71/47 64/43 O2 Sat by Pulse 100 95 93 Oximetry Constitutional: other (sedated, intubated, critically ill) ENT: other (orally intubated) Neck: supple Effort: normal Ascultation: Right: diminished breath sounds, Left: clear Cardiovascular: other (tachy, RR; no mrg) Gastrointestinal: normoactive bowel sounds, soft, non-tender, non-distended Integumentary: normal Extremities: no cyanosis, no edema, pink and warm Neurologic: unable to assess Psychiatric: other (unable to assess) CBC and BMP: 01/20/21 Unknown 01/20/21 Unknown ABG, PT/INR, D-dimer: ABG ABG pH 7.303 (7.320-7.450) L 01/20/21 08:16 POC ABG pCO2 30.7 mmHg (32.0-48.0) L 01/20/21 08:16 POC ABG pO2 302.7 mmHg (83-108) H 01/20/21 08:16 POC ABG HCO3 14.9 01/20/21 08:16 ABG O2 Saturation 99.6 (0-100) 01/20/21 08:16 Abnormal lab findings: Abnormal Labs 01/18/21 01/18/21 01/18/21 09:43 09:43 09:43 WBC RBC MCV RDW Plt Count Lymph % (Auto) 11.3 L Seg Neutrophils % 81.1 H Seg Neuts % (Manual) Lymphocytes % (Manual) Seg Neutrophils # 8.4 H Seg Neutrophils # Man Lymphocytes # (Manual) ABG pH POC ABG pCO2 POC ABG pO2 ABG Hemoglobin ABG Oxyhemoglobin ABG Sodium ABG Potassium ABG Chloride ABG Glucose Carboxyhemoglobin Sodium Potassium Chloride Carbon Dioxide 33 H BUN 38 H Creatinine 1.8 H Glucose 139 H POC Glucose Hemoglobin A1c Lactic Acid Calcium AST 225 H ALT 100 H Alkaline Phosphatase 31 L Troponin T 0.303 H* Total Protein Albumin 3.2 L HDL Cholesterol 34 L Arterial Blood Glucose Arterial Blood Ionized Calcium Urine WBC (Auto) 01/18/21 01/18/21 01/18/21 10:42 12:52 17:40 WBC RBC MCV RDW Plt Count Lymph % (Auto) Seg Neutrophils % Seg Neuts % (Manual) Lymphocytes % (Manual) Seg Neutrophils # Seg Neutrophils # Man Lymphocytes # (Manual) ABG pH POC ABG pCO2 POC ABG pO2 180.1 H ABG Hemoglobin 11.8 L ABG Oxyhemoglobin 98.2 H ABG Sodium ABG Potassium 2.7 L ABG Chloride 113.0 H ABG Glucose 97 H Carboxyhemoglobin 0.4 L Sodium Potassium Chloride Carbon Dioxide BUN Creatinine Glucose POC Glucose Hemoglobin A1c 7.7 H Lactic Acid 2.50 H* Calcium AST ALT Alkaline Phosphatase Troponin T Total Protein Albumin HDL Cholesterol Arterial Blood Glucose 97 H Arterial Blood Ionized Calcium Urine WBC (Auto) 01/18/21 01/18/21 01/19/21 17:53 Unknown 03:05 WBC RBC MCV RDW Plt Count Lymph % (Auto) Seg Neutrophils % Seg Neuts % (Manual) Lymphocytes % (Manual) Seg Neutrophils # Seg Neutrophils # Man Lymphocytes # (Manual) ABG pH 7.288 L POC ABG pCO2 POC ABG pO2 ABG Hemoglobin ABG Oxyhemoglobin ABG Sodium ABG Potassium 3.3 L ABG Chloride 116.0 H ABG Glucose 174 H Carboxyhemoglobin Sodium Potassium Chloride Carbon Dioxide BUN Creatinine Glucose POC Glucose 148 H Hemoglobin A1c Lactic Acid Calcium AST ALT Alkaline Phosphatase Troponin T Total Protein Albumin HDL Cholesterol Arterial Blood Glucose 174 H Arterial Blood Ionized Calcium 4.4 L Urine WBC (Auto) > 182.0 H 01/19/21 01/19/21 01/20/21 04:00 10:23 08:16 WBC 18.9 H RBC MCV 98 H RDW 15.5 H Plt Count Lymph % (Auto) Seg Neutrophils % Seg Neuts % (Manual) 95.0 H Lymphocytes % (Manual) 1.0 L Seg Neutrophils # Seg Neutrophils # Man 18.0 H Lymphocytes # (Manual) 0.2 L ABG pH 7.303 L POC ABG pCO2 30.7 L POC ABG pO2 302.7 H ABG Hemoglobin 11.1 L ABG Oxyhemoglobin 99.0 H ABG Sodium 149.2 H ABG Potassium 3.3 L ABG Chloride 123.0 H ABG Glucose 175 H Carboxyhemoglobin 0.3 L Sodium 147 H Potassium 3.4 L Chloride 111.4 H Carbon Dioxide 21 L D BUN 30 H Creatinine Glucose 172 H POC Glucose Hemoglobin A1c Lactic Acid Calcium 7.9 L AST 216 H ALT 172 H Alkaline Phosphatase Troponin T Total Protein 5.4 L Albumin 2.7 L HDL Cholesterol Arterial Blood Glucose 175 H Arterial Blood Ionized Calcium Urine WBC (Auto) 01/20/21 01/20/21 01/20/21 17:48 23:53 Unknown WBC 17.4 H RBC 3.57 L MCV 107 H RDW 17.1 H Plt Count 84 L Lymph % (Auto) Seg Neutrophils % Seg Neuts % (Manual) 97.0 H Lymphocytes % (Manual) 3.0 L Seg Neutrophils # Seg Neutrophils # Man 16.9 H Lymphocytes # (Manual) 0.5 L ABG pH POC ABG pCO2 POC ABG pO2 ABG Hemoglobin ABG Oxyhemoglobin ABG Sodium ABG Potassium ABG Chloride ABG Glucose Carboxyhemoglobin Sodium Potassium Chloride Carbon Dioxide BUN Creatinine Glucose POC Glucose 187 H 185 H Hemoglobin A1c Lactic Acid Calcium AST ALT Alkaline Phosphatase Troponin T Total Protein Albumin HDL Cholesterol Arterial Blood Glucose Arterial Blood Ionized Calcium Urine WBC (Auto) 01/20/21 Unknown WBC RBC MCV RDW Plt Count Lymph % (Auto) Seg Neutrophils % Seg Neuts % (Manual) Lymphocytes % (Manual) Seg Neutrophils # Seg Neutrophils # Man Lymphocytes # (Manual) ABG pH POC ABG pCO2 POC ABG pO2 ABG Hemoglobin ABG Oxyhemoglobin ABG Sodium ABG Potassium ABG Chloride ABG Glucose Carboxyhemoglobin Sodium 147 H Potassium 3.3 L Chloride 119.4 H Carbon Dioxide 12 L D BUN 29 H Creatinine Glucose 157 H POC Glucose Hemoglobin A1c Lactic Acid Calcium 7.7 L AST 155 H ALT 201 H Alkaline Phosphatase Troponin T Total Protein 5.0 L Albumin 2.1 L HDL Cholesterol Arterial Blood Glucose Arterial Blood Ionized Calcium Urine WBC (Auto) Chest x-ray: report reviewed, image reviewed
[2021-01-21] MEDS: SODIUM CHLORIDE 0.9% 1000 ML 1,000 ML IV SCH ×2 (05:48→16:27)
[2021-01-21] MEDS: IPRATROPIUM/ALBUTEROL SULFATE 3 ML AMPUL.NEB IH SCH ×3 (08:41→20:31)
[2021-01-21] MEDS: SENNOSIDES ORAL LIQD 8.8 MG/5 ML ORAL LIQD FEEDTUBE SCH ×2 (11:05→21:09)
[2021-01-21] MEDS: HEPARIN 5,000 UNIT/1 ML VIAL SUB-Q SCH ×2 (11:05→21:09)
[2021-01-21] MEDS: FAMOTIDINE 20 MG TAB PO SCH ×2 (11:05→21:08)
[2021-01-21] MEDS: LACTATED RINGERS 1,000 ML IV SCH ×2 (11:10→14:20)
--- NOTE | 2021-01-21 11:20 | Progress Note ---
Assessment and Plan 70 y/o female with altered mental state, acute respiratory failure and likely UTI 01/21/21: Patient most likely will require trach for weaning from vent. I have asked CM to set up family meeting as her overall prognosis is very poor. She was referred to hospice by oncology (Britany). Will continue supportive measures for now. Bolus fluids to help wean vasopressors for MAPS >65. Most likely her metabolic acidosis is from hyperchloremia, will need daily chemstries until this resolves. 1. Patient with lung cancer, appears to be stage 3 to 4. Not a candidate for surgery. Not sure who she has followed up with, if she has followed up with anyone. She is currently on 30% FiO2 and awake on Fent. Will discontinue sedation and plan to extubate. She does not need thora as the fluid that is present is secondary to atelecatsis from lung that is collapsed from endobronchial obstruction of entire right lower lobe. The remaining atelectasis seen this am maybe secondary to ET tube positioning. 2. Will have bipap available if needed 3. Suggest placing patient on rocephin for UTI, this is not pneumonia 4. Overall prognosis is very very guarded to poor. Will need language line to speak with and if my memory is correct, there is a daughter as well. CCT 31 minutes. Subjective Date of service: 01/21/21 Principal diagnosis: Acute respiratory failure Interval history: Still on Pressors and sedations but will awaken with stimulation. Back down to minimal vent settings. Patient was on [facility] office but was a full code. There is no daughter but a friend named Aisha (female) who does speak Sinhala. Remainder is negative. Objective Vital Signs - 12hr 01/20/21 01/20/21 01/20/21 23:15 23:31 23:45 Temperature Pulse Rate 100 H 120 H 106 H Pulse Rate [ Bilateral Throughout] Respiratory 16 12 19 Rate Respiratory Rate [Bilateral Throughout] Blood Pressure 121/61 118/82 127/76 O2 Sat by Pulse 100 99 99 Oximetry 01/20/21 01/20/21 01/21/21 23:47 23:49 00:00 Temperature 98.2 F Pulse Rate 105 H 102 H Pulse Rate [ Bilateral Throughout] Respiratory 18 20 Rate Respiratory Rate [Bilateral Throughout] Blood Pressure 127/76 115/72 O2 Sat by Pulse 100 100 Oximetry 01/21/21 01/21/21 01/21/21 00:15 00:31 00:35 Temperature Pulse Rate 103 H 98 H 94 H Pulse Rate [ Bilateral Throughout] Respiratory 16 17 Rate Respiratory Rate [Bilateral Throughout] Blood Pressure 115/72 71/47 128/91 O2 Sat by Pulse 100 95 100 Oximetry 01/21/21 01/21/21 01/21/21 00:45 01:01 01:15 Temperature Pulse Rate 94 H 94 H 94 H Pulse Rate [ Bilateral Throughout] Respiratory 12 13 16 Rate Respiratory Rate [Bilateral Throughout] Blood Pressure 64/43 79/60 79/60 O2 Sat by Pulse 93 100 100 Oximetry 01/21/21 01/21/21 01/21/21 01:30 01:45 02:00 Temperature Pulse Rate 95 H 94 H 97 H Pulse Rate [ Bilateral Throughout] Respiratory 18 17 14 Rate Respiratory Rate [Bilateral Throughout] Blood Pressure 128/91 143/78 131/92 O2 Sat by Pulse 100 100 100 Oximetry 01/21/21 01/21/21 01/21/21 02:15 02:30 02:45 Temperature Pulse Rate 101 H 101 H 102 H Pulse Rate [ Bilateral Throughout] Respiratory 14 14 15 Rate Respiratory Rate [Bilateral Throughout] Blood Pressure 131/92 131/80 128/78 O2 Sat by Pulse 100 100 100 Oximetry 01/21/21 01/21/21 01/21/21 03:00 03:15 03:30 Temperature Pulse Rate 100 H 98 H 100 H Pulse Rate [ Bilateral Throughout] Respiratory 17 16 12 Rate Respiratory Rate [Bilateral Throughout] Blood Pressure 131/82 131/82 127/80 O2 Sat by Pulse 100 100 100 Oximetry 01/21/21 01/21/21 01/21/21 03:45 04:01 04:15 Temperature Pulse Rate 100 H 101 H 102 H Pulse Rate [ Bilateral Throughout] Respiratory 17 18 16 Rate Respiratory Rate [Bilateral Throughout] Blood Pressure 137/80 125/75 125/75 O2 Sat by Pulse 100 99 100 Oximetry 01/21/21 01/21/21 01/21/21 04:16 04:31 04:33 Temperature 98.2 F Pulse Rate 101 H 99 H Pulse Rate [ Bilateral Throughout] Respiratory 18 Rate Respiratory Rate [Bilateral Throughout] Blood Pressure 134/80 134/80 O2 Sat by Pulse 99 100 Oximetry 01/21/21 01/21/21 01/21/21 04:45 05:00 05:15 Temperature Pulse Rate 98 H 98 H 98 H Pulse Rate [ Bilateral Throughout] Respiratory 18 18 18 Rate Respiratory Rate [Bilateral Throughout] Blood Pressure 134/80 137/71 113/71 O2 Sat by Pulse 100 100 100 Oximetry 01/21/21 01/21/21 01/21/21 05:31 05:45 06:00 Temperature Pulse Rate 97 H 99 H 99 H Pulse Rate [ Bilateral Throughout] Respiratory 13 17 18 Rate Respiratory Rate [Bilateral Throughout] Blood Pressure 105/66 105/66 99/66 O2 Sat by Pulse 77 L 95 99 Oximetry 01/21/21 01/21/21 01/21/21 06:15 06:31 06:45 Temperature Pulse Rate 98 H 99 H 97 H Pulse Rate [ Bilateral Throughout] Respiratory 16 18 18 Rate Respiratory Rate [Bilateral Throughout] Blood Pressure 103/76 119/71 119/71 O2 Sat by Pulse 99 100 100 Oximetry 01/21/21 01/21/21 01/21/21 07:00 07:15 07:30 Temperature Pulse Rate 96 H 95 H 96 H Pulse Rate [ Bilateral Throughout] Respiratory 18 17 18 Rate Respiratory Rate [Bilateral Throughout] Blood Pressure 131/76 130/48 142/78 O2 Sat by Pulse 100 100 100 Oximetry 01/21/21 01/21/21 01/21/21 07:45 07:54 08:00 Temperature 98.1 F Pulse Rate 98 H 94 H Pulse Rate [ Bilateral Throughout] Respiratory 15 Rate Respiratory Rate [Bilateral Throughout] Blood Pressure 136/72 O2 Sat by Pulse 100 Oximetry 01/21/21 01/21/21 01/21/21 08:01 08:15 08:30 Temperature Pulse Rate 94 H 90 94 H Pulse Rate [ Bilateral Throughout] Respiratory 18 18 18 Rate Respiratory Rate [Bilateral Throughout] Blood Pressure 111/65 112/72 120/71 O2 Sat by Pulse 100 100 100 Oximetry 01/21/21 01/21/21 01/21/21 08:38 08:41 08:45 Temperature Pulse Rate 102 H 95 H Pulse Rate [ 97 H Bilateral Throughout] Respiratory 18 Rate Respiratory 18 Rate [Bilateral Throughout] Blood Pressure 120/71 89/56 O2 Sat by Pulse 98 100 Oximetry 01/21/21 01/21/21 01/21/21 09:01 09:15 09:30 Temperature Pulse Rate 93 H 94 H 94 H Pulse Rate [ Bilateral Throughout] Respiratory 19 16 17 Rate Respiratory Rate [Bilateral Throughout] Blood Pressure 115/68 93/66 98/58 O2 Sat by Pulse 100 99 100 Oximetry 01/21/21 01/21/21 01/21/21 09:45 10:00 10:15 Temperature Pulse Rate 92 H 93 H 95 H Pulse Rate [ Bilateral Throughout] Respiratory 19 19 17 Rate Respiratory Rate [Bilateral Throughout] Blood Pressure 98/58 108/60 109/80 O2 Sat by Pulse 100 100 100 Oximetry 01/21/21 01/21/21 10:31 10:45 Temperature Pulse Rate 99 H 94 H Pulse Rate [ Bilateral Throughout] Respiratory 18 18 Rate Respiratory Rate [Bilateral Throughout] Blood Pressure 98/67 117/86 O2 Sat by Pulse 98 100 Oximetry Constitutional: other (sedated, intubated, critically ill) ENT: other (orally intubated) Neck: supple Effort: normal Ascultation: Right: diminished breath sounds, Left: clear Cardiovascular: other (tachy, RR; no mrg) Gastrointestinal: normoactive bowel sounds, soft, non-tender, non-distended Integumentary: normal Extremities: no cyanosis, no edema, pink and warm Neurologic: unable to assess Psychiatric: other (unable to assess) CBC and BMP: 01/20/21 Unknown 01/20/21 Unknown ABG, PT/INR, D-dimer: ABG ABG pH 7.302 (7.320-7.450) L 01/21/21 03:25 POC ABG pCO2 32.1 mmHg (32.0-48.0) 01/21/21 03:25 POC ABG pO2 145.1 mmHg (83-108) H 01/21/21 03:25 POC ABG HCO3 15.5 01/21/21 03:25 ABG O2 Saturation 98.7 (0-100) 01/21/21 03:25 Abnormal lab findings: Abnormal Labs 01/18/21 01/18/21 01/18/21 09:43 09:43 09:43 WBC RBC MCV RDW Plt Count Lymph % (Auto) 11.3 L Seg Neutrophils % 81.1 H Seg Neuts % (Manual) Lymphocytes % (Manual) Seg Neutrophils # 8.4 H Seg Neutrophils # Man Lymphocytes # (Manual) ABG pH POC ABG pCO2 POC ABG pO2 ABG Hemoglobin ABG Oxyhemoglobin ABG Sodium ABG Potassium ABG Chloride ABG Glucose Carboxyhemoglobin Sodium Potassium Chloride Carbon Dioxide 33 H BUN 38 H Creatinine 1.8 H Glucose 139 H POC Glucose Hemoglobin A1c Lactic Acid Calcium AST 225 H ALT 100 H Alkaline Phosphatase 31 L Troponin T 0.303 H* Total Protein Albumin 3.2 L HDL Cholesterol 34 L Arterial Blood Glucose Arterial Blood Ionized Calcium Urine WBC (Auto) 01/18/21 01/18/21 01/18/21 10:42 12:52 17:40 WBC RBC MCV RDW Plt Count Lymph % (Auto) Seg Neutrophils % Seg Neuts % (Manual) Lymphocytes % (Manual) Seg Neutrophils # Seg Neutrophils # Man Lymphocytes # (Manual) ABG pH POC ABG pCO2 POC ABG pO2 180.1 H ABG Hemoglobin 11.8 L ABG Oxyhemoglobin 98.2 H ABG Sodium ABG Potassium 2.7 L ABG Chloride 113.0 H ABG Glucose 97 H Carboxyhemoglobin 0.4 L Sodium Potassium Chloride Carbon Dioxide BUN Creatinine Glucose POC Glucose Hemoglobin A1c 7.7 H Lactic Acid 2.50 H* Calcium AST ALT Alkaline Phosphatase Troponin T Total Protein Albumin HDL Cholesterol Arterial Blood Glucose 97 H Arterial Blood Ionized Calcium Urine WBC (Auto) 01/18/21 01/18/21 01/19/21 17:53 Unknown 03:05 WBC RBC MCV RDW Plt Count Lymph % (Auto) Seg Neutrophils % Seg Neuts % (Manual) Lymphocytes % (Manual) Seg Neutrophils # Seg Neutrophils # Man Lymphocytes # (Manual) ABG pH 7.288 L POC ABG pCO2 POC ABG pO2 ABG Hemoglobin ABG Oxyhemoglobin ABG Sodium ABG Potassium 3.3 L ABG Chloride 116.0 H ABG Glucose 174 H Carboxyhemoglobin Sodium Potassium Chloride Carbon Dioxide BUN Creatinine Glucose POC Glucose 148 H Hemoglobin A1c Lactic Acid Calcium AST ALT Alkaline Phosphatase Troponin T Total Protein Albumin HDL Cholesterol Arterial Blood Glucose 174 H Arterial Blood Ionized Calcium 4.4 L Urine WBC (Auto) > 182.0 H 01/19/21 01/19/21 01/20/21 04:00 10:23 08:16 WBC 18.9 H RBC MCV 98 H RDW 15.5 H Plt Count Lymph % (Auto) Seg Neutrophils % Seg Neuts % (Manual) 95.0 H Lymphocytes % (Manual) 1.0 L Seg Neutrophils # Seg Neutrophils # Man 18.0 H Lymphocytes # (Manual) 0.2 L ABG pH 7.303 L POC ABG pCO2 30.7 L POC ABG pO2 302.7 H ABG Hemoglobin 11.1 L ABG Oxyhemoglobin 99.0 H ABG Sodium 149.2 H ABG Potassium 3.3 L ABG Chloride 123.0 H ABG Glucose 175 H Carboxyhemoglobin 0.3 L Sodium 147 H Potassium 3.4 L Chloride 111.4 H Carbon Dioxide 21 L D BUN 30 H Creatinine Glucose 172 H POC Glucose Hemoglobin A1c Lactic Acid Calcium 7.9 L AST 216 H ALT 172 H Alkaline Phosphatase Troponin T Total Protein 5.4 L Albumin 2.7 L HDL Cholesterol Arterial Blood Glucose 175 H Arterial Blood Ionized Calcium Urine WBC (Auto) 01/20/21 01/20/21 01/20/21 17:48 23:53 Unknown WBC 17.4 H RBC 3.57 L MCV 107 H RDW 17.1 H Plt Count 84 L Lymph % (Auto) Seg Neutrophils % Seg Neuts % (Manual) 97.0 H Lymphocytes % (Manual) 3.0 L Seg Neutrophils # Seg Neutrophils # Man 16.9 H Lymphocytes # (Manual) 0.5 L ABG pH POC ABG pCO2 POC ABG pO2 ABG Hemoglobin ABG Oxyhemoglobin ABG Sodium ABG Potassium ABG Chloride ABG Glucose Carboxyhemoglobin Sodium Potassium Chloride Carbon Dioxide BUN Creatinine Glucose POC Glucose 187 H 185 H Hemoglobin A1c Lactic Acid Calcium AST ALT Alkaline Phosphatase Troponin T Total Protein Albumin HDL Cholesterol Arterial Blood Glucose Arterial Blood Ionized Calcium Urine WBC (Auto) 01/20/21 01/21/21 Unknown 03:25 WBC RBC MCV RDW Plt Count Lymph % (Auto) Seg Neutrophils % Seg Neuts % (Manual) Lymphocytes % (Manual) Seg Neutrophils # Seg Neutrophils # Man Lymphocytes # (Manual) ABG pH 7.302 L POC ABG pCO2 POC ABG pO2 145.1 H ABG Hemoglobin 11.6 L ABG Oxyhemoglobin 98.3 H ABG Sodium 146.5 H ABG Potassium 3.1 L ABG Chloride 123.0 H ABG Glucose 236 H Carboxyhemoglobin 0.1 L Sodium 147 H Potassium 3.3 L Chloride 119.4 H Carbon Dioxide 12 L D BUN 29 H Creatinine Glucose 157 H POC Glucose Hemoglobin A1c Lactic Acid Calcium 7.7 L AST 155 H ALT 201 H Alkaline Phosphatase Troponin T Total Protein 5.0 L Albumin 2.1 L HDL Cholesterol Arterial Blood Glucose 236 H Arterial Blood Ionized Calcium Urine WBC (Auto)
[2021-01-21] MEDS: CEFEPIME/NS 2 GM/100 ML 2 GM/100 ML BAG IV SCH (11:25)
[2021-01-21] MEDS: fentaNYL 100 MCG/2 ML INJ IV PRN ×4 (11:32→18:30)
--- NOTE | 2021-01-21 13:34 | Progress Note ---
Assessment and Plan This is a 70-year-old female with a history of metastatic lung cancer presented to the hospital with altered mental status acute respiratory failure likely UTI --Acute respiratory failure with hypoxia Patient was intubated and extubation was attempted, patient became hypoxic and patient was reintubated Respiratory support as needed with mechanical ventilation -Pulmonary critical care following --Sepsis likely due to UTI Continue Rocephin, wait for culture Pulmonology states this is not pneumonia --Right lung lobe effusion secondary to lung cancer, possible nonsmall cell carcinoma Reviewed with critical care, bronchial washing shows cancer Spoke with family, not sure if patient had follow-up --Hypotension/septic shock on Norepinephrine --UTI, continue Rocephin, will follow culture --T2DM (type 2 diabetes mellitus) cont Insulin sliding scale --Hypernatremia, increase free water with tube feeding --Hypokalemia, replete and monitor --History of hypertension Hold antihypertensives for now as BP running low CODE STATUS: Full DVT prophylaxis: Heparin Disposition: Continue ICU care. The high probability of a clinically significant, sudden or life threatening deterioration of the system(s) required my full and direct attention, intervention and personal management. The aggregate critical care time was [35] minutes. This time is in addition to time spent performing reported procedures but includes the following: [x] Data Review and interpretation [x] Patient assessment and monitoring of vital signs [x] Documentation [x] Medication orders and management Daily clinical course: 01/19/2021: Patient seen and examined, intubated, sedated. Spoke with critical care pertaining to patient's past history, patient was diagnosed with malignancy, chest x-ray is reviewed, most likely mucous plugging in the right side of the lung. Most likely not pneumonia at this point. No family at the bedside. 01/20/2021: Patient continues to be intubated, family at the bedside, speaks via minis. Patient less agitated, blood pressure somewhat elevated. 01/21/21:patient remains on mechanical ventilation at [facility] setting. Change IV antibiotic to Rocephin, monitor electrolytes, repeat CBC BMP in the morning Subjective Date of service: 01/21/21 Principal diagnosis: Acute respiratory failure Interval history: Patient seen and examined. Medical records and medication list reviewed. No acute event overnight noted by the RN. Patient remains intubated and on pressor support Vitals noted, may be hypotensive Discussed plan of care at bedside with patient's RN. Objective - Exam Narrative Exam: GENERAL: Elderly female lying on bed on mechanical ventilation HEENT: Normocephalic. Atraumatic. No conjunctival congestion or icterus. Patient has moist mucous membranes. NECK: Supple. Trachea midline. CHEST/LUNGS: Clear to auscultated bilaterally, breathing nonlabored. HEART/CARDIOVASCULAR: Regular in rate and rhythm. S1 and S2 positive. ABDOMEN: Abdomen is soft, nontender. Patient has normal bowel sounds. SKIN: There is no rash. Warm and dry. NEURO: Sedated MUSCULOSKELETAL: No joint effusion or tenderness. EXTRIMITY: No edema, no cyanosis or clubbing. PSYCH: Sedated and unable to assess. - Constitutional Vitals: Vital Signs - 12hr 01/21/21 01/21/21 01/21/21 01:30 01:45 02:00 Temperature Pulse Rate 95 H 94 H 97 H Pulse Rate [ Bilateral Throughout] Respiratory 18 17 14 Rate Respiratory Rate [Bilateral Throughout] Blood Pressure 128/91 143/78 131/92 O2 Sat by Pulse 100 100 100 Oximetry 01/21/21 01/21/21 01/21/21 02:15 02:30 02:45 Temperature Pulse Rate 101 H 101 H 102 H Pulse Rate [ Bilateral Throughout] Respiratory 14 14 15 Rate Respiratory Rate [Bilateral Throughout] Blood Pressure 131/92 131/80 128/78 O2 Sat by Pulse 100 100 100 Oximetry 01/21/21 01/21/21 01/21/21 03:00 03:15 03:30 Temperature Pulse Rate 100 H 98 H 100 H Pulse Rate [ Bilateral Throughout] Respiratory 17 16 12 Rate Respiratory Rate [Bilateral Throughout] Blood Pressure 131/82 131/82 127/80 O2 Sat by Pulse 100 100 100 Oximetry 01/21/21 01/21/21 01/21/21 03:45 04:01 04:15 Temperature Pulse Rate 100 H 101 H 102 H Pulse Rate [ Bilateral Throughout] Respiratory 17 18 16 Rate Respiratory Rate [Bilateral Throughout] Blood Pressure 137/80 125/75 125/75 O2 Sat by Pulse 100 99 100 Oximetry 01/21/21 01/21/21 01/21/21 04:16 04:31 04:33 Temperature 98.2 F Pulse Rate 101 H 99 H Pulse Rate [ Bilateral Throughout] Respiratory 18 Rate Respiratory Rate [Bilateral Throughout] Blood Pressure 134/80 134/80 O2 Sat by Pulse 99 100 Oximetry 01/21/21 01/21/21 01/21/21 04:45 05:00 05:15 Temperature Pulse Rate 98 H 98 H 98 H Pulse Rate [ Bilateral Throughout] Respiratory 18 18 18 Rate Respiratory Rate [Bilateral Throughout] Blood Pressure 134/80 137/71 113/71 O2 Sat by Pulse 100 100 100 Oximetry 01/21/21 01/21/21 01/21/21 05:31 05:45 06:00 Temperature Pulse Rate 97 H 99 H 99 H Pulse Rate [ Bilateral Throughout] Respiratory 13 17 18 Rate Respiratory Rate [Bilateral Throughout] Blood Pressure 105/66 105/66 99/66 O2 Sat by Pulse 77 L 95 99 Oximetry 01/21/21 01/21/21 01/21/21 06:15 06:31 06:45 Temperature Pulse Rate 98 H 99 H 97 H Pulse Rate [ Bilateral Throughout] Respiratory 16 18 18 Rate Respiratory Rate [Bilateral Throughout] Blood Pressure 103/76 119/71 119/71 O2 Sat by Pulse 99 100 100 Oximetry 01/21/21 01/21/21 01/21/21 07:00 07:15 07:30 Temperature Pulse Rate 96 H 95 H 96 H Pulse Rate [ Bilateral Throughout] Respiratory 18 17 18 Rate Respiratory Rate [Bilateral Throughout] Blood Pressure 131/76 130/48 142/78 O2 Sat by Pulse 100 100 100 Oximetry 01/21/21 01/21/21 01/21/21 07:45 07:54 08:00 Temperature 98.1 F Pulse Rate 98 H 94 H Pulse Rate [ Bilateral Throughout] Respiratory 15 Rate Respiratory Rate [Bilateral Throughout] Blood Pressure 136/72 O2 Sat by Pulse 100 Oximetry 01/21/21 01/21/21 01/21/21 08:01 08:15 08:30 Temperature Pulse Rate 94 H 90 94 H Pulse Rate [ Bilateral Throughout] Respiratory 18 18 18 Rate Respiratory Rate [Bilateral Throughout] Blood Pressure 111/65 112/72 120/71 O2 Sat by Pulse 100 100 100 Oximetry 01/21/21 01/21/21 01/21/21 08:38 08:41 08:45 Temperature Pulse Rate 102 H 95 H Pulse Rate [ 97 H Bilateral Throughout] Respiratory 18 Rate Respiratory 18 Rate [Bilateral Throughout] Blood Pressure 120/71 89/56 O2 Sat by Pulse 98 100 Oximetry 01/21/21 01/21/21 01/21/21 09:01 09:15 09:30 Temperature Pulse Rate 93 H 94 H 94 H Pulse Rate [ Bilateral Throughout] Respiratory 19 16 17 Rate Respiratory Rate [Bilateral Throughout] Blood Pressure 115/68 93/66 98/58 O2 Sat by Pulse 100 99 100 Oximetry 01/21/21 01/21/21 01/21/21 09:45 10:00 10:15 Temperature Pulse Rate 92 H 93 H 95 H Pulse Rate [ Bilateral Throughout] Respiratory 19 19 17 Rate Respiratory Rate [Bilateral Throughout] Blood Pressure 98/58 108/60 109/80 O2 Sat by Pulse 100 100 100 Oximetry 01/21/21 01/21/21 01/21/21 10:31 10:45 11:00 Temperature Pulse Rate 99 H 94 H 94 H Pulse Rate [ Bilateral Throughout] Respiratory 18 18 17 Rate Respiratory Rate [Bilateral Throughout] Blood Pressure 98/67 117/86 122/72 O2 Sat by Pulse 98 100 99 Oximetry 01/21/21 01/21/21 01/21/21 11:15 11:30 11:32 Temperature Pulse Rate 91 H 94 H Pulse Rate [ Bilateral Throughout] Respiratory 18 19 18 Rate Respiratory Rate [Bilateral Throughout] Blood Pressure 106/65 121/68 O2 Sat by Pulse 100 100 Oximetry 01/21/21 01/21/21 01/21/21 11:36 11:45 12:00 Temperature 98.0 F Pulse Rate 92 H 85 92 H Pulse Rate [ Bilateral Throughout] Respiratory 18 18 Rate Respiratory Rate [Bilateral Throughout] Blood Pressure 121/68 106/59 108/63 O2 Sat by Pulse 100 100 99 Oximetry 01/21/21 01/21/21 01/21/21 12:15 12:30 12:45 Temperature Pulse Rate 94 H 94 H 96 H Pulse Rate [ Bilateral Throughout] Respiratory 18 18 19 Rate Respiratory Rate [Bilateral Throughout] Blood Pressure 118/61 102/56 104/66 O2 Sat by Pulse 100 99 99 Oximetry 01/21/21 13:00 Temperature Pulse Rate 91 H Pulse Rate [ Bilateral Throughout] Respiratory 18 Rate Respiratory Rate [Bilateral Throughout] Blood Pressure 114/65 O2 Sat by Pulse 100 Oximetry - Labs CBC & Chem 7: 01/20/21 Unknown 01/20/21 Unknown Labs: Abnormal lab results 01/20/21 01/20/21 01/20/21 Range/Units 17:48 23:53 Unknown Seg Neuts % (Manual) 97.0 H (40.0-70.0) % Lymphocytes % (Manual) 3.0 L (13.4-35.0) % Seg Neutrophils # Man 16.9 H (1.8-7.7) K/mm3 Lymphocytes # (Manual) 0.5 L (1.2-5.4) K/mm3 ABG pH (7.320-7.450) POC ABG pO2 (83-108) mmHg ABG Hemoglobin (12.0-17.5) ABG Oxyhemoglobin (94-98) ABG Sodium (136.0-145.0) mmol/L ABG Potassium (3.40-4.50) mmol/L ABG Chloride (98-107) mmol/L ABG Glucose (65-95) mg/dL Carboxyhemoglobin (0.5-1.5) POC Glucose 187 H 185 H (70-105) mg/dL Arterial Blood Glucose (65-95) mg/dL 01/21/21 01/21/21 Range/Units 03:25 11:35 Seg Neuts % (Manual) (40.0-70.0) % Lymphocytes % (Manual) (13.4-35.0) % Seg Neutrophils # Man (1.8-7.7) K/mm3 Lymphocytes # (Manual) (1.2-5.4) K/mm3 ABG pH 7.302 L (7.320-7.450) POC ABG pO2 145.1 H (83-108) mmHg ABG Hemoglobin 11.6 L (12.0-17.5) ABG Oxyhemoglobin 98.3 H (94-98) ABG Sodium 146.5 H (136.0-145.0) mmol/L ABG Potassium 3.1 L (3.40-4.50) mmol/L ABG Chloride 123.0 H (98-107) mmol/L ABG Glucose 236 H (65-95) mg/dL Carboxyhemoglobin 0.1 L (0.5-1.5) POC Glucose 196 H (70-105) mg/dL Arterial Blood Glucose 236 H (65-95) mg/dL HEART Score - HEART Score Troponin: Troponin T 0.303 ng/mL (0.00-0.029) H* 01/18/21 09:43
[2021-01-21 23:16] LABS: Hematocrit 34.3 % (30.3-42.9); Hemoglobin 11.1 gm/dl (10.1-14.3); Mean Corpuscular HGB Conc 32 % (30-34); Mean Corpuscular Volume 97 fl (79-97); Red Blood Count 3.52 M/mm3 (3.65-5.03); Red Cell Distribution Width 16.6 % (13.2-15.2)
[2021-01-21 23:18] LABS: Platelet Count 96 K/mm3 (140-440)
[2021-01-22] MEDS: SODIUM CHLORIDE 0.9% 1000 ML 1,000 ML IV SCH ×3 (02:04→21:38)
--- NOTE | 2021-01-22 05:12 | XRay Report ---
XR chest 1V ap INDICATION / CLINICAL INFORMATION: follow up respiratory failure. COMPARISON: Radiograph from yesterday. FINDINGS: SUPPORT DEVICES: Unchanged. HEART / MEDIASTINUM: Unchanged. LUNGS / PLEURA: Lung parenchyma is not significantly changed with patchy left airspace disease. No p neumothorax. Large right effusion. ADDITIONAL FINDINGS: No significant additional findings. IMPRESSION: 1. No significant interval change. Signer Name: Orion Patricio MD Signed: 01/22/2021 5:07 AM Workstation Name: [id number]
--- NOTE | 2021-01-22 07:57 | XRay Report ---
CHEST - 1 VIEW 0421 hours INDICATION: follow up respiratory failure COMPARISON: Yesterday FINDINGS: Support devices: Stable support device positioning. Heart: Stable cardiomegaly. Lungs/pleura: Mild improvement in pulmonary venous congestion is demonstrated. Large right pleural e ffusion which compresses the right lower lung is unchanged. No pneumothorax. Additional findings: None. IMPRESSION: Minimal improvement. Signer Name: Dick Lacey Jr, MD Signed: 01/22/2021 7:52 AM Workstation Name: [id number]
[2021-01-22] MEDS: IPRATROPIUM/ALBUTEROL SULFATE 3 ML AMPUL.NEB IH SCH ×3 (08:23→20:36)
[2021-01-22] MEDS: FAMOTIDINE 20 MG TAB PO SCH ×2 (11:06→21:25)
[2021-01-22] MEDS: HEPARIN 5,000 UNIT/1 ML VIAL SUB-Q SCH ×2 (11:06→21:25)
[2021-01-22] MEDS: NORepinephrine/NS 4 MG-250 ML 4 MG/250 ML BAG IV SCH ×3 (11:07→21:38)
[2021-01-22] MEDS: fentaNYL 100 MCG/2 ML INJ IV PRN ×2 (11:07→13:10)
[2021-01-22] MEDS: SENNOSIDES ORAL LIQD 8.8 MG/5 ML ORAL LIQD FEEDTUBE SCH ×2 (11:07→21:25)
[2021-01-22] MEDS ORDERED: cefTRIAXone/NS 1 GM/50 ML 1 GM/50 ML BAG IV SCH (14:00)
--- NOTE | 2021-01-22 14:51 | Progress Note ---
Assessment and Plan 70 y/o female with altered mental state, acute respiratory failure and likely UTI 01/22/21: Will discuss with CM and hopefully family meeting can happen tomorrow 01/21/21: Patient most likely will require trach for weaning from vent. I have asked CM to set up family meeting as her overall prognosis is very poor. She was referred to hospice by oncology (Britany). Will continue supportive measures for now. Bolus fluids to help wean vasopressors for MAPS >65. Most likely her metabolic acidosis is from hyperchloremia, will need daily chemstries until this resolves. 1. Patient with lung cancer, appears to be stage 3 to 4. Not a candidate for surgery. Not sure who she has followed up with, if she has followed up with anyone. She is currently on 30% FiO2 and awake on Fent. Will discontinue sedation and plan to extubate. She does not need thora as the fluid that is present is secondary to atelecatsis from lung that is collapsed from endobronchial obstruction of entire right lower lobe. The remaining atelectasis seen this am maybe secondary to ET tube positioning. 2. Will have bipap available if needed 3. Suggest placing patient on rocephin for UTI, this is not pneumonia 4. Overall prognosis is very very guarded to poor. Will need language line to speak with and if my memory is correct, there is a daughter as well. CCT 31 minutes. Subjective Date of service: 01/22/21 Principal diagnosis: Acute respiratory failure Interval history: No acute events. Levophed is almost off. Objective Vital Signs - 12hr 01/22/21 01/22/21 01/22/21 03:00 03:15 03:30 Temperature Pulse Rate 95 H 94 H 95 H Pulse Rate [ Bilateral Throughout] Respiratory 18 19 18 Rate Respiratory Rate [Bilateral Throughout] Blood Pressure 111/65 108/59 116/61 O2 Sat by Pulse 100 100 100 Oximetry 01/22/21 01/22/21 01/22/21 03:45 04:00 04:15 Temperature 98.8 F Pulse Rate 93 H 98 H 95 H Pulse Rate [ Bilateral Throughout] Respiratory 20 20 20 Rate Respiratory Rate [Bilateral Throughout] Blood Pressure 111/63 111/63 103/54 O2 Sat by Pulse 100 95 100 Oximetry 01/22/21 01/22/21 01/22/21 04:30 04:45 05:00 Temperature Pulse Rate 94 H 92 H 102 H Pulse Rate [ Bilateral Throughout] Respiratory 18 17 17 Rate Respiratory Rate [Bilateral Throughout] Blood Pressure 92/53 93/56 110/57 O2 Sat by Pulse 98 98 99 Oximetry 01/22/21 01/22/21 01/22/21 05:15 05:22 05:30 Temperature Pulse Rate 93 H 94 H 95 H Pulse Rate [ Bilateral Throughout] Respiratory 19 19 Rate Respiratory Rate [Bilateral Throughout] Blood Pressure 81/55 81/55 93/61 O2 Sat by Pulse 98 100 98 Oximetry 01/22/21 01/22/21 01/22/21 05:46 06:00 06:15 Temperature Pulse Rate 99 H 96 H 97 H Pulse Rate [ Bilateral Throughout] Respiratory 21 20 21 Rate Respiratory Rate [Bilateral Throughout] Blood Pressure 99/53 104/58 101/56 O2 Sat by Pulse 97 98 98 Oximetry 01/22/21 01/22/21 01/22/21 06:30 06:45 07:00 Temperature Pulse Rate 98 H 98 H 100 H Pulse Rate [ Bilateral Throughout] Respiratory 17 19 19 Rate Respiratory Rate [Bilateral Throughout] Blood Pressure 97/54 108/54 108/54 O2 Sat by Pulse 98 100 99 Oximetry 01/22/21 01/22/21 01/22/21 07:15 07:30 07:46 Temperature Pulse Rate 97 H 102 H 101 H Pulse Rate [ Bilateral Throughout] Respiratory 21 18 14 Rate Respiratory Rate [Bilateral Throughout] Blood Pressure 108/57 91/33 108/57 O2 Sat by Pulse 99 97 97 Oximetry 01/22/21 01/22/21 01/22/21 07:57 08:00 08:15 Temperature Pulse Rate 101 H 100 H 98 H Pulse Rate [ Bilateral Throughout] Respiratory 21 17 Rate Respiratory Rate [Bilateral Throughout] Blood Pressure 108/57 89/55 106/51 O2 Sat by Pulse 97 98 99 Oximetry 01/22/21 01/22/21 01/22/21 08:30 08:37 08:45 Temperature Pulse Rate 95 H 96 H Pulse Rate [ 94 H Bilateral Throughout] Respiratory 20 19 Rate Respiratory 19 Rate [Bilateral Throughout] Blood Pressure 116/59 105/56 O2 Sat by Pulse 100 99 Oximetry 01/22/21 01/22/21 01/22/21 09:00 09:15 09:30 Temperature Pulse Rate 97 H 97 H 98 H Pulse Rate [ Bilateral Throughout] Respiratory 21 22 20 Rate Respiratory Rate [Bilateral Throughout] Blood Pressure 96/56 100/61 100/61 O2 Sat by Pulse 99 99 98 Oximetry 01/22/21 01/22/21 01/22/21 09:46 10:00 10:16 Temperature Pulse Rate 100 H 100 H 97 H Pulse Rate [ Bilateral Throughout] Respiratory 16 20 20 Rate Respiratory Rate [Bilateral Throughout] Blood Pressure 98/43 98/43 90/57 O2 Sat by Pulse 98 99 Oximetry 01/22/21 01/22/21 01/22/21 10:30 10:45 11:00 Temperature Pulse Rate 98 H 99 H 96 H Pulse Rate [ Bilateral Throughout] Respiratory 19 20 20 Rate Respiratory Rate [Bilateral Throughout] Blood Pressure 107/72 103/63 103/63 O2 Sat by Pulse 90 86 Oximetry 01/22/21 01/22/21 01/22/21 11:30 11:46 12:00 Temperature Pulse Rate 96 H 97 H 94 H Pulse Rate [ Bilateral Throughout] Respiratory 20 18 18 Rate Respiratory Rate [Bilateral Throughout] Blood Pressure 119/69 116/70 94/50 O2 Sat by Pulse 96 94 Oximetry 01/22/21 01/22/21 01/22/21 12:02 12:15 12:30 Temperature Pulse Rate 96 H 94 H 102 H Pulse Rate [ Bilateral Throughout] Respiratory 17 18 Rate Respiratory Rate [Bilateral Throughout] Blood Pressure 103/63 70/47 100/59 O2 Sat by Pulse 86 98 Oximetry 01/22/21 01/22/21 01/22/21 12:45 13:00 13:15 Temperature Pulse Rate 104 H 110 H 112 H Pulse Rate [ Bilateral Throughout] Respiratory 19 18 18 Rate Respiratory Rate [Bilateral Throughout] Blood Pressure 92/61 105/54 96/54 O2 Sat by Pulse 83 L Oximetry 01/22/21 01/22/21 01/22/21 13:30 13:45 14:00 Temperature Pulse Rate 112 H 111 H 110 H Pulse Rate [ Bilateral Throughout] Respiratory 18 18 18 Rate Respiratory Rate [Bilateral Throughout] Blood Pressure 98/50 94/60 85/58 O2 Sat by Pulse 98 98 97 Oximetry 01/22/21 01/22/21 01/22/21 14:15 14:24 14:30 Temperature Pulse Rate 109 H 106 H Pulse Rate [ 93 H Bilateral Throughout] Respiratory 18 16 Rate Respiratory 20 Rate [Bilateral Throughout] Blood Pressure 95/59 85/56 O2 Sat by Pulse 99 Oximetry Constitutional: other (sedated, intubated, critically ill) ENT: other (orally intubated) Neck: supple Effort: normal Ascultation: Right: diminished breath sounds, Left: clear Cardiovascular: other (tachy, RR; no mrg) Gastrointestinal: normoactive bowel sounds, soft, non-tender, non-distended Integumentary: normal Extremities: no cyanosis, no edema, pink and warm Neurologic: unable to assess Psychiatric: other (unable to assess) CBC and BMP: 01/21/21 23:02 01/20/21 Unknown ABG, PT/INR, D-dimer: ABG ABG pH 7.302 (7.320-7.450) L 01/21/21 03:25 POC ABG pCO2 32.1 mmHg (32.0-48.0) 01/21/21 03:25 POC ABG pO2 145.1 mmHg (83-108) H 01/21/21 03:25 POC ABG HCO3 15.5 01/21/21 03:25 ABG O2 Saturation 98.7 (0-100) 01/21/21 03:25 Abnormal lab findings: Abnormal Labs 01/18/21 01/18/21 01/18/21 09:43 09:43 09:43 WBC RBC MCV RDW Plt Count Lymph % (Auto) 11.3 L Seg Neutrophils % 81.1 H Seg Neuts % (Manual) Lymphocytes % (Manual) Seg Neutrophils # 8.4 H Seg Neutrophils # Man Lymphocytes # (Manual) ABG pH POC ABG pCO2 POC ABG pO2 ABG Hemoglobin ABG Oxyhemoglobin ABG Sodium ABG Potassium ABG Chloride ABG Glucose Carboxyhemoglobin Sodium Potassium Chloride Carbon Dioxide 33 H BUN 38 H Creatinine 1.8 H Glucose 139 H POC Glucose Hemoglobin A1c Lactic Acid Calcium AST 225 H ALT 100 H Alkaline Phosphatase 31 L Troponin T 0.303 H* Total Protein Albumin 3.2 L HDL Cholesterol 34 L Arterial Blood Glucose Arterial Blood Ionized Calcium Urine WBC (Auto) 01/18/21 01/18/21 01/18/21 10:42 12:52 17:40 WBC RBC MCV RDW Plt Count Lymph % (Auto) Seg Neutrophils % Seg Neuts % (Manual) Lymphocytes % (Manual) Seg Neutrophils # Seg Neutrophils # Man Lymphocytes # (Manual) ABG pH POC ABG pCO2 POC ABG pO2 180.1 H ABG Hemoglobin 11.8 L ABG Oxyhemoglobin 98.2 H ABG Sodium ABG Potassium 2.7 L ABG Chloride 113.0 H ABG Glucose 97 H Carboxyhemoglobin 0.4 L Sodium Potassium Chloride Carbon Dioxide BUN Creatinine Glucose POC Glucose Hemoglobin A1c 7.7 H Lactic Acid 2.50 H* Calcium AST ALT Alkaline Phosphatase Troponin T Total Protein Albumin HDL Cholesterol Arterial Blood Glucose 97 H Arterial Blood Ionized Calcium Urine WBC (Auto) 01/18/21 01/18/21 01/19/21 17:53 Unknown 03:05 WBC RBC MCV RDW Plt Count Lymph % (Auto) Seg Neutrophils % Seg Neuts % (Manual) Lymphocytes % (Manual) Seg Neutrophils # Seg Neutrophils # Man Lymphocytes # (Manual) ABG pH 7.288 L POC ABG pCO2 POC ABG pO2 ABG Hemoglobin ABG Oxyhemoglobin ABG Sodium ABG Potassium 3.3 L ABG Chloride 116.0 H ABG Glucose 174 H Carboxyhemoglobin Sodium Potassium Chloride Carbon Dioxide BUN Creatinine Glucose POC Glucose 148 H Hemoglobin A1c Lactic Acid Calcium AST ALT Alkaline Phosphatase Troponin T Total Protein Albumin HDL Cholesterol Arterial Blood Glucose 174 H Arterial Blood Ionized Calcium 4.4 L Urine WBC (Auto) > 182.0 H 01/19/21 01/19/21 01/20/21 04:00 10:23 08:16 WBC 18.9 H RBC MCV 98 H RDW 15.5 H Plt Count Lymph % (Auto) Seg Neutrophils % Seg Neuts % (Manual) 95.0 H Lymphocytes % (Manual) 1.0 L Seg Neutrophils # Seg Neutrophils # Man 18.0 H Lymphocytes # (Manual) 0.2 L ABG pH 7.303 L POC ABG pCO2 30.7 L POC ABG pO2 302.7 H ABG Hemoglobin 11.1 L ABG Oxyhemoglobin 99.0 H ABG Sodium 149.2 H ABG Potassium 3.3 L ABG Chloride 123.0 H ABG Glucose 175 H Carboxyhemoglobin 0.3 L Sodium 147 H Potassium 3.4 L Chloride 111.4 H Carbon Dioxide 21 L D BUN 30 H Creatinine Glucose 172 H POC Glucose Hemoglobin A1c Lactic Acid Calcium 7.9 L AST 216 H ALT 172 H Alkaline Phosphatase Troponin T Total Protein 5.4 L Albumin 2.7 L HDL Cholesterol Arterial Blood Glucose 175 H Arterial Blood Ionized Calcium Urine WBC (Auto) 01/20/21 01/20/21 01/20/21 17:48 23:53 Unknown WBC 17.4 H RBC 3.57 L MCV 107 H RDW 17.1 H Plt Count 84 L Lymph % (Auto) Seg Neutrophils % Seg Neuts % (Manual) 97.0 H Lymphocytes % (Manual) 3.0 L Seg Neutrophils # Seg Neutrophils # Man 16.9 H Lymphocytes # (Manual) 0.5 L ABG pH POC ABG pCO2 POC ABG pO2 ABG Hemoglobin ABG Oxyhemoglobin ABG Sodium ABG Potassium ABG Chloride ABG Glucose Carboxyhemoglobin Sodium Potassium Chloride Carbon Dioxide BUN Creatinine Glucose POC Glucose 187 H 185 H Hemoglobin A1c Lactic Acid Calcium AST ALT Alkaline Phosphatase Troponin T Total Protein Albumin HDL Cholesterol Arterial Blood Glucose Arterial Blood Ionized Calcium Urine WBC (Auto) 01/20/21 01/21/21 01/21/21 Unknown 03:25 11:35 WBC RBC MCV RDW Plt Count Lymph % (Auto) Seg Neutrophils % Seg Neuts % (Manual) Lymphocytes % (Manual) Seg Neutrophils # Seg Neutrophils # Man Lymphocytes # (Manual) ABG pH 7.302 L POC ABG pCO2 POC ABG pO2 145.1 H ABG Hemoglobin 11.6 L ABG Oxyhemoglobin 98.3 H ABG Sodium 146.5 H ABG Potassium 3.1 L ABG Chloride 123.0 H ABG Glucose 236 H Carboxyhemoglobin 0.1 L Sodium 147 H Potassium 3.3 L Chloride 119.4 H Carbon Dioxide 12 L D BUN 29 H Creatinine Glucose 157 H POC Glucose 196 H Hemoglobin A1c Lactic Acid Calcium 7.7 L AST 155 H ALT 201 H Alkaline Phosphatase Troponin T Total Protein 5.0 L Albumin 2.1 L HDL Cholesterol Arterial Blood Glucose 236 H Arterial Blood Ionized Calcium Urine WBC (Auto) 01/21/21 01/21/21 01/21/21 18:00 23:02 23:31 WBC 18.6 H RBC 3.52 L MCV RDW 16.6 H Plt Count 96 L Lymph % (Auto) Seg Neutrophils % Seg Neuts % (Manual) Lymphocytes % (Manual) Seg Neutrophils # Seg Neutrophils # Man Lymphocytes # (Manual) ABG pH POC ABG pCO2 POC ABG pO2 ABG Hemoglobin ABG Oxyhemoglobin ABG Sodium ABG Potassium ABG Chloride ABG Glucose Carboxyhemoglobin Sodium Potassium Chloride Carbon Dioxide BUN Creatinine Glucose POC Glucose 191 H 176 H Hemoglobin A1c Lactic Acid Calcium AST ALT Alkaline Phosphatase Troponin T Total Protein Albumin HDL Cholesterol Arterial Blood Glucose Arterial Blood Ionized Calcium Urine WBC (Auto) 01/22/21 01/22/21 05:20 12:38 WBC RBC MCV RDW Plt Count Lymph % (Auto) Seg Neutrophils % Seg Neuts % (Manual) Lymphocytes % (Manual) Seg Neutrophils # Seg Neutrophils # Man Lymphocytes # (Manual) ABG pH POC ABG pCO2 POC ABG pO2 ABG Hemoglobin ABG Oxyhemoglobin ABG Sodium ABG Potassium ABG Chloride ABG Glucose Carboxyhemoglobin Sodium Potassium Chloride Carbon Dioxide BUN Creatinine Glucose POC Glucose 186 H 219 H Hemoglobin A1c Lactic Acid Calcium AST ALT Alkaline Phosphatase Troponin T Total Protein Albumin HDL Cholesterol Arterial Blood Glucose Arterial Blood Ionized Calcium Urine WBC (Auto)
--- NOTE | 2021-01-22 16:56 | Progress Note ---
Assessment and Plan This is a 70-year-old female with a history of metastatic lung cancer presented to the hospital with altered mental status acute respiratory failure likely UTI --Acute respiratory failure with hypoxia Patient was intubated and extubation was attempted, patient became hypoxic and patient was reintubated Respiratory support as needed with mechanical ventilation -Pulmonary critical care following --Sepsis likely due to UTI Continue Rocephin, wait for culture Pulmonology states this is not pneumonia --Right lung lobe effusion secondary to lung cancer, possible nonsmall cell carcinoma Reviewed with critical care, bronchial washing shows cancer Spoke with family, not sure if patient had follow-up --Hypotension/septic shock on Norepinephrine --UTI, continue Rocephin, will follow culture --T2DM (type 2 diabetes mellitus) cont Insulin sliding scale --Hypernatremia, increase free water with tube feeding --Hypokalemia, replete and monitor --History of hypertension Hold antihypertensives for now as BP running low CODE STATUS: Full DVT prophylaxis: Heparin Disposition: Continue ICU care. The high probability of a clinically significant, sudden or life threatening deterioration of the system(s) required my full and direct attention, intervention and personal management. The aggregate critical care time was [35] minutes. This time is in addition to time spent performing reported procedures but includes the following: [x] Data Review and interpretation [x] Patient assessment and monitoring of vital signs [x] Documentation [x] Medication orders and management Daily clinical course: 01/19/2021: Patient seen and examined, intubated, sedated. Spoke with critical care pertaining to patient's past history, patient was diagnosed with malignancy, chest x-ray is reviewed, most likely mucous plugging in the right side of the lung. Most likely not pneumonia at this point. No family at the bedside. 01/20/2021: Patient continues to be intubated, family at the bedside, speaks via minis. Patient less agitated, blood pressure somewhat elevated. 01/21/21:patient remains on mechanical ventilation at [facility] setting. Change IV antibiotic to Rocephin, monitor electrolytes, repeat CBC BMP in the morning 01/22/21; Morning lab is pending. reordered. patient remains on ventilator with pr essor support. planned for family meeting tomorrow. Subjective Date of service: 01/22/21 Principal diagnosis: Acute respiratory failure Interval history: Patient seen and examined. Medical records and medication list reviewed. No acute event overnight noted by the RN. Patient remains intubated and on p ressor support Vitals noted, may be hypotensive Discussed plan of care at bedside with patient's RN. Plan for family meeting tomorrow Objective - Exam Narrative Exam: GENERAL: Elderly female lying on bed on mechanical ventilation HEENT: Normocephalic. Atraumatic. No conjunctival congestion or icterus. Patient has moist mucous membranes. NECK: Supple. Trachea midline. CHEST/LUNGS: Clear to auscultated bilaterally, breathing nonlabored. HEART/CARDIOVASCULAR: Regular in rate and rhythm. S1 and S2 positive. ABDOMEN: Abdomen is soft, nontender. Patient has normal bowel sounds. SKIN: There is no rash. Warm and dry. NEURO: Sedated MUSCULOSKELETAL: No joint effusion or tenderness. EXTRIMITY: No edema, no cyanosis or clubbing. PSYCH: Sedated and unable to assess. - Constitutional Vitals: Vital Signs - 12hr 01/22/21 01/22/21 01/22/21 05:00 05:15 05:22 Pulse Rate 102 H 93 H 94 H Pulse Rate [ Bilateral Throughout] Respiratory 17 19 Rate Respiratory Rate [Bilateral Throughout] Blood Pressure 110/57 81/55 81/55 O2 Sat by Pulse 99 98 100 Oximetry 01/22/21 01/22/21 01/22/21 05:30 05:46 06:00 Pulse Rate 95 H 99 H 96 H Pulse Rate [ Bilateral Throughout] Respiratory 19 21 20 Rate Respiratory Rate [Bilateral Throughout] Blood Pressure 93/61 99/53 104/58 O2 Sat by Pulse 98 97 98 Oximetry 01/22/21 01/22/21 01/22/21 06:15 06:30 06:45 Pulse Rate 97 H 98 H 98 H Pulse Rate [ Bilateral Throughout] Respiratory 21 17 19 Rate Respiratory Rate [Bilateral Throughout] Blood Pressure 101/56 97/54 108/54 O2 Sat by Pulse 98 98 100 Oximetry 01/22/21 01/22/21 01/22/21 07:00 07:15 07:30 Pulse Rate 100 H 97 H 102 H Pulse Rate [ Bilateral Throughout] Respiratory 19 21 18 Rate Respiratory Rate [Bilateral Throughout] Blood Pressure 108/54 108/57 91/33 O2 Sat by Pulse 99 99 97 Oximetry 01/22/21 01/22/21 01/22/21 07:46 07:57 08:00 Pulse Rate 101 H 101 H 100 H Pulse Rate [ Bilateral Throughout] Respiratory 14 21 Rate Respiratory Rate [Bilateral Throughout] Blood Pressure 108/57 108/57 89/55 O2 Sat by Pulse 97 97 98 Oximetry 01/22/21 01/22/21 01/22/21 08:15 08:30 08:37 Pulse Rate 98 H 95 H Pulse Rate [ 94 H Bilateral Throughout] Respiratory 17 20 Rate Respiratory 19 Rate [Bilateral Throughout] Blood Pressure 106/51 116/59 O2 Sat by Pulse 99 100 Oximetry 01/22/21 01/22/21 01/22/21 08:45 09:00 09:15 Pulse Rate 96 H 97 H 97 H Pulse Rate [ Bilateral Throughout] Respiratory 19 21 22 Rate Respiratory Rate [Bilateral Throughout] Blood Pressure 105/56 96/56 100/61 O2 Sat by Pulse 99 99 99 Oximetry 01/22/21 01/22/21 01/22/21 09:30 09:46 10:00 Pulse Rate 98 H 100 H 100 H Pulse Rate [ Bilateral Throughout] Respiratory 20 16 20 Rate Respiratory Rate [Bilateral Throughout] Blood Pressure 100/61 98/43 98/43 O2 Sat by Pulse 98 98 99 Oximetry 01/22/21 01/22/21 01/22/21 10:16 10:30 10:45 Pulse Rate 97 H 98 H 99 H Pulse Rate [ Bilateral Throughout] Respiratory 20 19 20 Rate Respiratory Rate [Bilateral Throughout] Blood Pressure 90/57 107/72 103/63 O2 Sat by Pulse 90 Oximetry 01/22/21 01/22/21 01/22/21 11:00 11:30 11:46 Pulse Rate 96 H 96 H 97 H Pulse Rate [ Bilateral Throughout] Respiratory 20 20 18 Rate Respiratory Rate [Bilateral Throughout] Blood Pressure 103/63 119/69 116/70 O2 Sat by Pulse 86 96 Oximetry 01/22/21 01/22/21 01/22/21 12:00 12:02 12:15 Pulse Rate 94 H 96 H 94 H Pulse Rate [ Bilateral Throughout] Respiratory 18 17 Rate Respiratory Rate [Bilateral Throughout] Blood Pressure 94/50 103/63 70/47 O2 Sat by Pulse 94 86 Oximetry 01/22/21 01/22/21 01/22/21 12:30 12:45 13:00 Pulse Rate 102 H 104 H 110 H Pulse Rate [ Bilateral Throughout] Respiratory 18 19 18 Rate Respiratory Rate [Bilateral Throughout] Blood Pressure 100/59 92/61 105/54 O2 Sat by Pulse 98 83 L Oximetry 01/22/21 01/22/21 01/22/21 13:15 13:30 13:45 Pulse Rate 112 H 112 H 111 H Pulse Rate [ Bilateral Throughout] Respiratory 18 18 18 Rate Respiratory Rate [Bilateral Throughout] Blood Pressure 96/54 98/50 94/60 O2 Sat by Pulse 98 98 Oximetry 01/22/21 01/22/21 01/22/21 14:00 14:15 14:24 Pulse Rate 110 H 109 H Pulse Rate [ 93 H Bilateral Throughout] Respiratory 18 18 Rate Respiratory 20 Rate [Bilateral Throughout] Blood Pressure 85/58 95/59 O2 Sat by Pulse 97 Oximetry 01/22/21 01/22/21 01/22/21 14:30 14:46 15:00 Pulse Rate 106 H 114 H 119 H Pulse Rate [ Bilateral Throughout] Respiratory 16 17 17 Rate Respiratory Rate [Bilateral Throughout] Blood Pressure 85/56 117/68 119/63 O2 Sat by Pulse 99 98 98 Oximetry 01/22/21 01/22/21 01/22/21 15:16 15:30 15:45 Pulse Rate 122 H 107 H 118 H Pulse Rate [ Bilateral Throughout] Respiratory 18 Rate Respiratory Rate [Bilateral Throughout] Blood Pressure 119/63 61/39 115/68 O2 Sat by Pulse 98 87 98 Oximetry 01/22/21 16:00 Pulse Rate 120 H Pulse Rate [ Bilateral Throughout] Respiratory 22 Rate Respiratory Rate [Bilateral Throughout] Blood Pressure 114/69 O2 Sat by Pulse 98 Oximetry - Labs CBC & Chem 7: 01/23/21 08:09 01/23/21 08:19 Labs: Abnormal lab results 01/21/21 01/21/21 01/21/21 Range/Units 18:00 23:02 23:31 WBC 18.6 H (4.5-11.0) K/mm3 RBC 3.52 L (3.65-5.03) M/mm3 RDW 16.6 H (13.2-15.2) % Plt Count 96 L (140-440) K/mm3 POC Glucose 191 H 176 H (70-105) mg/dL 01/22/21 01/22/21 Range/Units 05:20 12:38 WBC (4.5-11.0) K/mm3 RBC (3.65-5.03) M/mm3 RDW (13.2-15.2) % Plt Count (140-440) K/mm3 POC Glucose 186 H 219 H (70-105) mg/dL HEART Score - HEART Score Troponin: Troponin T 0.303 ng/mL (0.00-0.029) H* 01/18/21 09:43
[2021-01-22 23:00] LABS: Hematocrit 32.5 % (30.3-42.9); Hemoglobin 10.8 gm/dl (10.1-14.3); Mean Corpuscular HGB Conc 33 % (30-34); Mean Corpuscular Volume 95 fl (79-97); Red Blood Count 3.42 M/mm3 (3.65-5.03); Red Cell Distribution Width 16.2 % (13.2-15.2)
[2021-01-22 23:01] LABS: Platelet Count 95 K/mm3 (140-440)
[2021-01-22 23:20] LABS: Alanine Aminotransferase 81 units/L (7-56); Albumin 1.7 g/dL (3.9-5); BUN/Creatinine Ratio 31; Blood Urea Nitrogen 22 mg/dL (7-17); Calcium 7.8 mg/dL (8.4-10.2); Hemolysis Index 16
[2021-01-23] MEDS ORDERED: fentaNYL 100 MCG/2 ML INJ ONE (00:37)
[2021-01-23] MEDS: fentaNYL 100 MCG/2 ML INJ IV PRN (00:40)
[2021-01-23 01:09] LABS: RBC Morphology Normal; Total Cells Counted 100
[2021-01-23] MEDS: NORepinephrine/NS 4 MG-250 ML 4 MG/250 ML BAG IV SCH ×2 (02:45→08:28)
--- NOTE | 2021-01-23 03:50 | XRay Report ---
XR chest 1V ap INDICATION / CLINICAL INFORMATION: follow up respiratory failure. COMPARISON: 01/22/2001 FINDINGS: SUPPORT DEVICES: Unchanged. HEART / MEDIASTINUM: Prominent but unchanged. LUNGS / PLEURA: Lung parenchyma is not significantly changed. No pneumothorax. Unchanged right effus ion. ADDITIONAL FINDINGS: No significant additional findings. IMPRESSION: 1. No significant interval change. Signer Name: Orion Patricio MD Signed: 01/23/2021 3:46 AM Workstation Name: [id number]
[2021-01-23] MEDS: IPRATROPIUM/ALBUTEROL SULFATE 3 ML AMPUL.NEB IH SCH (08:10)
[2021-01-23] MEDS: SODIUM CHLORIDE 0.9% 1000 ML 1,000 ML IV SCH (08:28)
[2021-01-23 09:18] LABS: Hematocrit 35.2 % (30.3-42.9); Hemoglobin 11.3 gm/dl (10.1-14.3); Mean Corpuscular HGB Conc 32 % (30-34); Mean Corpuscular Volume 98 fl (79-97); Red Blood Count 3.61 M/mm3 (3.65-5.03)
[2021-01-23 09:25] LABS: Blood Urea Nitrogen 23 mg/dL (7-17); Hemolysis Index 23
[2021-01-23 09:35] LABS: Platelet Count 88 K/mm3 (140-440)
[2021-01-23 09:53] LABS: BUN/Creatinine Ratio 33
[2021-01-23 10:11] LABS: Band Neutrophils # (Manual) 1.7 K/mm3; Total Cells Counted 100
[2021-01-23 10:18] LABS: Burr Cells Rare; Platelet Estimate Consistent w Auto
[2021-01-23 10:19] LABS: Toxic Granulation Few
[2021-01-23] MEDS: SENNOSIDES ORAL LIQD 8.8 MG/5 ML ORAL LIQD FEEDTUBE SCH (10:36)
[2021-01-23] MEDS: FAMOTIDINE 20 MG TAB PO SCH (10:36)
[2021-01-23] MEDS: HEPARIN 5,000 UNIT/1 ML VIAL SUB-Q SCH (10:36)
--- NOTE | 2021-01-23 10:51 | Electrocardiograph Report ---
[facility] Test Date: 2021-01-18 Test Time: 11:51:50 Pat Name: GLENROY SHAH Department: Room: A259 1 Gender: F [employer]: NURSE : 1950 Requested By: LIANNE SÁNCHEZ Order Number: [id number] Reading MD: Darrell Landis Measurements Intervals [place] Rate: 77 P: 41 ID: [id number] QRS: 87 QRSD: 75 T: -14 QT: 393 QTc: 445 Interpretive Statements Sinus rhythm Probable left atrial enlargement Low voltage, precordial leads No previous ECG available for comparison Electronically Signed On 01-23-2021 10:51:17 EDT by Darrell Landis
[2021-01-23] MEDS ORDERED: LORazepam 2 MG/ML VIAL IV PRN (12:09)
[2021-01-23] MEDS ORDERED: GLYCOPYRROLATE 0.4 MG/2 ML INJ IV PRN (12:09)
[2021-01-23] MEDS ORDERED: ONDANSETRON 4 MG/2 ML INJ IV PRN (12:09)
[2021-01-23] MEDS ORDERED: diphenhydrAMINE 50 MG/ML VIAL IV PRN (12:09)
[2021-01-23] MEDS ORDERED: MORPHINE 2 MG/1 ML INJ IV PRN (12:09)
--- NOTE | 2021-01-23 12:13 | Event Note ---
Date: 01/23/21 Phone conversation with and family friend who speaks very good czech and is a pharmacist. wishes to make his comfortable and withdraw life support which is very reasonable given her underlying cancer diagnosis. Will treat with morphine and ativan prior to extubation and will make sure these meds are readily available during transition. has arrived and will be present at bedside.
--- NOTE | 2021-01-23 12:18 | Progress Note ---
Assessment and Plan 70 y/o female with altered mental state, acute respiratory failure and likely UTI 01/23/21: No acute events. Comfort measures and withdrawl of life support today. Given her quick decline post intubation a few days ago, prognosis is estimated at 24 hours or less. This was discussed with the via the phone. 01/22/21: Will discuss with CM and hopefully family meeting can happen tomorrow 01/21/21: Patient most likely will require trach for weaning from vent. I have asked CM to set up family meeting as her overall prognosis is very poor. She was referred to hospice by oncology (Britany). Will continue supportive measures for now. Bolus fluids to help wean vasopressors for MAPS >65. Most likely her metabolic acidosis is from hyperchloremia, will need daily chemstries until this resolves. 1. Patient with lung cancer, appears to be stage 3 to 4. Not a candidate for surgery. Not sure who she has followed up with, if she has followed up with anyone. She is currently on 30% FiO2 and awake on Fent. Will discontinue sedation and plan to extubate. She does not need thora as the fluid that is present is secondary to atelecatsis from lung that is collapsed from endobronchial obstruction of entire right lower lobe. The remaining atelectasis seen this am maybe secondary to ET tube positioning. 2. Will have bipap available if needed 3. Suggest placing patient on rocephin for UTI, this is not pneumonia 4. Overall prognosis is very very guarded to poor. Will need language line to speak with and if my memory is correct, there is a daughter as well. CCT 31 minutes. Subjective Date of service: 01/23/21 Principal diagnosis: Acute respiratory failure Interval history: No acute events. Family meeting with over the phone earlier this morning. has elected to do comfort measures. Objective Vital Signs - 12hr 01/23/21 01/23/21 01/23/21 00:15 00:17 00:30 Temperature Pulse Rate 116 H 116 H 124 H Pulse Rate [ Bilateral Throughout] Respiratory 20 19 Rate Respiratory Rate [Bilateral Throughout] Blood Pressure 93/59 93/59 104/62 O2 Sat by Pulse 99 98 96 Oximetry 01/23/21 01/23/21 01/23/21 00:45 01:00 01:15 Temperature Pulse Rate 120 H 117 H 114 H Pulse Rate [ Bilateral Throughout] Respiratory 19 19 17 Rate Respiratory Rate [Bilateral Throughout] Blood Pressure 98/57 91/56 95/56 O2 Sat by Pulse 98 Oximetry 01/23/21 01/23/21 01/23/21 01:30 01:45 02:00 Temperature Pulse Rate 113 H 113 H 113 H Pulse Rate [ Bilateral Throughout] Respiratory 19 15 18 Rate Respiratory Rate [Bilateral Throughout] Blood Pressure 88/59 98/48 99/58 O2 Sat by Pulse 99 98 Oximetry 01/23/21 01/23/21 01/23/21 02:15 02:30 02:45 Temperature Pulse Rate 112 H 112 H 110 H Pulse Rate [ Bilateral Throughout] Respiratory 18 16 18 Rate Respiratory Rate [Bilateral Throughout] Blood Pressure 101/60 103/62 87/53 O2 Sat by Pulse 91 99 Oximetry 01/23/21 01/23/21 01/23/21 03:00 03:15 03:30 Temperature Pulse Rate 116 H 113 H 112 H Pulse Rate [ Bilateral Throughout] Respiratory 17 18 16 Rate Respiratory Rate [Bilateral Throughout] Blood Pressure 87/53 100/58 92/58 O2 Sat by Pulse 93 95 Oximetry 01/23/21 01/23/21 01/23/21 03:36 03:45 04:00 Temperature 99.6 F Pulse Rate 109 H 110 H Pulse Rate [ Bilateral Throughout] Respiratory 18 20 Rate Respiratory Rate [Bilateral Throughout] Blood Pressure 91/62 92/61 O2 Sat by Pulse 94 95 Oximetry 01/23/21 01/23/21 01/23/21 04:04 04:15 04:30 Temperature Pulse Rate 110 H 112 H 108 H Pulse Rate [ Bilateral Throughout] Respiratory 19 18 Rate Respiratory Rate [Bilateral Throughout] Blood Pressure 92/61 102/64 108/63 O2 Sat by Pulse 95 94 Oximetry 01/23/21 01/23/21 01/23/21 04:45 05:00 05:15 Temperature Pulse Rate 110 H 110 H 109 H Pulse Rate [ Bilateral Throughout] Respiratory 20 14 17 Rate Respiratory Rate [Bilateral Throughout] Blood Pressure 104/64 105/72 100/63 O2 Sat by Pulse 84 Oximetry 01/23/21 01/23/21 01/23/21 05:31 05:45 06:00 Temperature Pulse Rate 109 H 109 H 107 H Pulse Rate [ Bilateral Throughout] Respiratory 18 16 18 Rate Respiratory Rate [Bilateral Throughout] Blood Pressure 105/60 103/67 99/63 O2 Sat by Pulse 97 96 96 Oximetry 01/23/21 01/23/21 01/23/21 06:15 06:30 06:45 Temperature Pulse Rate 107 H 109 H 107 H Pulse Rate [ Bilateral Throughout] Respiratory 17 18 17 Rate Respiratory Rate [Bilateral Throughout] Blood Pressure 94/61 96/58 95/64 O2 Sat by Pulse 98 97 Oximetry 01/23/21 01/23/21 01/23/21 07:00 07:15 07:30 Temperature Pulse Rate 109 H 109 H 109 H Pulse Rate [ Bilateral Throughout] Respiratory 17 18 18 Rate Respiratory Rate [Bilateral Throughout] Blood Pressure 110/66 104/66 112/57 O2 Sat by Pulse 98 99 Oximetry 01/23/21 01/23/21 01/23/21 07:45 07:57 08:00 Temperature 99.2 F Pulse Rate 109 H 109 H 109 H Pulse Rate [ Bilateral Throughout] Respiratory 18 18 Rate Respiratory Rate [Bilateral Throughout] Blood Pressure 113/65 106/61 106/61 O2 Sat by Pulse 92 97 97 Oximetry 01/23/21 01/23/21 01/23/21 08:15 08:30 08:40 Temperature Pulse Rate 110 H 112 H Pulse Rate [ 107 H Bilateral Throughout] Respiratory 15 17 Rate Respiratory 18 Rate [Bilateral Throughout] Blood Pressure 106/66 105/63 O2 Sat by Pulse 95 Oximetry 01/23/21 01/23/21 01/23/21 08:46 09:00 09:15 Temperature Pulse Rate 118 H 114 H 113 H Pulse Rate [ Bilateral Throughout] Respiratory 18 16 16 Rate Respiratory Rate [Bilateral Throughout] Blood Pressure 105/63 95/57 100/59 O2 Sat by Pulse 94 Oximetry 01/23/21 01/23/21 01/23/21 09:30 09:45 11:47 Temperature Pulse Rate 112 H 112 H 115 H Pulse Rate [ Bilateral Throughout] Respiratory 18 18 Rate Respiratory Rate [Bilateral Throughout] Blood Pressure 102/59 101/59 102/53 O2 Sat by Pulse 97 97 Oximetry Constitutional: other (sedated, intubated, critically ill) ENT: other (orally intubated) Neck: supple Effort: normal Ascultation: Right: diminished breath sounds, Left: clear Cardiovascular: other (tachy, RR; no mrg) Gastrointestinal: normoactive bowel sounds, soft, non-tender, non-distended Integumentary: normal Extremities: no cyanosis, no edema, pink and warm Neurologic: unable to assess Psychiatric: other (unable to assess) CBC and BMP: 01/23/21 08:09 01/23/21 08:19 ABG, PT/INR, D-dimer: ABG ABG pH 7.290 (7.320-7.450) L 01/23/21 03:18 POC ABG pCO2 36.5 mmHg (32.0-48.0) 01/23/21 03:18 POC ABG pO2 78.2 mmHg (83-108) L 01/23/21 03:18 POC ABG HCO3 17.2 01/23/21 03:18 ABG O2 Saturation 94.5 (0-100) 01/23/21 03:18 Abnormal lab findings: Abnormal Labs 01/18/21 01/18/21 01/18/21 09:43 09:43 09:43 WBC RBC MCV RDW Plt Count Lymph % (Auto) 11.3 L Seg Neutrophils % 81.1 H Seg Neuts % (Manual) Lymphocytes % (Manual) Seg Neutrophils # 8.4 H Seg Neutrophils # Man Lymphocytes # (Manual) Monocytes # (Manual) Eosinophils # (Manual) ABG pH POC ABG pCO2 POC ABG pO2 ABG Hemoglobin ABG Oxyhemoglobin ABG Sodium ABG Potassium ABG Chloride ABG Glucose Carboxyhemoglobin Sodium Potassium Chloride Carbon Dioxide 33 H BUN 38 H Creatinine 1.8 H Glucose 139 H POC Glucose Hemoglobin A1c Lactic Acid Calcium AST 225 H ALT 100 H Alkaline Phosphatase 31 L Troponin T 0.303 H* Total Protein Albumin 3.2 L Triglycerides HDL Cholesterol 34 L Arterial Blood Glucose Arterial Blood Ionized Calcium Urine WBC (Auto) 01/18/21 01/18/21 01/18/21 10:42 12:52 17:40 WBC RBC MCV RDW Plt Count Lymph % (Auto) Seg Neutrophils % Seg Neuts % (Manual) Lymphocytes % (Manual) Seg Neutrophils # Seg Neutrophils # Man Lymphocytes # (Manual) Monocytes # (Manual) Eosinophils # (Manual) ABG pH POC ABG pCO2 POC ABG pO2 180.1 H ABG Hemoglobin 11.8 L ABG Oxyhemoglobin 98.2 H ABG Sodium ABG Potassium 2.7 L ABG Chloride 113.0 H ABG Glucose 97 H Carboxyhemoglobin 0.4 L Sodium Potassium Chloride Carbon Dioxide BUN Creatinine Glucose POC Glucose Hemoglobin A1c 7.7 H Lactic Acid 2.50 H* Calcium AST ALT Alkaline Phosphatase Troponin T Total Protein Albumin Triglycerides HDL Cholesterol Arterial Blood Glucose 97 H Arterial Blood Ionized Calcium Urine WBC (Auto) 01/18/21 01/18/21 01/19/21 17:53 Unknown 03:05 WBC RBC MCV RDW Plt Count Lymph % (Auto) Seg Neutrophils % Seg Neuts % (Manual) Lymphocytes % (Manual) Seg Neutrophils # Seg Neutrophils # Man Lymphocytes # (Manual) Monocytes # (Manual) Eosinophils # (Manual) ABG pH 7.288 L POC ABG pCO2 POC ABG pO2 ABG Hemoglobin ABG Oxyhemoglobin ABG Sodium ABG Potassium 3.3 L ABG Chloride 116.0 H ABG Glucose 174 H Carboxyhemoglobin Sodium Potassium Chloride Carbon Dioxide BUN Creatinine Glucose POC Glucose 148 H Hemoglobin A1c Lactic Acid Calcium AST ALT Alkaline Phosphatase Troponin T Total Protein Albumin Triglycerides HDL Cholesterol Arterial Blood Glucose 174 H Arterial Blood Ionized Calcium 4.4 L Urine WBC (Auto) > 182.0 H 01/19/21 01/19/21 01/20/21 04:00 10:23 08:16 WBC 18.9 H RBC MCV 98 H RDW 15.5 H Plt Count Lymph % (Auto) Seg Neutrophils % Seg Neuts % (Manual) 95.0 H Lymphocytes % (Manual) 1.0 L Seg Neutrophils # Seg Neutrophils # Man 18.0 H Lymphocytes # (Manual) 0.2 L Monocytes # (Manual) Eosinophils # (Manual) ABG pH 7.303 L POC ABG pCO2 30.7 L POC ABG pO2 302.7 H ABG Hemoglobin 11.1 L ABG Oxyhemoglobin 99.0 H ABG Sodium 149.2 H ABG Potassium 3.3 L ABG Chloride 123.0 H ABG Glucose 175 H Carboxyhemoglobin 0.3 L Sodium 147 H Potassium 3.4 L Chloride 111.4 H Carbon Dioxide 21 L D BUN 30 H Creatinine Glucose 172 H POC Glucose Hemoglobin A1c Lactic Acid Calcium 7.9 L AST 216 H ALT 172 H Alkaline Phosphatase Troponin T Total Protein 5.4 L Albumin 2.7 L Triglycerides HDL Cholesterol Arterial Blood Glucose 175 H Arterial Blood Ionized Calcium Urine WBC (Auto) 01/20/21 01/20/21 01/20/21 17:48 23:53 Unknown WBC 17.4 H RBC 3.57 L MCV 107 H RDW 17.1 H Plt Count 84 L Lymph % (Auto) Seg Neutrophils % Seg Neuts % (Manual) 97.0 H Lymphocytes % (Manual) 3.0 L Seg Neutrophils # Seg Neutrophils # Man 16.9 H Lymphocytes # (Manual) 0.5 L Monocytes # (Manual) Eosinophils # (Manual) ABG pH POC ABG pCO2 POC ABG pO2 ABG Hemoglobin ABG Oxyhemoglobin ABG Sodium ABG Potassium ABG Chloride ABG Glucose Carboxyhemoglobin Sodium Potassium Chloride Carbon Dioxide BUN Creatinine Glucose POC Glucose 187 H 185 H Hemoglobin A1c Lactic Acid Calcium AST ALT Alkaline Phosphatase Troponin T Total Protein Albumin Triglycerides HDL Cholesterol Arterial Blood Glucose Arterial Blood Ionized Calcium Urine WBC (Auto) 01/20/21 01/21/21 01/21/21 Unknown 03:25 11:35 WBC RBC MCV RDW Plt Count Lymph % (Auto) Seg Neutrophils % Seg Neuts % (Manual) Lymphocytes % (Manual) Seg Neutrophils # Seg Neutrophils # Man Lymphocytes # (Manual) Monocytes # (Manual) Eosinophils # (Manual) ABG pH 7.302 L POC ABG pCO2 POC ABG pO2 145.1 H ABG Hemoglobin 11.6 L ABG Oxyhemoglobin 98.3 H ABG Sodium 146.5 H ABG Potassium 3.1 L ABG Chloride 123.0 H ABG Glucose 236 H Carboxyhemoglobin 0.1 L Sodium 147 H Potassium 3.3 L Chloride 119.4 H Carbon Dioxide 12 L D BUN 29 H Creatinine Glucose 157 H POC Glucose 196 H Hemoglobin A1c Lactic Acid Calcium 7.7 L AST 155 H ALT 201 H Alkaline Phosphatase Troponin T Total Protein 5.0 L Albumin 2.1 L Triglycerides HDL Cholesterol Arterial Blood Glucose 236 H Arterial Blood Ionized Calcium Urine WBC (Auto) 01/21/21 01/21/21 01/21/21 18:00 23:02 23:31 WBC 18.6 H RBC 3.52 L MCV RDW 16.6 H Plt Count 96 L Lymph % (Auto) Seg Neutrophils % Seg Neuts % (Manual) Lymphocytes % (Manual) Seg Neutrophils # Seg Neutrophils # Man Lymphocytes # (Manual) Monocytes # (Manual) Eosinophils # (Manual) ABG pH POC ABG pCO2 POC ABG pO2 ABG Hemoglobin ABG Oxyhemoglobin ABG Sodium ABG Potassium ABG Chloride ABG Glucose Carboxyhemoglobin Sodium Potassium Chloride Carbon Dioxide BUN Creatinine Glucose POC Glucose 191 H 176 H Hemoglobin A1c Lactic Acid Calcium AST ALT Alkaline Phosphatase Troponin T Total Protein Albumin Triglycerides HDL Cholesterol Arterial Blood Glucose Arterial Blood Ionized Calcium Urine WBC (Auto) 01/22/21 01/22/21 01/22/21 05:20 12:38 22:46 WBC 17.4 H RBC 3.42 L MCV RDW 16.2 H Plt Count 95 L Lymph % (Auto) Seg Neutrophils % Seg Neuts % (Manual) 91.0 H Lymphocytes % (Manual) 4.0 L Seg Neutrophils # Seg Neutrophils # Man 15.8 H Lymphocytes # (Manual) 0.7 L Monocytes # (Manual) 0.9 H Eosinophils # (Manual) ABG pH POC ABG pCO2 POC ABG pO2 ABG Hemoglobin ABG Oxyhemoglobin ABG Sodium ABG Potassium ABG Chloride ABG Glucose Carboxyhemoglobin Sodium Potassium Chloride Carbon Dioxide BUN Creatinine Glucose POC Glucose 186 H 219 H Hemoglobin A1c Lactic Acid Calcium AST ALT Alkaline Phosphatase Troponin T Total Protein Albumin Triglycerides HDL Cholesterol Arterial Blood Glucose Arterial Blood Ionized Calcium Urine WBC (Auto) 01/22/21 01/22/21 01/22/21 22:46 22:46 23:22 WBC RBC MCV RDW Plt Count Lymph % (Auto) Seg Neutrophils % Seg Neuts % (Manual) Lymphocytes % (Manual) Seg Neutrophils # Seg Neutrophils # Man Lymphocytes # (Manual) Monocytes # (Manual) Eosinophils # (Manual) ABG pH POC ABG pCO2 POC ABG pO2 ABG Hemoglobin ABG Oxyhemoglobin ABG Sodium ABG Potassium ABG Chloride ABG Glucose Carboxyhemoglobin Sodium Potassium 3.3 L Chloride 117.8 H Carbon Dioxide 16 L BUN 22 H Creatinine Glucose 320 H POC Glucose 301 H Hemoglobin A1c Lactic Acid Calcium 7.8 L AST ALT 81 H Alkaline Phosphatase Troponin T Total Protein 4.8 L Albumin 1.7 L Triglycerides 238 H HDL Cholesterol Arterial Blood Glucose Arterial Blood Ionized Calcium Urine WBC (Auto) 01/23/21 01/23/21 01/23/21 03:18 05:41 08:09 WBC 20.8 H RBC 3.61 L MCV 98 H RDW 17.0 H Plt Count 88 L Lymph % (Auto) Seg Neutrophils % Seg Neuts % (Manual) 82.0 H Lymphocytes % (Manual) 3.0 L Seg Neutrophils # Seg Neutrophils # Man 17.1 H Lymphocytes # (Manual) 0.6 L Monocytes # (Manual) Eosinophils # (Manual) 0.6 H ABG pH 7.290 L POC ABG pCO2 POC ABG pO2 78.2 L ABG Hemoglobin 11.0 L ABG Oxyhemoglobin 93.4 L ABG Sodium ABG Potassium 3.3 L ABG Chloride 118.0 H ABG Glucose 344 H Carboxyhemoglobin Sodium Potassium Chloride Carbon Dioxide BUN Creatinine Glucose POC Glucose 314 H Hemoglobin A1c Lactic Acid Calcium AST ALT Alkaline Phosphatase Troponin T Total Protein Albumin Triglycerides HDL Cholesterol Arterial Blood Glucose 344 H Arterial Blood Ionized Calcium Urine WBC (Auto) 01/23/21 08:19 WBC RBC MCV RDW Plt Count Lymph % (Auto) Seg Neutrophils % Seg Neuts % (Manual) Lymphocytes % (Manual) Seg Neutrophils # Seg Neutrophils # Man Lymphocytes # (Manual) Monocytes # (Manual) Eosinophils # (Manual) ABG pH POC ABG pCO2 POC ABG pO2 ABG Hemoglobin ABG Oxyhemoglobin ABG Sodium ABG Potassium ABG Chloride ABG Glucose Carboxyhemoglobin Sodium 146 H Potassium 3.5 L Chloride 116.6 H Carbon Dioxide 18 L BUN 23 H Creatinine Glucose 338 H POC Glucose Hemoglobin A1c Lactic Acid Calcium 8.0 L AST ALT Alkaline Phosphatase Troponin T Total Protein Albumin Triglycerides HDL Cholesterol Arterial Blood Glucose Arterial Blood Ionized Calcium Urine WBC (Auto)
[2021-01-23 13:04] VITALS: BP 40/21
--- NOTE | 2021-01-23 13:04 | Event Note ---
Date: 01/23/21 Patient at 12:54. No respirations, no heart beat and asystole on monitor.
--- NOTE | 2021-01-23 16:10 | Death Summary ---
Summary - Providers Date of service: 01/23/21 Consults: 01/18/21 10:25 Consult to Dietitian/Nutrition [CONS] Routine Physician Instructions: Reason For Exam: Reason for Consult: Write/Manage Tube Feeding 01/18/21 13:50 Consult to Physician [CONS] Routine Comment: Consulting Provider: ELZA MORALES Physician Instructions: Reason For Exam: ICU Management 01/21/21 10:46 Consult to PICC Line RN [CONS] Urgent Reason For Exam: critical medications Type Line:: PICC Attending: FARIHA PEACE - summary Date of admission: 01/18/21 14:36 Date of : 01/23/21 Significant findings: This is a 70-year-old female with a history of metastatic lung cancer presented to the hospital with altered mental status acute respiratory failure likely UTI. Patient was intubated in the ER, initiated on empiric antibiotic and admitted to intensive care unit. Daily clinical course: 01/19/2021: Patient seen and examined, intubated, sedated. Spoke with critical care pertaining to patient's past history, patient was diagnosed with malignancy, chest x-ray is reviewed, most likely mucous plugging in the right side of the lung. Most likely not pneumonia at this point. No family at the bedside. 01/20/2021: Patient continues to be intubated, family at the bedside, speaks via minis. Patient less agitated, blood pressure somewhat elevated. 01/21/21:patient remains on mechanical ventilation at [facility] setting. Change IV antibiotic to Rocephin, monitor electrolytes, repeat CBC BMP in the morning 01/22/21; Morning lab is pending. reordered. patient remains on ventilator with pressor support. planned for family meeting tomorrow. 01/23/21: Family decided to withdraw care and signed the consent form. Patient was extubated and ordered for as needed morphine and Ativan prior to extubation. Patient at 12:54. No respirations, no heart beat and asystole on monitor. Patient was pronounced by Dr. Morales. Family notified. Cause of : Cardiorespiratory arrest due to acute hypoxic respiratory failure due to metastatic lung cancer, severe hypotension with septic shock, electrolyte imbal ance, urinary tract infection.
== END 2021-01-23 12:54 | DRG 871 ==
LOC: ED 09:16 → CC1 14:36
PROVIDERS: ADMIT Internal Medicine; ATTEND Internal Medicine
PROC: 0BH17EZ Insertion of Endotracheal Airway into Trachea, Via Natural or Artificial Opening (ICD-10-PCS; principal; 2021-01-18)
PROC: 5A1945Z Respiratory Ventilation, 24-96 Consecutive Hours (ICD-10-PCS; 2021-01-18)
PROC: 06HY33Z Insertion of Infusion Device into Lower Vein, Percutaneous Approach (ICD-10-PCS; 2021-01-18)
PROC: 5A1935Z Respiratory Ventilation, Less than 24 Consecutive Hours (ICD-10-PCS; 2021-01-19)
PROC: 0BH17EZ Insertion of Endotracheal Airway into Trachea, Via Natural or Artificial Opening (ICD-10-PCS; 2021-01-19)
PROC: 5A1935Z Respiratory Ventilation, Less than 24 Consecutive Hours (ICD-10-PCS; 2021-01-22)
PROC: 0BH17EZ Insertion of Endotracheal Airway into Trachea, Via Natural or Artificial Opening (ICD-10-PCS; 2021-01-22)
DX: A41.9 Sepsis, unspecified organism (principal); J69.0 Pneumonitis due to inhalation of food and vomit; J96.01 Acute respiratory failure with hypoxia; R65.21 Severe sepsis with septic shock; J90 Pleural effusion, not elsewhere classified; N17.9 Acute kidney failure, unspecified; C34.90 Malignant neoplasm of unspecified part of unspecified bronchus or lung; E22.2 Syndrome of inappropriate secretion of antidiuretic hormone; N30.00 Acute cystitis without hematuria; Z20.822 Contact with and (suspected) exposure to COVID-19; E11.9 Type 2 diabetes mellitus without complications; E87.6 Hypokalemia; I46.9 Cardiac arrest, cause unspecified; I95.9 Hypotension, unspecified; D09.9 Carcinoma in situ, unspecified; R79.89 Other specified abnormal findings of blood chemistry; Z86.79 Personal history of other diseases of the circulatory system; Z79.899 Other long term (current) drug therapy; Z79.891 Long term (current) use of opiate analgesic; Z79.01 Long term (current) use of anticoagulants
CPT/HCPCS: 31500; 36415; 36600; 70450; 71045; 74018; 80048; 80053; 80061; 81001; 82140; 82805; 82962; 83036; 84478; 84484; 85007; 85025; 85027; 85730; 87040; 87070; 87205; 93005; 94002; 94003; 94640; 96361; 96374; 96375; G0378; J0692; J0696; J1170; J1644; J2060; J2250; J2270; J2704; J3010; J3370; J7030; J7050; J7120; U0003